=== PATIENT | male | born 1990 | race Caucasian/White ===

== ENCOUNTER 2018-05-25 14:26 | Emergency (ER) | payer SELFPAY ==
[2018-05-25 14:27] VITALS: BP 149/103; PULSE 116; RESP 16; TEMP 36.2; O2SAT 99; BMI 21.2
--- NOTE | 2018-05-25 15:04 | ED.DCSUM_ITS ---
- ER Visit Summary Date of Service: 05/25/18 Chief Complaint: Accidental overdose History of Present Illness: The patient is a 27 M presents to the emergency department after an accidental overdose. Patient states that he abuses ketamine. He states that he was snorting today and thinks it may been laced w ith heroin or fentanyl. He became unresponsive. His brother actually gave him intranasal Narcan. By the time squad arrived, he was breathing on his own and was awake. He denies being suicidal or homicidal. He said no thoughts of self- harm. He states that he does use occasionally, but has no interest in detox. Denies any other coingestion. He is otherwise healthy. Physical Examination: Vital signs reviewed General: Well-nourished, well-developed Head: Normocephalic, atraumatic Eyes: Pupils equal and reactive, extraocular muscles intact Neck, supple, no lymphadenopathy Heart: Regular rate and rhythm Respiratory: No distress, clear bilaterally Abdomen: Soft, nontender, nondistended, no peritoneal signs Back: Nontender Extremities: Nontender, no edema, no cords Skin: Normal color no rash Neuro: Alert and oriented, no focal or lateralizing deficits Test Results: [] Emergency Department Course and Treatment: The patient presents after accidental overdose. He did require intranasal Narcan prior to arrival. Patient was observed. He was mildly tachycardic, but had no hypoxia. He had no tachypnea. He denies any other symptoms. He is not suicidal or homicidal. He has no interest in detox at this time. Patient will be given outpatient resources for detox at the ends of changing his mind. He was instructed on concerning symptoms and reasons to return. He will be discharged home. Treatment Plan: [] Disposition: Discharge Impression: Accidental opiate overdose This note was generated with [employer] dictation software. It may contain incorrect words, spelling, and punctuation that were not noted in review of the chart prior to signing ED Disposition - Plan for ED Patient: Chief Complaint: Overdose Instructions: ED Overdose Opiate Referrals: Counseling,Center [GROUP OF PHYSICIANS] -
[2018-05-25 15:42] VITALS: BP 137/89; PULSE 93; RESP 16; O2SAT 97
== END 2018-05-25 15:43 | disposition home or self-care (01) ==
PROVIDERS: Emergency Provider Emergency Medicine
DX: T40.601A Poisoning by unspecified narcotics, accidental (unintentional), initial encounter (principal); Z72.0 Tobacco use
CPT/HCPCS: 99284

== ENCOUNTER 2018-11-17 11:14 | Emergency (ER) | payer SELFPAY ==
[2018-11-17 11:14] VITALS: BP 147/111; PULSE 98; RESP 14; TEMP 36.5; O2SAT 99; BMI 20.3
--- NOTE | 2018-11-17 11:30 | ED.VIS.GEN ---
History of Present Illness Chief Complaint: Overdose Informant: Patient, Family Onset: Today Context: Sudden Onset Timing: Intermittent Quality: Respiratory arrest Location: Not applicable Current Severity: Resolved Maximum Severity: Severe Worsened by: Snorted brown powder Relieved by: Intranasal Narcan Associated Symptoms: Unresponsiveness with respiratory arrest Narrative: Patient is a 28-year-old male who has history of opiate dependency. He reports snorting a brown powder. He believes it was a combination of heroin and horse tranquilizer. Squad was called because he became unresponsive with no respiratory effort. He awoke after intranasal Narcan. He is presently upset because he may lose his girlfriend. When asked to explain he was told that if he uses drugs again she would leave him. Prior similar symptoms: Yes Recent Illness/Hospitalization: Yes - Past Medical History (1) Opiate dependence Status: Acute Past Medical History - Allergies and Home Meds Allergies/Adverse Reactions: Allergies No Known Allergies Allergy (Verified 05/25/18 14:31) Primary Care Physician: Care Physician,No Primary [Primary Care Provider] - Prior records reviewed: No Surgical History: no surgical history Lives: Alone Smoking Status: Current every day smoker Drugs: Heroin Review of Systems General: Denies: Chills, Fever, Malaise, Sweats Eyes: Denies: Visual changes - bilaterally, Blurred Vision - bilaterally ENT: Reports: Rhinorrhea. Denies: Bilateral ear pain Cardiovascular: Denies: Chest pain, Palpitations Respiratory: Denies: Dyspnea, Sputum, Dyspnea on exertion Gastrointestinal: Denies: Abdominal pain, Nausea, Vomiting, Diarrhea Musculoskeletal: Denies: Myalgias, Arthralgias, Neck pain, Back pain, Swelling, Extremity Pain Skin: Denies: Rash Neurological: Denies: Headache, Weakness Psych: Reports: Depression Allergy: Denies: Uticaria, Swelling of the mouth Physical Exam Vital Signs/Narrative: Vital Signs Temp Pulse Resp BP Pulse Ox 11/17/18 11:14 97.7 F L 98 14 147/111 H 99 Inital Vital Signs reviewed: Yes General: Well nourished, Well developed, No Acute Distress, - - Patient is tearful because he reports his girlfriend will leave him since he used drugs. He is not suicidal homicidal. Head: Normocephalic, Atraumatic Eyes: Perrl, EOMI. Negative for: Pale conjunctiva, Scleral icterus, - ENT: Moist mucous membranes, TM's clear. Negative for: No rhinorrhea Neck: Supple, Nontender, No lymphadenopathy, No JVD Cardiovascular: Regular rate, Regular rhythm, No murmurs, Normal S1, Normal S2 Respiratory: No distress, CTA bilaterally, Chest nontender Abdomen: Soft, Nontender, Nondistended, Normal bowel sounds Skin: Normal color, No rash Neurological: Alert, Oriented x3, Cranial nerves II-XII grossly intact, Normal Strength, Normal Sensation, Normal DTR Psychological: Tearful Diagnostic/Tx/Re-eval - Medical Decision Making Patient received Narcan approximately 45 minutes ago. Half-life of Narcan was 30 minutes. Since patient's alert oriented will discharge to home. Patient was offered outpatient follow-up for drug dependency. He declined. ED Disposition - Plan for ED Patient: Disposition: Home or Assisted Living Diagnosis: Respiratory failure due to heroin Instructions: ED Overdose Opiate Referrals: Care Physician,No Primary [Primary Care Provider] -
== END 2018-11-17 12:08 | disposition home or self-care (01) ==
LOC: ED 11:45
PROVIDERS: Emergency Provider Emergency Medicine
DX: T40.1X1A Poisoning by heroin, accidental (unintentional), initial encounter (principal); J96.00 Acute respiratory failure, unspecified whether with hypoxia or hypercapnia; F11.20 Opioid dependence, uncomplicated; Y92.9 Unspecified place or not applicable; F17.200 Nicotine dependence, unspecified, uncomplicated
CPT/HCPCS: 99284

== ENCOUNTER 2018-11-18 19:30 | Emergency (ER) | payer SELFPAY ==
[2018-11-17 11:14] VITALS: BMI 20.3
[2018-11-18 19:30] VITALS: BP 123/98; PULSE 110; RESP 22; TEMP 37.2; O2SAT 99; BMI 22.6
--- NOTE | 2018-11-18 19:42 | ED.VISSUMM ---
- ER Visit Summary Date of Service: 11/18/18 Chief Complaint: Overdose History of Present Illness: The patient is a 28 M who was found unresponsive today. [employer] administered 4 mg of intranasal Narcan. EMS administered a total of 4 mg IV eventually the patient awoke. Her medics state CPR was in process when they got there but they had a pulse but the patient was apneic. Patient also had an overdose yesterday. He tells me he snorted a combination of ketamine and heroin. He states he was just trying to get rid of the batch. He has no complaints currently. He specifically denies any chest pain or shortness of breath. He denies any confusion. Physical Examination: Afebrile noted tachycardia at 110 otherwise vital signs are stable Gen: Well-nourished well-developed Head: Normocephalic atraumatic Eyes: Perrl EOMI ENT: TMs clear no rhinorrhea moist mucous membranes Neck: Supple no lymphadenopathy no JVD nontender CVS: Regular rate tachycardic rhythm no murmurs normal S1-S2 Respiratory: No distress clear to auscultation bilaterally chest nontender Abdomen: Soft nontender nondistended normal bowel sounds no masses Back: Nontender Extremity: Nontender no edema Skin: Normal color no rash Neuro: alert orientated ?3 CN II-XII intact normal strength sensation reflexes gait cerebellar Psych: Normal affect normal mood Emergency Department Course and Treatment: Patient was observed in the emergency department. Will be discharged home with recommendation to seek rehab for his addiction. Family is at bedside and will be taking him home. Impression: 1. Heroin overdose This note was generated with [employer] dictation software. It may contain incorrect words, spelling, and punctuation that were not noted in review of the chart prior to signing ED Disposition - Plan for ED Patient: Disposition: Home or Assisted Living Instructions: ED Overdose Opiate Referrals: [facility] [STAFF PHYSICIAN] - As soon as possible
[2018-11-18 20:27] VITALS: BP 117/77; PULSE 100; RESP 16; O2SAT 95
== END 2018-11-18 20:27 | disposition home or self-care (01) ==
PROVIDERS: Emergency Provider Emergency Medicine
DX: T40.1X1A Poisoning by heroin, accidental (unintentional), initial encounter (principal); R40.20 Unspecified coma; Y92.9 Unspecified place or not applicable; F11.20 Opioid dependence, uncomplicated; Z72.89 Other problems related to lifestyle; Z72.0 Tobacco use
CPT/HCPCS: 99285; A4216

== ENCOUNTER 2019-06-14 15:36 | Inpatient (IN) | payer SELFPAY ==
[2019-06-14 15:37] VITALS: BP 119/80; PULSE 130; RESP 15; TEMP 36.9; O2SAT 96; BMI 21.7
[2019-06-14 15:39] VITALS: O2SAT 96
[2019-06-14 15:40] VITALS: BP 119/80; PULSE 126; RESP 16; TEMP 36.9; O2SAT 96
--- NOTE | 2019-06-14 15:47 | RAD_ITS ---
STUDY: X-RAY CHEST REASON FOR EXAM: Male, 28 years old. Productive cough TECHNIQUE: PA and lateral views of the chest. COMPARISON: None. FINDINGS: Patchy alveolar opacities throughout both lungs most prominent in the right middle lobe consistent with pneumonia. There is no demonstrated pleural abnormality. Normal size heart. Normal mediastinum and anat. Normal visualized pulmonary arteries. Normal visualized aortic arch and descending thoracic aorta. Normal visualized thoracic spine. Normal visualized ribs, clavicles, and shoulders. There is no demonstrated abnormality of the visualized soft tissue structures of the upper abdomen. RAD/Chest PA and Lateral IMPRESSION: Bilateral bronchopneumonia most prominent in the right middle lobe. Electronically Signed: Latrell Mims MD at 16:21 EST Tel , Service support ,
--- NOTE | 2019-06-14 15:47 | EKG12_ITS ---
Test Reason : Blood Pressure : / mmHG Vent. Rate : 116 BPM Atrial Rate : 116 BPM P-R Int : 122 ms QRS Dur : 094 ms QT Int : 312 ms P-R-T Axes : 060 076 043 degrees QTc Int : 433 ms Sinus tachycardia Otherwise normal ECG Confirmed by JAZZY VASQUEZ, JEANNA ([id number]), editor house organ JERRY SUAREZ ([id number]) on 06/18/2019 9:24:58 AM Referred By: PANCHO Confirmed By:CASEY PURCELL MD
--- NOTE | 2019-06-14 15:53 | ED.VISSUMM ---
- ER Visit Summary Date of Service: 06/14/19 Chief Complaint: Cough History of Present Illness: The patient is a 28 M with a cough for 2 weeks. Associated with sputum. It is getting worse. He has had some vomiting after coughing. He denies chest pain. Denies fevers. Denies any history of heart disease, PE, or aortic disease. Physical Examination: Afebrile and vital signs unremarkable except for heart rate of 130. The patient appears uncomfortable but not toxic or in distress. Alert and oriented. HEENT exam shows nasal congestion. Heart is tachycardic but regular. Lungs are clear. Abdomen is soft and nontender. Extremities nontender with no edema. Skin appears unremarkable. Test Results: EKG, chest x-ray, labs pending. Emergency Department Course and Treatment: Patient treated with fluids and Zofran while awaiting results. X-ray shows bilateral pneumonia, worse in the right middle lobe. White count 17.7, hemoglobin 12.6, platelets 463, sodium 132, potassium 3.2, chloride 95, glucose 109, lactate pending, influenza negative, cultures pending. Patient remained stable on reevaluation. He was treated with Levaquin. Given his bilateral pneumonia, sepsis, and his exam, I am recommending admission. I spoke with the hospitalist, Dr. Saxena, who also recommended HIV and tox screen. Those results are pending. Patient will be admitted for further care. Treatment Plan: As above Disposition: Admission Impression: 1. Bilateral pneumonia 2. Sepsis This note was generated with [employer] dictation software. It may contain incorrect words, spelling, and punctuation that were not noted in review of the chart prior to signing ED Disposition - Plan for ED Patient: Referrals: Care Physician,No Primary [Primary Care Provider] -
[2019-06-14 16:05] LABS: Absolute Lymphocyte Count 1.19 X10^3/uL (0.83-4.51); Absolute Neutrophil Count 14.6 X10^3/uL (2.0-7.7); Basophil# 0.05 X10^3/uL; Basophil% 0.3 % (0-1); Eosinophil# 0.04 X10^3/uL; Eosinophils% 0.2 % (0-5); Hematocrit 37.9 % (40-54); Hemoglobin 12.6 g/dL (13.0-16.5); Lymphocyte # 1.19 X10^3/ul (4.0); Lymphocyte % 6.7 % (19-41); Mean Corp Hgb Conc 33.2 g/dL (32-36); Mean Corpuscular Hgb 28.7 pg (27.0-32.0); Mean Corpuscular Volume 86.3 fL (80-94); Mean Platelet Vol. 8.2 fl (6.2-12.0); Monocyte# 1.55 X10^3/uL; Monocyte% 8.8 % (0-10); NRBC Flagged by Analyzer 0 % (0-5); Neutrophil % 82.6 % (47-70); POSITIVE DIFFERENTIAL YES; Platelet Count 463 K/mm3 (150-450); RBC Distribution Width CV 13.2 % (11.6-14.6); RBC Distribution Width SD 41.6 fl (35.1-43.9); Red Blood Count 4.39 M/mm3 (4.6-6.2); White Blood Count 17.7 K/mm3 (4.4-11.0)
[2019-06-14] MEDS: 0.9% Normal Saline 1,000 ML 1000 ML IV (16:07)
[2019-06-14] MEDS: Ondansetron 4 MG/2 ML Vial IV (16:07)
[2019-06-14 16:21] LABS: Anion Gap 10 (5-15); BUN 10 mg/dL (7-18); BUN/Creat Ratio 10.9 RATIO (10-20); Calcium,Total 8.6 mg/dL (8.5-10.1); Chloride 95 mmol/L (98-107); Creatinine, Serum 0.92 mg/dL (0.70-1.30); EST Glomerular Filtration Rate 104 mL/min (>60); Est Glom Filt Rate - Afr Amer 126 mL/min (>60); Estimated Creatinine Clearance 122.71 ml/min; Glucose 109 mg/dL (74-106); Potassium 3.3 mmol/L (3.5-5.1); Sodium Level 132 mmol/L (136-145)
[2019-06-14 16:31] LABS: Differential Indicated SCAN CRITERIA MET
[2019-06-14 17:04] LABS: Platelet Estimate SLT INC (ADEQ)
[2019-06-14 17:05] LABS: Red Cell Morphology NORM C+C NORMAL (NORM C&C)
[2019-06-14 17:42] VITALS: BP 140/95; PULSE 124; RESP 18; TEMP 37.5; O2SAT 98
[2019-06-14] MEDS: levoFLOXacin IV 750 MG/150 ML BAG 100 MG IV (17:53)
[2019-06-14 17:54] LABS: Lactic Acid 1.3 mmol/L (0.4-2.0)
--- NOTE | 2019-06-14 18:02 | ED.RN ---
REFUSED HIV TESTING.
[2019-06-14 18:51] VITALS: BP 126/70; PULSE 118; RESP 20; TEMP 38.7; O2SAT 97
[2019-06-14 18:53] VITALS: BMI 22.5
[2019-06-14 18:57] VITALS: BMI 22.5
--- NOTE | 2019-06-14 20:09 | HP.PCM_ITS ---
History of Present Illness Date of Admission: 06/14/19 The patient is a 28 year old M who has been feeling poorly for about 2 weeks. Sx started as an URI but no pt is c/o chills and a cough with significant sputum production. He has gotten significantly worse so his mother made him come in today. He feels very run down and fatigued. He has a h/o opiate abuse but states that he is not currently using. He denied smoking but later admitted to THC use. PO intake has been poor. He is tachycardic. BP is WNL. He has a WBC ct of 17.7. Lactates are WNL and he is satting well on RA. Past Medical History Allergies No Known Allergies Allergy (Verified 05/25/18 14:31) Home Medications: Ambulatory Orders Medication Instructions Recorded NK 05/25/18 Surgical History: no surgical history Smoking Status: Never smoker Tobacco Use: Secondhand Alcohol: None Drugs: Heroin - h/o, Marijuana Review of Systems Constitutional: Reports: Anorexia, Chills, Malaise, Weakness, Fatigue. Denies: Fever, Night Sweats, Weight Change Eyes: Denies: Blurred vision, Cataracts, Conjunctivae Inflammation, Double vision, Drainage, Eyelid Inflammation, Pain, Redness, Vision Change HEENT: Denies: Difficulty Hearing, Difficulty Swallowing, Dysphasia, Ear Pain, Eye Pain, Hard of Hearing, Head Aches, Hearing Changes, Nasal bleeding, Nasal Congestion, Post Nasal Drip, Sinus Congestion, Sinus Drainage, Sore Throat, Visual Changes Cardiovascular: Denies: Chest Pain, Claudication, Chest Pressure, Chest Tightness, Edema, Heaviness, Light Headedness, Orthopnea, Palpitations, Paroxysmal Noc. Dyspnea, Syncope Respiratory: Reports: Cough, Shortness of Breath, Sputum production. Denies: Hemoptysis, Pleuritic Pain, Shortness of breath at rest, Shortness of breath upon exertion, Wheezing Gastrointestinal: Denies: Abdominal Pain, Constipation, Diarrhea, Dyspepsia, Hematemesis, Hematochezia, Nausea, Melena, Vomiting Genitourinary: Denies: Dysuria, Frequency, Hematuria, Hesitancy, Incontinence, Nocturia, Retention, Urgency Musculoskeletal: Denies: Arm Pain, Back Pain, Foot Pain, Hand Pain, Joint Pain, Joint stiffness, Joint swelling, Joint Tenderness, Leg Pain, Muscle pain, Neck Pain, Shoulder Pain Skin: Denies: Dryness, Jaundice, Lesions, Pruritis, Rash, Skin Changes, Wounds Neurological: Denies: Balance problems, Blurred vision, Double vision, Change in Speech, Slurred speech, Confusion, Difficulty swallowing, Focal weakness, Headaches, Incoordination, Numbness, Tingling, Tremor, Seizures Psychiatric: Denies: Anxiety, Depression, Suicidal Ideations Endocrine: Denies: Change in Body Habitus, Heat/ Cold Intolerance, Polydipsia, Polyuria, Hx of Irradiation, Hx of Thyroiditis Hematologic/ Lymphatic: Denies: Adenopathy, Anemia, Easy Bruising, Easy Bleeding, Petechiae, Purpura, Hx of blood clot, Hx of blood transfusion VTE Information - Inpt Only VTE Present on Admission: No VTE Mechan Device Prophylaxis: None VTE Pharm Prophylaxis ordered?: No - Physical Exam Vitals/I&O's: Vital Signs Temp Pulse Resp BP Pulse Ox 101.7 F H 118 H 20 H 126/70 H 97 06/14/19 18:51 06/14/19 18:51 06/14/19 18:51 06/14/19 18:51 06/14/19 18:51 Oxygen Delivery Method Room Air Weight: 75.296 kg Body Mass Index (BMI) 22.5 Intake and Output for Last 24 Hours 06/12/19 06/13/19 06/14/19 23:59 23:59 23:59 Intake Total 1150 / 1150 Balance 1150 / 1150 General: Alert, Oriented x3, Cooperative, No apparent distress, Well developed, Well nourished, - - mother at bedside, non-toxic appearing HEENT: Atraumatic, PERRLA, EOMI, Normocephalic, EAC Clear Oral: Moist Mucosa, No Gingival or Mucosal Lesions/ Ulcerations Neck: Supple, No JVD, Negative Carotid Bruits, Negative Hepatojugular Reflux, No Nodes, No Nuchal Rigidity, Trachea Midline, Thyroid Normal Size and Texture Lungs: No wheeze, No rales, Rhonchi - primarily on the R but scattered, - - comfortable breathing on RA Cardiovascular: Regular Rhythm, Normal S1, Normal S2, No murmurs, No Ectopic Activity, Tachycardic Abdomen: Bowel Sounds Present, Soft, Non Tender, Non-Distended, No Hepato- splenomegaly, No hernias noted Extremities: No clubbing, No cyanosis, No edema, Capillary Refill Less than 3 Seconds, No Calf Tenderness Skin: No rashes, No breakdown Musculoskeletal: No Tenderness to Palpation of Joints or Extremities Lymphatic: No Cervical, Supraclavicular, or Inguinal Adenopathy Neurological: Cranial nerves II-XII grossly intact, Deep Tendon Reflexes 2+/4 and Symmetrical, Neuro grossly intact, Motor Exam 5/5 strength throughout Psych/Mental Status: Appropriate, Flat Affect, - - A&Ox3 Microbiology Past 72 Hours 06/14/19 16:00 Mucosa - Nose Influenza Types A,B Direct FA (JINA) - Final Laboratory Results 06/14/19 15:57: WBC 17.7 H, RBC 4.39 L, Hgb 12.6 L, Hct 37.9 L, MCV 86.3, MCH 28.7, MCHC 33.2, RDW Std Deviation 41.6, RDW Coeff of Phoebe 13.2, Plt Count 463 H, MPV 8.2, Immature Gran % (Auto) 1.400 H, Neut % (Auto) 82.6 H, Lymph % (Auto) 6.7 L, [place] % (Auto) 8.8, Eos % (Auto) 0.2, Baso % (Auto) 0.3, Absolute Neuts (auto) 14.6 H, Absolute Lymphs (auto) 1.19, Nucleated RBC % 0, Differential Comment SEE COMMENT, Diff Path Review Tracy rudd, Platelet Estimate T INC, RBC Morphology NORM C+C 06/14/19 15:57: Sodium 132 L, Potassium 3.3 L, Chloride 95 L, Carbon Dioxide 27.0, Anion Gap 10, BUN 10, Creatinine 0.92, Estim Creat Clear Calc 122.71, Est GFR (MDRD) Af Amer 126, Est GFR (MDRD) Non-Af 104, BUN/Creatinine Ratio 10.9, Glucose 109 H, Calcium 8.6 06/14/19 17:13: Lactic Acid 1.3 06/14/19 17:20: Urine Opiates Screen Pending, Urine Methadone Screen Pending, Ur Barbiturates Screen Pending, Ur Phencyclidine Scrn Pending, Ur Amphetamines Screen Pending, U Methamphetamin-MDMA Pending, U Benzodiazepines Scrn Pending, Urine Cocaine Screen Pending, U Cannabinoids Screen Pending, Ur Drug Screen Comment Pending 06/14/19 19:35: HIV 1&2 Antibody Pending Current Medications Albuterol Sulfate (Ventolin Aerosols) 2.5 mg INHALATION Q6H.RT TREY Azithromycin (Zithromax) 250 mg PO Q24 TREY Benzonatate (Tessalon Perle) 100 mg PO Q4H PRN PRN PRN Reason: COUGH Guaifenesin (Mucinex) 1,200 mg PO BID TREY Ceftriaxone Sodium 2 gm/ (Sodium Chloride) 50 mls @ 100 mls/hr IV Q24 TREY Sodium Chloride () 10 - 40 ml IV UD PRN PRN Reason: SALINE FLUSH Assessment/Plan All Active Problems Opiate dependence (Acute) RML PNA -check sputum cx -blood cx done in ED -start CTX and Azithro for now -check viral PCR/urine antigens -check HIV -albuterol prn -Tessalon pearles -mucinex -check PA and Lat film in am Hyponatremia -may be related to pna -repeat in am -may need to check osms and urine Na if worsens -IVF Hypokalemia -PO Kdur x 40 mEq Mild Anemia -trend -no s/o acute blood loss H/O opiate/THC abuse -tox pending Code Visit Inpatient E&M: 18386 Init Hosp L3
[2019-06-14 20:49] LABS: Amphetamine Urine VISTA NEGATIVE (<1000 ng/mL); Barbiturate Urine VISTA NEGATIVE (< 200 ng/mL); Benzodiazepine Urine VISTA NEGATIVE (< 200 ng/mL); Cocaine Urine VISTA NEGATIVE (< 300 ng/mL); Ecstacy Urine VISTA NEGATIVE (< 500 ng/mL); Methadone Urine VISTA NEGATIVE (< 300 ng/mL); PCP Urine VISTA NEGATIVE (< 25 ng/mL); THC Urine VISTA NEGATIVE (< 50 ng/mL); Vista UDS pH Range 7
[2019-06-14] MEDS: Acetaminophen 325 MG Tablet 650 MG PO (21:19)
[2019-06-14] MEDS: 0.9% Normal Saline 1,000 ML 150 ML IV (21:19)
[2019-06-14 21:39] LABS: HIV - WCH Non-Reactive (Nonreactive)
[2019-06-14 23:53] LABS: M R Staph aureus DNA By PCR Negative (Negative); Probe Check PASS; Specimen Processing Control PASS
[2019-06-15] VITALS (9 sets, daily range): BP systolic 101–123; BP diastolic 55–72; PULSE 99–127; RESP 16–26; TEMP 37.1–39.4; O2SAT 94–99
[2019-06-15] MEDS: guaiFENesin 10 ML UDC (200MG/10ML) PO ×4 (00:31→23:08)
[2019-06-15] MEDS: Acetaminophen 325 MG Tablet 650 MG PO ×4 (04:51→23:08)
[2019-06-15] MEDS: 0.9% Normal Saline 1,000 ML 150 ML IV ×3 (04:52→19:50)
[2019-06-15 06:18] LABS: Absolute Lymphocyte Count 0.87 X10^3/uL (0.83-4.51); Absolute Neutrophil Count 13.8 X10^3/uL (2.0-7.7); Basophil# 0.05 X10^3/uL; Basophil% 0.3 % (0-1); Eosinophil# 0.02 X10^3/uL; Eosinophils% 0.1 % (0-5); Hematocrit 33.1 % (40-54); Hemoglobin 10.8 g/dL (13.0-16.5); Lymphocyte # 0.87 X10^3/ul (4.0); Lymphocyte % 5.3 % (19-41); Mean Corp Hgb Conc 32.6 g/dL (32-36); Mean Corpuscular Hgb 28.6 pg (27.0-32.0); Mean Corpuscular Volume 87.6 fL (80-94); Mean Platelet Vol. 8.5 fl (6.2-12.0); Monocyte# 1.46 X10^3/uL; Monocyte% 8.9 % (0-10); NRBC Flagged by Analyzer 0 % (0-5); Neutrophil # 13.78 X10^3/uL (2.7-7.7); Neutrophil % 83.8 % (47-70); Platelet Count 413 K/mm3 (150-450); RBC Distribution Width CV 13.2 % (11.6-14.6); RBC Distribution Width SD 42.5 fl (35.1-43.9); Red Blood Count 3.78 M/mm3 (4.6-6.2); White Blood Count 16.4 K/mm3 (4.4-11.0)
[2019-06-15 06:37] LABS: Anion Gap 9 (5-15); BUN 8 mg/dL (7-18); BUN/Creat Ratio 9.2 RATIO (10-20); Calcium,Total 7.9 mg/dL (8.5-10.1); Chloride 104 mmol/L (98-107); Creatinine, Serum 0.87 mg/dL (0.70-1.30); EST Glomerular Filtration Rate 111 mL/min (>60); Est Glom Filt Rate - Afr Amer 134 mL/min (>60); Estimated Creatinine Clearance 134.63 ml/min; Glucose 144 mg/dL (74-106); Potassium 3.7 mmol/L (3.5-5.1); Sodium Level 137 mmol/L (136-145)
--- NOTE | 2019-06-15 08:27 | NURSING ---
off unit to radiology at this time with [employer].
--- NOTE | 2019-06-15 08:30 | RAD_ITS ---
STUDY: X-RAY CHEST REASON FOR EXAM: Male, 28 years old. Pneumonia, cough TECHNIQUE: PA and lateral views of the chest. COMPARISON: 06/14/2019 FINDINGS: No change in the patchy alveolar opacities throughout both lungs particularly the right middle lobe and superior segment the right lower lobe consistent with pneumonia. There is no demonstrated pleural abnormality. Normal size heart. Normal mediastinum and anat. Normal visualized pulmonary arteries. Normal visualized aortic arch and descending thoracic aorta. Normal visualized thoracic spine. Normal visualized ribs, clavicles, and shoulders. There is no demonstrated abnormality of the visualized soft tissue structures of the upper abdomen. RAD/Chest PA and Lateral IMPRESSION: No change of bilateral bronchopneumonia to Electronically Signed: Latrell Mims MD at 8:44 EST Tel , Service support ,
[2019-06-15] MEDS: 0.9% Saline Lock 10 ML Syringe IV (09:16)
[2019-06-15] MEDS: Azithromycin 250 MG Tablet PO (09:17)
--- NOTE | 2019-06-15 10:37 | PN_ITS ---
Subjective: Patient seen and examined. Was admitted with a complaint of fever, chills and productive cough for 2 weeks prior to admission. Symptoms started as an upper respiratory infection but gradually worsened. He also had associated fatigue. He denied any smoking history but said he is exposed to secondhand smoke at home and did admit to marijuana use. On admission he was tachycardic and he had a white cell count of 17.7. Lactic acid was within normal limits. Patient seen and examined. He still feels weak but says is better than yesterday. He still coughing and is productive of copious yellowish sputum. He states fever is improving though per review of chart, temperature peaked at 103 Fahrenheit overnight. He remains tachycardic, with HR up to 118. tachypnea is resolving, but white cell count is 16.4 today, down from 17.7 on admission. Vitals/I&O's: Vital Signs Temp Pulse Resp BP Pulse Ox 99.4 F H 113 H 18 113/72 97 06/15/19 09:29 06/15/19 09:29 06/15/19 09:29 06/15/19 09:29 06/15/19 09:29 Oxygen Delivery Method Room Air Weight: 166 lb Body Mass Index (BMI) 22.5 Intake and Output for Last 24 Hours 06/13/19 06/14/19 06/15/19 23:59 23:59 23:59 Intake Total 1150 / 1150 3672.5 / 3672.5 Balance 1150 / 1150 3672.5 / 3672.5 General: Alert, Oriented x3, Cooperative, No apparent distress HEENT: Atraumatic, PERRLA, EOMI, Normocephalic Oral: Moist Mucosa Neck: Supple, No JVD, Negative Carotid Bruits Lungs: - - coarse crackles in mid and lower right lung moreno, no wheezes or rhincki. on room air. Cardiovascular: Regular rate, Normal S1, Normal S2, No murmurs, Tachycardic Abdomen: Bowel Sounds Present, Soft, Non Tender, Non-Distended, No Hepato- splenomegaly Extremities: No clubbing, No cyanosis, No edema, Capillary Refill Less than 3 Seconds Skin: No rashes, No breakdown Musculoskeletal: No Tenderness to Palpation of Joints or Extremities Lymphatic: No Cervical, Supraclavicular, or Inguinal Adenopathy Neurological: Cranial nerves II-XII grossly intact, Neuro grossly intact, Motor Exam 5/5 strength throughout Psych/Mental Status: Normal Affect, Appropriate, Alert and oriented to time, place, person, mood and affect Microbiology Past 72 Hours 06/14/19 22:50 Mucosa - Nasopharyngeal Respiratory Panel (PCR) - Final 06/14/19 20:15 Urine, Clean Catch Streptococcus pneumoniae Antigen (M - Final 06/14/19 20:15 Urine, Clean Catch Legionella Antigen - Final 06/14/19 16:00 Mucosa - Nose Influenza Types A,B Direct FA (JINA) - Final Laboratory Results 06/14/19 15:57: WBC 17.7 H, RBC 4.39 L, Hgb 12.6 L, Hct 37.9 L, MCV 86.3, MCH 28.7, MCHC 33.2, RDW Std Deviation 41.6, RDW Coeff of Phoebe 13.2, Plt Count 463 H, MPV 8.2, Immature Gran % (Auto) 1.400 H, Neut % (Auto) 82.6 H, Lymph % (Auto) 6.7 L, Martin % (Auto) 8.8, Eos % (Auto) 0.2, Baso % (Auto) 0.3, Absolute Neuts (auto) 14.6 H, Absolute Lymphs (auto) 1.19, Nucleated RBC % 0, Differential Comment SEE COMMENT, Diff Path Review Tracy rudd, Platelet Estimate T INC, RBC Morphology NORM C+C 06/14/19 15:57: Sodium 132 L, Potassium 3.3 L, Chloride 95 L, Carbon Dioxide 27.0, Anion Gap 10, BUN 10, Creatinine 0.92, Estim Creat Clear Calc 122.71, Est GFR (MDRD) Af Amer 126, Est GFR (MDRD) Non-Af 104, BUN/Creatinine Ratio 10.9, Glucose 109 H, Calcium 8.6 06/14/19 15:57: Magnesium 2.0 06/14/19 17:13: Lactic Acid 1.3 06/14/19 19:35: HIV 1&2 Antibody Non-Reactive 06/14/19 20:15: Urine Opiates Screen POSITIVE H, Urine Methadone Screen NEGATIVE, Ur Barbiturates Screen NEGATIVE, Ur Phencyclidine Scrn NEGATIVE, Ur Amphetamines Screen NEGATIVE, U Methamphetamin-MDMA NEGATIVE, U Benzodiazepines Scrn NEGATIVE, Urine Cocaine Screen NEGATIVE, U Cannabinoids Screen NEGATIVE, Ur Drug Screen Comment 06/14/19 21:20: MRSA (PCR) Negative 06/15/19 05:57: WBC 16.4 H, RBC 3.78 L, Hgb 10.8 L, Hct 33.1 L, MCV 87.6, MCH 28.6, MCHC 32.6, RDW Std Deviation 42.5, RDW Coeff of Phoebe 13.2, Plt Count 413, MPV 8.5, Immature Gran % (Auto) 1.600 H, Neut % (Auto) 83.8 H, Lymph % (Auto) 5.3 L, Martin % (Auto) 8.9, Eos % (Auto) 0.1, Baso % (Auto) 0.3, Absolute Neuts (auto) 13.8 H, Absolute Lymphs (auto) 0.87, Nucleated RBC % 0 06/15/19 05:57: Sodium 137, Potassium 3.7, Chloride 104, Carbon Dioxide 24.0, Anion Gap 9, BUN 8, Creatinine 0.87, Estim Creat Clear Calc 134.63, Est GFR (MDRD) Af Amer 134, Est GFR (MDRD) Non-Af 111, BUN/Creatinine Ratio 9.2 L, Glucose 144 H, Calcium 7.9 L, Magnesium 2.0 Diagnostic Data Chest X-Ray 06/15/19 08:30 IMPRESSION: No change of bilateral bronchopneumonia to Electronically Signed: Latrell Mims MD at 8:44 EST Tel , Service support , Current Medications Acetaminophen (Tylenol) 650 mg PO Q6H PRN PRN PRN Reason: Pain 1-05/03, fever Last Admin: 06/15/19 04:51 Dose: 650 mg Documented by: Al Hydroxide/Mg Hydroxide (Mylanta Ii) 15 - 30 ml PO Q4H PRN PRN PRN Reason: INDIGESTION Albuterol Sulfate (Ventolin Aerosols) 2.5 mg INHALATION Q2H PRN PRN PRN Reason: dyspnea, wheezing Albuterol/Ipratropium (Duoneb) 3 ml INHALATION Q6HWA.RT TREY Last Admin: 06/15/19 06:40 Dose: Not Given Documented by: Azithromycin (Zithromax) 250 mg PO Q24 [facility] Last Admin: 06/15/19 09:17 Dose: 250 mg Documented by: Benzonatate (Tessalon Perle) 100 mg PO Q4H PRN PRN PRN Reason: COUGH Guaifenesin (Robitussin) 10 ml PO Q4H PRN PRN PRN Reason: COUGH Last Admin: 06/15/19 00:31 Dose: 10 ml Documented by: Hydralazine HCl (Apresoline Iv) 10 mg IV Q4H PRN PRN PRN Reason: SBP > 160 Ceftriaxone Sodium 2 gm/ (Sodium Chloride) 50 mls @ 100 mls/hr IV Q24 [facility] Last Admin: 06/15/19 09:16 Dose: 100 mls/hr Documented by: Sodium Chloride () 1,000 mls @ 150 mls/hr IV .Q6H40M [facility] Last Infusion: 06/15/19 08:25 Dose: 0 mls/hr Documented by: Magnesium Hydroxide (Milk Of Magnesia) 30 ml PO DAILY PRN PRN Reason: Constipation Ondansetron HCl (Zofran) 4 mg IV Q8H PRN PRN PRN Reason: NAUSEA/VOMITING Phenol/Menthol (Chloraseptic (Bkc)) 5 spray MM Q2H PRN PRN PRN Reason: SORE THROAT Sodium Chloride () 10 - 40 ml IV UD PRN PRN Reason: SALINE FLUSH Last Admin: 06/15/19 09:16 Dose: 10 ml Documented by: STROKE Vital Signs/Narrative: Vital Signs Temp Pulse Resp BP Pulse Ox 06/15/19 09:29 99.4 F H 113 H 18 113/72 97 Medical Necessity - Tobacco Use Smoking Status: Never smoker Tobacco Use: Secondhand Assessment/Plan All Active Problems Opiate dependence (Acute) 1. Sepsis due to bilateral bronchopneumonia * SIRS criteria is 3/4 (tachypnea, fever and leucocytosis) * on IV ceftriaxone and azithromycin * HIV screen ws negative and urine tox was positive for opiates; lactic acid was only 1.3 * urine for strep and Legionella were negative, and sputum culture and gram stain are pending. Respiratory panel was negative and blood cultures are pending * continue breathing treatments, mucinex and antibiotics * continue hydrating with IVF * tylenol for fever * 2. Hypokalemia; resolved 3. hyponatremia: resolved with IVF administration 4. Anemia: Hb is 10.8, was 12.6 on admission. will continue to monitor 5. History of opiate abuse: urine tox was positive for opiates. Counseled to quit. Will benefit from outpatient counseling. DVT prophylaxis: will start lovenox Code Visit Inpatient E&M: 75972 Subs Hosp L3
[2019-06-15 10:53] LABS: Pathologist Review Reviewed
[2019-06-15 11:10] LABS: Cholesterol 106 mg/dL (200); High Density Lipoprotein 16 mg/dL; Triglycerides 98 mg/dL; Very Low Density Lipoprotein 20 mg/dL (5-40)
--- NOTE | 2019-06-15 11:29 | CASEMGMT ---
Social Work Note Pt is listed as self-pay. SW met with pt. Pt states he filled out papers yesterday for no insurance. SW provided Medicaid application, [employer], Rx assistance, HCAP application, [employer] and Liana Ackerman information. SW reviewed PFS notes, and pt filled out HCAP application yesterday. Per H+P, pt does have history of opiate use but pt denied currently using. Pt denied additional needs or concerns at this time, denied using any substances to this worker. Kiara Queen MATERIALS TECHNICIAN, PARTY HOST/HOSTESS
[2019-06-15] MEDS: Ipratropium/Albuterol Sulfate 3 ML AMPUL.NEB INHALATION ×2 (13:35→19:02)
--- NOTE | 2019-06-15 16:20 | CASEMGMT ---
RN KATE RECREATIONAL ASSISTANT CM to room to meet with patient for initial transition planning/care coordination assessment. LISA LOVE introduced self and role at [facility]. Pt voices understanding and consents to assessment at this time. Pt resting in bed in no distress at this time. Pt is A/O at this time and answers all questions appropriately. Care providers, pharmacy, and demographics verified/updated at this time. PCP: No PCP. Has been given information by . Also given list of local PCP's for pt to review once he is has insurance. Specialists: none Preferred Pharmacy: [facility] Insurance: none. See note. Prescription Benefit: None. May need [facility] Rx assist program if meds are not affordable @ D/C. Living Will/HPOA: [facility] does not have LW or HCPOA . Interested in more information but [facility] does not want to talk with at this time to complete paperwork. Provided information on advanced directives and given Social Service rac card with number to call if chooses in the future to utilize [facility] social work for advanced directive completion. LNOK: Mom Living Arrangements: Lives with his brother and a friend. States is independent. Transportation: Does not drive. Brother or mom or step-dad provide transportation. DME: Denies using any DME and denies needs. HHC/SNF: No history of either. No needs identified. Pt wishes to return home and states has no concerns with going home at time of discharge. Currently is unemployed and states he is looking for employment. CM to follow for any discharge planning/needs. Pt voices no further concerns/needs at this time. Advised pt to ask for CM if any further questions/concerns/needs arise. Voices understanding. PLAN: Home w/discharge plans in place. May need [facility] Rx assist program if meds @ discharge are not affordable. Servando TUCKER RN, CM
[2019-06-15] MEDS: Ondansetron 4 MG/2 ML Vial IV (16:59)
[2019-06-16] VITALS (7 sets, daily range): BP systolic 106–136; BP diastolic 61–73; PULSE 80–116; RESP 20–22; TEMP 36.4–38.4; O2SAT 92–100
[2019-06-16] MEDS: 0.9% Normal Saline 1,000 ML 150 ML IV ×4 (02:37→23:10)
[2019-06-16] MEDS: Acetaminophen 325 MG Tablet 650 MG PO ×3 (05:38→21:58)
[2019-06-16] MEDS: guaiFENesin 10 ML UDC (200MG/10ML) PO ×5 (05:38→22:23)
[2019-06-16 07:26] LABS: Absolute Lymphocyte Count 0.81 X10^3/uL (0.83-4.51); Absolute Neutrophil Count 16.6 X10^3/uL (2.0-7.7); Basophil# 0.05 X10^3/uL; Basophil% 0.3 % (0-1); Eosinophil# 0.02 X10^3/uL; Eosinophils% 0.1 % (0-5); Hematocrit 33.4 % (40-54); Hemoglobin 11.1 g/dL (13.0-16.5); Lymphocyte # 0.81 X10^3/ul (4.0); Lymphocyte % 4.3 % (19-41); Mean Corp Hgb Conc 33.2 g/dL (32-36); Mean Corpuscular Hgb 29.1 pg (27.0-32.0); Mean Corpuscular Volume 87.4 fL (80-94); Mean Platelet Vol. 8.5 fl (6.2-12.0); Monocyte# 1.24 X10^3/uL; Monocyte% 6.5 % (0-10); NRBC Flagged by Analyzer 0 % (0-5); Neutrophil % 87.3 % (47-70); Platelet Count 503 K/mm3 (150-450); RBC Distribution Width CV 13.5 % (11.6-14.6); Red Blood Count 3.82 M/mm3 (4.6-6.2)
[2019-06-16 08:17] LABS: Anion Gap 8 (5-15); BUN 6 mg/dL (7-18); BUN/Creat Ratio 9.5 RATIO (10-20); Calcium,Total 7.6 mg/dL (8.5-10.1); Chloride 103 mmol/L (98-107); Creatinine, Serum 0.63 mg/dL (0.70-1.30); EST Glomerular Filtration Rate 160 mL/min (>60); Est Glom Filt Rate - Afr Amer 193 mL/min (>60); Estimated Creatinine Clearance 185.92 ml/min; Glucose 118 mg/dL (74-106); Potassium 3.5 mmol/L (3.5-5.1); Sodium Level 136 mmol/L (136-145)
[2019-06-16] MEDS: Azithromycin 250 MG Tablet PO (09:25)
--- NOTE | 2019-06-16 10:34 | PN_ITS ---
Subjective: Patient seen and examined. He feels much better today. He states cough is improving though still very productive of yellowish sputum. He denies any fever or chills, nausea vomiting or diarrhea or shortness of breath. Review of systems otherwise negative. Labs and vitals reviewed. He did have a temperature 100 Fahrenheit at around 2:30 AM attention per chart remained down since. Some therapy that 103 Fahrenheit yesterday. Vitals/I&O's: Vital Signs Temp Pulse Resp BP Pulse Ox 97.6 F L 103 H 20 H 115/64 94 06/16/19 09:32 06/16/19 09:32 06/16/19 09:32 06/16/19 09:32 06/16/19 09:32 Oxygen Delivery Method Room Air Weight: 166 lb Body Mass Index (BMI) 22.5 Intake and Output for Last 24 Hours 06/14/19 06/15/19 06/16/19 23:59 23:59 23:59 Intake Total 1150 / 1150 5990.0 / 5990.0 2730 / 2730 Output Total 50 / 50 Balance 1150 / 1150 5940.0 / 5940.0 2730 / 2730 General: Alert, Oriented x3, Cooperative, No apparent distress HEENT: Atraumatic, PERRLA, EOMI, Normocephalic Oral: Moist Mucosa Neck: Supple, No JVD, Negative Carotid Bruits Lungs: - - few coarse crackles in mid and lower right lung moreno, no wheezes or rhonchi. on room air. Cardiovascular: Regular rate, Normal S1, Normal S2, No murmurs, Tachycardic Abdomen: Bowel Sounds Present, Soft, Non Tender, Non-Distended, No Hepato- splenomegaly Extremities: No clubbing, No cyanosis, No edema, Capillary Refill Less than 3 Seconds Skin: No rashes, No breakdown Musculoskeletal: No Tenderness to Palpation of Joints or Extremities Lymphatic: No Cervical, Supraclavicular, or Inguinal Adenopathy Neurological: Cranial nerves II-XII grossly intact, Neuro grossly intact, Motor Exam 5/5 strength throughout Psych/Mental Status: Normal Affect, Appropriate, Alert and oriented to time, place, person, mood and affect Microbiology Past 72 Hours 06/14/19 17:20 Sputum, Expectorated/Coughed Gram Stain - Final 06/14/19 17:20 Sputum, Expectorated/Coughed Respiratory Culture - Preliminary Mixed normal respiratory rick. No Haemophilus, Streptococcus pneumoniae, beta-hemolytic Streptococcus or Staphylococcus aureus isolated. 06/14/19 22:50 Mucosa - Nasopharyngeal Respiratory Panel (PCR) - Final 06/14/19 20:15 Urine, Clean Catch Streptococcus pneumoniae Antigen (M - Final 06/14/19 20:15 Urine, Clean Catch Legionella Antigen - Final 06/14/19 16:00 Mucosa - Nose Influenza Types A,B Direct FA (JINA) - Final Laboratory Results 06/14/19 15:57: Diff Path Review Reviewed 06/15/19 05:57: Triglycerides 98, Cholesterol 106, LDL Cholesterol 70, VLDL Cholesterol 20, HDL Cholesterol 16 L 06/16/19 06:35: WBC 19.0 H, RBC 3.82 L, Hgb 11.1 L, Hct 33.4 L, MCV 87.4, MCH 29.1, MCHC 33.2, RDW Std Deviation 43.0, RDW Coeff of Phoebe 13.5, Plt Count 503 H, MPV 8.5, Immature Gran % (Auto) 1.500 H, Neut % (Auto) 87.3 H, Lymph % (Auto) 4.3 L, [place] % (Auto) 6.5, Eos % (Auto) 0.1, Baso % (Auto) 0.3, Absolute Neuts (auto) 16.6 H, Absolute Lymphs (auto) 0.81 L, Nucleated RBC % 0 06/16/19 06:35: Sodium 136, Potassium 3.5, Chloride 103, Carbon Dioxide 25.0, Anion Gap 8, BUN 6 L, Creatinine 0.63 L, Estim Creat Clear Calc 185.92, Est GFR (MDRD) Af Amer 193, Est GFR (MDRD) Non-Af 160, BUN/Creatinine Ratio 9.5 L, Glucose 118 H, Calcium 7.6 L Diagnostic Data Chest X-Ray 06/15/19 08:30 IMPRESSION: No change of bilateral bronchopneumonia to Electronically Signed: Latrell Mims MD at 8:44 EST Tel , Service support , Current Medications Acetaminophen (Tylenol) 650 mg PO Q6H PRN PRN PRN Reason: Pain 1-1010, fever Last Admin: 06/16/19 05:38 Dose: 650 mg Documented by: Al Hydroxide/Mg Hydroxide (Mylanta Ii) 15 - 30 ml PO Q4H PRN PRN PRN Reason: INDIGESTION Albuterol Sulfate (Ventolin Aerosols) 2.5 mg INHALATION Q2H PRN PRN PRN Reason: dyspnea, wheezing Albuterol/Ipratropium (Duoneb) 3 ml INHALATION Q6HWA.RT [facility] Last Admin: 06/16/19 07:39 Dose: Not Given Documented by: Azithromycin (Zithromax) 250 mg PO Q24 [facility] Last Admin: 06/16/19 09:25 Dose: 250 mg Documented by: Benzonatate (Tessalon Perle) 100 mg PO Q4H PRN PRN PRN Reason: COUGH Guaifenesin (Robitussin) 10 ml PO Q4H PRN PRN PRN Reason: COUGH Last Admin: 06/16/19 09:30 Dose: 10 ml Documented by: Hydralazine HCl (Apresoline Iv) 10 mg IV Q4H PRN PRN PRN Reason: SBP > 160 Ceftriaxone Sodium 2 gm/ (Sodium Chloride) 50 mls @ 100 mls/hr IV Q24 [facility] Last Admin: 06/16/19 10:15 Dose: 100 mls/hr Documented by: Sodium Chloride () 1,000 mls @ 150 mls/hr IV .Q6H40M [facility] Last Infusion: 06/16/19 10:16 Dose: 0 mls/hr Documented by: Magnesium Hydroxide (Milk Of Magnesia) 30 ml PO DAILY PRN PRN Reason: Constipation Ondansetron HCl (Zofran) 4 mg IV Q8H PRN PRN PRN Reason: NAUSEA/VOMITING Last Admin: 06/15/19 16:59 Dose: 4 mg Documented by: Phenol/Menthol (Chloraseptic (Bkc)) 5 spray MM Q2H PRN PRN PRN Reason: SORE THROAT Sodium Chloride () 10 - 40 ml IV UD PRN PRN Reason: SALINE FLUSH Last Admin: 06/15/19 09:16 Dose: 10 ml Documented by: STROKE Vital Signs/Narrative: Vital Signs Temp Pulse Resp BP Pulse Ox 06/16/19 09:32 97.6 F L 103 H 20 H 115/64 94 06/16/19 07:33 98.4 F 98 22 H 106/67 92 Medical Necessity - Tobacco Use Smoking Status: Never smoker Tobacco Use: Secondhand Assessment/Plan All Active Problems Opiate dependence (Acute) 1. Sepsis due to bilateral bronchopneumonia * SIRS criteria is 2/4 (tachypnea, fever and leucocytosis) * on IV ceftriaxone and azithromycin; wbc is up to 19 today. * HIV screen was negative and urine tox was positive for opiates; * urine for strep and Legionella were negative. Respiratory panel was negative and blood cultures are pending * sputum cultures showed mixed normal respiratory rick and gram stain negative. * continue breathing treatments, mucinex and antibiotics * tylenol prn * * 2. Hypokalemia: resolved 3. hyponatremia: resolved 4. Anemia: Hb is 11.1. stable 5. History of opiate abuse: * urine tox was positive for opiates. * Denies taking opiates and takes marijuana. Counseled to quit. * Will benefit from outpatient counseling. DVT prophylaxis:SCDs Code Visit Inpatient E&M: 14865 Subs Hosp L3
[2019-06-17] VITALS (7 sets, daily range): BP systolic 111–128; BP diastolic 64–91; PULSE 93–115; RESP 18–20; TEMP 36.6–37.6; O2SAT 92–97
[2019-06-17] MEDS: 0.9% Normal Saline 1,000 ML 150 ML IV ×3 (05:10→19:17)
[2019-06-17] MEDS: guaiFENesin 10 ML UDC (200MG/10ML) PO ×3 (05:11→22:11)
[2019-06-17] MEDS: Acetaminophen 325 MG Tablet 650 MG PO ×2 (05:11→15:10)
[2019-06-17 06:16] LABS: Absolute Lymphocyte Count 1.35 X10^3/uL (0.83-4.51); Absolute Neutrophil Count 12.2 X10^3/uL (2.0-7.7); Basophil# 0.04 X10^3/uL; Basophil% 0.3 % (0-1); Eosinophil# 0.07 X10^3/uL; Eosinophils% 0.5 % (0-5); Hematocrit 36.5 % (40-54); Hemoglobin 11.8 g/dL (13.0-16.5); Lymphocyte # 1.35 X10^3/ul (4.0); Lymphocyte % 9.2 % (19-41); Mean Corp Hgb Conc 32.3 g/dL (32-36); Mean Corpuscular Hgb 28.4 pg (27.0-32.0); Mean Corpuscular Volume 87.7 fL (80-94); Mean Platelet Vol. 9.5 fl (6.2-12.0); Monocyte# 0.87 X10^3/uL; Monocyte% 5.9 % (0-10); NRBC Flagged by Analyzer 0 % (0-5); Neutrophil # 12.18 X10^3/uL (2.7-7.7); Neutrophil % 83.3 % (47-70); Platelet Count 530 K/mm3 (150-450); RBC Distribution Width CV 13.5 % (11.6-14.6); RBC Distribution Width SD 43.4 fl (35.1-43.9); Red Blood Count 4.16 M/mm3 (4.6-6.2); White Blood Count 14.6 K/mm3 (4.4-11.0)
[2019-06-17 06:48] LABS: Anion Gap 10 (5-15); BUN 5 mg/dL (7-18); Chloride 105 mmol/L (98-107); Creatinine, Serum 0.55 mg/dL (0.70-1.30); EST Glomerular Filtration Rate 186 mL/min (>60); Est Glom Filt Rate - Afr Amer 225 mL/min (>60); Estimated Creatinine Clearance 212.96 ml/min; Glucose 95 mg/dL (74-106); Potassium 3.6 mmol/L (3.5-5.1); Sodium Level 139 mmol/L (136-145)
--- NOTE | 2019-06-17 09:23 | PCM.PN.HOSP ---
Subjective: Patient seen and examined. He is feeling better today. He states his cough is getting better and his sputum is now clear instead of yellowish. He denies any shortness of breath, palpitations or dizziness, chest pain, diarrhea vomiting. Review of systems otherwise negative. Labs and vitals reviewed. Temperature has still not settled fully and peaked at 101.1 Fahrenheit overnight. Temperature was 99.7 Fahrenheit this morning. White cell count is still elevated but has trended down to 14. Vitals/I&O's: Vital Signs Temp Pulse Resp BP Pulse Ox 99.7 F H 100 20 H 111/64 92 06/17/19 05:04 06/17/19 07:29 06/17/19 05:04 06/17/19 05:04 06/17/19 05:04 Oxygen Delivery Method Room Air Weight: 166 lb Body Mass Index (BMI) 22.5 Intake and Output for Last 24 Hours 06/15/19 06/16/19 06/17/19 23:59 23:59 23:59 Intake Total 5990.0 / 5990.0 5237.5 / 5237.5 1400 / 1400 Output Total 50 / 50 Balance 5940.0 / 5940.0 5237.5 / 5237.5 1400 / 1400 General: Alert, Oriented x3, Cooperative, No apparent distress HEENT: Atraumatic, PERRLA, EOMI, Normocephalic Oral: Moist Mucosa Neck: Supple, No JVD, Negative Carotid Bruits Lungs: - - minimal crackles in mid and lower right lung moreno, no wheezes or rhonchi. on room air. Cardiovascular: Regular rate, Normal S1, Normal S2, No murmurs, Tachycardic Abdomen: Bowel Sounds Present, Soft, Non Tender, Non-Distended, No Hepato-splenomegaly Extremities: No clubbing, No cyanosis, No edema, Capillary Refill Less than 3 Seconds Skin: No rashes, No breakdown Musculoskeletal: No Tenderness to Palpation of Joints or Extremities Lymphatic: No Cervical, Supraclavicular, or Inguinal Adenopathy Neurological: Cranial nerves II-XII grossly intact, Neuro grossly intact, Motor Exam 5/5 strength throughout Psych/Mental Status: Normal Affect, Appropriate, Alert and oriented to time, place, person, mood and affect Microbiology Past 72 Hours 06/14/19 17:20 Sputum, Expectorated/Coughed Gram Stain - Final 06/14/19 17:20 Sputum, Expectorated/Coughed Respiratory Culture - Final 06/14/19 22:50 Mucosa - Nasopharyngeal Respiratory Panel (PCR) - Final 06/14/19 20:15 Urine, Clean Catch Streptococcus pneumoniae Antigen (M - Final 06/14/19 20:15 Urine, Clean Catch Legionella Antigen - Final 06/14/19 16:00 Mucosa - Nose Influenza Types A,B Direct FA (JINA) - Final Laboratory Results 06/17/19 05:25: WBC 14.6 H, RBC 4.16 L, Hgb 11.8 L, Hct 36.5 L, MCV 87.7, MCH 28.4, MCHC 32.3, RDW Std Deviation 43.4, RDW Coeff of Phoebe 13.5, Plt Count 530 H, MPV 9.5, Immature Gran % (Auto) 0.800, Neut % (Auto) 83.3 H, Lymph % (Auto) 9.2 L, [place] % (Auto) 5.9, Eos % (Auto) 0.5, Baso % (Auto) 0.3, Absolute Neuts (auto) 12.2 H, Absolute Lymphs (auto) 1.35, Nucleated RBC % 0 06/17/19 05:25: Sodium 139, Potassium 3.6, Chloride 105, Carbon Dioxide 24.0, Anion Gap 10, BUN 5 L, Creatinine 0.55 L, Estim Creat Clear Calc 212.96, Est GFR (MDRD) Af Amer 225, Est GFR (MDRD) Non-Af 186, BUN/Creatinine Ratio 9.0 L, Glucose 95, Calcium 8.0 L Diagnostic Data Chest X-Ray 06/15/19 08:30 IMPRESSION: No change of bilateral bronchopneumonia to Electronically Signed: Latrell Mims MD at 8:44 EST Tel , Service support , Current Medications Acetaminophen (Tylenol) 650 mg PO Q6H PRN PRN PRN Reason: Pain 1-1010, fever Last Admin: 06/17/19 05:11 Dose: 650 mg Documented by: Al Hydroxide/Mg Hydroxide (Mylanta Ii) 15 - 30 ml PO Q4H PRN PRN PRN Reason: INDIGESTION Albuterol Sulfate (Ventolin Aerosols) 2.5 mg INHALATION Q2H PRN PRN PRN Reason: dyspnea, wheezing Albuterol/Ipratropium (Duoneb) 3 ml INHALATION Q6HWA.RT [facility] Last Admin: 06/17/19 08:00 Dose: Not Given Documented by: Azithromycin (Zithromax) 250 mg PO Q24 [facility] Last Admin: 06/16/19 09:25 Dose: 250 mg Documented by: Benzonatate (Tessalon Perle) 100 mg PO Q4H PRN PRN PRN Reason: COUGH Guaifenesin (Robitussin) 10 ml PO Q4H PRN PRN PRN Reason: COUGH Last Admin: 06/17/19 05:11 Dose: 10 ml Documented by: Hydralazine HCl (Apresoline Iv) 10 mg IV Q4H PRN PRN PRN Reason: SBP > 160 Ceftriaxone Sodium 2 gm/ (Sodium Chloride) 50 mls @ 100 mls/hr IV Q24 [facility] Last Infusion: 06/16/19 11:07 Dose: Infused Documented by: Sodium Chloride () 1,000 mls @ 150 mls/hr IV .Q6H40M [facility] Last Admin: 06/17/19 05:10 Dose: 150 mls/hr Documented by: Magnesium Hydroxide (Milk Of Magnesia) 30 ml PO DAILY PRN PRN Reason: Constipation Ondansetron HCl (Zofran) 4 mg IV Q8H PRN PRN PRN Reason: NAUSEA/VOMITING Last Admin: 06/15/19 16:59 Dose: 4 mg Documented by: Phenol/Menthol (Chloraseptic (Bkc)) 5 spray MM Q2H PRN PRN PRN Reason: SORE THROAT Sodium Chloride () 10 - 40 ml IV UD PRN PRN Reason: SALINE FLUSH Last Admin: 06/15/19 09:16 Dose: 10 ml Documented by: STROKE Vital Signs/Narrative: Vital Signs Pulse 06/17/19 07:29 100 Medical Necessity - Tobacco Use Smoking Status: Never smoker Tobacco Use: Secondhand Assessment/Plan All Active Problems Opiate dependence (Acute) 1. Sepsis due to bilateral bronchopneumonia SIRS criteria is 1/4 - leucocytosis on IV ceftriaxone and azithromycin; wbc is down to 14.6 today HIV screen was negative and urine tox was positive for opiates; urine for strep and Legionella were negative. Respiratory panel was negative; blood cultures show no growth after 48 hours sputum cultures showed mixed normal respiratory rick and gram stain negative. continue breathing treatments, mucinex and antibiotics tylenol prn 2. Hypokalemia: resolved 3. hyponatremia: resolved 4. Anemia: Hb is 11.8. stable 5. History of opiate abuse: urine tox was positive for opiates. Counseled to quit. Will benefit from outpatient counseling. DVT prophylaxis:SCDs Disposition: for likely DC home tomorrow if temperature is settled and leucocytosis has resolved. Code Visit Inpatient E&M: 60435 Subs Hosp L2
[2019-06-17] MEDS: Azithromycin 250 MG Tablet PO (09:59)
[2019-06-17] MEDS: 0.9% Saline Lock 10 ML Syringe IV (19:54)
[2019-06-18 01:57] VITALS: BP 128/83; PULSE 105; RESP 18; TEMP 38.3; O2SAT 98
[2019-06-18] MEDS: Acetaminophen 325 MG Tablet 650 MG PO (01:57)
[2019-06-18 02:00] VITALS: RESP 18; O2SAT 98
[2019-06-18] MEDS: guaiFENesin 10 ML UDC (200MG/10ML) PO (02:09)
[2019-06-18] MEDS: 0.9% Normal Saline 1,000 ML 150 ML IV (03:11)
[2019-06-18 05:45] LABS: Absolute Lymphocyte Count 1.42 X10^3/uL (0.83-4.51); Absolute Neutrophil Count 11.7 X10^3/uL (2.0-7.7); Basophil# 0.05 X10^3/uL; Basophil% 0.4 % (0-1); Eosinophil# 0.08 X10^3/uL; Eosinophils% 0.6 % (0-5); Hemoglobin 11.4 g/dL (13.0-16.5); Lymphocyte # 1.42 X10^3/ul (4.0); Mean Corp Hgb Conc 32.6 g/dL (32-36); Mean Corpuscular Hgb 28.5 pg (27.0-32.0); Mean Corpuscular Volume 87.5 fL (80-94); Mean Platelet Vol. 8.8 fl (6.2-12.0); Monocyte# 0.89 X10^3/uL; Monocyte% 6.2 % (0-10); NRBC Flagged by Analyzer 0 % (0-5); Neutrophil # 11.66 X10^3/uL (2.7-7.7); Neutrophil % 81.7 % (47-70); Platelet Count 595 K/mm3 (150-450); RBC Distribution Width CV 13.5 % (11.6-14.6); RBC Distribution Width SD 43.6 fl (35.1-43.9); White Blood Count 14.3 K/mm3 (4.4-11.0)
[2019-06-18 06:19] LABS: Anion Gap 7 (5-15); BUN 6 mg/dL (7-18); BUN/Creat Ratio 11.2 RATIO (10-20); Calcium,Total 7.9 mg/dL (8.5-10.1); Chloride 105 mmol/L (98-107); Creatinine, Serum 0.54 mg/dL (0.70-1.30); EST Glomerular Filtration Rate 193 mL/min (>60); Est Glom Filt Rate - Afr Amer 234 mL/min (>60); Glucose 105 mg/dL (74-106); Potassium 3.6 mmol/L (3.5-5.1); Sodium Level 137 mmol/L (136-145)
[2019-06-18 07:43] VITALS: BP 128/83; PULSE 86; RESP 18; TEMP 37.1; O2SAT 97
[2019-06-18 08:33] VITALS: RESP 18
[2019-06-18] MEDS: Azithromycin 250 MG Tablet PO (09:13)
--- NOTE | 2019-06-18 09:22 | DCINST_ITS ---
You will use the following diet at home:: Regular Your food should be the consistency of: Regular Your liquids should be the consistency of: Regular/Thin Discharge Activity: Return to Normal Activity, No Restrictions Call your doctor if you observe: Fever of 101 or Higher, Shortness of breath, Dizziness, Fainting spells, Swelling in the ankles, Chest pain, Increased palpitations (irregular heartbeat) Allergies/Adverse Reactions: Allergies No Known Allergies Allergy (Verified 05/25/18 14:31) Medications to take at Discharge Amoxicillin/Potassium Clav [Augmentin 875-125 Tablet] 1 ea PO BID #10 tab Azithromycin 500 mg PO DAILY #3 tab 06/18/19 The following prescriptions were given: Amoxicillin/Potassium Clav [Augmentin 875-125 Tablet] 1 ea PO BID #10 tab Transmission Status: Pending to [facility] Azithromycin 500 mg PO DAILY #3 tab Transmission Status: Pending to [facility] Primary Care Physician: Care Physician,No Primary [Primary Care Provider] - Please follow up with your Primary Care Physician in: 3-5 days Test Results: Test results from this visit will be discussed in further detail at your follow- up appointment, if applicable.
--- NOTE | 2019-06-18 12:58 | DS.PCM_ITS ---
Discharge Date and Diagnosis Date of Admission: 06/14/19 Date of Discharge: 06/18/19 Hospital Course and Treatment Imaging Results: CXR: IMPRESSION: Bilateral bronchopneumonia most prominent in the right middle lobe. Consults: None Operations: None Procedures: None Summary of Care Provided: Per HPI: The patient is a 28 year old M who has been feeling poorly for about 2 weeks. Sx started as an URI but no pt is c/o chills and a cough with significant sputum production. He has gotten significantly worse so his mother made him come in today. He feels very run down and fatigued. He has a h/o opiate abuse but states that he is not currently using. He denied smoking but later admitted to THC use. PO intake has been poor. He is tachycardic. BP is WNL. He has a WBC ct of 17.7. Lactates are WNL and he is satting well on RA. Hospital Course: 1. Sepsis secondary to bilateral [id number]-old male who had been feeling well for about 2 weeks prior to admission. Was found to have a leukocytosis as well as a fever and had bilateral bronchopneumonia which was worse on the right on chest x-ray during admission. HIV screen was negative however his urine tox was positive for opiates. His urine strep and Legionella antigens were also negative as was his respiratory panel and blood cultures. His leukocytosis had decreased to 14.3 on the day of discharge, though he did have continued intermittent periods of having a fever. He was treated with Rocephin and azithromycin discharged on 3 more days of azithromycin and 5 days total of Augmentin p.o., I prolonged course given the continued fevers. I did discuss with him that he needs to find a primary care doctor on the outpatient side for follow-up. He states that he feels much better than when he came in and is wanting to go home. I did discuss the risks and benefits of discharge and he expressed understanding. - Physical Exam Vitals/I&O's: Vital Signs Temp Pulse Resp BP Pulse Ox 98.7 F 86 18 128/83 H 97 06/18/19 07:43 06/18/19 07:43 06/18/19 08:33 06/18/19 07:43 06/18/19 07:43 Oxygen Delivery Method Room Air Weight: 166 lb Body Mass Index (BMI) 22.5 Intake and Output for Last 24 Hours 06/16/19 06/17/19 06/18/19 23:59 23:59 23:59 Intake Total 5237.5 / 5237.5 3365.0 / 3665.0 2947.5 / 2947.5 Balance 5237.5 / 5237.5 3365.0 / 3665.0 2947.5 / 2947.5 General: Alert, Oriented x3, Cooperative, No apparent distress HEENT: Atraumatic, PERRLA, EOMI, Normocephalic Oral: Moist Mucosa Neck: Supple, No JVD Lungs: Clear to auscultation, Normal air movement, No rhonchi, No wheeze, No rales Cardiovascular: Regular rate, Regular Rhythm, Normal S1, Normal S2, No murmurs Abdomen: Soft, Non Tender, Non-Distended, No Hepato-splenomegaly Extremities: No edema, Capillary Refill Less than 3 Seconds Skin: No rashes, No breakdown Neurological: Neuro grossly intact, Sensory exam intact to light touch and pain Psych/Mental Status: Normal Affect, Appropriate Microbiology Past 72 Hours 06/14/19 17:20 Blood Culture (Wb) - Anticubital Right Blood Culture - Preliminary No growth in 48 hours. 06/14/19 17:13 Blood Culture (Wb) - Anticubital Left Blood Culture - Preliminary No growth in 48 hours. 06/14/19 17:20 Sputum, Expectorated/Coughed Gram Stain - Final 06/14/19 17:20 Sputum, Expectorated/Coughed Respiratory Culture - Final 06/14/19 22:50 Mucosa - Nasopharyngeal Respiratory Panel (PCR) - Final Laboratory Results 06/18/19 05:12: WBC 14.3 H, RBC 4.00 L, Hgb 11.4 L, Hct 35.0 L, MCV 87.5, MCH 28.5, MCHC 32.6, RDW Std Deviation 43.6, RDW Coeff of Phoebe 13.5, Plt Count 595 H, MPV 8.8, Immature Gran % (Auto) 1.100 H, Neut % (Auto) 81.7 H, Lymph % (Auto) 10.0 L, [place] % (Auto) 6.2, Eos % (Auto) 0.6, Baso % (Auto) 0.4, Absolute Neuts (auto) 11.7 H, Absolute Lymphs (auto) 1.42, Nucleated RBC % 0 06/18/19 05:12: Sodium 137, Potassium 3.6, Chloride 105, Carbon Dioxide 25.0, Anion Gap 7, BUN 6 L, Creatinine 0.54 L, Estim Creat Clear Calc 216.90, Est GFR (MDRD) Af Amer 234, Est GFR (MDRD) Non-Af 193, BUN/Creatinine Ratio 11.2, Glucose 105, Calcium 7.9 L Current Medications Acetaminophen (Tylenol) 650 mg PO Q6H PRN PRN PRN Reason: Pain 1-05/03, fever Last Admin: 06/18/19 01:57 Dose: 650 mg Documented by: Al Hydroxide/Mg Hydroxide (Mylanta Ii) 15 - 30 ml PO Q4H PRN PRN PRN Reason: INDIGESTION Albuterol Sulfate (Ventolin Aerosols) 2.5 mg INHALATION Q2H PRN PRN PRN Reason: dyspnea, wheezing Albuterol/Ipratropium (Duoneb) 3 ml INHALATION Q6HWA.RT [facility] Last Admin: 06/18/19 07:17 Dose: Not Given Documented by: Azithromycin (Zithromax) 250 mg PO Q24 [facility] Last Admin: 06/18/19 09:13 Dose: 250 mg Documented by: Benzonatate (Tessalon Perle) 100 mg PO Q4H PRN PRN PRN Reason: COUGH Guaifenesin (Robitussin) 10 ml PO Q4H PRN PRN PRN Reason: COUGH Last Admin: 06/18/19 02:09 Dose: 10 ml Documented by: Hydralazine HCl (Apresoline Iv) 10 mg IV Q4H PRN PRN PRN Reason: SBP > 160 Ceftriaxone Sodium 2 gm/ (Sodium Chloride) 50 mls @ 100 mls/hr IV Q24 [facility] Last Infusion: 06/18/19 09:45 Dose: Infused Documented by: Sodium Chloride () 1,000 mls @ 150 mls/hr IV .Q6H40M [facility] Last Infusion: 06/18/19 10:37 Dose: Infused Documented by: Magnesium Hydroxide (Milk Of Magnesia) 30 ml PO DAILY PRN PRN Reason: Constipation Ondansetron HCl (Zofran) 4 mg IV Q8H PRN PRN PRN Reason: NAUSEA/VOMITING Last Admin: 06/15/19 16:59 Dose: 4 mg Documented by: Phenol/Menthol (Chloraseptic (Bkc)) 5 spray MM Q2H PRN PRN PRN Reason: SORE THROAT Sodium Chloride () 10 - 40 ml IV UD PRN PRN Reason: SALINE FLUSH Last Admin: 06/17/19 19:54 Dose: 10 ml Documented by: Discharge Activity: Return to Normal Activity, No Restrictions Call your doctor if you observe: Fever of 101 or Higher, Shortness of breath, Dizziness, Fainting spells, Swelling in the ankles, Chest pain, Increased palpitations (irregular heartbeat) Home Medications: Medications to take at Discharge Amoxicillin/Potassium Clav [Augmentin 875-125 Tablet] 1 ea PO BID #10 tab 06/18/19 Azithromycin 500 mg PO DAILY #3 tab 06/18/19 Following Prescrptions Were Given to Patient: Amoxicillin/Potassium Clav [Augmentin 875-125 Tablet] 1 ea PO BID #10 tab Transmission Status: Received by [facility] Azithromycin 500 mg PO DAILY #3 tab Transmission Status: Received by [facility] Primary Care Physician: Care Physician,No Primary [Primary Care Provider] - Please follow up with your Primary Care Physician in: 3-5 days Disposition: Home Minutes spent on discharge:: 35 Patient Condition:: Stable Medical Necessity - Tobacco Use Smoking Status: Never smoker Tobacco Use: Secondhand Meaningful Use Info Meaningful Use Diagnoses (Choose all that apply): None applicable Code Visit Inpatient E&M: 26547 Disch Hosp
== END 2019-06-18 10:53 | disposition home or self-care (01) | DRG 871 ==
LOC: ED 15:50 → MS3 06-15 07:18
PROVIDERS: Family Medicine; Student in an Organized Health Care Education/Training Program; Admitting Provider Internal Medicine; Emergency Provider Emergency Medicine; Visit Provider Family Medicine
DX: A41.9 Sepsis, unspecified organism (principal); J18.0 Bronchopneumonia, unspecified organism; E87.1 Hypo-osmolality and hyponatremia; E87.6 Hypokalemia; D64.9 Anemia, unspecified; Z77.22 Contact with and (suspected) exposure to environmental tobacco smoke (acute) (chronic)
CPT/HCPCS: 36415; 71046; 80048; 80061; 80307; 83605; 83735; 85025; 86703; 87040; 87070; 87205; 87449; 87633; 87641; 87804; 93005; 94640; 99284; J7030; A4216; J0696; J2405

== ENCOUNTER 2020-04-26 17:36 | Emergency (ER) | payer SELFPAY ==
[2020-04-26 17:38] VITALS: BP 124/57; PULSE 102; RESP 16; TEMP 36.1; O2SAT 95; BMI 25.4
--- NOTE | 2020-04-26 17:49 | ED.VIS.GEN ---
History of Present Illness Chief Complaint: Substance Abuse Detail of Chief Complaint: Patient states his mother wanted him checked out and enter a rehab program Informant: Patient, Family Onset: - - States he has been using heroin for a long time. He states he snorts. Does not inject. Last use was 1 hour ago and reports 22 grains. Patient denies history of hepatitis or HIV. Patient states the powder he snorted was brown in color. Context: Sudden Onset Timing: Continuous Quality: Symptoms fidgety restless Location: Generalized Current Severity: Moderate Maximum Severity: Moderate Worsened by: Snorting brown powder Relieved by: Nothing Associated Symptoms: Restlessness itching Narrative: Patient is 29-year-old male who admits to smoking and drug use. He reports drug of choice is heroin. He states he snorts heroin. Does not inject. Last use was 1 hour ago. He is not been in a rehabilitation program. He believes he can kick the problem on his own. He told his mother this is the last time he will use. He was informed in my professional opinion that it is very difficult to do this on your own. He also need to change his friends. Mother wants him to enter a rehab program. Mother was informed that he has to admit he has a problem and he has to want help. He denies fever, chills night sweats. Eyes ocular, visual auditory symptoms. Eyes neck pain. [place] back pain. He does have rash secondary to picking his skin. He denies GI symptoms. He denies history of SBE. He denies history of hepatitis or HIV. He states he will stop using since his brother is going to stop using. Prior similar symptoms: Yes Recent Illness/Hospitalization: No - Past Medical History (1) Opiate dependence Status: Acute Past Medical History - Allergies and Home Meds Allergies/Adverse Reactions: Allergies No Known Allergies Allergy (Verified 04/26/20 17:37) Primary Care Physician: NOT,DEFINED [Primary Care Provider] - Prior records reviewed: Yes Surgical History: no surgical history Lives: With Family Smoking Status: Never smoker Alcohol: None Drugs: Heroin Review of Systems General: Denies: Chills, Fever, Malaise, Subjective Eyes: Denies: Visual changes - bilaterally, Blurred Vision - bilaterally ENT: Denies: Rhinorrhea Cardiovascular: Denies: Chest pain, Palpitations, Heart racing Respiratory: Denies: Dyspnea, Dyspnea on exertion Gastrointestinal: Denies: Nausea, Vomiting, Diarrhea Musculoskeletal: Denies: Myalgias, Arthralgias, Neck pain, Back pain, Swelling, Extremity Pain, -, - Skin: Reports: Wounds - Due to scratching. Denies: Rash Neurological: Denies: Headache, Weakness, Parasthesia Psych: Reports: Anxiety, - - Agitation and restlessness Hematologic: Denies: Easy bruising, Easy bleeding Allergy: Denies: Uticaria, Swelling of the mouth, Swelling of the tongue Physical Exam Vital Signs/Narrative: Vital Signs Temp Pulse Resp BP Pulse Ox 04/26/20 17:38 97.0 F L 102 H 16 124/57 H 95 Inital Vital Signs reviewed: Yes General: Well nourished, Well developed, Acute Distress Head: Normocephalic, Atraumatic Eyes: Perrl, EOMI. Negative for: Pale conjunctiva, Scleral icterus ENT: Moist mucous membranes, No rhinorrhea, TM's clear Neck: Supple, Nontender, No lymphadenopathy, No JVD Cardiovascular: Regular rhythm, No murmurs, Normal S1, Normal S2, Tachycardia Respiratory: No distress, CTA bilaterally, Chest nontender Abdomen: Soft, Nontender, Nondistended, Normal bowel sounds Extremities: Nontender, No edema Skin: Normal color, No rash, Trauma - 's self-inflicted abrasions and picking of skin Neurological: Alert, Oriented x3, Cranial nerves II-XII grossly intact, Normal Strength, Normal Sensation, Normal DTR - There is no clonus or Babinski sign., Normal Gait Psychological: - - Restlessness, affect is blunted Diagnostic/Tx/Re-eval - Medical Decision Making She admits to heroin use. Patient's present behavior is not consistent with heroin. Patient was informed that heroin is not brown in color. Patient was offered on 3 separate times during the history and physical inpatient detox. He declined. Mother wants him to. Mother was informed that he has to voluntarily want to help. ED Disposition - Plan for ED Patient: Disposition: Home or Assisted Living Diagnosis: Heroin abuse Instructions: ED Abuse Narcotic Referrals: NOT,DEFINED [Primary Care Provider] - [facility] [STAFF PHYSICIAN] - As soon as possible
== END 2020-04-26 18:11 | disposition home or self-care (01) ==
LOC: ED 18:02
PROVIDERS: Emergency Provider Emergency Medicine
DX: F11.10 Opioid abuse, uncomplicated (principal)
CPT/HCPCS: 99282

== ENCOUNTER 2020-07-18 19:51 | Emergency (ER) | payer SELFPAY ==
[2020-07-18 19:51] VITALS: BP 147/102; PULSE 99; RESP 19; TEMP 35.9; O2SAT 99; BMI 25.9
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
[2020-07-18 21:44] VITALS: BP 121/92; PULSE 104; RESP 12; O2SAT 98
== END 2020-07-18 21:50 | disposition home or self-care (01) ==
PROVIDERS: Emergency Provider Emergency Medicine
DX: T40.411A Poisoning by fentanyl or fentanyl analogs, accidental (unintentional), initial encounter (principal); R40.4 Transient alteration of awareness; Y92.099 Unspecified place in other non-institutional residence as the place of occurrence of the external cause
CPT/HCPCS: 99285; A4216

== ENCOUNTER 2020-10-11 08:27 | Inpatient (IN) | payer SELFPAY ==
[2020-10-11] VITALS (65 sets, daily range): BP systolic 44–195; BP diastolic 10–131; PULSE 61–147; RESP 14–43; TEMP 30.6–39.4; O2SAT 69–100; BMI 27.5; BMI 27.4
[2020-10-11] MEDS: Rocuronium Bromide 50 MG/5 ML Vial IV (08:31)
[2020-10-11] MEDS: Etomidate 20 MG/10 ML Vial IV (08:31)
--- NOTE | 2020-10-11 08:46 | EKG12_ITS ---
Test Reason : REPEAT Blood Pressure : / mmHG Vent. Rate : 087 BPM Atrial Rate : 087 BPM P-R Int : 138 ms QRS Dur : 098 ms QT Int : 420 ms P-R-T Axes : 071 080 004 degrees QTc Int : 505 ms Normal sinus rhythm Nonspecific ST abnormality Prolonged QT Abnormal ECG Confirmed by MARCY VASQUEZ, MINDY ([id number]), purchase request editor MERLIN ROBERTS ([id number]) on 10/14/2020 8:51:58 AM Referred By: CHARLIE Confirmed By:MINDY VIDAL MD
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
--- NOTE | 2020-10-11 08:52 | CPS ---
Critical ABG values read to Dr. Carrington. Verified by read back at 0842.
[2020-10-11 08:56] LABS: Base Excess -9 mmol/L (-2 to +2); Bicarbonate 23.6 mmol/L (22-26); Blood Gas Specimen Type ART; FI02 100; O2 Delivery Device Bagging; PO2 59 mmHG (75-100); SO2 67 % (95-99); Total Carbon Dioxide 27 mmol/L; pCO2 117.9 mmHg (35-45); pH 6.91 (7.35-7.45)
[2020-10-11] MEDS: Propofol 10MG/Ml 1,000 MG/100 ML Bottle 5.5 MG CONT INF (09:02)
[2020-10-11] MEDS: 0.9% Normal Saline 1,000 ML 999 ML IV (09:02)
[2020-10-11 09:03] LABS: Bacteria 0 SEEN /hpf (None Seen); Mucous, Urine 0 SEEN /hpf (<or=2+); Red Blood Cells-Urine 0 SEEN /hpf (0-5); White Blood Cells 0 SEEN /hpf (0-5)
[2020-10-11 09:04] LABS: Absolute Lymphocyte Count 2.82 X10^3/uL (0.83-4.51); Absolute Neutrophil Count 13.3 X10^3/uL (2.0-7.7); Basophil% 0.6 % (0-1); Eosinophil# 0.23 X10^3/uL; Eosinophils% 1.3 % (0-5); Hematocrit 48.3 % (40-54); Hemoglobin 15.3 g/dL (13.0-16.5); Lymphocyte # 2.82 X10^3/ul (4.0); Lymphocyte % 16.4 % (19-41); Mean Corp Hgb Conc 31.7 g/dL (32-36); Mean Corpuscular Hgb 29.1 pg (27.0-32.0); Mean Platelet Vol. 9.1 fl (6.2-12.0); Monocyte# 0.55 X10^3/uL; Monocyte% 3.2 % (0-10); NRBC Flagged by Analyzer 0 % (0-5); Neutrophil # 13.34 X10^3/uL (2.7-7.7); Neutrophil % 77.5 % (47-70); Platelet Count 346 K/mm3 (150-450); RBC Distribution Width CV 12.1 % (11.6-14.6); RBC Distribution Width SD 41.2 fl (35.1-43.9); Red Blood Count 5.25 M/mm3 (4.6-6.2); White Blood Count 17.2 K/mm3 (4.4-11.0)
[2020-10-11] MEDS: 0.9% Normal Saline 1,000 ML 200 ML IV ×2 (09:05→14:10)
[2020-10-11 09:08] LABS: Color, Urine Yellow (Yellow); Glucose, Dipstick 1000 mg/dl (Normal); Ketone-Dipstick Negative (Negative); Leukocyte Esterase-Dipstick Negative /ul (Negative); Nitrite-Dipstick Negative (Negative); Occult Blood-Urine Negative /ul (Negative); Protein-Dipstick 30 mg/dl (Negative); Specific Gravity, Urine 1.025 (1.002-1.030); Urine Bilirubin Dipstick Negative (Negative); Urine Clarity Clear (Clear); Urine Urobilinogen Normal (Normal)
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
[2020-10-11 09:12] LABS: Prothrombin Time (Protime)PT. 12.5 SECONDS (11.7-14.9)
[2020-10-11 09:12] LABS: Calcium Oxalate Crystals Ur RARE /hpf (<or=2+); Squamous Epithelial Cells - UA 0-5 SEEN /hpf (0-5)
[2020-10-11 09:21] LABS: Amphetamine Urine VISTA POSITIVE (<1000 ng/mL); Barbiturate Urine VISTA NEGATIVE (< 200 ng/mL); Benzodiazepine Urine VISTA NEGATIVE (< 200 ng/mL); Cocaine Urine VISTA NEGATIVE (< 300 ng/mL); Ecstacy Urine VISTA NEGATIVE (< 500 ng/mL); Methadone Urine VISTA NEGATIVE (< 300 ng/mL); PCP Urine VISTA NEGATIVE (< 25 ng/mL); THC Urine VISTA POSITIVE (< 50 ng/mL); Vista UDS pH Range 5
[2020-10-11 09:22] LABS: Partial Thromboplast Time 29.4 Seconds (24.1-36.2)
--- NOTE | 2020-10-11 09:25 | ED.VIS.GEN ---
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 It was reported by [facility] and medics that the patient left home around 5 this morning. He reportedly had heroin and fentanyl with him. They recovered a large amount of marijuana from him. He was dressed in shorts shoes and a jacket. He was found unresponsive in a ditch. EMS administered 6 mg of Narcan with no significant improvement. They assisted ventilation by bagging. I spoke with the individual who found him who happens to be a medical provider. He states that he did not see any outward signs of trauma other than a broken tooth. He states that he had agonal respirations and movement there. Past Medical History - Allergies and Home Meds Allergies/Adverse Reactions: Allergies No Known Allergies Allergy (Verified 10/11/20 08:43) Primary Care Physician: Care Physician,No Primary [Primary Care Provider] - Past Medical History: - - Polysubstance drug abuse Surgical History: no surgical history Smoking Status: Current every day smoker Drugs: Heroin, Marijuana Review of Systems ROS: Unable to Obtain Physical Exam Vital Signs/Narrative: Vital Signs Temp Pulse Resp BP Pulse Ox 10/11/20 09:17 87.4 F L 140 H 16 151/105 H 77 10/11/20 09:07 87.3 F L 137 H 16 158/107 H 79 10/11/20 09:02 87.3 F L 137 H 158/107 H 10/11/20 08:54 87.2 F L 137 H 16 150/107 H 78 10/11/20 08:30 87.0 F L 124 H 20 H 146/73 H 72 Inital Vital Signs reviewed: Yes General: Well nourished, Well developed, Acute Distress - Patient has secretions coming out of his mouth. He is gasping Head: Normocephalic, Trauma - There appears to be recently broken tooth with a central incisor with some blood along the gumline no other head trauma noted Eyes: - - Pupils 3 mm and sluggish bilaterally ENT: Moist mucous membranes, No rhinorrhea, - - Large secretions in the airway appears to be vomitus Neck: Supple, Nontender Cardiovascular: No murmurs, Tachycardia Respiratory: Chest nontender, Rales Abdomen: Soft, Nontender, Normal bowel sounds, - - Slight gastric distention Back: Nontender, Normal Inspection Extremities: Nontender, No edema Skin: Normal color, No rash Neurological: - - Patient is agonal he breathing and making no purposeful movements Diagnostic/Tx/Re-eval Clinical Impression(s) from Imaging Studies Chest X-Ray 10/11/20 08:46 IMPRESSION: Satisfactory position of the support lines and tubes. No pneumothorax. Diffuse bilateral airspace opacities which are most pronounced in the right upper lobe. This may be due to infection, inflammation or edema. Electronically Signed: Allan Lancaster MD at 9:41 EDT Tel , Service support , Abdomen/Pelvis CT 10/11/20 09:09 IMPRESSION: No acute abdominal or pelvic pathology. Electronically Signed: Allan Lancaster MD at 10:49 EDT Tel , Service support , Brain CT 10/11/20 09:09 IMPRESSION: No acute intracranial abnormality. Electronically Signed: Allan Lancaster MD at 10:36 EDT Tel , Service support , Cervical Spine CT 10/11/20 09:09 IMPRESSION: No fracture or dislocation in the cervical spine. Straightening of the normal cervical lordosis which may be due to paraspinal muscle spasm or may be positional in nature. Electronically Signed: Allan Lancaster MD at 10:41 EDT Tel , Service support , Chest CTA 10/11/20 09:09 IMPRESSION: Dense airspace opacity throughout both lungs which is most pronounced in the lower lobes. This is consistent with multilobar pneumonia. No pulmonary embolus. No thoracic aortic aneurysm or dissection. No acute traumatic findings in the thorax. Electronically Signed: Allan Lancaster MD at 10:46 EDT Tel , Service support , Laboratory Last Values WBC 17.2 K/mm3 (4.4-11.0) H 10/11/20 08:54 RBC 5.25 M/mm3 (4.6-6.2) 10/11/20 08:54 Hgb 15.3 g/dL (13.0-16.5) 10/11/20 08:54 Hct 48.3 % (40-54) 10/11/20 08:54 MCV 92.0 fL (80-94) 10/11/20 08:54 MCH 29.1 pg (27.0-32.0) 10/11/20 08:54 MCHC 31.7 g/dL (32-36) L 10/11/20 08:54 RDW Std Deviation 41.2 fl (35.1-43.9) 10/11/20 08:54 RDW Coeff of Phoebe 12.1 % (11.6-14.6) 10/11/20 08:54 Plt Count 346 K/mm3 (150-450) 10/11/20 08:54 MPV 9.1 fl (6.2-12.0) 10/11/20 08:54 Immature Gran % (Auto) 1.000 % (0.0-0.9) H 10/11/20 08:54 Neut % (Auto) 77.5 % (47-70) H 10/11/20 08:54 Lymph % (Auto) 16.4 % (19-41) L 10/11/20 08:54 [place] % (Auto) 3.2 % (0-10) 10/11/20 08:54 Eos % (Auto) 1.3 % (0-5) 10/11/20 08:54 Baso % (Auto) 0.6 % (0-1) 10/11/20 08:54 Absolute Neuts (auto) 13.3 X10^3/uL (2.0-7.7) H 10/11/20 08:54 Absolute Lymphs (auto) 2.82 X10^3/uL (0.83-4.51) 10/11/20 08:54 Nucleated RBC % 0 % (0-5) 10/11/20 08:54 PT 12.5 SECONDS (11.7-14.9) 10/11/20 08:54 INR 1.0 10/11/20 08:54 APTT 29.4 Seconds (24.1-36.2) 10/11/20 08:54 Specimen Type ART 10/11/20 09:58 Sample Site L Radial 10/11/20 09:58 pH 7.04 (7.35-7.45) L* 10/11/20 09:58 Bicarbonate Actual 23.2 mmol/L (22-26) 10/11/20 09:58 Total CO2 26 mmol/L 10/11/20 09:58 Base Excess -7 mmol/L (-2 to +2) L 10/11/20 09:58 O2 Saturation 80 % (95-99) L 10/11/20 09:58 O2 % 100 10/11/20 09:58 ABG pCO2 85.1 mmHg (35-45) H* 10/11/20 09:58 ABG pO2 66 mmHG (75-100) L 10/11/20 09:58 Reyes Test Positive 10/11/20 09:58 VBG Carboxyhemoglobin 2.4 % (0.0-1.5) H 10/11/20 09:20 Respiration Rate 16 10/11/20 09:58 O2 Delivery Device Adult Vent 10/11/20 09:58 Vent Mode AC 10/11/20 09:58 Tidal Volume 550 10/11/20 09:58 POC PEEP 12 10/11/20 09:58 Crit Call To/Read Back Yes 10/11/20 09:58 Sodium 136 mmol/L (136-145) 10/11/20 08:54 Potassium 3.3 mmol/L (3.5-5.1) L 10/11/20 08:54 Chloride 100 mmol/L (98-107) 10/11/20 08:54 Carbon Dioxide 24.0 mmol/L (21.0-32.0) 10/11/20 08:54 Anion Gap 12 (5-15) 10/11/20 08:54 BUN 20 mg/dL (7-18) H 10/11/20 08:54 Creatinine 1.52 mg/dL (0.70-1.30) H 10/11/20 08:54 Estim Creat Clear Calc 78.71 ml/min 10/11/20 08:54 Est GFR (MDRD) Af Amer 70 mL/min (>60) 10/11/20 08:54 Est GFR (MDRD) Non-Af 58 mL/min (>60) L 10/11/20 08:54 BUN/Creatinine Ratio 13.2 RATIO (10-20) 10/11/20 08:54 Glucose 375 mg/dL (74-106) H 10/11/20 08:54 Lactic Acid 5.6 mmol/L (0.4-1.9) H* 10/11/20 08:54 Calcium 8.1 mg/dL (8.5-10.1) L 10/11/20 08:54 Magnesium 3.0 mg/dL (1.6-2.6) H 10/11/20 08:54 Total Bilirubin 0.40 mg/dL (0.20-1.00) 10/11/20 08:54 AST 60 U/L (15-37) H 10/11/20 08:54 ALT 66 U/L (16-61) H 10/11/20 08:54 Alkaline Phosphatase 136 U/L (45-117) H 10/11/20 08:54 Total Creatine Kinase 327 U/L (39-308) H 10/11/20 08:54 Troponin I < 0.015 ng/mL (<0.045) 10/11/20 08:54 Total Protein 7.1 g/dL (6.4-8.2) 10/11/20 08:54 Albumin 3.5 g/dL (3.2-5.0) 10/11/20 08:54 Globulin 3.6 g/dL (2.2-4.2) 10/11/20 08:54 Albumin/Globulin Ratio 1.0 RATIO (0.9-2.4) 10/11/20 08:54 Urine Color Yellow (Yellow) 10/11/20 08:49 Urine Clarity Clear (Clear) 10/11/20 08:49 Urine pH 5.0 (5.0 - 8.0) 10/11/20 08:49 Ur Specific [place] 1.025 (1.002-1.030) 10/11/20 08:49 Urine Protein 30 mg/dl (Negative) H 10/11/20 08:49 Urine Glucose (UA) 1000 mg/dl (Normal) H 10/11/20 08:49 Urine Ketones Negative mg/dl (Negative) 10/11/20 08:49 Urine Occult Blood Negative /ul (Negative) 10/11/20 08:49 Urine Nitrite Negative (Negative) 10/11/20 08:49 Urine Bilirubin Negative mg/dL (Negative) 10/11/20 08:49 Urine Urobilinogen Normal mg/dl (Normal) 10/11/20 08:49 Ur Leukocyte Esterase Negative /ul (Negative) 10/11/20 08:49 Urine RBC 0 SEEN /hpf (0-5) 10/11/20 08:49 Urine WBC 0 SEEN /hpf (0-5) 10/11/20 08:49 Ur Squamous Epith Cells 0-5 SEEN /hpf (0-5) 10/11/20 08:49 Calcium Oxalate Crystal RARE /hpf (<or=2+) 10/11/20 08:49 Urine Bacteria 0 SEEN /hpf (None Seen) 10/11/20 08:49 Urine Mucus 0 SEEN /hpf (<or=2+) 10/11/20 08:49 Urine Opiates Screen NEGATIVE (< 300 ng/mL) 10/11/20 08:54 Urine Methadone Screen NEGATIVE (< 300 ng/mL) 10/11/20 08:54 Ur Barbiturates Screen NEGATIVE (< 200 ng/mL) 10/11/20 08:54 Ur Phencyclidine Scrn NEGATIVE (< 25 ng/mL) 10/11/20 08:54 Ur Amphetamines Screen POSITIVE (<1000 ng/mL) H 10/11/20 08:54 U Methamphetamin-MDMA NEGATIVE (< 500 ng/mL) 10/11/20 08:54 U Benzodiazepines Scrn NEGATIVE (< 200 ng/mL) 10/11/20 08:54 Urine Cocaine Screen NEGATIVE (< 300 ng/mL) 10/11/20 08:54 U Cannabinoids Screen POSITIVE (< 50 ng/mL) H 10/11/20 08:54 Ur Drug Screen Comment 10/11/20 08:54 Ethyl Alcohol < 3.0 mg/dL 10/11/20 08:54 - EKG Initial EKG Interpretation: Atrial Flutter - Initial EKG shows atrial flutter at a rate of 135. Follow-up EKG Interpretation: Sinus Rhythm - Repeat EKG shows a normal sinus rhythm at a rate of 87. - Medical Decision Making Patient was brought into resuscitation bay. Clothing was removed and he was placed on a Chirag hugger. He underwent RSI using etomidate and rocuronium. The vomitus was removed from his posterior pharynx. An 8-0 endotracheal tube was placed using glide scope and secured at 24 cm later advanced to 27. OG tube was placed. ABG was drawn which shows a pH of 6.9 a PCO2 of 117 and a PaO2 of 59. Adjustments on the ventilator were made to improve oxygen saturation. I contacted Dr. Ivan Montoya our on-call prep room supervisor for assistance vent management. My interpretation of his chest x-ray is consistent with pulmonary edema or infiltrates. Endotracheal tube was advanced. OG tube in adequate position. Shortly after returning from CT scan the patient spontaneously converted to a normal sinus rhythm. Repeat EKG was obtained. Patient has received Zosyn warmed fluids. We are approaching 90 degrees. We are still having difficulty oxygenating him adequately. We are continuing to make ventilator adjustments to improve this. Currently saturations are 81%. Patient has had some movement of his legs. Pupils are reactive from 4-2. The patient was being sedated with propofol. He started to breathe above the vent and have some purposeful movement. Unfortunately some of that movement was starting to grasp at support lines and tubes. He was placed in soft restraints. And sedation was increased. His blood pressure then dropped so the sedation was decreased. This resulted in more agitation. I changed the sedation to Precedex. Due to social situation and his agitation he got a another dose of paralytic. Once this wears off and we have transitioned him to the ICU prep room supervisor will work with the respiratory staff to improve oxygenation with the ventilator. - Critical Care Time Critical care time (excluding procedures): 30-74 minutes, Discussing w/Patient &/or Family/Certified Nursing Attendant, Discussing w/Consultants - 80 minutes, Arranging Admission or Transfer, Performing Direct Patient Care at Bedside ED Disposition - Plan for ED Patient: Disposition: Acute Care [facility] Diagnosis: Atrial flutter, Aspiration pneumonia, Drug overdose, Hypothermia, Acute respiratory failure, Mixed acid base balance disorder, Airway intubation performed without difficulty Referrals: Care Physician,No Primary [Primary Care Provider] -
[2020-10-11 09:26] LABS: Alcohol, Blood (Medical)-Serum < 3.0 mg/dL
[2020-10-11 09:29] LABS: AST(SGOT) 60 U/L (15-37); Alanine Aminotransfer ALT/SGPT 66 U/L (16-61); Albumin, Serum 3.5 g/dL (3.2-5.0); Alkaline Phosphatase 136 U/L (45-117); Anion Gap 12 (5-15); BUN 20 mg/dL (7-18); BUN/Creat Ratio 13.2 RATIO (10-20); CPK Total, Creatine Kinase 327 U/L (39-308); Calcium,Total 8.1 mg/dL (8.5-10.1); Chloride 100 mmol/L (98-107); Creatinine, Serum 1.52 mg/dL (0.70-1.30); EST Glomerular Filtration Rate 58 mL/min (>60); Est Glom Filt Rate - Afr Amer 70 mL/min (>60); Estimated Creatinine Clearance 78.71 ml/min; Globulin 3.6 g/dL (2.2-4.2); Glucose 375 mg/dL (74-106); Potassium 3.3 mmol/L (3.5-5.1); Protein, Total 7.1 g/dL (6.4-8.2); Sodium Level 136 mmol/L (136-145)
[2020-10-11 09:34] LABS: Lactic Acid 5.6 mmol/L (0.4-1.9)
[2020-10-11 09:44] LABS: Carboxyhemoglobin Frac (CO) 2.4 % (0.0-1.5)
--- NOTE | 2020-10-11 09:58 | EKG12_ITS ---
Test Reason : OD Blood Pressure : / mmHG Vent. Rate : 135 BPM Atrial Rate : 135 BPM P-R Int : 226 ms QRS Dur : 112 ms QT Int : 340 ms P-R-T Axes : 000 083 -86 degrees QTc Int : 510 ms Sinus tachycardia with 1st degree A-V block Lateral infarct , age undetermined Inferior infarct , age undetermined Abnormal ECG Confirmed by MARCY VASQUEZ, MINDY ([id number]), sports editor MERLIN ROBERTS ([id number]) on 10/14/2020 8:51:24 AM Referred By: CHARLIE Confirmed By:MINDY VIDAL MD
--- NOTE | 2020-10-11 09:58 | CPS ---
Dr. Carrington was notified of critical CO2 and PH on ABG.
[2020-10-11 10:06] LABS: Allen Test Positive; Base Excess -7 mmol/L (-2 to +2); Bicarbonate 23.2 mmol/L (22-26); Blood Gas Specimen Type ART; FI02 100; Mode AC; O2 Delivery Device Adult Vent; PEEP 12; PO2 66 mmHG (75-100); RR 16; SITE L Radial; SO2 80 % (95-99); Total Carbon Dioxide 26 mmol/L; Vt 550; pCO2 85.1 mmHg (35-45); pH 7.04 (7.35-7.45)
--- NOTE | 2020-10-11 10:10 | RAD_ITS ---
STUDY: X-RAY CHEST REASON FOR EXAM: Male, 29 years old. Pneumothorax TECHNIQUE: Frontal view of the chest COMPARISON: 10/11/20 FINDINGS: The support lines and tubes are unchanged. Again noted are diffuse bilateral airspace opacities which are not significantly changed when compared with the prior exam. There is no pneumothorax. There are no pleural effusions. The heart is normal in size. The visualized osseous structures are within normal limits. RAD/Chest 1 View (Portable) IMPRESSION: No pneumothorax. No significant change in the previously seen diffuse bilateral airspace opacities. Electronically Signed: Allan Lancaster MD at 17:10 EDT Tel , Service support ,
--- NOTE | 2020-10-11 10:29 | CM.ED ---
SOCIAL WORK Referral Source: Dr. Carrington Reason for Consult: Overdose, intubated in ER Updated on patient's case by nursing. Patient's brother, Carlos Eduardo [phone] called in requesting update. Call to patient's brotherCarlos Eduardo to update on patient's status. Brother requesting he and cousin come in to see patient before admission to ICU. Approval received by charge nurse for 2 visitors. Brother reports will be in soon. Diaz Whyte, SUPERVISOR FINAL, [employer] ELEMENT WINDER
--- NOTE | 2020-10-11 11:18 | RAD_ITS ---
STUDY: X-RAY CHEST REASON FOR EXAM: Male, 29 years old. Unresponsive TECHNIQUE: Frontal view of the chest COMPARISON: CT 10/11/20 FINDINGS: There is an enteric tube noted with its tip in the stomach. There is an endotracheal tube noted with its tip approximately 3 cm above the romina. There are diffuse bilateral airspace opacities, consistent with multilobar pneumonia. This is not significantly changed when compared with the CT performed earlier today. There are no pleural effusions. There is no pneumothorax. The heart is normal in size. The visualized osseous structures are within normal limits. RAD/Chest 1 View (Portable) IMPRESSION: No significant change in the diffuse bilateral airspace opacities which is consistent with multilobar pneumonia. Electronically Signed: Allan Lancaster MD at 11:38 EDT Tel , Service support ,
--- NOTE | 2020-10-11 11:35 | CM.ED ---
SOCIAL WORK Patient's brother and cousin arrived to ER. Escorted to patient's room, nursing updated family on patient's status. Brother given contact information and visitor policy due to COVID-19. Brother verbalized understanding. Brother reports will update patient's mother and call in later this afternoon for update. Emotional support provided. Plan: Admit to ICU Diaz Whyte, SURVEILLANCE OPERATOR, MOTION STUDY TECHNICIAN
[2020-10-11] MEDS: Vecuronium Bromide 10 MG/10 ML Vial 8 MG IV (11:45)
--- NOTE | 2020-10-11 11:56 | HP.PCM_ITS ---
History of Present Illness Date of Admission: 10/11/20 The patient is a 29 year old M with no signficant pMH who was admitted via the ED on 10/11/2020 with a complaint of altered mental staus and concerns for drug overdose. It was reported per ED doctor;s notes that he left home at ~ 5am this morning,a nd had fentanyl and heroin on him. He was dound unresponsive in a ditch by a physician who was driving by. EMS was called and he was administered IV narcan with no signficant response. He was also found to have a lot of marijuana on him. [facility] ED, he was having agonal breathing, and found to be having emesis. He was in atrial flutter, with HR in 170s, and he was also emergently intubated. Labs showed potassium of 3.3, with lactic acid of 5.6, and lactic acid of 5.6. Total bilirubin was 0.4, with AST/ALT of 60/66, and CPK of 327. CBC showed wbc of 17.2, and Hb of 15.3, and platelets of 346. Patient's oxygen level was in the 70s nad 80s even on the vent. He required paralytics in the ED as he started breathing over hte vents. He was also noted to be hypothermic, with temp down int he 80s. He was given a zoie Hugger and warm fluids for the hypothermia adn is being admitted to be managed for acute hypoxic respiratory failure due to aspiration pneumonia from probable drug intoxication, and hypothermia. [] Past Medical History Past Medical History (Chronic Problems): Chronic Problems Anxiety and depression (Chronic) Allergies No Known Allergies Allergy (Verified 10/11/20 08:43) Home Medications: Ambulatory Orders Medication Instructions Recorded NK 04/26/20 Surgical History: no surgical history Smoking Status: Current every day smoker Drugs: Heroin, Marijuana - *Family History Maternal History Items: Unknown, - Review of Systems Unable to obtain accurate/complete ROS d/t: patient intubated, sedated and paralysed VTE Information - Inpt Only VTE Present on Admission: No VTE Pharm Prophylaxis ordered?: Yes Patient Problems: Active and Suspected Problems Opiate dependence (Acute) Atrial flutter (Acute) Aspiration pneumonia (Acute) Drug overdose (Acute) Hypothermia (Acute) Acute respiratory failure (Acute) Mixed acid base balance disorder (Acute) Airway intubation performed without difficulty (Acute) - Physical Exam Vitals/I&O's: Vital Signs Temp Pulse Resp BP Pulse Ox 90.4 F L 108 H 18 106/70 79 10/11/20 11:32 10/11/20 11:32 10/11/20 11:32 10/11/20 11:32 10/11/20 11:32 Oxygen Delivery Method Mechanical Ventilator Weight: 202 lb 13.204 oz Body Mass Index (BMI) 27.5 Intake and Output for Last 24 Hours 10/09/20 10/10/20 10/11/20 23:59 23:59 23:59 Intake Total 1123.29 / 1123.29 Output Total 700 / 700 Balance 423.29 / 423.29 General: - - intubated, sedated. HEENT: Atraumatic, PERRLA, EOMI, Normocephalic Oral: Dry Mucosa Neck: Supple, No JVD, Negative Carotid Bruits Lungs: - - intubated, sedated. Cardiovascular: Regular rate, Regular Rhythm, Normal S1, Normal S2, No murmurs Abdomen: Bowel Sounds Present, Soft, Non Tender, Non-Distended, No Hepato- splenomegaly Extremities: No clubbing, No cyanosis, No edema, Capillary Refill Less than 3 Seconds Skin: No rashes, No breakdown Musculoskeletal: No Tenderness to Palpation of Joints or Extremities Lymphatic: No Cervical, Supraclavicular, or Inguinal Adenopathy Neurological: - - intubated, sedated, paralysed Microbiology Past 72 Hours 10/11/20 09:47 Mucosa - Nose SARS-CoV-2 Antigen (Rapid) - Final Laboratory Results 10/11/20 08:49: Urine Color Yellow, Urine Clarity Clear, Urine pH 5.0, Ur Specific [place] 1.025, Urine Protein 30 H, Urine Glucose (UA) 1000 H, Urine Ketones Negative, Urine Occult Blood Negative, Urine Nitrite Negative, Urine Bilirubin Negative, Urine Urobilinogen Normal, Ur Leukocyte Esterase Negative, Urine RBC 0 SEEN, Urine WBC 0 SEEN, Ur Squamous Epith Cells 0-5 SEEN, Calcium Oxalate Crystal RARE, Urine Bacteria 0 SEEN, Urine Mucus 0 SEEN 10/11/20 08:51: Specimen Type ART, pH 6.91 L*, Bicarbonate Actual 23.6, Total CO2 27, Base Excess -9 L, O2 Saturation 67 L, O2 % 100, ABG pCO2 117.9 H*, ABG pO2 59 L, O2 Delivery Device Bagging, Crit Call To/Read Back Yes 10/11/20 08:54: WBC 17.2 H, RBC 5.25, Hgb 15.3, Hct 48.3, MCV 92.0, MCH 29.1, MCHC 31.7 L, RDW Std Deviation 41.2, RDW Coeff of Phoebe 12.1, Plt Count 346, MPV 9.1, Immature Gran % (Auto) 1.000 H, Neut % (Auto) 77.5 H, Lymph % (Auto) 16.4 L , [place] % (Auto) 3.2, Eos % (Auto) 1.3, Baso % (Auto) 0.6, Absolute Neuts (auto) 13.3 H, Absolute Lymphs (auto) 2.82, Nucleated RBC % 0 10/11/20 08:54: PT 12.5, INR 1.0, APTT 29.4 10/11/20 08:54: Sodium 136, Potassium 3.3 L, Chloride 100, Carbon Dioxide 24.0, Anion Gap 12, BUN 20 H, Creatinine 1.52 H, Estim Creat Clear Calc 78.71, Est GFR (MDRD) Af Amer 70, Est GFR (MDRD) Non-Af 58 L, BUN/Creatinine Ratio 13.2, Glucose 375 H, Calcium 8.1 L, Magnesium 3.0 H, Total Bilirubin 0.40, AST 60 H, ALT 66 H, Alkaline Phosphatase 136 H, Total Creatine Kinase 327 H, Troponin I < 0.015, Total Protein 7.1, Albumin 3.5, Globulin 3.6, Albumin/Globulin Ratio 1.0 10/11/20 08:54: Lactic Acid 5.6 H* 10/11/20 08:54: Ethyl Alcohol < 3.0 10/11/20 08:54: Urine Opiates Screen NEGATIVE, Urine Methadone Screen NEGATIVE, Ur Barbiturates Screen NEGATIVE, Ur Phencyclidine Scrn NEGATIVE, Ur Amphetamines Screen POSITIVE H, U Methamphetamin-MDMA NEGATIVE, U Benzodiazepines Scrn NEGATIVE, Urine Cocaine Screen NEGATIVE, U Cannabinoids Screen POSITIVE H, Ur Drug Screen Comment 10/11/20 09:20: VBG Carboxyhemoglobin 2.4 H 10/11/20 09:58: Specimen Type ART, Sample Site L Radial, pH 7.04 L*, Bicarbonate Actual 23.2, Total CO2 26, Base Excess -7 L, O2 Saturation 80 L, O2 % 100, ABG pCO2 85.1 H*, ABG pO2 66 L, Reyes Test Positive, Respiration Rate 16, O2 Delivery Device Adult Vent, Vent Mode AC, Tidal Volume 550, POC PEEP 12, Crit Call To/Read Back Yes Diagnostic Data Abdomen/Pelvis CT 10/11/20 09:09 IMPRESSION: No acute abdominal or pelvic pathology. Electronically Signed: Allan Lancaster MD at 10:49 EDT Tel , Service support , Brain CT 10/11/20 09:09 IMPRESSION: No acute intracranial abnormality. Electronically Signed: Allan Lancaster MD at 10:36 EDT Tel , Service support , Cervical Spine CT 10/11/20 09:09 IMPRESSION: No fracture or dislocation in the cervical spine. Straightening of the normal cervical lordosis which may be due to paraspinal muscle spasm or may be positional in nature. Electronically Signed: Allan Lancaster MD at 10:41 EDT Tel , Service support , Chest CTA 10/11/20 09:09 IMPRESSION: Dense airspace opacity throughout both lungs which is most pronounced in the lower lobes. This is consistent with multilobar pneumonia. No pulmonary embolus. No thoracic aortic aneurysm or dissection. No acute traumatic findings in the thorax. Electronically Signed: Allan Lancaster MD at 10:46 EDT Tel , Service support , Chest X-Ray 10/11/20 11:18 IMPRESSION: No significant change in the diffuse bilateral airspace opacities which is consistent with multilobar pneumonia. Electronically Signed: Allan Lancaster MD at 11:38 EDT Tel , Service support , Current Medications Sodium Chloride () 1,000 mls @ 200 mls/hr IV .Q5H TREY Last Admin: 10/11/20 09:05 Dose: 200 mls/hr Documented by: Propofol (Diprivan) 1,000 mg in 100 mls @ 5.52 mls/hr CONT INF .Q12H TREY; Protocol Last Titration: 10/11/20 11:30 Dose: Infused Documented by: Dexmedetomidine HCl 400 mcg/ (Sodium Chloride) 100 mls @ 11.5 mls/hr CONT INF .Q8H42M TREY; Protocol Stop: 10/11/20 20:11 Last Admin: 10/11/20 11:30 Dose: 0.5 mcg/kg/hr, 11.5 mls/hr Documented by: Assessment/Plan All Active Problems Opiate dependence (Acute) Atrial flutter (Acute) Aspiration pneumonia (Acute) Drug overdose (Acute) Hypothermia (Acute) Acute respiratory failure (Acute) Mixed acid base balance disorder (Acute) Airway intubation performed without difficulty (Acute) 29 y/o admitted after being found unresponsive, in a ditch #Acute hypoxic respiratory failure due to aspiration pneumonia and drug overdose * patient emergently intubated and sedated on admission in the ED * CT of the chest showed dense opacity in both lungs most pronounced in the lower lobes. * Vent settings as per critical care. * Admit to the ICU. Consult critical care. * Continue IV Zosyn. * Blood cultures ordered. * #Aspiration pneumonia: as above #Probable drug intoxication with overdose * known to use fnetanyl and heroin per family. Was also found with a large stash of marijuana * urine tox positive for cannabinoids and amphetamines * currently intubated and sedated * #Acute respiratory acidosis due to drug intoxication * Bicarb was elevated at 117 on admission with pH of 6.91. * Currently intubated. Will monitor CO2 per blood gases and adjust vent settings as needed * #Septic shock due to aspiration pneumonia * lactic acid is 5.6 and WBC 17.1 was also tachycardic * Met septic shock criteria by lactic acid elevation. * on IV zosyn. will continue * IV fluid resuscitation by septic shock criteria * blood cultures pending * ET of the abdomen and pelvis showed no acute intra-abdominal pathology * T of the chest showed dense airspace opacity throughout both lungs most pronounced in the lower lobes consistent with multilobar pneumonia with no evidence of PE or thoracic aortic aneurysm or dissection. * #Hypokalemia: K is 3.3 Will replace and monitor #Hypothermia: * temperature was down in the 80s on admission. * has a Zoie Hugger on to help with hypothermia. * Also given warmed fluids in ED. Monitor temperature #ROSELIA: Cr is 1.52. This likely prerenal due to dehydration. Will hydrate with fluids. DVT prophylaxis: lovenox Inpatient E&M: [id number] Init Hosp L3
[2020-10-11 13:00] LABS: Reflex Lactate? Y
[2020-10-11 13:41] LABS: Base Excess -5 mmol/L (-2 to +2); Bicarbonate 23.4 mmol/L (22-26); Blood Gas Specimen Type ART; FI02 100; Mode AC; PEEP 16; PO2 41 mmHG (75-100); RR 18; SITE L Radial; SO2 61 % (95-99); Total Carbon Dioxide 25 mmol/L; Vt 550; pCO2 65.6 mmHg (35-45); pH 7.16 (7.35-7.45)
[2020-10-11] MEDS: 0.9% Normal Saline 1,000 ML 150 ML IV (15:38)
--- NOTE | 2020-10-11 17:48 | CPS ---
critical value abgs called to at 13:40.
[2020-10-11] MEDS: 0.9% Normal Saline 1,000 ML 75 ML IV (18:30)
[2020-10-11 18:41] LABS: Bedside Glucose 64 mg/dL (70-110)
[2020-10-11] MEDS: Propofol 10MG/Ml 1,000 MG/100 ML Bottle 13.8 MG CONT INF ×2 (19:00→21:45)
[2020-10-11 19:05] LABS: Base Excess -7 mmol/L (-2 to +2); Bicarbonate 19.3 mmol/L (22-26); Blood Gas Specimen Type ART; FI02 100; Mode AC; O2 Delivery Device Adult Vent; PEEP 18; PO2 178 mmHG (75-100); RR 18; SITE R Radial; SO2 99 % (95-99); Total Carbon Dioxide 21 mmol/L; Vt 550; pCO2 41.1 mmHg (35-45); pH 7.28 (7.35-7.45)
--- NOTE | 2020-10-11 19:25 | NURSING ---
At start of shift gtts were at following rate; Propofol@20mcg, Fentanyl@100mcg, Levo@30mcg, Vaso @ 0.04, Precedex@1.5. Gtts checked with off going RN.
--- NOTE | 2020-10-11 20:13 | EKG12_ITS ---
Test Reason : Blood Pressure : / mmHG Vent. Rate : 117 BPM Atrial Rate : 117 BPM P-R Int : 122 ms QRS Dur : 068 ms QT Int : 278 ms P-R-T Axes : 076 081 052 degrees QTc Int : 387 ms Sinus tachycardia Nonspecific ST abnormality Abnormal ECG When compared with ECG of 11-OCT-2020 10:08, MANUAL COMPARISON REQUIRED, DATA IS UNCONFIRMED Confirmed by MARCY VASQUEZ, MINDY ([id number]), book or script editor MERLIN ROBERTS ([id number]) on 10/14/2020 9:19:13 AM Referred By: Confirmed By:MINDY VIDAL MD
--- NOTE | 2020-10-11 20:20 | CB_ITS ---
Code Blue Report Patient was previously prone was flipped into supine position. He became bradycardic and asystolic. ACLS protocol with CPR and 2 rounds of epinephrine was done. Patient achieved ROSC. Patient bicarbonate of 19. An amp of bicarbonate ordered. EKG with ST depressions. Trend troponin. Patient with hypokalemia with plans to get potassium. After potassium replacement check BMP in 4 hours time. Per nurse report rate setter wants patient to be re-proned after potassium has been given. Patient Problems: Active and Suspected Problems Atrial flutter (Acute) Aspiration pneumonia (Acute) Drug overdose (Acute) Hypothermia (Acute) Acute respiratory failure (Acute) Mixed acid base balance disorder (Acute) Airway intubation performed without difficulty (Acute) - Physical Exam Vitals/I&O's: Vital Signs Temp Pulse Resp BP Pulse Ox 100.6 F H 90 25 H 86/22 L 100 10/11/20 18:45 10/11/20 18:45 10/11/20 18:00 10/11/20 18:45 10/11/20 18:00 Oxygen Delivery Method Mechanical Ventilator Weight: 92 kg Body Mass Index (BMI) 27.4 Intake and Output for Last 24 Hours 10/09/20 10/10/20 10/11/20 23:59 23:59 23:59 Intake Total 3762.35 / 3762.35 Output Total 1250 / 1250 Balance 2512.35 / 2512.35 Microbiology Past 72 Hours 10/11/20 09:15 Sputum, Tracheal Aspirate Gram Stain - Final 10/11/20 09:47 Mucosa - Nose SARS-CoV-2 Antigen (Rapid) - Final Laboratory Results 10/11/20 08:49: Urine Color Yellow, Urine Clarity Clear, Urine pH 5.0, Ur Specific [place] 1.025, Urine Protein 30 H, Urine Glucose (UA) 1000 H, Urine Ketones Negative, Urine Occult Blood Negative, Urine Nitrite Negative, Urine Bilirubin Negative, Urine Urobilinogen Normal, Ur Leukocyte Esterase Negative, Urine RBC 0 SEEN, Urine WBC 0 SEEN, Ur Squamous Epith Cells 0-5 SEEN, Calcium Oxalate Crystal RARE, Urine Bacteria 0 SEEN, Urine Mucus 0 SEEN 10/11/20 08:51: Specimen Type ART, pH 6.91 L*, Bicarbonate Actual 23.6, Total CO 2 27, Base Excess -9 L, O2 Saturation 67 L, O2 % 100, ABG pCO2 117.9 H*, ABG pO2 59 L, O2 Delivery Device Bagging, Crit Call To/Read Back Yes 10/11/20 08:54: WBC 17.2 H, RBC 5.25, Hgb 15.3, Hct 48.3, MCV 92.0, MCH 29.1, MCHC 31.7 L, RDW Std Deviation 41.2, RDW Coeff of [place] 12.1, Plt Count 346, MPV 9.1, Immature Gran % (Auto) 1.000 H, Neut % (Auto) 77.5 H, Lymph % (Auto) 16.4 L , [place] % (Auto) 3.2, Eos % (Auto) 1.3, Baso % (Auto) 0.6, Absolute Neuts (auto) 13.3 H, Absolute Lymphs (auto) 2.82, Nucleated RBC % 0 10/11/20 08:54: PT 12.5, INR 1.0, APTT 29.4 10/11/20 08:54: Sodium 136, Potassium 3.3 L, Chloride 100, Carbon Dioxide 24.0, Anion Gap 12, BUN 20 H, Creatinine 1.52 H, Estim Creat Clear Calc 78.71, Est GFR (MDRD) Af Amer 70, Est GFR (MDRD) Non-Af 58 L, BUN/Creatinine Ratio 13.2, Glucose 375 H, Calcium 8.1 L, Magnesium 3.0 H, Total Bilirubin 0.40, AST 60 H, ALT 66 H, Alkaline Phosphatase 136 H, Total Creatine Kinase 327 H, Troponin I < 0.015, Total Protein 7.1, Albumin 3.5, Globulin 3.6, Albumin/Globulin Ratio 1.0 10/11/20 08:54: Lactic Acid 5.6 H* 10/11/20 08:54: Ethyl Alcohol < 3.0 10/11/20 08:54: Urine Opiates Screen NEGATIVE, Urine Methadone Screen NEGATIVE, Ur Barbiturates Screen NEGATIVE, Ur Phencyclidine Scrn NEGATIVE, Ur Amphetamines Screen POSITIVE H, U Methamphetamin-MDMA NEGATIVE, U Benzodiazepines Scrn NEGATIVE, Urine Cocaine Screen NEGATIVE, U Cannabinoids Screen POSITIVE H, Ur Drug Screen Comment 10/11/20 09:20: VBG Carboxyhemoglobin 2.4 H 10/11/20 09:58: Specimen Type ART, Sample Site L Radial, pH 7.04 L*, Bicarbonate Actual 23.2, Total CO2 26, Base Excess -7 L, O2 Saturation 80 L, O2 % 100, ABG pCO2 85.1 H*, ABG pO2 66 L, Reyes Test Positive, Respiration Rate 16, O2 Delivery Device Adult Vent, Vent Mode AC, Tidal Volume 550, POC PEEP 12, Crit Call To/Read Back Yes 10/11/20 13:34: Specimen Type ART, Sample Site L Radial, pH 7.16 L*, Bicarbonate Actual 23.4, Total CO2 25, Base Excess -5 L, O2 Saturation 61 L, O2 % 100, ABG pCO2 65.6 H, ABG pO2 41 L, Respiration Rate 18, Vent Mode AC, Tidal Volume 550, POC PEEP 16, Crit Call To/Read Back Yes 10/11/20 18:33: POC Glucose 64 L 10/11/20 19:02: Specimen Type ART, Sample Site R Radial, pH 7.28 L, Bicarbonate Actual 19.3 L, Total CO2 21, Base Excess -7 L, O2 Saturation 99, O2 % 100, ABG pCO2 41.1, ABG pO2 178 H, Respiration Rate 18, O2 Delivery Device Adult Vent, Vent Mode AC, Tidal Volume 550, POC PEEP 18 Current Medications Albuterol/Ipratropium (Ipratropium/Albuterol Sulfate 3 Ml Ampul.Neb) 3 ml INHALATION Q4H.RT [facility] Chlorhexidine Gluconate (Chlorhexidine 15 Ml) 15 ml PO BID [facility] Hydrocortisone Sodium Succinate (Hydrocortisone Sod Succinate 100 Mg/2 Ml Vial) 100 mg IV Q8 [facility] Propofol (Diprivan) 1,000 mg in 100 mls @ 5.52 mls/hr CONT INF .Q12H [facility]; Protocol Last Admin: 10/11/20 19:00 Dose: 25 mcg/kg/min, 13.8 mls/hr Documented by: Sodium Chloride () 1,000 mls @ 75 mls/hr IV .[id number] [facility] Stop: 10/12/20 16:54 Last Admin: 10/11/20 18:30 Dose: 75 mls/hr Documented by: Famotidine 20 mg/ Sodium (Chloride) 10 mls @ 300 mls/hr IV Q12 [facility] Norepinephrine Bitartrate 8 mg (/ Sodium Chloride) 250 mls @ 9.375 mls/hr CONT INF .[id number] [facility]; Protocol Last Titration: 10/11/20 19:00 Dose: 30 mcg/min, 56.3 mls/hr Documented by: Fentanyl Citrate 1,000 mcg/ (Sodium Chloride) 100 mls @ 5 mls/hr CONT INF .Q20H [facility]; Protocol Last Titration: 10/11/20 19:00 Dose: 100 mcg/hr, 10 mls/hr Documented by: Dexmedetomidine HCl 1,000 mcg/ (Sodium Chloride) 250 mls @ 11.5 mls/hr CONT INF .[id number] [facility]; Protocol Last Titration: 10/11/20 19:46 Dose: 1.5 mcg/kg/hr, 34.5 mls/hr Documented by: Vasopressin 20 units/ Sodium (Chloride) 25 mls @ 3 mls/hr IV .[id number] [facility] Last Infusion: 10/11/20 19:00 Dose: 0.04 units/min, 3 mls/hr Documented by: Piperacillin Sod/Tazobactam (Sod 3.375 gm/ Sodium Chloride) 50 mls @ 12.5 mls/hr IV Q8 [facility] Insulin Human Lispro (Insulin Lispro 100 Unit/Ml Insuln.Pen) 0 unit SC Q6 [facility]; Protocol Last Admin: 10/11/20 18:34 Dose: Not Given Documented by: Morphine Sulfate (Morphine 2 Mg/Ml Syringe) 2 mg IV Q3H PRN PRN PRN Reason: Pain Score 6-10 Ondansetron HCl (Ondansetron 4 Mg/2 Ml Vial) 4 mg IV Q8H PRN PRN PRN Reason: NAUSEA/VOMITING Sodium Chloride (0.9% Saline Lock 10 Ml Syringe) 10 - 40 ml IV UD PRN PRN Reason: SALINE FLUSH Assessment/Plan All Active Problems Opiate dependence (Acute) Atrial flutter (Acute) Aspiration pneumonia (Acute) Drug overdose (Acute) Hypothermia (Acute) Acute respiratory failure (Acute) Mixed acid base balance disorder (Acute) Airway intubation performed without difficulty (Acute)
[2020-10-11] MEDS: Epinephrine IV 1 mg/10 ml syringe IV (20:31)
[2020-10-11] MEDS: Dextrose 50%-Water 25 GM/50 ML DISP.SYRIN IV (20:45)
[2020-10-11] MEDS: Furosemide 20 MG/2 ML VIAL IV (21:05)
[2020-10-11] MEDS: Hydrocortisone Sod Succinate 100 MG/2 ML Vial IV (22:19)
[2020-10-11] MEDS: Chlorhexidine 15 ML PO (22:19)
[2020-10-11] MEDS: Famotidine 200 MG/20 ML MDV 20 MG in 0.9% Normal Saline (Pres. free 8 ML 300 MG IV (22:21)
[2020-10-11] MEDS: 0.9% Saline Lock 10 ML Syringe IV (22:22)
--- NOTE | 2020-10-11 22:25 | CPS ---
Pt in prone position at this time
[2020-10-11 22:56] LABS: Bedside Glucose 83 mg/dL (70-110)
[2020-10-11 22:56] LABS: Bedside Glucose 68 mg/dL (70-110)
[2020-10-12] VITALS (89 sets, daily range): BP systolic 65–159; BP diastolic 38–89; PULSE 69–113; RESP 18; TEMP 36.4–38.4; O2SAT 65–100; BMI 24.3
[2020-10-12 00:06] LABS: Bedside Glucose 77 mg/dL (70-110)
--- NOTE | 2020-10-12 00:52 | NURSING ---
2000 nurses and respitory at bedside to place pt on back for PICC line insertion. Noted on monitor pts heart rate went from 100's to 40's. Femoral pulse checked, then noted on monitor pt went asystole, no pulse present CPR initiated. See code documentation.
--- NOTE | 2020-10-12 00:55 | NURSING ---
2125 pt placed back into prone position with nurses and respitory, cooling blanket applied to pt for fever. Pt tolerated well.
--- NOTE | 2020-10-12 02:19 | NURSING ---
0100 cooling blanket turned off but still under pt, will monitor, tolerated well
[2020-10-12] MEDS: Propofol 10MG/Ml 1,000 MG/100 ML Bottle 16.6 MG CONT INF (02:23)
[2020-10-12] MEDS: 0.9% Saline Lock 10 ML Syringe IV ×4 (02:48→19:54)
[2020-10-12 02:50] LABS: Absolute Neutrophil Count 19.2 X10^3/uL (2.0-7.7); Basophil% 0.5 % (0-1); Hematocrit 44.4 % (40-54); Hemoglobin 14.6 g/dL (13.0-16.5); Lymphocyte % 2.9 % (19-41); Mean Corp Hgb Conc 32.9 g/dL (32-36); Mean Corpuscular Hgb 29.3 pg (27.0-32.0); Mean Platelet Vol. 9.4 fl (6.2-12.0); Monocyte# 0.59 X10^3/uL; Monocyte% 2.9 % (0-10); NRBC Flagged by Analyzer 0 % (0-5); Neutrophil # 19.15 X10^3/uL (2.7-7.7); Neutrophil % 93.1 % (47-70); POSITIVE DIFFERENTIAL YES; Platelet Count 330 K/mm3 (150-450); RBC Distribution Width CV 12.5 % (11.6-14.6); RBC Distribution Width SD 41.1 fl (35.1-43.9); Red Blood Count 4.99 M/mm3 (4.6-6.2); White Blood Count 20.6 K/mm3 (4.4-11.0)
[2020-10-12 03:03] LABS: Differential Indicated SCAN CRITERIA MET
[2020-10-12 03:41] LABS: Anion Gap 9 (5-15); BUN 22 mg/dL (7-18); BUN/Creat Ratio 18.8 RATIO (10-20); Chloride 113 mmol/L (98-107); Creatinine, Serum 1.17 mg/dL (0.70-1.30); EST Glomerular Filtration Rate 78 mL/min (>60); Est Glom Filt Rate - Afr Amer 94 mL/min (>60); Estimated Creatinine Clearance 102.25 ml/min; Glucose 128 mg/dL (74-106); Potassium 4.1 mmol/L (3.5-5.1); Sodium Level 143 mmol/L (136-145)
[2020-10-12 04:04] LABS: Differential Comment SCANNED
[2020-10-12] MEDS: Hydrocortisone Sod Succinate 100 MG/2 ML Vial IV ×3 (05:30→21:52)
[2020-10-12] MEDS: TITRATION PARAMETER CHANGE 1 EACH IV ×4 (05:44→22:00)
[2020-10-12 05:45] LABS: Bedside Glucose 132 mg/dL (70-110)
[2020-10-12 06:50] LABS: Base Excess -4 mmol/L (-2 to +2); Bicarbonate 21.7 mmol/L (22-26); Blood Gas Specimen Type ART; FI02 40; Mode AC; O2 Delivery Device ET Tube; PEEP 18; PO2 75 mmHG (75-100); RR 18; SITE L Radial; SO2 95 % (95-99); Total Carbon Dioxide 23 mmol/L; Vt 550; pCO2 36.9 mmHg (35-45); pH 7.38 (7.35-7.45)
--- NOTE | 2020-10-12 07:05 | PCM.CON.CC ---
Problem List (1) Opiate dependence Status: Acute (2) Anxiety and depression Status: Chronic (3) Aspiration pneumonia Status: Acute (4) Drug overdose Status: Acute (5) Acute respiratory failure Status: Acute (6) Mixed acid base balance disorder Status: Acute Reason for Consult Date of Consultation: 10/12/20 Reason for Consultation: Multisystem organ failure History of Present Illness: The patient is a 29 year old M, with past medical history listed below, who presented to [facility] on 10/11/2020 secondary to being found unresponsive. Patient reportedly had left his home around 5 AM with heroin and fentanyl. Patient reportedly had a large amount of marijuana on him and was dressed in shorts and a jacket. Patient was found unresponsive in a ditch. Patient was given 6 mg of Narcan in the field with no significant improvement. Patient received bag mask ventilation. Patient did not have any signs of trauma outside of a broken tooth, but was noted to have agonal respirations and movements. In the ER, patient was hypothermic at 87 ?F, tachycardic at 124 bpm and hypoxic at 72% despite intubation. Patient had a comprehensive radiologic work-up that was relatively unremarkable except for a chest x-ray and CT scan showing diffuse bilateral airspace opacities. No PE or trauma was appreciated. Laboratory work-up showed a leukocytosis of 17.2, normal coagulation and acute kidney injury with a creatinine of 1.52. Patient was hypokalemic at 3.3. ABG showed a mixed acidosis with significant AA gradient and a P to F ratio of 66. Initial troponins were negative. Alcohol level was negative, but patient was positive for amphetamines and cannabinoids. On intubation, patient reportedly did have significant emesis in the posterior pharynx. Patient had received paralytic for the intubation and initially was placed on propofol. This was transition to Precedex secondary to hypotension. Patient did not have a central line placed in the ER, but was transferred to the intensive care unit on high PEEP and FiO2. Multiple conversations with ICU staff by phone on arrival. A brief summary includes increasing PEEP to 18. Attempts at transitioning to AVAPS were unsuccessful as saturations dropped into the 40s. Patient did not have any bradycardia or arrest at that time. Patient was then proned. In the prone position, oxygenation significantly improved. At approximately 8:00 PM, patient was transitioned to the supine position, became hypoxic, bradycardic and did receive CPR. Patient did have ROSC and was placed back in the supine position following PICC placement in the left arm. Patient did relatively well overnight and has been able to come off of epinephrine. Patient remains on Solu-Cortef, Levophed and vasopressin. Patient has been able to be weaned to 40% FiO2, but remains on 18 of PEEP. This morning, patient was transition back to the supine position under my direct supervision without complication. C-collar has remained in place throughout. Patient did not appear to have any breakdown from positioning. Patient did have venous stasis of the left hand. Tidal volume was decreased to 500 given ABG and attempts to achieve lower tidal volume per kilogram. Unable to obtain any review of systems as patient is currently sedated Past Medical History Past Medical History (Chronic Problems): Chronic Problems Anxiety and depression (Chronic) Allergies No Known Allergies Allergy (Verified 10/11/20 08:43) Home Medications: Ambulatory Orders Medication Instructions Recorded NK 04/26/20 Surgical History: no surgical history Smoking Status: Current every day smoker Drugs: Heroin, Marijuana - *Family History Maternal History Items: Unknown, - Review of Systems Unable to obtain accurate/complete ROS d/t: Intubated and sedated Patient Problems: Active and Suspected Problems Atrial flutter (Acute) Aspiration pneumonia (Acute) Drug overdose (Acute) Hypothermia (Acute) Acute respiratory failure (Acute) Mixed acid base balance disorder (Acute) Airway intubation performed without difficulty (Acute) Objective: Multiple imaging studies were personally reviewed. Chest x-rays show supportive devices in appropriate position, but extensive bilateral infiltrates. - Physical Exam Vitals/I&O's: Vital Signs Temp Pulse Resp BP Pulse Ox 37.8 C H 89 18 140/64 H 99 10/12/20 06:00 10/12/20 06:00 10/12/20 06:00 10/12/20 06:45 10/12/20 06:00 Oxygen Delivery Method Mechanical Ventilator Weight: 81.4 kg Body Mass Index (BMI) 27.4 Intake and Output for Last 24 Hours 10/10/20 10/11/20 10/12/20 23:59 23:59 23:59 Intake Total 4476.80 / 4608.90 977.01 / 977.01 Output Total 1800 / 2350 1000 / 1000 Balance 2676.80 / 2258.90 -22.99 / -22.99 General: - - Intubated and sedated. Fair vent synchrony. No signs of trauma outside of a chipped tooth. HEENT: Atraumatic, PERRLA, EOMI, Normocephalic, - - Slight scleral injection without icterus Oral: No Gingival or Mucosal Lesions/ Ulcerations, Dry Mucosa Neck: Supple, No JVD, No Nodes, Trachea Midline Lungs: No wheeze, No rales, Diminished, Rhonchi - Bilateral, - - Symmetric expansion. Cardiovascular: Normal S1, Normal S2, No murmurs, No rub noted, No Gallop, Tachycardic Abdomen: Bowel Sounds Present, Soft, Non Tender, Non-Distended Extremities: No clubbing, No cyanosis, Edema - Left hand Skin: No rashes, No breakdown Musculoskeletal: No Tenderness to Palpation of Joints or Extremities Lymphatic: No Cervical, Supraclavicular, or Inguinal Adenopathy Neurological: Cranial nerves II-XII grossly intact, Neuro grossly intact, Motor Exam 5/5 strength throughout, - - Some minimal spontaneous movement noted. Psych/Mental Status: Flat Affect Microbiology Past 72 Hours 10/11/20 09:15 Sputum, Tracheal Aspirate Gram Stain - Final 10/11/20 09:47 Mucosa - Nose SARS-CoV-2 Antigen (Rapid) - Final Laboratory Results 10/11/20 08:49: Urine Color Yellow, Urine Clarity Clear, Urine pH 5.0, Ur Specific [place] 1.025, Urine Protein 30 H, Urine Glucose (UA) 1000 H, Urine Ketones Negative, Urine Occult Blood Negative, Urine Nitrite Negative, Urine Bilirubin Negative, Urine Urobilinogen Normal, Ur Leukocyte Esterase Negative, Urine RBC 0 SEEN, Urine WBC 0 SEEN, Ur Squamous Epith Cells 0-5 SEEN, Calcium Oxalate Crystal RARE, Urine Bacteria 0 SEEN, Urine Mucus 0 SEEN 10/11/20 08:51: Specimen Type ART, pH 6.91 L*, Bicarbonate Actual 23.6, Total CO2 27, Base Excess -9 L, O2 Saturation 67 L, O2 % 100, ABG pCO2 117.9 H*, ABG pO2 59 L, O2 Delivery Device Bagging, Crit Call To/Read Back Yes 10/11/20 08:54: WBC 17.2 H, RBC 5.25, Hgb 15.3, Hct 48.3, MCV 92.0, MCH 29.1, MCHC 31.7 L, RDW Std Deviation 41.2, RDW Coeff of Phoebe 12.1, Plt Count 346, MPV 9.1, Immature Gran % (Auto) 1.000 H, Neut % (Auto) 77.5 H, Lymph % (Auto) 16.4 L, Armstrong % (Auto) 3.2, Eos % (Auto) 1.3, Baso % (Auto) 0.6, Absolute Neuts (auto) 13.3 H, Absolute Lymphs (auto) 2.82, Nucleated RBC % 0 10/11/20 08:54: PT 12.5, INR 1.0, APTT 29.4 10/11/20 08:54: Sodium 136, Potassium 3.3 L, Chloride 100, Carbon Dioxide 24.0, Anion Gap 12, BUN 20 H, Creatinine 1.52 H, Estim Creat Clear Calc 78.71, Est GFR (MDRD) Af Amer 70, Est GFR (MDRD) Non-Af 58 L, BUN/Creatinine Ratio 13.2, Glucose 375 H, Calcium 8.1 L, Magnesium 3.0 H, Total Bilirubin 0.40, AST 60 H, ALT 66 H, Alkaline Phosphatase 136 H, Total Creatine Kinase 327 H, Troponin I < 0.015, Total Protein 7.1, Albumin 3.5, Globulin 3.6, Albumin/Globulin Ratio 1.0 10/11/20 08:54: Lactic Acid 5.6 H* 10/11/20 08:54: Ethyl Alcohol < 3.0 10/11/20 08:54: Urine Opiates Screen NEGATIVE, Urine Methadone Screen NEGATIVE, Ur Barbiturates Screen NEGATIVE, Ur Phencyclidine Scrn NEGATIVE, Ur Amphetamines Screen POSITIVE H, U Methamphetamin-MDMA NEGATIVE, U Benzodiazepines Scrn NEGATIVE, Urine Cocaine Screen NEGATIVE, U Cannabinoids Screen POSITIVE H, Ur Drug Screen Comment 10/11/20 09:20: VBG Carboxyhemoglobin 2.4 H 10/11/20 09:58: Specimen Type ART, Sample Site L Radial, pH 7.04 L*, Bicarbonate Actual 23.2, Total CO2 26, Base Excess -7 L, O2 Saturation 80 L, O2 % 100, ABG pCO2 85.1 H*, ABG pO2 66 L, Reyes Test Positive, Respiration Rate 16, O2 Delivery Device Adult Vent, Vent Mode AC, Tidal Volume 550, POC PEEP 12, Crit Call To/Read Back Yes 10/11/20 13:34: Specimen Type ART, Sample Site L Radial, pH 7.16 L*, Bicarbonate Actual 23.4, Total CO2 25, Base Excess -5 L, O2 Saturation 61 L, O2 % 100, ABG pCO2 65.6 H, ABG pO2 41 L, Respiration Rate 18, Vent Mode AC, Tidal Volume 550, POC PEEP 16, Crit Call To/Read Back Yes 10/11/20 18:33: POC Glucose 64 L 10/11/20 19:02: Specimen Type ART, Sample Site R Radial, pH 7.28 L, Bicarbonate Actual 19.3 L, Total CO2 21, Base Excess -7 L, O2 Saturation 99, O2 % 100, ABG pCO2 41.1, ABG pO2 178 H, Respiration Rate 18, O2 Delivery Device Adult Vent, Vent Mode AC, Tidal Volume 550, POC PEEP 18 10/11/20 20:45: POC Glucose 68 L 10/11/20 21:15: POC Glucose 83 10/11/20 23:50: Troponin I 2.550 H* 10/11/20 23:59: POC Glucose 77 10/12/20 02:43: WBC 20.6 H, RBC 4.99, Hgb 14.6, Hct 44.4, MCV 89.0, MCH 29.3, MCHC 32.9, RDW Std Deviation 41.1, RDW Coeff of Phoebe 12.5, Plt Count 330, MPV 9.4, Immature Gran % (Auto) 0.600, Neut % (Auto) 93.1 H, Lymph % (Auto) 2.9 L, Armstrong % (Auto) 2.9, Eos % (Auto) 0.0, Baso % (Auto) 0.5, Absolute Neuts (auto) 19.2 H, Absolute Lymphs (auto) 0.60 L, Nucleated RBC % 0, Differential Comment SCANNED 10/12/20 02:43: Sodium 143, Potassium 4.1, Chloride 113 H, Carbon Dioxide 21.0, Anion Gap 9, BUN 22 H, Creatinine 1.17, Estim Creat Clear Calc 102.25, Est GFR (MDRD) Af Amer 94, Est GFR (MDRD) Non-Af 78, BUN/Creatinine Ratio 18.8, Glucose 128 H, Calcium 7.0 L 10/12/20 02:43: Troponin I 3.740 H* 10/12/20 04:45: Troponin I 4.000 H* 10/12/20 05:39: POC Glucose 132 H 10/12/20 06:46: Specimen Type ART, Sample Site L Radial, pH 7.38, Bicarbonate Actual 21.7 L, Total CO2 23, Base Excess -4 L, O2 Saturation 95, O2 % 40, ABG pCO2 36.9, ABG pO2 75, Respiration Rate 18, O2 Delivery Device ET Tube, Vent Mode AC, Tidal Volume 550, POC PEEP 18 Current Medications Chlorhexidine Gluconate (Chlorhexidine 15 Ml) 15 ml PO BID TREY Last Admin: 10/11/20 22:19 Dose: 15 ml Documented by: Dextrose (Dextrose 50%-Water 25 Gm/50 Ml Disp.Syrin) 0 gm IV X1 PRN; Protocol PRN Reason: Hypoglycemia Last Admin: 10/11/20 20:45 Dose: 25 gm Documented by: Glucagon (Glucagon 1 Mg/Ml Syringe) 1 mg IM .X1 PRN PRN Reason: Hypoglycemia Heparin Sodium (Beef Lung) (Heparin Pf Lock 10 Units/Ml 50 Units/5 Ml Syringe) 50 units IV UD PRN PRN Reason: PICC Line Heparin Flush Hydrocortisone Sodium Succinate (Hydrocortisone Sod Succinate 100 Mg/2 Ml Vial) 100 mg IV Q8 [facility] Last Admin: 10/12/20 05:30 Dose: 100 mg Documented by: Propofol (Diprivan) 1,000 mg in 100 mls @ 4.884 mls/hr CONT INF .Q12H [facility]; Protocol Last Titration: 10/12/20 06:00 Dose: 30 mcg/kg/min, 14.7 mls/hr Documented by: Sodium Chloride () 1,000 mls @ 75 mls/hr IV .[id number] [facility] Stop: 10/12/20 16:54 Last Infusion: 10/11/20 20:05 Dose: Infused Documented by: Famotidine 20 mg/ Sodium (Chloride) 10 mls @ 300 mls/hr IV Q12 [facility] Last Infusion: 10/11/20 22:23 Dose: Infused Documented by: Norepinephrine Bitartrate 8 mg (/ Sodium Chloride) 250 mls @ 9.375 mls/hr CONT INF .[id number] [facility]; Protocol Last Titration: 10/12/20 06:45 Dose: 25 mcg/min, 46.9 mls/hr Documented by: Fentanyl Citrate 1,000 mcg/ (Sodium Chloride) 100 mls @ 5 mls/hr CONT INF .Q20H [facility]; Protocol Last Titration: 10/12/20 06:00 Dose: 150 mcg/hr, 15 mls/hr Documented by: Vasopressin 20 units/ Sodium (Chloride) 25 mls @ 3 mls/hr IV .[id number] TREY Last Admin: 10/12/20 02:24 Dose: 0.04 units/min, 3 mls/hr Documented by: Piperacillin Sod/Tazobactam (Sod 3.375 gm/ Sodium Chloride) 50 mls @ 12.5 mls/hr IV Q8 [facility] Last Admin: 10/12/20 05:30 Dose: 12.5 mls/hr Documented by: Epinephrine HCl 1 mg/ Sodium (Chloride) 251 mls @ 15.06 mls/hr CONT INF .[id number] [facility]; Protocol Last Titration: 10/12/20 06:15 Dose: 0 mcg/min, 0 mls/hr Documented by: Sodium Chloride () 250 mls @ 15 mls/hr IV .[id number] PRN PRN Reason: Saline Flush Last Infusion: 10/12/20 05:40 Dose: 0 mls/hr Documented by: Sodium Chloride () 250 mls @ 15 mls/hr IV .[id number] PRN PRN Reason: Additional IVPB Infusion Insulin Human Lispro (Insulin Lispro 100 Unit/Ml Insuln.Pen) 0 unit SC Q6 [facility]; Protocol Last Admin: 10/12/20 05:46 Dose: Not Given Documented by: Morphine Sulfate (Morphine 2 Mg/Ml Syringe) 2 mg IV Q3H PRN PRN PRN Reason: Pain Score 6-10 Ondansetron HCl (Ondansetron 4 Mg/2 Ml Vial) 4 mg IV Q8H PRN PRN PRN Reason: NAUSEA/VOMITING Sodium Chloride (0.9% Saline Lock 10 Ml Syringe) 10 - 40 ml IV UD PRN PRN Reason: SALINE FLUSH Last Admin: 10/12/20 05:30 Dose: 10 ml Documented by: Sodium Chloride (0.9% Saline Lock 10 Ml Syringe) 10 - 40 ml IV UD PRN PRN Reason: Open End PICC Flush Last Admin: 10/12/20 02:48 Dose: 40 ml Documented by: Sodium Chloride (0.9 % Nacl (Sterile) Posiflush 10 Ml) 10 - 40 ml IV UD PRN PRN Reason: Port access or dressing change Clinical Impression(s) from Imaging Studies Chest X-Ray 10/11/20 08:46 IMPRESSION: Satisfactory position of the support lines and tubes. No pneumothorax. Diffuse bilateral airspace opacities which are most pronounced in the right upper lobe. This may be due to infection, inflammation or edema. Electronically Signed: Allan Lancaster MD at 9:41 EDT Tel , Service support , Abdomen/Pelvis CT 10/11/20 09:09 IMPRESSION: No acute abdominal or pelvic pathology. Electronically Signed: Allan Lancaster MD at 10:49 EDT Tel , Service support , Brain CT 10/11/20 09:09 IMPRESSION: No acute intracranial abnormality. Electronically Signed: Allan Lancaster MD at 10:36 EDT Tel , Service support , Cervical Spine CT 10/11/20 09:09 IMPRESSION: No fracture or dislocation in the cervical spine. Straightening of the normal cervical lordosis which may be due to paraspinal muscle spasm or may be positional in nature. Electronically Signed: Allan Lancaster MD at 10:41 EDT Tel , Service support , Chest CTA 10/11/20 09:09 IMPRESSION: Dense airspace opacity throughout both lungs which is most pronounced in the lower lobes. This is consistent with multilobar pneumonia. No pulmonary embolus. No thoracic aortic aneurysm or dissection. No acute traumatic findings in the thorax. Electronically Signed: Allan Lancaster MD at 10:46 EDT Tel , Service support , Chest X-Ray 10/11/20 10:10 IMPRESSION: No pneumothorax. No significant change in the previously seen diffuse bilateral airspace opacities. Electronically Signed: Allan Lancaster MD at 17:10 EDT Tel , Service support , Chest X-Ray 10/11/20 11:18 IMPRESSION: No significant change in the diffuse bilateral airspace opacities which is consistent with multilobar pneumonia. Electronically Signed: Allan Lancaster MD at 11:38 EDT Tel , Service support , Assessment/Plan Active and Suspected Problems Atrial flutter (Acute) Aspiration pneumonia (Acute) Drug overdose (Acute) Hypothermia (Acute) Acute respiratory failure (Acute) Mixed acid base balance disorder (Acute) Airway intubation performed without difficulty (Acute) RECOMMENDATIONS: 1. Reposition in prone position following 5 hours in supine 2. Wean pressors as tolerated to keep MAP of 65 3. Wean PEEP as tolerated 4. Spontaneous breathing and awakening trials per protocol 5. Hold tube feeds while requiring supine positioning 6. Attempt lower tidal volumes if possible 7. Continue empiric antibiotics and stress dose steroids IMPRESSIONS: 1. Acute hypoxic respiratory failure secondary to severe ARDS secondary to aspiration Initial P to F ratio of 66 indicate severe ARDS. Attempts at low tidal volume ventilation have not been successful to this point secondary to acidosis. Will attempt to decrease tidal volume as tolerated. Patient will also be volume restricted. Patient has responded well to prone positioning. Anticipate 18 to 20 hours a day of prone positioning. Attempt to avoid paralyzation if possible as patient is on steroids. Anticipate another 24 to 48 hours of tenuous hemodynamics. Patient has had a significant aspiration infiltrate in the past in 2019 with similar type presentation. 2. Probable unintentional drug overdose Unclear etiology of unresponsiveness. Patient was not responsive to Narcan, but was also significantly hypothermic. Patient appears to have had unresponsiveness with emesis and aspiration. Patient does have a long history of overdose in the past. Will monitor for signs and symptoms of withdrawal. Patient is on a fentanyl drip at this time. 3. Septic shock secondary to aspiration pneumonia Large aspiration pneumonia noted on chest x-ray. Anticipate continued worsening over the next 24 to 48 hours. Patient is on appropriate antibiotics at this time. Patient was given empiric stress dose steroids given the need for 2 pressors. Patient has been able to come off of epinephrine. We will continue to monitor and wean pressors as tolerated. Anticipate discontinuation of vasopressin once patient is tolerating Levophed at less than 10 mics. 4. Acute kidney injury Medical suspicion for a prerenal etiology. Patient was given IV fluids overnight, but needs to be volume restricted secondary to problem #1. Patient did receive a dose of Lasix with some improvement. Clinical suspicion is improvement in renal function is related to improved hemodynamics with pressors. No indication for renal replacement therapy, but will have to watch closely. 5. Elevated troponin Clinical suspicion for supply demand mismatch. Patient is relatively young, so coronary artery disease is unlikely. However, patient has had significant hypoxia secondary to previous problems. Okay to stop monitoring troponins at this time. We will continue to monitor via telemetry. Hold on heparin drip. Possible echocardiogram once prone positioning is no longer required. 6. Polysubstance abuse/poor history/possible trauma Complicates care, management, recovery and prognosis. Continue c-collar for now as unable to clear clinically. Imaging studies are not suggestive of a neck fracture, but patient was found in a ditch. TIME: 85 minutes of critical care time spent addressing patient's acute hypoxic respiratory failure/ARDS, potential drug overdose, septic shock, acute kidney injury, elevated troponin, review of all data and collaboration with care team (5:30 AM to 7:30 AM) Procedures: [id number] Critial Care Addl 30 Min 9xxxx: [id number] Critical care first hour
--- NOTE | 2020-10-12 07:18 | NURSING ---
0655- Placed pt. back in a supine position with nurses, respiratory, and Dr. Montoya at bedside. Pt. tolerated fair.
[2020-10-12] MEDS: Propofol 10MG/Ml 1,000 MG/100 ML Bottle 14.7 MG CONT INF ×4 (07:44→19:49)
--- NOTE | 2020-10-12 07:51 | PN_ITS ---
Patient Problems: Active and Suspected Problems Opiate dependence (Acute) Atrial flutter (Acute) Aspiration pneumonia (Acute) Drug overdose (Acute) Hypothermia (Acute) Acute respiratory failure (Acute) Mixed acid base balance disorder (Acute) Airway intubation performed without difficulty (Acute) Subjective: Patient seen and examined. He remains intubated and sedated, now requiring vasopressors. He had a cardiac arrest last night whilst being turned supine after he was proned. He became bradycardic and asystolic. He was resuscitated via ACLS protocol and received 2 doses of epinephrine. EKG done showed ST depressions, so troponins were chedked; these were elevated, and peaked at 4. He remains intubated and sedated. He was initially requiring vasopressin, Levophed and norepinephrine. He is now off vasopressin and remains on norepinephrine and epinephrine drips. Remains on IV Zosyn. He is off the Cindy hugger and did develop a fever. WBC is up to 20.6 today. Vitals/I&O's: Vital Signs Temp Pulse Resp BP Pulse Ox 100.8 F H 106 H 18 111/68 92 10/12/20 07:00 10/12/20 07:00 10/12/20 07:00 10/12/20 07:45 10/12/20 07:00 Oxygen Delivery Method Mechanical Ventilator Weight: 179 lb 7.3 oz Body Mass Index (BMI) 27.4 Intake and Output for Last 24 Hours 10/10/20 10/11/20 10/12/20 23:59 23:59 23:59 Intake Total 4476.80 / 4608.90 1071.46 / 1071.46 Output Total 1800 / 2350 1050 / 1050 Balance 2676.80 / 2258.90 21.46 / 21.46 General: - - intubated, sedated. HEENT: Atraumatic, PERRLA, EOMI, Normocephalic Oral: Dry Mucosa Neck: Supple, No JVD, Negative Carotid Bruits Lungs: - - intubated, sedated. Cardiovascular: Regular rate, Regular Rhythm, Normal S1, Normal S2, No murmurs Abdomen: Bowel Sounds Present, Soft, Non Tender, Non-Distended, No Hepato- splenomegaly Extremities: No clubbing, No cyanosis, No edema, Capillary Refill Less than 3 Seconds Skin: No rashes, No breakdown Musculoskeletal: No Tenderness to Palpation of Joints or Extremities Lymphatic: No Cervical, Supraclavicular, or Inguinal Adenopathy Neurological: - - intubated, sedated Microbiology Past 72 Hours 10/11/20 09:15 Sputum, Tracheal Aspirate Gram Stain - Final 10/11/20 09:47 Mucosa - Nose SARS-CoV-2 Antigen (Rapid) - Final Laboratory Results 10/11/20 08:49: Urine Color Yellow, Urine Clarity Clear, Urine pH 5.0, Ur Specific [place] 1.025, Urine Protein 30 H, Urine Glucose (UA) 1000 H, Urine Ketones Negative, Urine Occult Blood Negative, Urine Nitrite Negative, Urine Bilirubin Negative, Urine Urobilinogen Normal, Ur Leukocyte Esterase Negative, Urine RBC 0 SEEN, Urine WBC 0 SEEN, Ur Squamous Epith Cells 0-5 SEEN, Calcium Oxalate Crystal RARE, Urine Bacteria 0 SEEN, Urine Mucus 0 SEEN 10/11/20 08:51: Specimen Type ART, pH 6.91 L*, Bicarbonate Actual 23.6, Total CO2 27, Base Excess -9 L, O2 Saturation 67 L, O2 % 100, ABG pCO2 117.9 H*, ABG pO2 59 L, O2 Delivery Device Bagging, Crit Call To/Read Back Yes 10/11/20 08:54: WBC 17.2 H, RBC 5.25, Hgb 15.3, Hct 48.3, MCV 92.0, MCH 29.1, MCHC 31.7 L, RDW Std Deviation 41.2, RDW Coeff of Phoebe 12.1, Plt Count 346, MPV 9.1, Immature Gran % (Auto) 1.000 H, Neut % (Auto) 77.5 H, Lymph % (Auto) 16.4 L , [place] % (Auto) 3.2, Eos % (Auto) 1.3, Baso % (Auto) 0.6, Absolute Neuts (auto) 13.3 H, Absolute Lymphs (auto) 2.82, Nucleated RBC % 0 10/11/20 08:54: PT 12.5, INR 1.0, APTT 29.4 10/11/20 08:54: Sodium 136, Potassium 3.3 L, Chloride 100, Carbon Dioxide 24.0, Anion Gap 12, BUN 20 H, Creatinine 1.52 H, Estim Creat Clear Calc 78.71, Est GFR (MDRD) Af Amer 70, Est GFR (MDRD) Non-Af 58 L, BUN/Creatinine Ratio 13.2, Glucose 375 H, Calcium 8.1 L, Magnesium 3.0 H, Total Bilirubin 0.40, AST 60 H, ALT 66 H, Alkaline Phosphatase 136 H, Total Creatine Kinase 327 H, Troponin I < 0.015, Total Protein 7.1, Albumin 3.5, Globulin 3.6, Albumin/Globulin Ratio 1.0 10/11/20 08:54: Lactic Acid 5.6 H* 10/11/20 08:54: Ethyl Alcohol < 3.0 10/11/20 08:54: Urine Opiates Screen NEGATIVE, Urine Methadone Screen NEGATIVE, Ur Barbiturates Screen NEGATIVE, Ur Phencyclidine Scrn NEGATIVE, Ur Amphetamines Screen POSITIVE H, U Methamphetamin-MDMA NEGATIVE, U Benzodiazepines Scrn NEGATIVE, Urine Cocaine Screen NEGATIVE, U Cannabinoids Screen POSITIVE H, Ur Drug Screen Comment 10/11/20 09:20: VBG Carboxyhemoglobin 2.4 H 10/11/20 09:58: Specimen Type ART, Sample Site L Radial, pH 7.04 L*, Bicarbonate Actual 23.2, Total CO2 26, Base Excess -7 L, O2 Saturation 80 L, O2 % 100, ABG pCO2 85.1 H*, ABG pO2 66 L, Reyes Test Positive, Respiration Rate 16, O2 Delivery Device Adult Vent, Vent Mode AC, Tidal Volume 550, POC PEEP 12, Crit Call To/Read Back Yes 10/11/20 13:34: Specimen Type ART, Sample Site L Radial, pH 7.16 L*, Bicarbonate Actual 23.4, Total CO2 25, Base Excess -5 L, O2 Saturation 61 L, O2 % 100, ABG pCO2 65.6 H, ABG pO2 41 L, Respiration Rate 18, Vent Mode AC, Tidal Volume 550, POC PEEP 16, Crit Call To/Read Back Yes 10/11/20 18:33: POC Glucose 64 L 10/11/20 19:02: Specimen Type ART, Sample Site R Radial, pH 7.28 L, Bicarbonate Actual 19.3 L, Total CO2 21, Base Excess -7 L, O2 Saturation 99, O2 % 100, ABG pCO2 41.1, ABG pO2 178 H, Respiration Rate 18, O2 Delivery Device Adult Vent, Vent Mode AC, Tidal Volume 550, POC PEEP 18 10/11/20 20:45: POC Glucose 68 L 10/11/20 21:15: POC Glucose 83 10/11/20 23:50: Troponin I 2.550 H* 10/11/20 23:59: POC Glucose 77 10/12/20 02:43: WBC 20.6 H, RBC 4.99, Hgb 14.6, Hct 44.4, MCV 89.0, MCH 29.3, MCHC 32.9, RDW Std Deviation 41.1, RDW Coeff of Phoebe 12.5, Plt Count 330, MPV 9.4, Immature Gran % (Auto) 0.600, Neut % (Auto) 93.1 H, Lymph % (Auto) 2.9 L, [place] % (Auto) 2.9, Eos % (Auto) 0.0, Baso % (Auto) 0.5, Absolute Neuts (auto) 19.2 H, Absolute Lymphs (auto) 0.60 L, Nucleated RBC % 0, Differential Comment SCANNED 10/12/20 02:43: Sodium 143, Potassium 4.1, Chloride 113 H, Carbon Dioxide 21.0, Anion Gap 9, BUN 22 H, Creatinine 1.17, Estim Creat Clear Calc 102.25, Est GFR (MDRD) Af Amer 94, Est GFR (MDRD) Non-Af 78, BUN/Creatinine Ratio 18.8, Glucose 128 H, Calcium 7.0 L 10/12/20 02:43: Troponin I 3.740 H* 10/12/20 04:45: Troponin I 4.000 H* 10/12/20 05:39: POC Glucose 132 H 10/12/20 06:46: Specimen Type ART, Sample Site L Radial, pH 7.38, Bicarbonate Actual 21.7 L, Total CO2 23, Base Excess -4 L, O2 Saturation 95, O2 % 40, ABG pCO2 36.9, ABG pO2 75, Respiration Rate 18, O2 Delivery Device ET Tube, Vent Mode AC, Tidal Volume 550, POC PEEP 18 Current Medications Chlorhexidine Gluconate (Chlorhexidine 15 Ml) 15 ml PO BID TREY Last Admin: 10/11/20 22:19 Dose: 15 ml Documented by: Dextrose (Dextrose 50%-Water 25 Gm/50 Ml Disp.Syrin) 0 gm IV X1 PRN; Protocol PRN Reason: Hypoglycemia Last Admin: 10/11/20 20:45 Dose: 25 gm Documented by: Glucagon (Glucagon 1 Mg/Ml Syringe) 1 mg IM .X1 PRN PRN Reason: Hypoglycemia Heparin Sodium (Beef Lung) (Heparin Pf Lock 10 Units/Ml 50 Units/5 Ml Syringe) 50 units IV UD PRN PRN Reason: PICC Line Heparin Flush Hydrocortisone Sodium Succinate (Hydrocortisone Sod Succinate 100 Mg/2 Ml Vial) 100 mg IV Q8 [facility] Last Admin: 10/12/20 05:30 Dose: 100 mg Documented by: Propofol (Diprivan) 1,000 mg in 100 mls @ 4.884 mls/hr CONT INF .Q12H [facility]; Protocol Last Admin: 10/12/20 07:44 Dose: 30 mcg/kg/min, 14.7 mls/hr Documented by: Sodium Chloride () 1,000 mls @ 75 mls/hr IV .[id number] [facility] Stop: 10/12/20 16:54 Last Infusion: 10/11/20 20:05 Dose: Infused Documented by: Famotidine 20 mg/ Sodium (Chloride) 10 mls @ 300 mls/hr IV Q12 [facility] Last Infusion: 10/11/20 22:23 Dose: Infused Documented by: Norepinephrine Bitartrate 8 mg (/ Sodium Chloride) 250 mls @ 9.375 mls/hr CONT INF .[id number] [facility]; Protocol Last Titration: 10/12/20 07:45 Dose: 30 mcg/min, 56.3 mls/hr Documented by: Fentanyl Citrate 1,000 mcg/ (Sodium Chloride) 100 mls @ 5 mls/hr CONT INF .Q20H [facility]; Protocol Last Titration: 10/12/20 07:00 Dose: 150 mcg/hr, 15 mls/hr Documented by: Vasopressin 20 units/ Sodium (Chloride) 25 mls @ 3 mls/hr IV .[id number] [facility] Last Admin: 10/12/20 02:24 Dose: 0.04 units/min, 3 mls/hr Documented by: Piperacillin Sod/Tazobactam (Sod 3.375 gm/ Sodium Chloride) 50 mls @ 12.5 mls/hr IV Q8 [facility] Last Admin: 10/12/20 05:30 Dose: 12.5 mls/hr Documented by: Epinephrine HCl 1 mg/ Sodium (Chloride) 251 mls @ 15.06 mls/hr CONT INF .[id number] [facility]RE[facility]; Protocol Last Titration: 10/12/20 07:00 Dose: 0 mcg/min, 0 mls/hr Documented by: Sodium Chloride () 250 mls @ 15 mls/hr IV .[id number] PRN PRN Reason: Saline Flush Last Infusion: 10/12/20 05:40 Dose: 0 mls/hr Documented by: Sodium Chloride () 250 mls @ 15 mls/hr IV .[id number] PRN PRN Reason: Additional IVPB Infusion Insulin Human Lispro (Insulin Lispro 100 Unit/Ml Insuln.Pen) 0 unit SC Q6 TREY; Protocol Last Admin: 10/12/20 05:46 Dose: Not Given Documented by: Morphine Sulfate (Morphine 2 Mg/Ml Syringe) 2 mg IV Q3H PRN PRN PRN Reason: Pain Score 6-10 Ondansetron HCl (Ondansetron 4 Mg/2 Ml Vial) 4 mg IV Q8H PRN PRN PRN Reason: NAUSEA/VOMITING Sodium Chloride (0.9% Saline Lock 10 Ml Syringe) 10 - 40 ml IV UD PRN PRN Reason: SALINE FLUSH Last Admin: 10/12/20 05:30 Dose: 10 ml Documented by: Sodium Chloride (0.9% Saline Lock 10 Ml Syringe) 10 - 40 ml IV UD PRN PRN Reason: Open End PICC Flush Last Admin: 10/12/20 02:48 Dose: 40 ml Documented by: Sodium Chloride (0.9 % Nacl (Sterile) Posiflush 10 Ml) 10 - 40 ml IV UD PRN PRN Reason: Port access or dressing change STROKE Vital Signs/Narrative: Vital Signs Temp Pulse Resp BP Pulse Ox 10/12/20 07:45 111/68 10/12/20 07:30 92/63 10/12/20 07:15 88/55 L 10/12/20 07:00 100.8 F H 106 H 18 65/40 L 92 10/12/20 06:45 140/64 H 10/12/20 06:30 159/70 H 10/12/20 06:15 152/73 H 10/12/20 06:00 100.1 F H 89 18 157/77 H 99 10/12/20 05:00 99.3 F H 88 18 155/65 H 99 10/12/20 04:58 82 18 99 10/12/20 04:00 98.7 F 73 18 109/89 H 65 10/12/20 03:55 107/38 L Medical Necessity - Tobacco Use Smoking Status: Current every day smoker Assessment/Plan All Active Problems Opiate dependence (Acute) Atrial flutter (Acute) Aspiration pneumonia (Acute) Drug overdose (Acute) Hypothermia (Acute) Acute respiratory failure (Acute) Mixed acid base balance disorder (Acute) Airway intubation performed without difficulty (Acute) 29 y/o admitted after being found unresponsive, in a ditch #Acute hypoxic respiratory failure due to aspiration pneumonia and drug overdose * remains intubated and sedated. Requiring PEEP of 16 now * on IV zosyn * blood cultures pending * was proned for a while yesterday * critical care on board * breathing treatment with bronchdodilators * #Septic shock due to aspiration pneumonia * Was requiring 3 pressors namely Levophed, definite vasopressin overnight. * Now has a PICC line in place. Maintain MAP of more than 65. * Critical care on board. * On IV Zosyn as above. * #Acute respiratory acidosis due to drug intoxication * Bicarb was elevated at 117 on admission with pH of 6.91. * Currently intubated. Will monitor CO2 per blood gases. * #Non-STEMI * Patient had cardiac arrest yesterday. He had noted depressions on EKG. * Troponins were checked and troponin have trended up to a peak of 4. * This could also have been due to the CPR he received. * 2D echo ordered. * #s/p cardiac arrest * patient had cardiac arrest whilst being turned supine from proning yesterday. Was successfully resuscitated via ACLS protocol * critical care on board * #Hypothermia: was found to be hypothermic on admission. Required CINDY hugger to get his temperature normalised #Hypokalemia: resolved. #ROSELIA: resolved. DVT prophylaxis: lovenox Total time spent on critical care evaluation, assessment and management: 50 minutes. Inpatient E&M: [id number] [facility] L3 Procedures: [id number] Critial Care 1st Hr
[2020-10-12] MEDS: Chlorhexidine 15 ML PO ×2 (08:30→20:01)
[2020-10-12] MEDS: Famotidine 200 MG/20 ML MDV 20 MG in 0.9% Normal Saline (Pres. free 8 ML 300 MG IV ×2 (10:03→21:52)
--- NOTE | 2020-10-12 10:08 | NURSING ---
cooling blanket turned off.
--- NOTE | 2020-10-12 11:30 | PCM.NTREPORT ---
Nutrition Therapy Report - History Nutrition Services has been consulted to:: Manage enteral nutrition Current diet / nutrition support order:: NPO; intubated. Hold tube feeds while requiring supine positioning/proning - Anthropometric Measurements Height:: 6 ft Weight:: 81.4 kg Body Mass Index (BMI):: 24.3 - Relevant Labs Relevant Labs:: WBC 20.6 K/mm3 (4.4-11.0) H 10/12/20 02:43 MCHC 31.7 g/dL (32-36) L 10/11/20 08:54 Immature Gran % (Auto) 1.000 % (0.0-0.9) H 10/11/20 08:54 Neut % (Auto) 93.1 % (47-70) H 10/12/20 02:43 Lymph % (Auto) 2.9 % (19-41) L 10/12/20 02:43 Absolute Neuts (auto) 19.2 X10^3/uL (2.0-7.7) H 10/12/20 02:43 Absolute Lymphs (auto) 0.60 X10^3/uL (0.83-4.51) L 10/12/20 02:43 Potassium 3.3 mmol/L (3.5-5.1) L 10/11/20 08:54 Chloride 113 mmol/L (98-107) H 10/12/20 02:43 BUN 22 mg/dL (7-18) H 10/12/20 02:43 Creatinine 1.52 mg/dL (0.70-1.30) H 10/11/20 08:54 Est GFR (MDRD) Non-Af 58 mL/min (>60) L 10/11/20 08:54 Glucose 128 mg/dL (74-106) H 10/12/20 02:43 Lactic Acid 5.6 mmol/L (0.4-1.9) H* 10/11/20 08:54 Calcium 7.0 mg/dL (8.5-10.1) L 10/12/20 02:43 Magnesium 3.0 mg/dL (1.6-2.6) H 10/11/20 08:54 AST 60 U/L (15-37) H 10/11/20 08:54 ALT 66 U/L (16-61) H 10/11/20 08:54 Alkaline Phosphatase 136 U/L (45-117) H 10/11/20 08:54 Total Creatine Kinase 327 U/L (39-308) H 10/11/20 08:54 Troponin I 4.000 ng/mL (<0.045) H* 10/12/20 04:45 - Assessment Food / Nutrition-Related History:: Unable to interview pt as he is sedated and intubated at this time; EMR review reveals UBW~180-185 lbs--wt appears stable at this time. Per Dr. Montoya in ICU rounds today--do not start TF due to proning but, put recs in the chart and TF will commence when appropriate. - Nutrition Diagnosis Problem / Etiology / Signs & Symptoms (PES):: Inadequate oral intake related to intubation/proning as evidenced by NPO status x day#2. Evidence of Malnutrition Exists:: No - Nutrition Intervention Nutrition Prescription:: Estimated nutrition needs~6004-3655 kcal (22 kcal/Kg) and. ~80-100 gm pro (1-1.2 gm pro/Kg) per day. Estimated fluid needs~7614-9354 ml/day (~1 ml/Kcal) - Food / Nutrient Delivery Interventions Summary of nutrition intervention:: 1.) Rec start TF with Vital AF 1.2 Sam @ 20 ml/hr when patient appropriate for enteral nutrition support. Suggest advance rate as tolerated by 10ml/hr Q 6-8 hours and achieve goal rate 50ml/hr within 24 hours. Flush with 120ml water Q 6 hours. TF at goal rate with water flushes will provide 1440 kcal, 90 gm protein and 1453 ml free water per day. 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 3.) ONS as needed when PO diet advanced. 4.) Daily weights. 5.) TF to commence as medically able--on hold right now due to proning; Hold tube feeds while requiring supine positioning per Dr. Montoya. Nutrition support ordered as / adjusted to:: TF not ordered at this time---Holding on tube feeds while pt requiring supine positioning; remains NPO without TF at this time. Nutrition education provided?: No - MNT Monitoring Further MNT monitoring and evaluation required?: Yes MNT Follow-up in:: 1-2 days
[2020-10-12] MEDS: Enoxaparin 30 MG/0.3 ML Syringe SC (13:52)
--- NOTE | 2020-10-12 14:35 | RAD_ITS ---
HISTORY: limited rom -- patient unresponsive, when his arm is abducted, there is a bulge near armpit ADDITIONAL HISTORY: None provided. EXAMINATION/TECHNIQUE: XR Shoulder Min 2 Views Right Number of images including paperwork: 2 COMPARISON: None FINDINGS: BONES: No acute fracture. JOINTS: No subluxation. SOFT TISSUES: No distinct foreign body. Partially visualized right lung infiltrates better seen on chest radiography. RAD/Shoulder min 2 Views IMPRESSION: No acute osseous abnormality. at 2033 Reported and signed by: Kierra Rivas MD Electronically Signed: Kierra Rivas MD at 20:33 EDT Tel , Service support ,
[2020-10-12 17:46] LABS: Bedside Glucose 103 mg/dL (70-110)
[2020-10-12 17:46] LABS: Bedside Glucose 102 mg/dL (70-110)
[2020-10-12 21:40] LABS: Bedside Glucose 117 mg/dL (70-110)
[2020-10-13] VITALS (42 sets, daily range): BP systolic 90–149; BP diastolic 30–92; PULSE 93–126; RESP 13–37; TEMP 36.9–37.5; O2SAT 90–99
[2020-10-13 00:16] LABS: Bedside Glucose 106 mg/dL (70-110)
[2020-10-13] MEDS: Propofol 10MG/Ml 1,000 MG/100 ML Bottle 14.7 MG CONT INF (01:39)
[2020-10-13 04:16] LABS: Hematocrit 32.8 % (40-54); Mean Corp Hgb Conc 33.5 g/dL (32-36); Mean Corpuscular Hgb 29.3 pg (27.0-32.0); Mean Corpuscular Volume 87.5 fL (80-94); Mean Platelet Vol. 9.4 fl (6.2-12.0); POSITIVE COUNT YES; POSITIVE DIFFERENTIAL YES; POSITIVE MORPHOLOGY YES; Platelet Count 188 K/mm3 (150-450); RBC Distribution Width CV 13.1 % (11.6-14.6); RBC Distribution Width SD 41.1 fl (35.1-43.9); Red Blood Count 3.75 M/mm3 (4.6-6.2); White Blood Count 23.6 K/mm3 (4.4-11.0)
[2020-10-13 04:17] LABS: Differential Indicated MANUAL DIFF
[2020-10-13 04:36] LABS: ALB/GLOB Ratio 0.7 RATIO (0.9-2.4); AST(SGOT) 87 U/L (15-37); Alanine Aminotransfer ALT/SGPT 76 U/L (16-61); Albumin, Serum 2.2 g/dL (3.2-5.0); Alkaline Phosphatase 81 U/L (45-117); Anion Gap 6 (5-15); BUN 20 mg/dL (7-18); BUN/Creat Ratio 19.4 RATIO (10-20); Calcium,Total 7.8 mg/dL (8.5-10.1); Chloride 109 mmol/L (98-107); Creatinine, Serum 1.03 mg/dL (0.70-1.30); EST Glomerular Filtration Rate 90 mL/min (>60); Est Glom Filt Rate - Afr Amer 109 mL/min (>60); Estimated Creatinine Clearance 116.15 ml/min; Globulin 3.2 g/dL (2.2-4.2); Glucose 112 mg/dL (74-106); Potassium 3.7 mmol/L (3.5-5.1); Protein, Total 5.4 g/dL (6.4-8.2); Sodium Level 142 mmol/L (136-145)
[2020-10-13 04:43] LABS: Absolute Lymphocyte Count 0.94 X10^3/uL (0.83-4.51); Absolute Neutrophil Count 21.5 X10^3/uL (2.0-7.7); Lymphocyte 4 % (19-41); Metamyelocyte 3 % (0-1); Monocyte 2 % (0-10); Neutrophil-Band 15 % (0-5); Neutrophil-Segmented 76 % (47-70); Total Cells Counted 100 (MANUAL DIFF)
[2020-10-13 04:44] LABS: Platelet Estimate ADEQUATE (ADEQ); Red Cell Morphology NORM C+C NORMAL (NORM C&C)
--- NOTE | 2020-10-13 05:53 | PCM.PN.INT ---
Subjective: The patient was seen and examined at the bedside this morning. Events from the last 24 hours have been reviewed. The patient currently has a low-grade fever. However, the patient has been able to be weaned off of all vasopressor support as of this morning. His respiratory status has improved significantly. He is currently tolerating a spontaneous breathing trial without issue. The patient is alert and appropriately interactive. Objective: The patient's most recent lab work, culture data and imaging studies have all been personally reviewed. Blood and urine cultures have not demonstrated any growth to date. Coronavirus rapid antigen testing was negative. Tracheal aspirate was positive for staph aureus. General: Alert, Cooperative, - - Remains intubated and mechanically ventilated. Currently tolerating spontaneous mode of mechanical ventilation. HEENT: Atraumatic, Normocephalic Oral: No Gingival or Mucosal Lesions/ Ulcerations, - - Endotracheal and OG tubes in place Neck: - - Rigid cervical collar in place Lungs: Diminished, Rhonchi Cardiovascular: Regular rate, Regular Rhythm Abdomen: Bowel Sounds Present, Soft, Non Tender Extremities: No clubbing, No cyanosis, No edema Skin: No breakdown Musculoskeletal: No Muscle Wasting Lymphatic: No Cervical, Supraclavicular, or Inguinal Adenopathy Neurological: - - No focal neurological deficits. Alert and able to follow simple commands. Vital Signs Temp Pulse Resp BP Pulse Ox 99.3 F H 110 H 20 H 117/50 L 93 10/13/20 05:00 10/13/20 05:00 10/13/20 05:00 10/13/20 05:15 10/13/20 05:00 Oxygen Delivery Method Mechanical Ventilator Weight: 183 lb 6.793 oz Body Mass Index (BMI) 24.3 Intake and Output for Last 24 Hours 10/11/20 10/12/20 10/13/20 23:59 23:59 23:59 Intake Total 4476.80 / 4608.90 2303.13 / 2334.01 216.19 / 216.19 Output Total 1800 / 2350 2195 / 2365 370 / 370 Balance 2676.80 / 2258.90 108.13 / -30.99 -153.81 / -153.81 Labs (Last 48 Hours) 10/11/20 10/11/20 10/11/20 08:49 08:51 08:54 WBC 17.2 H RBC 5.25 Hgb 15.3 Hct 48.3 MCV 92.0 MCH 29.1 MCHC 31.7 L RDW Std Deviation 41.2 RDW Coeff of Phoebe 12.1 Plt Count 346 MPV 9.1 Immature Gran % (Auto) 1.000 H Neut % (Auto) 77.5 H Lymph % (Auto) 16.4 L Grand % (Auto) 3.2 Eos % (Auto) 1.3 Baso % (Auto) 0.6 Absolute Neuts (auto) 13.3 H Absolute Lymphs (auto) 2.82 Total Counted Neutrophils % (Manual) Band Neutrophils % Lymphocytes % (Manual) Monocytes % (Manual) Metamyelocytes % Nucleated RBC % 0 Differential Comment Diff Path Review Platelet Estimate RBC Morphology PT INR APTT Specimen Type ART Sample Site pH 6.91 L* Bicarbonate Actual 23.6 Total CO2 27 Base Excess -9 L O2 Saturation 67 L O2 % 100 ABG pCO2 117.9 H* ABG pO2 59 L Reyes Test VBG Carboxyhemoglobin Respiration Rate O2 Delivery Device Bagging Vent Mode Tidal Volume POC PEEP Crit Call To/Read Back Yes Sodium Potassium Chloride Carbon Dioxide Anion Gap BUN Creatinine Estim Creat Clear Calc Est GFR (MDRD) Af Amer Est GFR (MDRD) Non-Af BUN/Creatinine Ratio Glucose Lactic Acid Calcium Magnesium Total Bilirubin AST ALT Alkaline Phosphatase Total Creatine Kinase Troponin I Total Protein Albumin Globulin Albumin/Globulin Ratio Urine Color Yellow Urine Clarity Clear Urine pH 5.0 Ur Specific [place] 1.025 Urine Protein 30 H Urine Glucose (UA) 1000 H Urine Ketones Negative Urine Occult Blood Negative Urine Nitrite Negative Urine Bilirubin Negative Urine Urobilinogen Normal Ur Leukocyte Esterase Negative Urine RBC 0 SEEN Urine WBC 0 SEEN Ur Squamous Epith Cells 0-5 SEEN Calcium Oxalate Crystal RARE Urine Bacteria 0 SEEN Urine Mucus 0 SEEN Urine Opiates Screen Urine Methadone Screen Ur Barbiturates Screen Ur Phencyclidine Scrn Ur Amphetamines Screen U Methamphetamin-MDMA U Benzodiazepines Scrn Urine Cocaine Screen U Cannabinoids Screen Ur Drug Screen Comment Ethyl Alcohol POC Glucose 10/11/20 10/11/20 10/11/20 08:54 08:54 08:54 WBC RBC Hgb Hct MCV MCH MCHC RDW Std Deviation RDW Coeff of Phoebe Plt Count MPV Immature Gran % (Auto) Neut % (Auto) Lymph % (Auto) Grand % (Auto) Eos % (Auto) Baso % (Auto) Absolute Neuts (auto) Absolute Lymphs (auto) Total Counted Neutrophils % (Manual) Band Neutrophils % Lymphocytes % (Manual) Monocytes % (Manual) Metamyelocytes % Nucleated RBC % Differential Comment Diff Path Review Platelet Estimate RBC Morphology PT 12.5 INR 1.0 APTT 29.4 Specimen Type Sample Site pH Bicarbonate Actual Total CO2 Base Excess O2 Saturation O2 % ABG pCO2 ABG pO2 Reyes Test VBG Carboxyhemoglobin Respiration Rate O2 Delivery Device Vent Mode Tidal Volume POC PEEP Crit Call To/Read Back Sodium 136 Potassium 3.3 L Chloride 100 Carbon Dioxide 24.0 Anion Gap 12 BUN 20 H Creatinine 1.52 H Estim Creat Clear Calc 78.71 Est GFR (MDRD) Af Amer 70 Est GFR (MDRD) Non-Af 58 L BUN/Creatinine Ratio 13.2 Glucose 375 H Lactic Acid 5.6 H* Calcium 8.1 L Magnesium 3.0 H Total Bilirubin 0.40 AST 60 H ALT 66 H Alkaline Phosphatase 136 H Total Creatine Kinase 327 H Troponin I < 0.015 Total Protein 7.1 Albumin 3.5 Globulin 3.6 Albumin/Globulin Ratio 1.0 Urine Color Urine Clarity Urine pH Ur Specific [place] Urine Protein Urine Glucose (UA) Urine Ketones Urine Occult Blood Urine Nitrite Urine Bilirubin Urine Urobilinogen Ur Leukocyte Esterase Urine RBC Urine WBC Ur Squamous Epith Cells Calcium Oxalate Crystal Urine Bacteria Urine Mucus Urine Opiates Screen Urine Methadone Screen Ur Barbiturates Screen Ur Phencyclidine Scrn Ur Amphetamines Screen U Methamphetamin-MDMA U Benzodiazepines Scrn Urine Cocaine Screen U Cannabinoids Screen Ur Drug Screen Comment Ethyl Alcohol POC Glucose 10/11/20 10/11/20 10/11/20 08:54 08:54 09:20 WBC RBC Hgb Hct MCV MCH MCHC RDW Std Deviation RDW Coeff of Phoebe Plt Count MPV Immature Gran % (Auto) Neut % (Auto) Lymph % (Auto) Grand % (Auto) Eos % (Auto) Baso % (Auto) Absolute Neuts (auto) Absolute Lymphs (auto) Total Counted Neutrophils % (Manual) Band Neutrophils % Lymphocytes % (Manual) Monocytes % (Manual) Metamyelocytes % Nucleated RBC % Differential Comment Diff Path Review Platelet Estimate RBC Morphology PT INR APTT Specimen Type Sample Site pH Bicarbonate Actual Total CO2 Base Excess O2 Saturation O2 % ABG pCO2 ABG pO2 Reyes Test VBG Carboxyhemoglobin 2.4 H Respiration Rate O2 Delivery Device Vent Mode Tidal Volume POC PEEP Crit Call To/Read Back Sodium Potassium Chloride Carbon Dioxide Anion Gap BUN Creatinine Estim Creat Clear Calc Est GFR (MDRD) Af Amer Est GFR (MDRD) Non-Af BUN/Creatinine Ratio Glucose Lactic Acid Calcium Magnesium Total Bilirubin AST ALT Alkaline Phosphatase Total Creatine Kinase Troponin I Total Protein Albumin Globulin Albumin/Globulin Ratio Urine Color Urine Clarity Urine pH Ur Specific [place] Urine Protein Urine Glucose (UA) Urine Ketones Urine Occult Blood Urine Nitrite Urine Bilirubin Urine Urobilinogen Ur Leukocyte Esterase Urine RBC Urine WBC Ur Squamous Epith Cells Calcium Oxalate Crystal Urine Bacteria Urine Mucus Urine Opiates Screen NEGATIVE Urine Methadone Screen NEGATIVE Ur Barbiturates Screen NEGATIVE Ur Phencyclidine Scrn NEGATIVE Ur Amphetamines Screen POSITIVE H U Methamphetamin-MDMA NEGATIVE U Benzodiazepines Scrn NEGATIVE Urine Cocaine Screen NEGATIVE U Cannabinoids Screen POSITIVE H Ur Drug Screen Comment Ethyl Alcohol < 3.0 POC Glucose 10/11/20 10/11/20 10/11/20 09:58 13:34 18:33 WBC RBC Hgb Hct MCV MCH MCHC RDW Std Deviation RDW Coeff of Phoebe Plt Count MPV Immature Gran % (Auto) Neut % (Auto) Lymph % (Auto) Grand % (Auto) Eos % (Auto) Baso % (Auto) Absolute Neuts (auto) Absolute Lymphs (auto) Total Counted Neutrophils % (Manual) Band Neutrophils % Lymphocytes % (Manual) Monocytes % (Manual) Metamyelocytes % Nucleated RBC % Differential Comment Diff Path Review Platelet Estimate RBC Morphology PT INR APTT Specimen Type ART ART Sample Site L Radial L Radial pH 7.04 L* 7.16 L* Bicarbonate Actual 23.2 23.4 Total CO2 26 25 Base Excess -7 L -5 L O2 Saturation 80 L 61 L O2 % 100 100 ABG pCO2 85.1 H* 65.6 H ABG pO2 66 L 41 L Reyes Test Positive VBG Carboxyhemoglobin Respiration Rate 16 18 O2 Delivery Device Adult Vent Vent Mode AC AC Tidal Volume 550 550 POC PEEP 12 16 Crit Call To/Read Back Yes Yes Sodium Potassium Chloride Carbon Dioxide Anion Gap BUN Creatinine Estim Creat Clear Calc Est GFR (MDRD) Af Amer Est GFR (MDRD) Non-Af BUN/Creatinine Ratio Glucose Lactic Acid Calcium Magnesium Total Bilirubin AST ALT Alkaline Phosphatase Total Creatine Kinase Troponin I Total Protein Albumin Globulin Albumin/Globulin Ratio Urine Color Urine Clarity Urine pH Ur Specific [place] Urine Protein Urine Glucose (UA) Urine Ketones Urine Occult Blood Urine Nitrite Urine Bilirubin Urine Urobilinogen Ur Leukocyte Esterase Urine RBC Urine WBC Ur Squamous Epith Cells Calcium Oxalate Crystal Urine Bacteria Urine Mucus Urine Opiates Screen Urine Methadone Screen Ur Barbiturates Screen Ur Phencyclidine Scrn Ur Amphetamines Screen U Methamphetamin-MDMA U Benzodiazepines Scrn Urine Cocaine Screen U Cannabinoids Screen Ur Drug Screen Comment Ethyl Alcohol POC Glucose 64 L 10/11/20 10/11/20 10/11/20 19:02 20:45 21:15 WBC RBC Hgb Hct MCV MCH MCHC RDW Std Deviation RDW Coeff of Phoebe Plt Count MPV Immature Gran % (Auto) Neut % (Auto) Lymph % (Auto) Grand % (Auto) Eos % (Auto) Baso % (Auto) Absolute Neuts (auto) Absolute Lymphs (auto) Total Counted Neutrophils % (Manual) Band Neutrophils % Lymphocytes % (Manual) Monocytes % (Manual) Metamyelocytes % Nucleated RBC % Differential Comment Diff Path Review Platelet Estimate RBC Morphology PT INR APTT Specimen Type ART Sample Site R Radial pH 7.28 L Bicarbonate Actual 19.3 L Total CO2 21 Base Excess -7 L O2 Saturation 99 O2 % 100 ABG pCO2 41.1 ABG pO2 178 H Reyes Test VBG Carboxyhemoglobin Respiration Rate 18 O2 Delivery Device Adult Vent Vent Mode AC Tidal Volume 550 POC PEEP 18 Crit Call To/Read Back Sodium Potassium Chloride Carbon Dioxide Anion Gap BUN Creatinine Estim Creat Clear Calc Est GFR (MDRD) Af Amer Est GFR (MDRD) Non-Af BUN/Creatinine Ratio Glucose Lactic Acid Calcium Magnesium Total Bilirubin AST ALT Alkaline Phosphatase Total Creatine Kinase Troponin I Total Protein Albumin Globulin Albumin/Globulin Ratio Urine Color Urine Clarity Urine pH Ur Specific [place] Urine Protein Urine Glucose (UA) Urine Ketones Urine Occult Blood Urine Nitrite Urine Bilirubin Urine Urobilinogen Ur Leukocyte Esterase Urine RBC Urine WBC Ur Squamous Epith Cells Calcium Oxalate Crystal Urine Bacteria Urine Mucus Urine Opiates Screen Urine Methadone Screen Ur Barbiturates Screen Ur Phencyclidine Scrn Ur Amphetamines Screen U Methamphetamin-MDMA U Benzodiazepines Scrn Urine Cocaine Screen U Cannabinoids Screen Ur Drug Screen Comment Ethyl Alcohol POC Glucose 68 L 83 10/11/20 10/11/20 10/12/20 23:50 23:59 02:43 WBC 20.6 H RBC 4.99 Hgb 14.6 Hct 44.4 MCV 89.0 MCH 29.3 MCHC 32.9 RDW Std Deviation 41.1 RDW Coeff of Phoebe 12.5 Plt Count 330 MPV 9.4 Immature Gran % (Auto) 0.600 Neut % (Auto) 93.1 H Lymph % (Auto) 2.9 L Grand % (Auto) 2.9 Eos % (Auto) 0.0 Baso % (Auto) 0.5 Absolute Neuts (auto) 19.2 H Absolute Lymphs (auto) 0.60 L Total Counted Neutrophils % (Manual) Band Neutrophils % Lymphocytes % (Manual) Monocytes % (Manual) Metamyelocytes % Nucleated RBC % 0 Differential Comment SCANNED Diff Path Review Platelet Estimate RBC Morphology PT INR APTT Specimen Type Sample Site pH Bicarbonate Actual Total CO2 Base Excess O2 Saturation O2 % ABG pCO2 ABG pO2 Reyes Test VBG Carboxyhemoglobin Respiration Rate O2 Delivery Device Vent Mode Tidal Volume POC PEEP Crit Call To/Read Back Sodium Potassium Chloride Carbon Dioxide Anion Gap BUN Creatinine Estim Creat Clear Calc Est GFR (MDRD) Af Amer Est GFR (MDRD) Non-Af BUN/Creatinine Ratio Glucose Lactic Acid Calcium Magnesium Total Bilirubin AST ALT Alkaline Phosphatase Total Creatine Kinase Troponin I 2.550 H* Total Protein Albumin Globulin Albumin/Globulin Ratio Urine Color Urine Clarity Urine pH Ur Specific [place] Urine Protein Urine Glucose (UA) Urine Ketones Urine Occult Blood Urine Nitrite Urine Bilirubin Urine Urobilinogen Ur Leukocyte Esterase Urine RBC Urine WBC Ur Squamous Epith Cells Calcium Oxalate Crystal Urine Bacteria Urine Mucus Urine Opiates Screen Urine Methadone Screen Ur Barbiturates Screen Ur Phencyclidine Scrn Ur Amphetamines Screen U Methamphetamin-MDMA U Benzodiazepines Scrn Urine Cocaine Screen U Cannabinoids Screen Ur Drug Screen Comment Ethyl Alcohol POC Glucose 77 10/12/20 10/12/20 10/12/20 02:43 02:43 04:45 WBC RBC Hgb Hct MCV MCH MCHC RDW Std Deviation RDW Coeff of Phoebe Plt Count MPV Immature Gran % (Auto) Neut % (Auto) Lymph % (Auto) Grand % (Auto) Eos % (Auto) Baso % (Auto) Absolute Neuts (auto) Absolute Lymphs (auto) Total Counted Neutrophils % (Manual) Band Neutrophils % Lymphocytes % (Manual) Monocytes % (Manual) Metamyelocytes % Nucleated RBC % Differential Comment Diff Path Review Platelet Estimate RBC Morphology PT INR APTT Specimen Type Sample Site pH Bicarbonate Actual Total CO2 Base Excess O2 Saturation O2 % ABG pCO2 ABG pO2 Reyes Test VBG Carboxyhemoglobin Respiration Rate O2 Delivery Device Vent Mode Tidal Volume POC PEEP Crit Call To/Read Back Sodium 143 Potassium 4.1 Chloride 113 H Carbon Dioxide 21.0 Anion Gap 9 BUN 22 H Creatinine 1.17 Estim Creat Clear Calc 102.25 Est GFR (MDRD) Af Amer 94 Est GFR (MDRD) Non-Af 78 BUN/Creatinine Ratio 18.8 Glucose 128 H Lactic Acid Calcium 7.0 L Magnesium Total Bilirubin AST ALT Alkaline Phosphatase Total Creatine Kinase Troponin I 3.740 H* 4.000 H* Total Protein Albumin Globulin Albumin/Globulin Ratio Urine Color Urine Clarity Urine pH Ur Specific [place] Urine Protein Urine Glucose (UA) Urine Ketones Urine Occult Blood Urine Nitrite Urine Bilirubin Urine Urobilinogen Ur Leukocyte Esterase Urine RBC Urine WBC Ur Squamous Epith Cells Calcium Oxalate Crystal Urine Bacteria Urine Mucus Urine Opiates Screen Urine Methadone Screen Ur Barbiturates Screen Ur Phencyclidine Scrn Ur Amphetamines Screen U Methamphetamin-MDMA U Benzodiazepines Scrn Urine Cocaine Screen U Cannabinoids Screen Ur Drug Screen Comment Ethyl Alcohol POC Glucose 10/12/20 10/12/20 10/12/20 05:39 06:46 12:19 WBC RBC Hgb Hct MCV MCH MCHC RDW Std Deviation RDW Coeff of Phoebe Plt Count MPV Immature Gran % (Auto) Neut % (Auto) Lymph % (Auto) Grand % (Auto) Eos % (Auto) Baso % (Auto) Absolute Neuts (auto) Absolute Lymphs (auto) Total Counted Neutrophils % (Manual) Band Neutrophils % Lymphocytes % (Manual) Monocytes % (Manual) Metamyelocytes % Nucleated RBC % Differential Comment Diff Path Review Platelet Estimate RBC Morphology PT INR APTT Specimen Type ART Sample Site L Radial pH 7.38 Bicarbonate Actual 21.7 L Total CO2 23 Base Excess -4 L O2 Saturation 95 O2 % 40 ABG pCO2 36.9 ABG pO2 75 Reyes Test VBG Carboxyhemoglobin Respiration Rate 18 O2 Delivery Device ET Tube Vent Mode AC Tidal Volume 550 POC PEEP 18 Crit Call To/Read Back Sodium Potassium Chloride Carbon Dioxide Anion Gap BUN Creatinine Estim Creat Clear Calc Est GFR (MDRD) Af Amer Est GFR (MDRD) Non-Af BUN/Creatinine Ratio Glucose Lactic Acid Calcium Magnesium Total Bilirubin AST ALT Alkaline Phosphatase Total Creatine Kinase Troponin I Total Protein Albumin Globulin Albumin/Globulin Ratio Urine Color Urine Clarity Urine pH Ur Specific [place] Urine Protein Urine Glucose (UA) Urine Ketones Urine Occult Blood Urine Nitrite Urine Bilirubin Urine Urobilinogen Ur Leukocyte Esterase Urine RBC Urine WBC Ur Squamous Epith Cells Calcium Oxalate Crystal Urine Bacteria Urine Mucus Urine Opiates Screen Urine Methadone Screen Ur Barbiturates Screen Ur Phencyclidine Scrn Ur Amphetamines Screen U Methamphetamin-MDMA U Benzodiazepines Scrn Urine Cocaine Screen U Cannabinoids Screen Ur Drug Screen Comment Ethyl Alcohol POC Glucose 132 H 102 10/12/20 10/12/20 10/12/20 17:43 21:36 23:59 WBC RBC Hgb Hct MCV MCH MCHC RDW Std Deviation RDW Coeff of Phoebe Plt Count MPV Immature Gran % (Auto) Neut % (Auto) Lymph % (Auto) Grand % (Auto) Eos % (Auto) Baso % (Auto) Absolute Neuts (auto) Absolute Lymphs (auto) Total Counted Neutrophils % (Manual) Band Neutrophils % Lymphocytes % (Manual) Monocytes % (Manual) Metamyelocytes % Nucleated RBC % Differential Comment Diff Path Review Platelet Estimate RBC Morphology PT INR APTT Specimen Type Sample Site pH Bicarbonate Actual Total CO2 Base Excess O2 Saturation O2 % ABG pCO2 ABG pO2 Reyes Test VBG Carboxyhemoglobin Respiration Rate O2 Delivery Device Vent Mode Tidal Volume POC PEEP Crit Call To/Read Back Sodium Potassium Chloride Carbon Dioxide Anion Gap BUN Creatinine Estim Creat Clear Calc Est GFR (MDRD) Af Amer Est GFR (MDRD) Non-Af BUN/Creatinine Ratio Glucose Lactic Acid Calcium Magnesium Total Bilirubin AST ALT Alkaline Phosphatase Total Creatine Kinase Troponin I Total Protein Albumin Globulin Albumin/Globulin Ratio Urine Color Urine Clarity Urine pH Ur Specific [place] Urine Protein Urine Glucose (UA) Urine Ketones Urine Occult Blood Urine Nitrite Urine Bilirubin Urine Urobilinogen Ur Leukocyte Esterase Urine RBC Urine WBC Ur Squamous Epith Cells Calcium Oxalate Crystal Urine Bacteria Urine Mucus Urine Opiates Screen Urine Methadone Screen Ur Barbiturates Screen Ur Phencyclidine Scrn Ur Amphetamines Screen U Methamphetamin-MDMA U Benzodiazepines Scrn Urine Cocaine Screen U Cannabinoids Screen Ur Drug Screen Comment Ethyl Alcohol POC Glucose 103 117 H 106 10/13/20 10/13/20 04:10 04:10 WBC 23.6 H RBC 3.75 L Hgb 11.0 L Hct 32.8 L MCV 87.5 MCH 29.3 MCHC 33.5 RDW Std Deviation 41.1 RDW Coeff of Phoebe 13.1 Plt Count 188 MPV 9.4 Immature Gran % (Auto) Neut % (Auto) Not Reportable Lymph % (Auto) Grand % (Auto) Eos % (Auto) Baso % (Auto) Absolute Neuts (auto) 21.5 H Absolute Lymphs (auto) 0.94 Total Counted 100 Neutrophils % (Manual) 76 H Band Neutrophils % 15 H Lymphocytes % (Manual) 4 L Monocytes % (Manual) 2 Metamyelocytes % 3 H Nucleated RBC % Differential Comment Diff Path Review May foll Platelet Estimate ADEQUATE RBC Morphology NORM C+C PT INR APTT Specimen Type Sample Site pH Bicarbonate Actual Total CO2 Base Excess O2 Saturation O2 % ABG pCO2 ABG pO2 Reyes Test VBG Carboxyhemoglobin Respiration Rate O2 Delivery Device Vent Mode Tidal Volume POC PEEP Crit Call To/Read Back Sodium 142 Potassium 3.7 Chloride 109 H Carbon Dioxide 27.0 Anion Gap 6 BUN 20 H Creatinine 1.03 Estim Creat Clear Calc 116.15 Est GFR (MDRD) Af Amer 109 Est GFR (MDRD) Non-Af 90 BUN/Creatinine Ratio 19.4 Glucose 112 H Lactic Acid Calcium 7.8 L Magnesium Total Bilirubin 1.10 H AST 87 H ALT 76 H Alkaline Phosphatase 81 Total Creatine Kinase Troponin I Total Protein 5.4 L Albumin 2.2 L Globulin 3.2 Albumin/Globulin Ratio 0.7 L Urine Color Urine Clarity Urine pH Ur Specific [place] Urine Protein Urine Glucose (UA) Urine Ketones Urine Occult Blood Urine Nitrite Urine Bilirubin Urine Urobilinogen Ur Leukocyte Esterase Urine RBC Urine WBC Ur Squamous Epith Cells Calcium Oxalate Crystal Urine Bacteria Urine Mucus Urine Opiates Screen Urine Methadone Screen Ur Barbiturates Screen Ur Phencyclidine Scrn Ur Amphetamines Screen U Methamphetamin-MDMA U Benzodiazepines Scrn Urine Cocaine Screen U Cannabinoids Screen Ur Drug Screen Comment Ethyl Alcohol POC Glucose Microbiology 10/11/20 09:15 Sputum, Tracheal Aspirate Gram Stain - Final 10/11/20 09:15 Sputum, Tracheal Aspirate Respiratory Culture - Preliminary Staphylococcus aureus 10/11/20 08:49 Urine, Catheterized Urine Culture - Preliminary Culture exhibits no growth. 10/11/20 09:47 Mucosa - Nose SARS-CoV-2 Antigen (Rapid) - Final Labs (Last 48 Hours) 10/11/20 10/11/20 10/11/20 08:49 08:51 08:54 WBC 17.2 H RBC 5.25 Hgb 15.3 Hct 48.3 MCV 92.0 MCH 29.1 MCHC 31.7 L RDW Std Deviation 41.2 RDW Coeff of Phoebe 12.1 Plt Count 346 MPV 9.1 Immature Gran % (Auto) 1.000 H Neut % (Auto) 77.5 H Lymph % (Auto) 16.4 L Grand % (Auto) 3.2 Eos % (Auto) 1.3 Baso % (Auto) 0.6 Absolute Neuts (auto) 13.3 H Absolute Lymphs (auto) 2.82 Total Counted Neutrophils % (Manual) Band Neutrophils % Lymphocytes % (Manual) Monocytes % (Manual) Metamyelocytes % Nucleated RBC % 0 Differential Comment Diff Path Review Platelet Estimate RBC Morphology PT INR APTT Specimen Type ART Sample Site pH 6.91 L* Bicarbonate Actual 23.6 Total CO2 27 Base Excess -9 L O2 Saturation 67 L O2 % 100 ABG pCO2 117.9 H* ABG pO2 59 L Reyes Test VBG Carboxyhemoglobin Respiration Rate O2 Delivery Device Bagging Vent Mode Tidal Volume POC PEEP Crit Call To/Read Back Yes Sodium Potassium Chloride Carbon Dioxide Anion Gap BUN Creatinine Estim Creat Clear Calc Est GFR (MDRD) Af Amer Est GFR (MDRD) Non-Af BUN/Creatinine Ratio Glucose Lactic Acid Calcium Magnesium Total Bilirubin AST ALT Alkaline Phosphatase Total Creatine Kinase Troponin I Total Protein Albumin Globulin Albumin/Globulin Ratio Urine Color Yellow Urine Clarity Clear Urine pH 5.0 Ur Specific [place] 1.025 Urine Protein 30 H Urine Glucose (UA) 1000 H Urine Ketones Negative Urine Occult Blood Negative Urine Nitrite Negative Urine Bilirubin Negative Urine Urobilinogen Normal Ur Leukocyte Esterase Negative Urine RBC 0 SEEN Urine WBC 0 SEEN Ur Squamous Epith Cells 0-5 SEEN Calcium Oxalate Crystal RARE Urine Bacteria 0 SEEN Urine Mucus 0 SEEN Urine Opiates Screen Urine Methadone Screen Ur Barbiturates Screen Ur Phencyclidine Scrn Ur Amphetamines Screen U Methamphetamin-MDMA U Benzodiazepines Scrn Urine Cocaine Screen U Cannabinoids Screen Ur Drug Screen Comment Ethyl Alcohol POC Glucose 10/11/20 10/11/20 10/11/20 08:54 08:54 08:54 WBC RBC Hgb Hct MCV MCH MCHC RDW Std Deviation RDW Coeff of Phoebe Plt Count MPV Immature Gran % (Auto) Neut % (Auto) Lymph % (Auto) Grand % (Auto) Eos % (Auto) Baso % (Auto) Absolute Neuts (auto) Absolute Lymphs (auto) Total Counted Neutrophils % (Manual) Band Neutrophils % Lymphocytes % (Manual) Monocytes % (Manual) Metamyelocytes % Nucleated RBC % Differential Comment Diff Path Review Platelet Estimate RBC Morphology PT 12.5 INR 1.0 APTT 29.4 Specimen Type Sample Site pH Bicarbonate Actual Total CO2 Base Excess O2 Saturation O2 % ABG pCO2 ABG pO2 Reyes Test VBG Carboxyhemoglobin Respiration Rate O2 Delivery Device Vent Mode Tidal Volume POC PEEP Crit Call To/Read Back Sodium 136 Potassium 3.3 L Chloride 100 Carbon Dioxide 24.0 Anion Gap 12 BUN 20 H Creatinine 1.52 H Estim Creat Clear Calc 78.71 Est GFR (MDRD) Af Amer 70 Est GFR (MDRD) Non-Af 58 L BUN/Creatinine Ratio 13.2 Glucose 375 H Lactic Acid 5.6 H* Calcium 8.1 L Magnesium 3.0 H Total Bilirubin 0.40 AST 60 H ALT 66 H Alkaline Phosphatase 136 H Total Creatine Kinase 327 H Troponin I < 0.015 Total Protein 7.1 Albumin 3.5 Globulin 3.6 Albumin/Globulin Ratio 1.0 Urine Color Urine Clarity Urine pH Ur Specific [place] Urine Protein Urine Glucose (UA) Urine Ketones Urine Occult Blood Urine Nitrite Urine Bilirubin Urine Urobilinogen Ur Leukocyte Esterase Urine RBC Urine WBC Ur Squamous Epith Cells Calcium Oxalate Crystal Urine Bacteria Urine Mucus Urine Opiates Screen Urine Methadone Screen Ur Barbiturates Screen Ur Phencyclidine Scrn Ur Amphetamines Screen U Methamphetamin-MDMA U Benzodiazepines Scrn Urine Cocaine Screen U Cannabinoids Screen Ur Drug Screen Comment Ethyl Alcohol POC Glucose 10/11/20 10/11/20 10/11/20 08:54 08:54 09:20 WBC RBC Hgb Hct MCV MCH MCHC RDW Std Deviation RDW Coeff of Phoebe Plt Count MPV Immature Gran % (Auto) Neut % (Auto) Lymph % (Auto) Grand % (Auto) Eos % (Auto) Baso % (Auto) Absolute Neuts (auto) Absolute Lymphs (auto) Total Counted Neutrophils % (Manual) Band Neutrophils % Lymphocytes % (Manual) Monocytes % (Manual) Metamyelocytes % Nucleated RBC % Differential Comment Diff Path Review Platelet Estimate RBC Morphology PT INR APTT Specimen Type Sample Site pH Bicarbonate Actual Total CO2 Base Excess O2 Saturation O2 % ABG pCO2 ABG pO2 Reyes Test VBG Carboxyhemoglobin 2.4 H Respiration Rate O2 Delivery Device Vent Mode Tidal Volume POC PEEP Crit Call To/Read Back Sodium Potassium Chloride Carbon Dioxide Anion Gap BUN Creatinine Estim Creat Clear Calc Est GFR (MDRD) Af Amer Est GFR (MDRD) Non-Af BUN/Creatinine Ratio Glucose Lactic Acid Calcium Magnesium Total Bilirubin AST ALT Alkaline Phosphatase Total Creatine Kinase Troponin I Total Protein Albumin Globulin Albumin/Globulin Ratio Urine Color Urine Clarity Urine pH Ur Specific [place] Urine Protein Urine Glucose (UA) Urine Ketones Urine Occult Blood Urine Nitrite Urine Bilirubin Urine Urobilinogen Ur Leukocyte Esterase Urine RBC Urine WBC Ur Squamous Epith Cells Calcium Oxalate Crystal Urine Bacteria Urine Mucus Urine Opiates Screen NEGATIVE Urine Methadone Screen NEGATIVE Ur Barbiturates Screen NEGATIVE Ur Phencyclidine Scrn NEGATIVE Ur Amphetamines Screen POSITIVE H U Methamphetamin-MDMA NEGATIVE U Benzodiazepines Scrn NEGATIVE Urine Cocaine Screen NEGATIVE U Cannabinoids Screen POSITIVE H Ur Drug Screen Comment Ethyl Alcohol < 3.0 POC Glucose 10/11/20 10/11/20 10/11/20 09:58 13:34 18:33 WBC RBC Hgb Hct MCV MCH MCHC RDW Std Deviation RDW Coeff of Phoebe Plt Count MPV Immature Gran % (Auto) Neut % (Auto) Lymph % (Auto) Grand % (Auto) Eos % (Auto) Baso % (Auto) Absolute Neuts (auto) Absolute Lymphs (auto) Total Counted Neutrophils % (Manual) Band Neutrophils % Lymphocytes % (Manual) Monocytes % (Manual) Metamyelocytes % Nucleated RBC % Differential Comment Diff Path Review Platelet Estimate RBC Morphology PT INR APTT Specimen Type ART ART Sample Site L Radial L Radial pH 7.04 L* 7.16 L* Bicarbonate Actual 23.2 23.4 Total CO2 26 25 Base Excess -7 L -5 L O2 Saturation 80 L 61 L O2 % 100 100 ABG pCO2 85.1 H* 65.6 H ABG pO2 66 L 41 L Reyes Test Positive VBG Carboxyhemoglobin Respiration Rate 16 18 O2 Delivery Device Adult Vent Vent Mode AC AC Tidal Volume 550 550 POC PEEP 12 16 Crit Call To/Read Back Yes Yes Sodium Potassium Chloride Carbon Dioxide Anion Gap BUN Creatinine Estim Creat Clear Calc Est GFR (MDRD) Af Amer Est GFR (MDRD) Non-Af BUN/Creatinine Ratio Glucose Lactic Acid Calcium Magnesium Total Bilirubin AST ALT Alkaline Phosphatase Total Creatine Kinase Troponin I Total Protein Albumin Globulin Albumin/Globulin Ratio Urine Color Urine Clarity Urine pH Ur Specific [place] Urine Protein Urine Glucose (UA) Urine Ketones Urine Occult Blood Urine Nitrite Urine Bilirubin Urine Urobilinogen Ur Leukocyte Esterase Urine RBC Urine WBC Ur Squamous Epith Cells Calcium Oxalate Crystal Urine Bacteria Urine Mucus Urine Opiates Screen Urine Methadone Screen Ur Barbiturates Screen Ur Phencyclidine Scrn Ur Amphetamines Screen U Methamphetamin-MDMA U Benzodiazepines Scrn Urine Cocaine Screen U Cannabinoids Screen Ur Drug Screen Comment Ethyl Alcohol POC Glucose 64 L 10/11/20 10/11/20 10/11/20 19:02 20:45 21:15 WBC RBC Hgb Hct MCV MCH MCHC RDW Std Deviation RDW Coeff of Phoebe Plt Count MPV Immature Gran % (Auto) Neut % (Auto) Lymph % (Auto) Grand % (Auto) Eos % (Auto) Baso % (Auto) Absolute Neuts (auto) Absolute Lymphs (auto) Total Counted Neutrophils % (Manual) Band Neutrophils % Lymphocytes % (Manual) Monocytes % (Manual) Metamyelocytes % Nucleated RBC % Differential Comment Diff Path Review Platelet Estimate RBC Morphology PT INR APTT Specimen Type ART Sample Site R Radial pH 7.28 L Bicarbonate Actual 19.3 L Total CO2 21 Base Excess -7 L O2 Saturation 99 O2 % 100 ABG pCO2 41.1 ABG pO2 178 H Reyes Test VBG Carboxyhemoglobin Respiration Rate 18 O2 Delivery Device Adult Vent Vent Mode AC Tidal Volume 550 POC PEEP 18 Crit Call To/Read Back Sodium Potassium Chloride Carbon Dioxide Anion Gap BUN Creatinine Estim Creat Clear Calc Est GFR (MDRD) Af Amer Est GFR (MDRD) Non-Af BUN/Creatinine Ratio Glucose Lactic Acid Calcium Magnesium Total Bilirubin AST ALT Alkaline Phosphatase Total Creatine Kinase Troponin I Total Protein Albumin Globulin Albumin/Globulin Ratio Urine Color Urine Clarity Urine pH Ur Specific [place] Urine Protein Urine Glucose (UA) Urine Ketones Urine Occult Blood Urine Nitrite Urine Bilirubin Urine Urobilinogen Ur Leukocyte Esterase Urine RBC Urine WBC Ur Squamous Epith Cells Calcium Oxalate Crystal Urine Bacteria Urine Mucus Urine Opiates Screen Urine Methadone Screen Ur Barbiturates Screen Ur Phencyclidine Scrn Ur Amphetamines Screen U Methamphetamin-MDMA U Benzodiazepines Scrn Urine Cocaine Screen U Cannabinoids Screen Ur Drug Screen Comment Ethyl Alcohol POC Glucose 68 L 83 10/11/20 10/11/20 10/12/20 23:50 23:59 02:43 WBC 20.6 H RBC 4.99 Hgb 14.6 Hct 44.4 MCV 89.0 MCH 29.3 MCHC 32.9 RDW Std Deviation 41.1 RDW Coeff of Phoebe 12.5 Plt Count 330 MPV 9.4 Immature Gran % (Auto) 0.600 Neut % (Auto) 93.1 H Lymph % (Auto) 2.9 L Grand % (Auto) 2.9 Eos % (Auto) 0.0 Baso % (Auto) 0.5 Absolute Neuts (auto) 19.2 H Absolute Lymphs (auto) 0.60 L Total Counted Neutrophils % (Manual) Band Neutrophils % Lymphocytes % (Manual) Monocytes % (Manual) Metamyelocytes % Nucleated RBC % 0 Differential Comment SCANNED Diff Path Review Platelet Estimate RBC Morphology PT INR APTT Specimen Type Sample Site pH Bicarbonate Actual Total CO2 Base Excess O2 Saturation O2 % ABG pCO2 ABG pO2 Reyes Test VBG Carboxyhemoglobin Respiration Rate O2 Delivery Device Vent Mode Tidal Volume POC PEEP Crit Call To/Read Back Sodium Potassium Chloride Carbon Dioxide Anion Gap BUN Creatinine Estim Creat Clear Calc Est GFR (MDRD) Af Amer Est GFR (MDRD) Non-Af BUN/Creatinine Ratio Glucose Lactic Acid Calcium Magnesium Total Bilirubin AST ALT Alkaline Phosphatase Total Creatine Kinase Troponin I 2.550 H* Total Protein Albumin Globulin Albumin/Globulin Ratio Urine Color Urine Clarity Urine pH Ur Specific [place] Urine Protein Urine Glucose (UA) Urine Ketones Urine Occult Blood Urine Nitrite Urine Bilirubin Urine Urobilinogen Ur Leukocyte Esterase Urine RBC Urine WBC Ur Squamous Epith Cells Calcium Oxalate Crystal Urine Bacteria Urine Mucus Urine Opiates Screen Urine Methadone Screen Ur Barbiturates Screen Ur Phencyclidine Scrn Ur Amphetamines Screen U Methamphetamin-MDMA U Benzodiazepines Scrn Urine Cocaine Screen U Cannabinoids Screen Ur Drug Screen Comment Ethyl Alcohol POC Glucose 77 10/12/20 10/12/20 10/12/20 02:43 02:43 04:45 WBC RBC Hgb Hct MCV MCH MCHC RDW Std Deviation RDW Coeff of Phoebe Plt Count MPV Immature Gran % (Auto) Neut % (Auto) Lymph % (Auto) Grand % (Auto) Eos % (Auto) Baso % (Auto) Absolute Neuts (auto) Absolute Lymphs (auto) Total Counted Neutrophils % (Manual) Band Neutrophils % Lymphocytes % (Manual) Monocytes % (Manual) Metamyelocytes % Nucleated RBC % Differential Comment Diff Path Review Platelet Estimate RBC Morphology PT INR APTT Specimen Type Sample Site pH Bicarbonate Actual Total CO2 Base Excess O2 Saturation O2 % ABG pCO2 ABG pO2 Reyes Test VBG Carboxyhemoglobin Respiration Rate O2 Delivery Device Vent Mode Tidal Volume POC PEEP Crit Call To/Read Back Sodium 143 Potassium 4.1 Chloride 113 H Carbon Dioxide 21.0 Anion Gap 9 BUN 22 H Creatinine 1.17 Estim Creat Clear Calc 102.25 Est GFR (MDRD) Af Amer 94 Est GFR (MDRD) Non-Af 78 BUN/Creatinine Ratio 18.8 Glucose 128 H Lactic Acid Calcium 7.0 L Magnesium Total Bilirubin AST ALT Alkaline Phosphatase Total Creatine Kinase Troponin I 3.740 H* 4.000 H* Total Protein Albumin Globulin Albumin/Globulin Ratio Urine Color Urine Clarity Urine pH Ur Specific [place] Urine Protein Urine Glucose (UA) Urine Ketones Urine Occult Blood Urine Nitrite Urine Bilirubin Urine Urobilinogen Ur Leukocyte Esterase Urine RBC Urine WBC Ur Squamous Epith Cells Calcium Oxalate Crystal Urine Bacteria Urine Mucus Urine Opiates Screen Urine Methadone Screen Ur Barbiturates Screen Ur Phencyclidine Scrn Ur Amphetamines Screen U Methamphetamin-MDMA U Benzodiazepines Scrn Urine Cocaine Screen U Cannabinoids Screen Ur Drug Screen Comment Ethyl Alcohol POC Glucose 10/12/20 10/12/20 10/12/20 05:39 06:46 12:19 WBC RBC Hgb Hct MCV MCH MCHC RDW Std Deviation RDW Coeff of Phoebe Plt Count MPV Immature Gran % (Auto) Neut % (Auto) Lymph % (Auto) Grand % (Auto) Eos % (Auto) Baso % (Auto) Absolute Neuts (auto) Absolute Lymphs (auto) Total Counted Neutrophils % (Manual) Band Neutrophils % Lymphocytes % (Manual) Monocytes % (Manual) Metamyelocytes % Nucleated RBC % Differential Comment Diff Path Review Platelet Estimate RBC Morphology PT INR APTT Specimen Type ART Sample Site L Radial pH 7.38 Bicarbonate Actual 21.7 L Total CO2 23 Base Excess -4 L O2 Saturation 95 O2 % 40 ABG pCO2 36.9 ABG pO2 75 Reyes Test VBG Carboxyhemoglobin Respiration Rate 18 O2 Delivery Device ET Tube Vent Mode AC Tidal Volume 550 POC PEEP 18 Crit Call To/Read Back Sodium Potassium Chloride Carbon Dioxide Anion Gap BUN Creatinine Estim Creat Clear Calc Est GFR (MDRD) Af Amer Est GFR (MDRD) Non-Af BUN/Creatinine Ratio Glucose Lactic Acid Calcium Magnesium Total Bilirubin AST ALT Alkaline Phosphatase Total Creatine Kinase Troponin I Total Protein Albumin Globulin Albumin/Globulin Ratio Urine Color Urine Clarity Urine pH Ur Specific [place] Urine Protein Urine Glucose (UA) Urine Ketones Urine Occult Blood Urine Nitrite Urine Bilirubin Urine Urobilinogen Ur Leukocyte Esterase Urine RBC Urine WBC Ur Squamous Epith Cells Calcium Oxalate Crystal Urine Bacteria Urine Mucus Urine Opiates Screen Urine Methadone Screen Ur Barbiturates Screen Ur Phencyclidine Scrn Ur Amphetamines Screen U Methamphetamin-MDMA U Benzodiazepines Scrn Urine Cocaine Screen U Cannabinoids Screen Ur Drug Screen Comment Ethyl Alcohol POC Glucose 132 H 102 10/12/20 10/12/20 10/12/20 17:43 21:36 23:59 WBC RBC Hgb Hct MCV MCH MCHC RDW Std Deviation RDW Coeff of Phoebe Plt Count MPV Immature Gran % (Auto) Neut % (Auto) Lymph % (Auto) Grand % (Auto) Eos % (Auto) Baso % (Auto) Absolute Neuts (auto) Absolute Lymphs (auto) Total Counted Neutrophils % (Manual) Band Neutrophils % Lymphocytes % (Manual) Monocytes % (Manual) Metamyelocytes % Nucleated RBC % Differential Comment Diff Path Review Platelet Estimate RBC Morphology PT INR APTT Specimen Type Sample Site pH Bicarbonate Actual Total CO2 Base Excess O2 Saturation O2 % ABG pCO2 ABG pO2 Reyes Test VBG Carboxyhemoglobin Respiration Rate O2 Delivery Device Vent Mode Tidal Volume POC PEEP Crit Call To/Read Back Sodium Potassium Chloride Carbon Dioxide Anion Gap BUN Creatinine Estim Creat Clear Calc Est GFR (MDRD) Af Amer Est GFR (MDRD) Non-Af BUN/Creatinine Ratio Glucose Lactic Acid Calcium Magnesium Total Bilirubin AST ALT Alkaline Phosphatase Total Creatine Kinase Troponin I Total Protein Albumin Globulin Albumin/Globulin Ratio Urine Color Urine Clarity Urine pH Ur Specific [place] Urine Protein Urine Glucose (UA) Urine Ketones Urine Occult Blood Urine Nitrite Urine Bilirubin Urine Urobilinogen Ur Leukocyte Esterase Urine RBC Urine WBC Ur Squamous Epith Cells Calcium Oxalate Crystal Urine Bacteria Urine Mucus Urine Opiates Screen Urine Methadone Screen Ur Barbiturates Screen Ur Phencyclidine Scrn Ur Amphetamines Screen U Methamphetamin-MDMA U Benzodiazepines Scrn Urine Cocaine Screen U Cannabinoids Screen Ur Drug Screen Comment Ethyl Alcohol POC Glucose 103 117 H 106 10/13/20 10/13/20 04:10 04:10 WBC 23.6 H RBC 3.75 L Hgb 11.0 L Hct 32.8 L MCV 87.5 MCH 29.3 MCHC 33.5 RDW Std Deviation 41.1 RDW Coeff of Phoebe 13.1 Plt Count 188 MPV 9.4 Immature Gran % (Auto) Neut % (Auto) Not Reportable Lymph % (Auto) Grand % (Auto) Eos % (Auto) Baso % (Auto) Absolute Neuts (auto) 21.5 H Absolute Lymphs (auto) 0.94 Total Counted 100 Neutrophils % (Manual) 76 H Band Neutrophils % 15 H Lymphocytes % (Manual) 4 L Monocytes % (Manual) 2 Metamyelocytes % 3 H Nucleated RBC % Differential Comment Diff Path Review May foll Platelet Estimate ADEQUATE RBC Morphology NORM C+C PT INR APTT Specimen Type Sample Site pH Bicarbonate Actual Total CO2 Base Excess O2 Saturation O2 % ABG pCO2 ABG pO2 Reyes Test VBG Carboxyhemoglobin Respiration Rate O2 Delivery Device Vent Mode Tidal Volume POC PEEP Crit Call To/Read Back Sodium 142 Potassium 3.7 Chloride 109 H Carbon Dioxide 27.0 Anion Gap 6 BUN 20 H Creatinine 1.03 Estim Creat Clear Calc 116.15 Est GFR (MDRD) Af Amer 109 Est GFR (MDRD) Non-Af 90 BUN/Creatinine Ratio 19.4 Glucose 112 H Lactic Acid Calcium 7.8 L Magnesium Total Bilirubin 1.10 H AST 87 H ALT 76 H Alkaline Phosphatase 81 Total Creatine Kinase Troponin I Total Protein 5.4 L Albumin 2.2 L Globulin 3.2 Albumin/Globulin Ratio 0.7 L Urine Color Urine Clarity Urine pH Ur Specific [place] Urine Protein Urine Glucose (UA) Urine Ketones Urine Occult Blood Urine Nitrite Urine Bilirubin Urine Urobilinogen Ur Leukocyte Esterase Urine RBC Urine WBC Ur Squamous Epith Cells Calcium Oxalate Crystal Urine Bacteria Urine Mucus Urine Opiates Screen Urine Methadone Screen Ur Barbiturates Screen Ur Phencyclidine Scrn Ur Amphetamines Screen U Methamphetamin-MDMA U Benzodiazepines Scrn Urine Cocaine Screen U Cannabinoids Screen Ur Drug Screen Comment Ethyl Alcohol POC Glucose Microbiology 10/11/20 09:15 Sputum, Tracheal Aspirate Gram Stain - Final 10/11/20 09:15 Sputum, Tracheal Aspirate Respiratory Culture - Preliminary Staphylococcus aureus 10/11/20 08:49 Urine, Catheterized Urine Culture - Preliminary Culture exhibits no growth. 10/11/20 09:47 Mucosa - Nose SARS-CoV-2 Antigen (Rapid) - Final Clinical Impression(s) from Imaging Studies Chest X-Ray 10/11/20 08:46 IMPRESSION: Satisfactory position of the support lines and tubes. No pneumothorax. Diffuse bilateral airspace opacities which are most pronounced in the right upper lobe. This may be due to infection, inflammation or edema. Electronically Signed: Allan Lancaster MD at 9:41 EDT Tel , Service support , Abdomen/Pelvis CT 10/11/20 09:09 IMPRESSION: No acute abdominal or pelvic pathology. Electronically Signed: Allan Lancaster MD at 10:49 EDT Tel , Service support , Brain CT 10/11/20 09:09 IMPRESSION: No acute intracranial abnormality. Electronically Signed: Allan Lancaster MD at 10:36 EDT Tel , Service support , Cervical Spine CT 10/11/20 09:09 IMPRESSION: No fracture or dislocation in the cervical spine. Straightening of the normal cervical lordosis which may be due to paraspinal muscle spasm or may be positional in nature. Electronically Signed: Allan Lancaster MD at 10:41 EDT Tel , Service support , Chest CTA 10/11/20 09:09 IMPRESSION: Dense airspace opacity throughout both lungs which is most pronounced in the lower lobes. This is consistent with multilobar pneumonia. No pulmonary embolus. No thoracic aortic aneurysm or dissection. No acute traumatic findings in the thorax. Electronically Signed: Allan Lancaster MD at 10:46 EDT Tel , Service support , Chest X-Ray 10/11/20 10:10 IMPRESSION: No pneumothorax. No significant change in the previously seen diffuse bilateral airspace opacities. Electronically Signed: Allan Lancaster MD at 17:10 EDT Tel , Service support , Chest X-Ray 10/11/20 11:18 IMPRESSION: No significant change in the diffuse bilateral airspace opacities which is consistent with multilobar pneumonia. Electronically Signed: Allan Lancaster MD at 11:38 EDT Tel , Service support , Shoulder X-Ray 10/12/20 14:35 IMPRESSION: No acute osseous abnormality. at 2033 Reported and signed by: Kierra Rivas MD Electronically Signed: Kierra Rivas MD at 20:33 EDT Tel , Service support , Medical Necessity - Tobacco Use Smoking Status: Current every day smoker Assessment/Plan All Active Problems Opiate dependence (Acute) Atrial flutter (Acute) Aspiration pneumonia (Acute) Drug overdose (Acute) Hypothermia (Acute) Acute respiratory failure (Acute) Mixed acid base balance disorder (Acute) Airway intubation performed without difficulty (Acute) Neuropraxia of right upper extremity (Acute) RECOMMENDATIONS: 1. Proceed with a trial of extubation this morning. 2. Once extubated, wean supplemental oxygen to maintain saturations at or above 90%. 3. Perform bedside swallow evaluation and advance diet accordingly. 4. Physical therapy to evaluate the patient. 5. Continue antimicrobials, pending finalized infectious work-up. 6. Encourage incentive spirometer use and mobilize patient as tolerated. 7. Obtain orthopedic consultation given limited strength in right upper extremity and neuropathy 8. Wean stress dose steroids. IMPRESSIONS: 1. Acute hypoxic respiratory failure secondary to severe ARDS secondary to aspiration The patient was initially intubated for airway protection after being found down and unresponsive. He has improved significantly over the last 24 to 48 hours from a respiratory perspective. FiO2 requirement is minimal at 30%. The patient passed a spontaneous breathing trial and will be extubated this morning. Plan to continue empiric antimicrobials, pending finalized infectious work-up. Once extubated, supplemental oxygen will be weaned to maintain saturations at or above 90%. Encourage incentive spirometer use and mobilize patient as tolerated. 2. Encephalopathy Likely secondary to illicit drug overdose. The patient has improved from a mental status perspective and is currently at his baseline. 3. Septic shock secondary to aspiration pneumonia Large aspiration pneumonia noted on chest x-ray. The patient has been weaned from vasopressor support as of this morning. Accordingly, his stress dose steroids will be weaned. The patient will be continued on antimicrobials, pending finalized infectious work-up. 4. Acute kidney injury Improved. Clinical suspicion for prerenal etiology in the setting of septic shock. Continue to monitor urine output. No current indication for renal replacement therapy. 5. Right upper extremity weakness/neuropathy Will obtain orthopedic consultation for further evaluation. 6. Polysubstance abuse/poor history/possible trauma Complicates care, management, recovery and prognosis. The patients cervical spine will be cleared once he is extubated, with plans to remove rigid c-collar. TIME: 40 minutes of critical care time, independent of procedures, was spent addressing the patient's acute respiratory failure, encephalopathy, septic shock, aspiration pneumonia, acute kidney injury, review of all data and collaboration with the care team. [id number]) [phone] [id number] Critical care first hour
[2020-10-13] MEDS: Hydrocortisone Sod Succinate 100 MG/2 ML Vial IV (05:55)
[2020-10-13 06:05] LABS: Bedside Glucose 106 mg/dL (70-110)
[2020-10-13] MEDS: TITRATION PARAMETER CHANGE 1 EACH IV (06:41)
--- NOTE | 2020-10-13 06:42 | NURSING ---
0630 pt extubated to 4l NC by respitory, pt tolerated well
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
[2020-10-13] MEDS: Enoxaparin 40 MG/0.4 ML Syringe SC (09:18)
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
[2020-10-13] MEDS: 0.9% Saline Lock 10 ML Syringe IV (12:59)
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
[2020-10-13 14:07] LABS: Pathologist Review Reviewed
--- NOTE | 2020-10-13 17:07 | TELEMED_ITS ---
[facility] has confirmed receipt of a request for visit. This document confirms receipt of the order initiating the consult. To find the results of the consultation, please view the patient's reports for the scanned Tele[facility] Consult.
[2020-10-14] VITALS (17 sets, daily range): BP systolic 120–145; BP diastolic 67–93; PULSE 88–111; RESP 16–41; TEMP 36.7–37.7; O2SAT 92–97
[2020-10-14 04:46] LABS: Absolute Lymphocyte Count 0.87 X10^3/uL (0.83-4.51); Absolute Neutrophil Count 13.3 X10^3/uL (2.0-7.7); Basophil# 0.03 X10^3/uL; Basophil% 0.2 % (0-1); Eosinophil# 0.01 X10^3/uL; Eosinophils% 0.1 % (0-5); Hematocrit 33.1 % (40-54); Hemoglobin 10.6 g/dL (13.0-16.5); Lymphocyte # 0.87 X10^3/ul (4.0); Lymphocyte % 5.7 % (19-41); Mean Corpuscular Hgb 28.3 pg (27.0-32.0); Mean Corpuscular Volume 88.5 fL (80-94); Mean Platelet Vol. 9.3 fl (6.2-12.0); Monocyte# 0.42 X10^3/uL; Monocyte% 2.8 % (0-10); NRBC Flagged by Analyzer 0 % (0-5); Neutrophil # 13.31 X10^3/uL (2.7-7.7); Neutrophil % 87.6 % (47-70); Platelet Count 169 K/mm3 (150-450); RBC Distribution Width SD 42.4 fl (35.1-43.9); Red Blood Count 3.74 M/mm3 (4.6-6.2); White Blood Count 15.2 K/mm3 (4.4-11.0)
[2020-10-14 05:03] LABS: ALB/GLOB Ratio 0.7 RATIO (0.9-2.4); AST(SGOT) 76 U/L (15-37); Alanine Aminotransfer ALT/SGPT 68 U/L (16-61); Albumin, Serum 2.4 g/dL (3.2-5.0); Alkaline Phosphatase 103 U/L (45-117); Anion Gap 4 (5-15); BUN 16 mg/dL (7-18); Calcium,Total 8.3 mg/dL (8.5-10.1); Chloride 111 mmol/L (98-107); EST Glomerular Filtration Rate 142 mL/min (>60); Est Glom Filt Rate - Afr Amer 171 mL/min (>60); Globulin 3.6 g/dL (2.2-4.2); Glucose 89 mg/dL (74-106); Potassium 3.4 mmol/L (3.5-5.1); Sodium Level 144 mmol/L (136-145)
--- NOTE | 2020-10-14 05:38 | PN_ITS ---
Subjective: The patient was seen and examined at the bedside this morning. Events from the last 24 hours have been reviewed. The patient is currently afebrile, hemodynamically stable and maintaining appropriate oxygen saturations on 3 L/min via nasal cannula. There has been some improvement in the patient's right upper extremity range of motion over the last 24 hours. Objective: The patient's most recent lab work, culture data and imaging studies have all been personally reviewed. Blood and urine cultures have not demonstrated any growth to date. Coronavirus rapid antigen testing was negative. Tracheal aspirate was positive for staph aureus. General: Alert, Cooperative, No apparent distress HEENT: Atraumatic, Normocephalic Oral: No Gingival or Mucosal Lesions/ Ulcerations Neck: Supple, No Nodes, Trachea Midline Lungs: No rhonchi, No wheeze, No rales, Diminished Cardiovascular: Normal S1, Normal S2, Tachycardic Abdomen: Bowel Sounds Present, Soft, Non Tender Extremities: No clubbing, No cyanosis, No edema Skin: No breakdown Musculoskeletal: No Muscle Wasting Lymphatic: No Cervical, Supraclavicular, or Inguinal Adenopathy Neurological: Cranial nerves II-XII grossly intact, Neuro grossly intact Psych/Mental Status: Normal Affect Vital Signs Temp Pulse Resp BP Pulse Ox 99.8 F H 99 41 H 130/78 H 97 10/14/20 04:00 10/14/20 05:00 10/14/20 05:00 10/14/20 05:00 10/14/20 05:00 Oxygen Flow Rate (L/min) 3 Oxygen Delivery Method Nasal Cannula Weight: 173 lb 1.006 oz Body Mass Index (BMI) 24.3 Intake and Output for Last 24 Hours 10/12/20 10/13/20 10/14/20 23:59 23:59 23:59 Intake Total 2303.13 / 2334.01 857.69 / 857.69 140.00 / 140.00 Output Total 2195 / 2365 1505 / 1605 450 / 450 Balance 108.13 / -30.99 -647.31 / -747.31 -310.00 / -310.00 Labs (Last 48 Hours) 10/12/20 10/12/20 10/12/20 04:45 05:39 06:46 WBC RBC Hgb Hct MCV MCH MCHC RDW Std Deviation RDW Coeff of Phoebe Plt Count MPV Immature Gran % (Auto) Neut % (Auto) Lymph % (Auto) [place] % (Auto) Eos % (Auto) Baso % (Auto) Absolute Neuts (auto) Absolute Lymphs (auto) Total Counted Neutrophils % (Manual) Band Neutrophils % Lymphocytes % (Manual) Monocytes % (Manual) Metamyelocytes % Nucleated RBC % Diff Path Review Platelet Estimate RBC Morphology Specimen Type ART Sample Site L Radial pH 7.38 Bicarbonate Actual 21.7 L Total CO2 23 Base Excess -4 L O2 Saturation 95 O2 % 40 ABG pCO2 36.9 ABG pO2 75 Respiration Rate 18 O2 Delivery Device ET Tube Vent Mode AC Tidal Volume 550 POC PEEP 18 Sodium Potassium Chloride Carbon Dioxide Anion Gap BUN Creatinine Estim Creat Clear Calc Est GFR (MDRD) Af Amer Est GFR (MDRD) Non-Af BUN/Creatinine Ratio Glucose Calcium Total Bilirubin AST ALT Alkaline Phosphatase Troponin I 4.000 H* Total Protein Albumin Globulin Albumin/Globulin Ratio POC Glucose 132 H 10/12/20 10/12/20 10/12/20 12:19 17:43 21:36 WBC RBC Hgb Hct MCV MCH MCHC RDW Std Deviation RDW Coeff of Phoebe Plt Count MPV Immature Gran % (Auto) Neut % (Auto) Lymph % (Auto) [place] % (Auto) Eos % (Auto) Baso % (Auto) Absolute Neuts (auto) Absolute Lymphs (auto) Total Counted Neutrophils % (Manual) Band Neutrophils % Lymphocytes % (Manual) Monocytes % (Manual) Metamyelocytes % Nucleated RBC % Diff Path Review Platelet Estimate RBC Morphology Specimen Type Sample Site pH Bicarbonate Actual Total CO2 Base Excess O2 Saturation O2 % ABG pCO2 ABG pO2 Respiration Rate O2 Delivery Device Vent Mode Tidal Volume POC PEEP Sodium Potassium Chloride Carbon Dioxide Anion Gap BUN Creatinine Estim Creat Clear Calc Est GFR (MDRD) Af Amer Est GFR (MDRD) Non-Af BUN/Creatinine Ratio Glucose Calcium Total Bilirubin AST ALT Alkaline Phosphatase Troponin I Total Protein Albumin Globulin Albumin/Globulin Ratio POC Glucose 102 103 117 H 10/12/20 10/13/20 10/13/20 23:59 04:10 04:10 WBC 23.6 H RBC 3.75 L Hgb 11.0 L Hct 32.8 L MCV 87.5 MCH 29.3 MCHC 33.5 RDW Std Deviation 41.1 RDW Coeff of Phoebe 13.1 Plt Count 188 MPV 9.4 Immature Gran % (Auto) Neut % (Auto) Not Reportable Lymph % (Auto) [place]row % (Auto) Eos % (Auto) Baso % (Auto) Absolute Neuts (auto) 21.5 H Absolute Lymphs (auto) 0.94 Total Counted 100 Neutrophils % (Manual) 76 H Band Neutrophils % 15 H Lymphocytes % (Manual) 4 L Monocytes % (Manual) 2 Metamyelocytes % 3 H Nucleated RBC % Diff Path Review Reviewed Platelet Estimate ADEQUATE RBC Morphology NORM C+C Specimen Type Sample Site pH Bicarbonate Actual Total CO2 Base Excess O2 Saturation O2 % ABG pCO2 ABG pO2 Respiration Rate O2 Delivery Device Vent Mode Tidal Volume POC PEEP Sodium 142 Potassium 3.7 Chloride 109 H Carbon Dioxide 27.0 Anion Gap 6 BUN 20 H Creatinine 1.03 Estim Creat Clear Calc 116.15 Est GFR (MDRD) Af Amer 109 Est GFR (MDRD) Non-Af 90 BUN/Creatinine Ratio 19.4 Glucose 112 H Calcium 7.8 L Total Bilirubin 1.10 H AST 87 H ALT 76 H Alkaline Phosphatase 81 Troponin I Total Protein 5.4 L Albumin 2.2 L Globulin 3.2 Albumin/Globulin Ratio 0.7 L POC Glucose 106 10/13/20 10/14/20 10/14/20 05:53 04:40 04:40 WBC 15.2 H RBC 3.74 L Hgb 10.6 L Hct 33.1 L MCV 88.5 MCH 28.3 MCHC 32.0 RDW Std Deviation 42.4 RDW Coeff of Phoebe 13.0 Plt Count 169 MPV 9.3 Immature Gran % (Auto) 3.600 H Neut % (Auto) 87.6 H Lymph % (Auto) 5.7 L [place]row % (Auto) 2.8 Eos % (Auto) 0.1 Baso % (Auto) 0.2 Absolute Neuts (auto) 13.3 H Absolute Lymphs (auto) 0.87 Total Counted Neutrophils % (Manual) Band Neutrophils % Lymphocytes % (Manual) Monocytes % (Manual) Metamyelocytes % Nucleated RBC % 0 Diff Path Review Platelet Estimate RBC Morphology Specimen Type Sample Site pH Bicarbonate Actual Total CO2 Base Excess O2 Saturation O2 % ABG pCO2 ABG pO2 Respiration Rate O2 Delivery Device Vent Mode Tidal Volume POC PEEP Sodium 144 Potassium 3.4 L Chloride 111 H Carbon Dioxide 29.0 Anion Gap 4 L BUN 16 Creatinine 0.70 Estim Creat Clear Calc 170.90 Est GFR (MDRD) Af Amer 171 Est GFR (MDRD) Non-Af 142 BUN/Creatinine Ratio 23.0 H Glucose 89 Calcium 8.3 L Total Bilirubin 1.00 AST 76 H ALT 68 H Alkaline Phosphatase 103 Troponin I Total Protein 6.0 L Albumin 2.4 L Globulin 3.6 Albumin/Globulin Ratio 0.7 L POC Glucose 106 Microbiology 10/11/20 09:15 Sputum, Tracheal Aspirate Gram Stain - Final 10/11/20 09:15 Sputum, Tracheal Aspirate Respiratory Culture - Preliminary Staphylococcus aureus 10/11/20 08:49 Urine, Catheterized Urine Culture - Final Culture exhibits no growth. 10/11/20 08:54 Blood Culture (Wb) - Anticubital Left Blood Culture - Preliminary No growth in 48 hours. 10/11/20 Unknown Blood Culture (Wb) - Anticubital Right Blood Culture - Preliminary No growth in 48 hours. Clinical Impression(s) from Imaging Studies Chest X-Ray 10/11/20 08:46 IMPRESSION: Satisfactory position of the support lines and tubes. No pneumothorax. Diffuse bilateral airspace opacities which are most pronounced in the right upper lobe. This may be due to infection, inflammation or edema. Electronically Signed: Allan Lancaster MD at 9:41 EDT Tel , Service support , Abdomen/Pelvis CT 10/11/20 09:09 IMPRESSION: No acute abdominal or pelvic pathology. Electronically Signed: Allan Lancaster MD at 10:49 EDT Tel , Service support , Brain CT 10/11/20 09:09 IMPRESSION: No acute intracranial abnormality. Electronically Signed: Allan Lancaster MD at 10:36 EDT Tel , Service support , Cervical Spine CT 10/11/20 09:09 IMPRESSION: No fracture or dislocation in the cervical spine. Straightening of the normal cervical lordosis which may be due to paraspinal muscle spasm or may be positional in nature. Electronically Signed: Allan Lancaster MD at 10:41 EDT Tel , Service support , Chest CTA 10/11/20 09:09 IMPRESSION: Dense airspace opacity throughout both lungs which is most pronounced in the lower lobes. This is consistent with multilobar pneumonia. No pulmonary embolus. No thoracic aortic aneurysm or dissection. No acute traumatic findings in the thorax. Electronically Signed: Allan Lancaster MD at 10:46 EDT Tel , Service support , Chest X-Ray 10/11/20 10:10 IMPRESSION: No pneumothorax. No significant change in the previously seen diffuse bilateral airspace opacities. Electronically Signed: Allan Lancaster MD at 17:10 EDT Tel , Service support , Chest X-Ray 10/11/20 11:18 IMPRESSION: No significant change in the diffuse bilateral airspace opacities which is consistent with multilobar pneumonia. Electronically Signed: Allan Lancaster MD at 11:38 EDT Tel , Service support , Shoulder X-Ray 10/12/20 14:35 IMPRESSION: No acute osseous abnormality. at 2033 Reported and signed by: Kierra Rivas MD Electronically Signed: Kierra Rivas MD at 20:33 EDT Tel , Service support , Medical Necessity - Tobacco Use Smoking Status: Current every day smoker Assessment/Plan All Active Problems Opiate dependence (Acute) Atrial flutter (Acute) Aspiration pneumonia (Acute) Drug overdose (Acute) Hypothermia (Acute) Acute respiratory failure (Acute) Mixed acid base balance disorder (Acute) Airway intubation performed without difficulty (Acute) Neuropraxia of right upper extremity (Acute) RECOMMENDATIONS: 1. Continue to wean supplemental oxygen to maintain saturations at or above 90%. 2. Continue antimicrobials to complete 7-day treatment course. 3. Encourage incentive spirometer use and mobilize patient as tolerated. 4. The patient is medically stable for transfer out of the intensive care unit. IMPRESSIONS: 1. Acute hypoxic respiratory failure secondary to severe ARDS secondary to aspiration The patient was initially intubated for airway protection after being found down and unresponsive. The patient did respond quickly to invasive mechanical ventilatory support and was able to be extubated on October 13. He is currently maintaining appropriate oxygen saturations on minimal supplemental O2. Plan to continue to wean oxygen to maintain saturations at or above 90%. Antimicrobials will be continued with plans to complete a 7-day treatment course. Encourage incentive spirometer use and mobilize patient as tolerated. 2. Encephalopathy Resolved. Likely secondary to illicit drug overdose. The patient has improved from a mental status perspective and is currently at his baseline. 3. Septic shock secondary to aspiration pneumonia Large aspiration pneumonia noted on chest x-ray. The patient has been successfully weaned from vasopressor support and stress dose steroids. He remains hemodynamically stable. The patient will be continued on antimicrobials. 4. Acute kidney injury Improved. Clinical suspicion for prerenal etiology in the setting of septic shock. Continue to monitor urine output. No current indication for renal replacement therapy. 5. Right upper extremity weakness/neuropathy Orthopedic surgery following to assist with medical management. 6. Polysubstance abuse/poor history/possible trauma Complicates care, management, recovery and prognosis. This note was generated with [employer] software. It may contain incorrect words, spelling, and punctuation that were not noted in checking the note before signing. Inpatient E&M: [id number] [facility] L3
--- NOTE | 2020-10-14 07:44 | PCM.PN.ORT ---
Patient Problems: Active and Suspected Problems Opiate dependence (Acute) Atrial flutter (Acute) Aspiration pneumonia (Acute) Drug overdose (Acute) Hypothermia (Acute) Acute respiratory failure (Acute) Mixed acid base balance disorder (Acute) Airway intubation performed without difficulty (Acute) Neuropraxia of right upper extremity (Acute) Subjective: Patient lying in bed sleeping. Patient easy to awake. Patient denies any right shoulder pain. Patient feels he has had improvement of the motion of his right arm. Patient also feels he has increased sensation to the right arm and hand. Patient has no other complaint at this time. Objective: Exam of the right arm, patient has good passive range of motion of the shoulder without pain. The shoulder appears to be in anatomical position. Patient has noted improvement of flexion extension of the right elbow, however very weak from his exam yesterday. Patient also has improved flexion extension supination pronation of the wrist again, however very weak. Patient was able to do thumbs up today. Patient has had improved motor expert strength but very weak. Patient has good cap refill, strong radial ulnar pulses. Patient has no pain with range of motion of the elbow wrist and hand just continued weakness. Patient edema of the right arm has significantly improved. - Physical Exam Vitals/I&O's: Vital Signs Temp Pulse Resp BP Pulse Ox 99.8 F H 111 H 40 H 134/83 H 95 10/14/20 04:00 10/14/20 07:31 10/14/20 07:00 10/14/20 07:00 10/14/20 07:00 Oxygen Flow Rate (L/min) 3 Oxygen Delivery Method Nasal Cannula Weight: 78.5 kg Body Mass Index (BMI) 24.3 Intake and Output for Last 24 Hours 10/12/20 10/13/20 10/14/20 23:59 23:59 23:59 Intake Total 2303.13 / 2334.01 857.69 / 857.69 188.75 / 188.75 Output Total 2195 / 2365 1505 / 1605 450 / 450 Balance 108.13 / -30.99 -647.31 / -747.31 -261.25 / -261.25 General: Alert, Oriented x3, Cooperative HEENT: PERRLA Oral: Moist Mucosa Cardiovascular: Regular rate Neurological: Cranial nerves II-XII grossly intact Psych/Mental Status: Normal Affect, Alert and oriented to time, place, person, mood and affect Microbiology Past 72 Hours 10/11/20 09:15 Sputum, Tracheal Aspirate Gram Stain - Final 10/11/20 09:15 Sputum, Tracheal Aspirate Respiratory Culture - Preliminary Staphylococcus aureus 10/11/20 08:49 Urine, Catheterized Urine Culture - Final Culture exhibits no growth. 10/11/20 08:54 Blood Culture (Wb) - Anticubital Left Blood Culture - Preliminary No growth in 48 hours. 10/11/20 Unknown Blood Culture (Wb) - Anticubital Right Blood Culture - Preliminary No growth in 48 hours. 10/11/20 09:47 Mucosa - Nose SARS-CoV-2 Antigen (Rapid) - Final Laboratory Results 10/13/20 04:10: Diff Path Review Reviewed 10/14/20 04:40: WBC 15.2 H, RBC 3.74 L, Hgb 10.6 L, Hct 33.1 L, MCV 88.5, MCH 28.3, MCHC 32.0, RDW Std Deviation 42.4, RDW Coeff of Phoebe 13.0, Plt Count 169, MPV 9.3, Immature Gran % (Auto) 3.600 H, Neut % (Auto) 87.6 H, Lymph % (Auto) 5.7 L, [place] % (Auto) 2.8, Eos % (Auto) 0.1, Baso % (Auto) 0.2, Absolute Neuts (auto) 13.3 H, Absolute Lymphs (auto) 0.87, Nucleated RBC % 0 10/14/20 04:40: Sodium 144, Potassium 3.4 L, Chloride 111 H, Carbon Dioxide 29.0, Anion Gap 4 L, BUN 16, Creatinine 0.70, Estim Creat Clear Calc 170.90, Est GFR (MDRD) Af Amer 171, Est GFR (MDRD) Non-Af 142, BUN/Creatinine Ratio 23.0 H, Glucose 89, Calcium 8.3 L, Total Bilirubin 1.00, AST 76 H, ALT 68 H, Alkaline Phosphatase 103, Total Protein 6.0 L, Albumin 2.4 L, Globulin 3.6, Albumin/Globulin Ratio 0.7 L Current Medications Dextrose (Dextrose 50%-Water 25 Gm/50 Ml Disp.Syrin) 0 gm IV X1 PRN; Protocol PRN Reason: Hypoglycemia Last Admin: 10/11/20 20:45 Dose: 25 gm Documented by: Enoxaparin Sodium (Enoxaparin 40 Mg/0.4 Ml Syringe) 40 mg SC DAILY [facility] Last Admin: 10/13/20 09:18 Dose: 40 mg Documented by: Glucagon (Glucagon 1 Mg/Ml Syringe) 1 mg IM .X1 PRN PRN Reason: Hypoglycemia Heparin Sodium (Beef Lung) (Heparin Pf Lock 10 Units/Ml 50 Units/5 Ml Syringe) 50 units IV UD PRN PRN Reason: PICC Line Heparin Flush Piperacillin Sod/Tazobactam (Sod 3.375 gm/ Sodium Chloride) 50 mls @ 12.5 mls/hr IV Q8 TREY Last Admin: 10/14/20 05:39 Dose: 12.5 mls/hr Documented by: Sodium Chloride () 250 mls @ 15 mls/hr IV .[id number] PRN PRN Reason: Saline Flush Last Infusion: 10/14/20 05:39 Dose: 0 mls/hr Documented by: Sodium Chloride () 250 mls @ 15 mls/hr IV .[id number] PRN PRN Reason: Additional IVPB Infusion Ondansetron HCl (Ondansetron 4 Mg/2 Ml Vial) 4 mg IV Q8H PRN PRN PRN Reason: NAUSEA/VOMITING Sodium Chloride (0.9% Saline Lock 10 Ml Syringe) 10 - 40 ml IV UD PRN PRN Reason: SALINE FLUSH Last Admin: 10/13/20 12:59 Dose: 10 ml Documented by: Sodium Chloride (0.9% Saline Lock 10 Ml Syringe) 10 - 40 ml IV UD PRN PRN Reason: Open End PICC Flush Last Admin: 10/12/20 02:48 Dose: 40 ml Documented by: Sodium Chloride (0.9 % Nacl (Sterile) Posiflush 10 Ml) 10 - 40 ml IV UD PRN PRN Reason: Port access or dressing change Medical Necessity - Tobacco Use Smoking Status: Current every day smoker Assessment/Plan All Active Problems Opiate dependence (Acute) Atrial flutter (Acute) Aspiration pneumonia (Acute) Drug overdose (Acute) Hypothermia (Acute) Acute respiratory failure (Acute) Mixed acid base balance disorder (Acute) Airway intubation performed without difficulty (Acute) Neuropraxia of right upper extremity (Acute) Impression: Neuropraxia of the right arm Plan: 1. Continue physical therapy/Occupational Therapy for range of motion/strengthening of the right shoulder elbow wrist and hand. 2. Place right hand wrist into splint to prevent any contractures. 3. Neuro consult 4. If no improvement is noted in 1 to 2 weeks consider EMG study
--- NOTE | 2020-10-14 09:41 | CM.UR ---
SW met w/pt again today, in regard to setting up appointments for mental health or substance abuse counseling. Pt states he does not remember speaking w/SW yesterday. SW reviewed again the paperwork this SW left at his bedside, including the prescription assistance information, Medicaid application, and information for both [facility] and counseling. SW asked pt again today if he is interested in getting help for substance abuse. Pt states, I gotta stop or I'm going to end up . SW offered to make an appointment for pt at [facility]. Pt states that I need to get through all of this. Pt states he is thinking about following up w/[facility], but declined for SW to set up an appointment either at [facility] or with [facility]. SW explained to pt that he can call [facility] himself, or walk in any time for an intake. Pt states understanding. SW explained to pt also that both [facility] and [facility] have sliding scale fees since pt does not have insurance. SW also let pt know if he changes his mind SW remains available to assist with setting up appointments. No further social service needs anticipated at this time. CHRIS Corbin
--- NOTE | 2020-10-14 09:56 | MRI_ITS ---
STUDY: MRI BRAIN WITHOUT CONTRAST REASON FOR EXAM: Male, 29 years old. RUE weakness TECHNIQUE: Standardized multiplanar fat and water weighted pulse sequences were obtained. COMPARISON: CT head 10/11/2020. FINDINGS: No intracranial mass, mass effect, or midline shift. No hemorrhage, territorial infarct or acute ischemia. Normal size of the ventricles and extra-axial spaces for the patient''s age. Normal white matter tracts of the supratentorial brain. Normal bilateral basal ganglia. Normal thalami. There is no extra-axial fluid accumulation. Normal flow voids within the major intracranial circulation suggesting patency by spin echo criteria. Normal sella turcica, pituitary gland, infundibular stalk, optic chiasm and hypothalamus. Normal midbrain, charles and medulla. Normal cerebellum. Normal basal cisterns. Normal bilateral temporal bones. Normal bilateral internal auditory canals. Normal visualized paranasal sinuses. Normal calvarium and skull base. Normal visualized soft tissue structures. MRI/Brain without Contrast IMPRESSION: Normal unenhanced MRI of the brain. Electronically Signed: Ann Flor MD at 16:15 EDT Tel , Service support ,
[2020-10-14] MEDS: Enoxaparin 40 MG/0.4 ML Syringe SC (10:38)
--- NOTE | 2020-10-14 14:18 | PN_ITS ---
Patient Problems: Active and Suspected Problems Opiate dependence (Acute) Atrial flutter (Acute) Aspiration pneumonia (Acute) Drug overdose (Acute) Hypothermia (Acute) Acute respiratory failure (Acute) Mixed acid base balance disorder (Acute) Airway intubation performed without difficulty (Acute) Neuropraxia of right upper extremity (Acute) Subjective: Patient seen and examined. He had no complaints. He is still having weakness of his RUE. Review of systems is otherwise negative. Neurology reviewed patient yesterday, and thinks symptoms are due to a right brachial plexus injury, and recommends an MRI of the brain to evaluate for a stroke. Review of systems is otherwise negative. Vitals/I&O's: Vital Signs Temp Pulse Resp BP Pulse Ox 99.4 F H 111 H 20 H 139/91 H 94 10/14/20 08:00 10/14/20 11:46 10/14/20 08:00 10/14/20 08:00 10/14/20 08:00 Oxygen Flow Rate (L/min) 2 Oxygen Delivery Method Nasal Cannula Weight: 173 lb 1.006 oz Body Mass Index (BMI) 24.3 Intake and Output for Last 24 Hours 10/12/20 10/13/20 10/14/20 23:59 23:59 23:59 Intake Total 2303.13 / 2334.01 857.69 / 857.69 552.50 / 552.50 Output Total 2195 / 2365 1505 / 1605 1000 / 1000 Balance 108.13 / -30.99 -647.31 / -747.31 -447.50 / -447.50 General: - -extubated, alert and oriented HEENT: Atraumatic, PERRLA, EOMI, Normocephalic Oral: Dry Mucosa Neck: Supple, No JVD, Negative Carotid Bruits Lungs: - -diminished breath sounds bibasally, no wheezes or crackles. On 2L of oxygen by nasal canula Cardiovascular: Regular rate, Regular Rhythm, Normal S1, Normal S2, No murmurs Abdomen: Bowel Sounds Present, Soft, Non Tender, Non-Distended, No Hepato- splenomegaly Extremities: No clubbing, No cyanosis, No edema, Capillary Refill Less than 3 Seconds Skin: No rashes, No breakdown Musculoskeletal: No Tenderness to Palpation of Joints or Extremities Lymphatic: No Cervical, Supraclavicular, or Inguinal Adenopathy Neurological: - - alert, oriented, RUE weakness, power is 3/5 in RUE Microbiology Past 72 Hours 10/11/20 09:15 Sputum, Tracheal Aspirate Gram Stain - Final 10/11/20 09:15 Sputum, Tracheal Aspirate Respiratory Culture - Final Staphylococcus aureus 10/11/20 08:49 Urine, Catheterized Urine Culture - Final Culture exhibits no growth. 10/11/20 08:54 Blood Culture (Wb) - Anticubital Left Blood Culture - Preliminary No growth in 48 hours. 10/11/20 Unknown Blood Culture (Wb) - Anticubital Right Blood Culture - Preliminary No growth in 48 hours. Laboratory Results 10/14/20 04:40: WBC 15.2 H, RBC 3.74 L, Hgb 10.6 L, Hct 33.1 L, MCV 88.5, MCH 28.3, MCHC 32.0, RDW Std Deviation 42.4, RDW Coeff of Phoebe 13.0, Plt Count 169, MPV 9.3, Immature Gran % (Auto) 3.600 H, Neut % (Auto) 87.6 H, Lymph % (Auto) 5.7 L, [place] % (Auto) 2.8, Eos % (Auto) 0.1, Baso % (Auto) 0.2, Absolute Neuts (auto) 13.3 H, Absolute Lymphs (auto) 0.87, Nucleated RBC % 0 10/14/20 04:40: Sodium 144, Potassium 3.4 L, Chloride 111 H, Carbon Dioxide 29.0, Anion Gap 4 L, BUN 16, Creatinine 0.70, Estim Creat Clear Calc 170.90, Est GFR (MDRD) Af Amer 171, Est GFR (MDRD) Non-Af 142, BUN/Creatinine Ratio 23.0 H, Glucose 89, Calcium 8.3 L, Total Bilirubin 1.00, AST 76 H, ALT 68 H, Alkaline Phosphatase 103, Total Protein 6.0 L, Albumin 2.4 L, Globulin 3.6, Albumin/Globulin Ratio 0.7 L Diagnostic Data Abdomen/Pelvis CT 10/11/20 09:09 IMPRESSION: No acute abdominal or pelvic pathology. Electronically Signed: Allan Lancaster MD at 10:49 EDT Tel , Service support , Brain CT 10/11/20 09:09 IMPRESSION: No acute intracranial abnormality. Electronically Signed: Allan Lancaster MD at 10:36 EDT Tel , Service support , Cervical Spine CT 10/11/20 09:09 IMPRESSION: No fracture or dislocation in the cervical spine. Straightening of the normal cervical lordosis which may be due to paraspinal muscle spasm or may be positional in nature. Electronically Signed: Allan Lancaster MD at 10:41 EDT Tel , Service support , Chest CTA 10/11/20 09:09 IMPRESSION: Dense airspace opacity throughout both lungs which is most pronounced in the lower lobes. This is consistent with multilobar pneumonia. No pulmonary embolus. No thoracic aortic aneurysm or dissection. No acute traumatic findings in the thorax. Electronically Signed: Allan Lancaster MD at 10:46 EDT Tel , Service support , Chest X-Ray 10/11/20 11:18 IMPRESSION: No significant change in the diffuse bilateral airspace opacities which is consistent with multilobar pneumonia. Electronically Signed: Allan Lancaster MD at 11:38 EDT Tel , Service support , Shoulder X-Ray 10/12/20 14:35 IMPRESSION: No acute osseous abnormality. at 2033 Reported and signed by: Kierra Rivas MD Electronically Signed: Kierra Rivas MD at 20:33 EDT Tel , Service support , Current Medications Dextrose (Dextrose 50%-Water 25 Gm/50 Ml Disp.Syrin) 0 gm IV X1 PRN; Protocol PRN Reason: Hypoglycemia Last Admin: 10/11/20 20:45 Dose: 25 gm Documented by: Enoxaparin Sodium (Enoxaparin 40 Mg/0.4 Ml Syringe) 40 mg SC DAILY [facility] Last Admin: 10/14/20 10:38 Dose: 40 mg Documented by: Glucagon (Glucagon 1 Mg/Ml Syringe) 1 mg IM .X1 PRN PRN Reason: Hypoglycemia Heparin Sodium (Beef Lung) (Heparin Pf Lock 10 Units/Ml 50 Units/5 Ml Syringe) 50 units IV UD PRN PRN Reason: PICC Line Heparin Flush Piperacillin Sod/Tazobactam (Sod 3.375 gm/ Sodium Chloride) 50 mls @ 12.5 mls/hr IV Q8 [facility] Last Admin: 10/14/20 13:10 Dose: 12.5 mls/hr Documented by: Sodium Chloride () 250 mls @ 15 mls/hr IV .[id number] PRN PRN Reason: Saline Flush Last Infusion: 10/14/20 13:11 Dose: 0 mls/hr Documented by: Sodium Chloride () 250 mls @ 15 mls/hr IV .[id number] PRN PRN Reason: Additional IVPB Infusion Ondansetron HCl (Ondansetron 4 Mg/2 Ml Vial) 4 mg IV Q8H PRN PRN PRN Reason: NAUSEA/VOMITING Sodium Chloride (0.9% Saline Lock 10 Ml Syringe) 10 - 40 ml IV UD PRN PRN Reason: SALINE FLUSH Last Admin: 10/13/20 12:59 Dose: 10 ml Documented by: Sodium Chloride (0.9% Saline Lock 10 Ml Syringe) 10 - 40 ml IV UD PRN PRN Reason: Open End PICC Flush Last Admin: 10/12/20 02:48 Dose: 40 ml Documented by: Sodium Chloride (0.9 % Nacl (Sterile) Posiflush 10 Ml) 10 - 40 ml IV UD PRN PRN Reason: Port access or dressing change STROKE Vital Signs/Narrative: Vital Signs Pulse 10/14/20 11:46 111 H Medical Necessity - Tobacco Use Smoking Status: Current every day smoker Assessment/Plan All Active Problems Opiate dependence (Acute) Atrial flutter (Acute) Aspiration pneumonia (Acute) Drug overdose (Acute) Hypothermia (Acute) Acute respiratory failure (Acute) Mixed acid base balance disorder (Acute) Airway intubation performed without difficulty (Acute) Neuropraxia of right upper extremity (Acute) 29 y/o admitted after being found unresponsive, in a ditch #Acute hypoxic respiratory failure due to aspiration pneumonia and drug overdose * on IV vancomycin and zosyn * breawthing treatment with bronchodilators * blood cultures show no growth after 48 hours * * #Septic shock due to aspiration pneumonia * now off pressors * Now has a PICC line in place. * Critical care on board. * On IV Zosyn as above. vancomycin added on due to tracheal aspirate culture * #Acute respiratory acidosis due to drug intoxication * resolved. * #Non-STEMI * likely a demand ischemia from code blue due to bradycardia * This could also have been due to the CPR he received. * 2D echo ordered. * #RUE weakness: * xray of left shoulder was negative. * Neurology reviewed patient and think it is due to brachial plexus injury. * neuro recommended MRI of brain to rule out stroke * PT/OT on board #s/p cardiac arrest * patient had cardiac arrest whilst being turned supine from proning. Was successfully resuscitated via ACLS protocol * critical care on board * #Hypothermia:resolved #Hypokalemia: resolved. #ROSELIA: resolved. DVT prophylaxis: lovenox . Inpatient E&M: [id number] [facility] L3
--- NOTE | 2020-10-14 14:55 | NURSING ---
To MRI via w/c. Will go to [place] [id number] after MRI complete
[2020-10-14] MEDS: 0.9% Saline Lock 10 ML Syringe IV (15:51)
[2020-10-15] VITALS (10 sets, daily range): BP systolic 129–147; BP diastolic 72–94; PULSE 71–97; RESP 12–18; TEMP 36.4–36.9; O2SAT 94–95
--- NOTE | 2020-10-15 06:44 | PCM.PN.PUL ---
Patient Problems: Active and Suspected Problems Opiate dependence (Acute) Atrial flutter (Acute) Aspiration pneumonia (Acute) Drug overdose (Acute) Hypothermia (Acute) Acute respiratory failure (Acute) Mixed acid base balance disorder (Acute) Airway intubation performed without difficulty (Acute) Neuropraxia of right upper extremity (Acute) Subjective: The patient was seen and examined at the bedside this morning. Events from the last 24 hours have been reviewed. The patient is currently afebrile, hemodynamically stable and maintaining appropriate oxygen saturations on room air. The patient has done well clinically following transfer out of the medical intensive care unit. Objective: The patient's most recent lab work, culture data and imaging studies have all been personally reviewed. Blood and urine cultures have not demonstrated any growth to date. Coronavirus rapid antigen testing was negative. Tracheal aspirate was positive for staph aureus. - Physical Exam Vitals/I&O's: Vital Signs Temp Pulse Resp BP Pulse Ox 98.3 F 81 12 129/72 H 94 10/15/20 02:00 10/15/20 02:59 10/15/20 02:00 10/15/20 02:00 10/15/20 02:00 Oxygen Flow Rate (L/min) 2 Oxygen Delivery Method Room Air Weight: 173 lb 1.006 oz Body Mass Index (BMI) 24.3 Intake and Output for Last 24 Hours 10/13/20 10/14/20 10/15/20 23:59 23:59 23:59 Intake Total 857.69 / 857.69 1077.50 / 1077.50 104.25 / 104.25 Output Total 1505 / 1605 1000 / 1000 Balance -647.31 / -747.31 77.50 / 77.50 104.25 / 104.25 General: Alert, No apparent distress HEENT: Atraumatic, Normocephalic Oral: No Gingival or Mucosal Lesions/ Ulcerations Neck: Supple, No Nodes, Trachea Midline Lungs: No rhonchi, No wheeze, No rales, Diminished Cardiovascular: Regular rate, Regular Rhythm Abdomen: Bowel Sounds Present, Soft, Non Tender Extremities: No clubbing, No cyanosis, No edema Skin: No breakdown Musculoskeletal: No Tenderness to Palpation of Joints or Extremities Lymphatic: No Cervical, Supraclavicular, or Inguinal Adenopathy Neurological: - - Residual right upper extremity weakness Psych/Mental Status: Normal Affect Labs (Last 48 Hours) 10/13/20 10/14/20 10/14/20 04:10 04:40 04:40 WBC 15.2 H RBC 3.74 L Hgb 10.6 L Hct 33.1 L MCV 88.5 MCH 28.3 MCHC 32.0 RDW Std Deviation 42.4 RDW Coeff of Phoebe 13.0 Plt Count 169 MPV 9.3 Immature Gran % (Auto) 3.600 H Neut % (Auto) 87.6 H Lymph % (Auto) 5.7 L [place] % (Auto) 2.8 Eos % (Auto) 0.1 Baso % (Auto) 0.2 Absolute Neuts (auto) 13.3 H Absolute Lymphs (auto) 0.87 Nucleated RBC % [address] Review Reviewed Sodium 144 Potassium 3.4 L Chloride 111 H Carbon Dioxide 29.0 Anion Gap 4 L BUN 16 Creatinine 0.70 Estim Creat Clear Calc 170.90 Est GFR (MDRD) Af Amer 171 Est GFR (MDRD) Non-Af 142 BUN/Creatinine Ratio 23.0 H Glucose 89 Calcium 8.3 L Total Bilirubin 1.00 AST 76 H ALT 68 H Alkaline Phosphatase 103 Total Protein 6.0 L Albumin 2.4 L Globulin 3.6 Albumin/Globulin Ratio 0.7 L 10/15/20 10/15/20 06:15 06:15 WBC Pending RBC Pending Hgb Pending Hct Pending MCV Pending MCH Pending MCHC Pending RDW Std Deviation Pending RDW Coeff of Phoebe Pending Plt Count Pending MPV Immature Gran % (Auto) Neut % (Auto) Pending Lymph % (Auto) [place] % (Auto) Eos % (Auto) Baso % (Auto) Absolute Neuts (auto) Pending Absolute Lymphs (auto) Nucleated RBC % Diff Path Review Sodium Pending Potassium Pending Chloride Pending Carbon Dioxide Pending Anion Gap Pending BUN Pending Creatinine Pending Estim Creat Clear Calc Est GFR (MDRD) Af Amer Pending Est GFR (MDRD) Non-Af Pending BUN/Creatinine Ratio Pending Glucose Pending Calcium Pending Total Bilirubin Pending AST Pending ALT Pending Alkaline Phosphatase Pending Total Protein Pending Albumin Pending Globulin Albumin/Globulin Ratio Microbiology 10/11/20 09:15 Sputum, Tracheal Aspirate Gram Stain - Final 10/11/20 09:15 Sputum, Tracheal Aspirate Respiratory Culture - Final Staphylococcus aureus 10/11/20 08:49 Urine, Catheterized Urine Culture - Final Culture exhibits no growth. 10/11/20 08:54 Blood Culture (Wb) - Anticubital Left Blood Culture - Preliminary No growth in 48 hours. 10/11/20 Unknown Blood Culture (Wb) - Anticubital Right Blood Culture - Preliminary No growth in 48 hours. Clinical Impression(s) from Imaging Studies Chest X-Ray 10/11/20 08:46 IMPRESSION: Satisfactory position of the support lines and tubes. No pneumothorax. Diffuse bilateral airspace opacities which are most pronounced in the right upper lobe. This may be due to infection, inflammation or edema. Electronically Signed: Allan Lancaster MD at 9:41 EDT Tel , Service support , Abdomen/Pelvis CT 10/11/20 09:09 IMPRESSION: No acute abdominal or pelvic pathology. Electronically Signed: Allan Lancaster MD at 10:49 EDT Tel , Service support , Brain CT 10/11/20 09:09 IMPRESSION: No acute intracranial abnormality. Electronically Signed: Allan Lancaster MD at 10:36 EDT Tel , Service support , Cervical Spine CT 10/11/20 09:09 IMPRESSION: No fracture or dislocation in the cervical spine. Straightening of the normal cervical lordosis which may be due to paraspinal muscle spasm or may be positional in nature. Electronically Signed: Allan Lancaster MD at 10:41 EDT Tel , Service support , Chest CTA 10/11/20 09:09 IMPRESSION: Dense airspace opacity throughout both lungs which is most pronounced in the lower lobes. This is consistent with multilobar pneumonia. No pulmonary embolus. No thoracic aortic aneurysm or dissection. No acute traumatic findings in the thorax. Electronically Signed: Allan Lancaster MD at 10:46 EDT Tel , Service support , Chest X-Ray 10/11/20 10:10 IMPRESSION: No pneumothorax. No significant change in the previously seen diffuse bilateral airspace opacities. Electronically Signed: Allan Lancaster MD at 17:10 EDT Tel , Service support , Chest X-Ray 10/11/20 11:18 IMPRESSION: No significant change in the diffuse bilateral airspace opacities which is consistent with multilobar pneumonia. Electronically Signed: Allan Lancaster MD at 11:38 EDT Tel , Service support , Shoulder X-Ray 10/12/20 14:35 IMPRESSION: No acute osseous abnormality. at 2033 Reported and signed by: Kierra Rivas MD Electronically Signed: Kierra Rivas MD at 20:33 EDT Tel , Service support , Brain MRI 10/14/20 09:56 IMPRESSION: Normal unenhanced MRI of the brain. Electronically Signed: Ann Flor MD at 16:15 EDT Tel , Service support , Current Medications Dextrose (Dextrose 50%-Water 25 Gm/50 Ml Disp.Syrin) 0 gm IV X1 PRN; Protocol PRN Reason: Hypoglycemia Last Admin: 10/11/20 20:45 Dose: 25 gm Documented by: Enoxaparin Sodium (Enoxaparin 40 Mg/0.4 Ml Syringe) 40 mg SC DAILY [facility] Last Admin: 10/14/20 10:38 Dose: 40 mg Documented by: Glucagon (Glucagon 1 Mg/Ml Syringe) 1 mg IM .X1 PRN PRN Reason: Hypoglycemia Heparin Sodium (Beef Lung) (Heparin Pf Lock 10 Units/Ml 50 Units/5 Ml Syringe) 50 units IV UD PRN PRN Reason: PICC Line Heparin Flush Piperacillin Sod/Tazobactam (Sod 3.375 gm/ Sodium Chloride) 50 mls @ 12.5 mls/hr IV Q8 [facility] Last Admin: 10/15/20 06:14 Dose: 12.5 mls/hr Documented by: Sodium Chloride () 250 mls @ 15 mls/hr IV .[id number] PRN PRN Reason: Saline Flush Last Infusion: 10/15/20 06:15 Dose: 0 mls/hr Documented by: Sodium Chloride () 250 mls @ 15 mls/hr IV .[id number] PRN PRN Reason: Additional IVPB Infusion Ondansetron HCl (Ondansetron 4 Mg/2 Ml Vial) 4 mg IV Q8H PRN PRN PRN Reason: NAUSEA/VOMITING Sodium Chloride (0.9% Saline Lock 10 Ml Syringe) 10 - 40 ml IV UD PRN PRN Reason: SALINE FLUSH Last Admin: 10/14/20 15:51 Dose: 10 ml Documented by: Sodium Chloride (0.9% Saline Lock 10 Ml Syringe) 10 - 40 ml IV UD PRN PRN Reason: Open End PICC Flush Last Admin: 10/12/20 02:48 Dose: 40 ml Documented by: Sodium Chloride (0.9 % Nacl (Sterile) Posiflush 10 Ml) 10 - 40 ml IV UD PRN PRN Reason: Port access or dressing change Medical Necessity - Tobacco Use Smoking Status: Current every day smoker Assessment/Plan All Active Problems Opiate dependence (Acute) Atrial flutter (Acute) Aspiration pneumonia (Acute) Drug overdose (Acute) Hypothermia (Acute) Acute respiratory failure (Acute) Mixed acid base balance disorder (Acute) Airway intubation performed without difficulty (Acute) Neuropraxia of right upper extremity (Acute) RECOMMENDATIONS: 1. Continue antimicrobials to complete 7-day treatment course. 2. Encourage incentive spirometer use and mobilize patient as tolerated. 3. Given the patient's lack of further ICU or pulmonary needs, will sign off. Please call with any additional questions. IMPRESSIONS: 1. Acute hypoxic respiratory failure secondary to severe ARDS secondary to aspiration The patient was initially intubated for airway protection after being found down and unresponsive. The patient did respond quickly to invasive mechanical ventilatory support and was able to be extubated on October 13. He is currently maintaining appropriate oxygen saturations on room air. Antimicrobials will be continued with plans to complete a 7-day treatment course. Encourage incentive spirometer use and mobilize patient as tolerated. 2. Encephalopathy Resolved. Likely secondary to illicit drug overdose. The patient has improved from a mental status perspective and is currently at his baseline. 3. Septic shock secondary to aspiration pneumonia Large aspiration pneumonia noted on chest x-ray. The patient has been successfully weaned from vasopressor support and stress dose steroids. He remains hemodynamically stable. The patient will be continued on antimicrobials. 4. Acute kidney injury Improved. Clinical suspicion for prerenal etiology in the setting of septic shock. Continue to monitor urine output. No current indication for renal replacement therapy. 5. Right upper extremity weakness/neuropathy Orthopedic surgery following to assist with medical management. 6. Polysubstance abuse/poor history/possible trauma Complicates care, management, recovery and prognosis. This note was generated with [employer] dictation software. It may contain incorrect words, spelling, and punctuation that were not noted in checking the note before signing. Inpatient E&M: [id number] [facility] L2
[2020-10-15 06:47] LABS: Absolute Lymphocyte Count 0.96 X10^3/uL (0.83-4.51); Absolute Neutrophil Count 7.6 X10^3/uL (2.0-7.7); Basophil# 0.03 X10^3/uL; Basophil% 0.3 % (0-1); Eosinophil# 0.03 X10^3/uL; Eosinophils% 0.3 % (0-5); Hematocrit 35.1 % (40-54); Hemoglobin 11.5 g/dL (13.0-16.5); Lymphocyte # 0.96 X10^3/ul (4.0); Lymphocyte % 10.4 % (19-41); Mean Corp Hgb Conc 32.8 g/dL (32-36); Mean Corpuscular Hgb 28.8 pg (27.0-32.0); Mean Platelet Vol. 9.4 fl (6.2-12.0); Monocyte# 0.52 X10^3/uL; Monocyte% 5.6 % (0-10); NRBC Flagged by Analyzer 0 % (0-5); Neutrophil # 7.61 X10^3/uL (2.7-7.7); Neutrophil % 82.3 % (47-70); Platelet Count 215 K/mm3 (150-450); RBC Distribution Width CV 12.9 % (11.6-14.6); Red Blood Count 3.99 M/mm3 (4.6-6.2); White Blood Count 9.3 K/mm3 (4.4-11.0)
[2020-10-15 07:18] LABS: ALB/GLOB Ratio 0.6 RATIO (0.9-2.4); AST(SGOT) 52 U/L (15-37); Alanine Aminotransfer ALT/SGPT 65 U/L (16-61); Albumin, Serum 2.5 g/dL (3.2-5.0); Alkaline Phosphatase 140 U/L (45-117); Anion Gap 6 (5-15); BUN 14 mg/dL (7-18); BUN/Creat Ratio 21.8 RATIO (10-20); Calcium,Total 8.6 mg/dL (8.5-10.1); Chloride 113 mmol/L (98-107); Creatinine, Serum 0.64 mg/dL (0.70-1.30); EST Glomerular Filtration Rate 156 mL/min (>60); Est Glom Filt Rate - Afr Amer 188 mL/min (>60); Estimated Creatinine Clearance 184.52 ml/min; Glucose 97 mg/dL (74-106); Potassium 3.3 mmol/L (3.5-5.1); Protein, Total 6.5 g/dL (6.4-8.2); Sodium Level 143 mmol/L (136-145)
[2020-10-15] MEDS: Enoxaparin 40 MG/0.4 ML Syringe SC (10:39)
--- NOTE | 2020-10-15 11:19 | PCM.PN.ORT ---
Patient Problems: Active and Suspected Problems Opiate dependence (Acute) Atrial flutter (Acute) Aspiration pneumonia (Acute) Drug overdose (Acute) Hypothermia (Acute) Acute respiratory failure (Acute) Mixed acid base balance disorder (Acute) Airway intubation performed without difficulty (Acute) Neuropraxia of right upper extremity (Acute) Subjective: Patient lying in bed watching TV. Patient has no complaints at this time. Patient feels he has had improvement in motion of his right arm and hand. Patient states the numbness is resolving. This time he has no other complaints. Objective: Exam patient is lying in bed alert oriented. Patient has excellent range of motion of the shoulder without pain. The shoulder appears to be in anatomical position. Patient has had a significant improvement with flexion extension of the elbow from my previous exam. Patient also has reestablished the ability to do flexion extension of the wrist as well as supination pronation. Patient is able to do thumbs up. 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 Patient has good sharp dull sensation. Neurovascular is otherwise intact. - Physical Exam Vitals/I&O's: Vital Signs Temp Pulse Resp BP Pulse Ox 97.8 F 83 16 134/87 H 95 10/15/20 08:40 10/15/20 08:40 10/15/20 08:40 10/15/20 08:40 10/15/20 08:40 Oxygen Flow Rate (L/min) 2 Oxygen Delivery Method Room Air Weight: 76.6 kg Body Mass Index (BMI) 24.3 Intake and Output for Last 24 Hours 10/13/20 10/14/20 10/15/20 23:59 23:59 23:59 Intake Total 857.69 / 857.69 1077.50 / 1077.50 154.25 / 154.25 Output Total 1505 / 1605 1000 / 1000 Balance -647.31 / -747.31 77.50 / 77.50 154.25 / 154.25 General: Alert, Oriented x3 HEENT: PERRLA Oral: Moist Mucosa Neurological: Cranial nerves II-XII grossly intact Psych/Mental Status: Normal Affect Microbiology Past 72 Hours 10/11/20 09:15 Sputum, Tracheal Aspirate Gram Stain - Final 10/11/20 09:15 Sputum, Tracheal Aspirate Respiratory Culture - Final Staphylococcus aureus 10/11/20 08:49 Urine, Catheterized Urine Culture - Final Culture exhibits no growth. 10/11/20 08:54 Blood Culture (Wb) - Anticubital Left Blood Culture - Preliminary No growth in 48 hours. 10/11/20 Unknown Blood Culture (Wb) - Anticubital Right Blood Culture - Preliminary No growth in 48 hours. Laboratory Results 10/15/20 06:15: WBC 9.3, RBC 3.99 L, Hgb 11.5 L, Hct 35.1 L, MCV 88.0, MCH 28.8, MCHC 32.8, RDW Std Deviation 41.0, RDW Coeff of Phoebe 12.9, Plt Count 215, MPV 9.4, Immature Gran % (Auto) 1.100 H, Neut % (Auto) 82.3 H, Lymph % (Auto) 10.4 L, [place] % (Auto) 5.6, Eos % (Auto) 0.3, Baso % (Auto) 0.3, Absolute Neuts (auto) 7.6, Absolute Lymphs (auto) 0.96, Nucleated RBC % 0 10/15/20 06:15: Sodium 143, Potassium 3.3 L, Chloride 113 H, Carbon Dioxide 24.0, Anion Gap 6, BUN 14, Creatinine 0.64 L, Estim Creat Clear Calc 184.52, Est GFR (MDRD) Af Amer 188, Est GFR (MDRD) Non-Af 156, BUN/Creatinine Ratio 21.8 H, Glucose 97, Calcium 8.6, Total Bilirubin 1.00, AST 52 H, ALT 65 H, Alkaline Phosphatase 140 H, Total Protein 6.5, Albumin 2.5 L, Globulin 4.0, Albumin/Globulin Ratio 0.6 L Current Medications Dextrose (Dextrose 50%-Water 25 Gm/50 Ml Disp.Syrin) 0 gm IV X1 PRN; Protocol PRN Reason: Hypoglycemia Last Admin: 10/11/20 20:45 Dose: 25 gm Documented by: Enoxaparin Sodium (Enoxaparin 40 Mg/0.4 Ml Syringe) 40 mg SC DAILY [facility] Last Admin: 10/15/20 10:39 Dose: 40 mg Documented by: Glucagon (Glucagon 1 Mg/Ml Syringe) 1 mg IM .X1 PRN PRN Reason: Hypoglycemia Heparin Sodium (Beef Lung) (Heparin Pf Lock 10 Units/Ml 50 Units/5 Ml Syringe) 50 units IV UD PRN PRN Reason: PICC Line Heparin Flush Piperacillin Sod/Tazobactam (Sod 3.375 gm/ Sodium Chloride) 50 mls @ 12.5 mls/hr IV Q8 [facility] Last Infusion: 10/15/20 10:15 Dose: Infused Documented by: Sodium Chloride () 250 mls @ 15 mls/hr IV .[id number] PRN PRN Reason: Saline Flush Last Infusion: 10/15/20 06:15 Dose: 0 mls/hr Documented by: Sodium Chloride () 250 mls @ 15 mls/hr IV .[id number] PRN PRN Reason: Additional IVPB Infusion Ondansetron HCl (Ondansetron 4 Mg/2 Ml Vial) 4 mg IV Q8H PRN PRN PRN Reason: NAUSEA/VOMITING Sodium Chloride (0.9% Saline Lock 10 Ml Syringe) 10 - 40 ml IV UD PRN PRN Reason: SALINE FLUSH Last Admin: 10/14/20 15:51 Dose: 10 ml Documented by: Sodium Chloride (0.9% Saline Lock 10 Ml Syringe) 10 - 40 ml IV UD PRN PRN Reason: Open End PICC Flush Last Admin: 10/12/20 02:48 Dose: 40 ml Documented by: Sodium Chloride (0.9 % Nacl (Sterile) Posiflush 10 Ml) 10 - 40 ml IV UD PRN PRN Reason: Port access or dressing change Medical Necessity - Tobacco Use Smoking Status: Current every day smoker Assessment/Plan All Active Problems Opiate dependence (Acute) Atrial flutter (Acute) Aspiration pneumonia (Acute) Drug overdose (Acute) Hypothermia (Acute) Acute respiratory failure (Acute) Mixed acid base balance disorder (Acute) Airway intubation performed without difficulty (Acute) Neuropraxia of right upper extremity (Acute) Impression: Neuropraxia of the right arm/ Plan: 1. Continue physical therapy/Occupational Therapy for range of motion/strengthening of the right shoulder elbow wrist and hand. 2. Patient follow-up with orthopedics in a as needed basis 3. Patient to follow-up with neurologist. 4. Patient orthopedically stable
--- NOTE | 2020-10-15 11:24 | ECHOCS_ITS ---
Reason For Study: Elevated Troponins Procedure This was a 2D Doppler, Color Flow transthoracic echocardiogram. The study was technically difficult. Contrast injection was performed. Exam performed portable in patient room. Left Ventricle Normal LV size. Left ventricular systolic function is normal. The estimated ejection fraction is 65 %. Normal diastology for age. No regional wall motion abnormalities noted. Right Ventricle Normal RV size. Normal systolic function. Atria Normal left atrium. Normal right atrium. Catheter noted in right atrium. Mitral Valve Normal mitral valve. Tricuspid Valve Normal tricuspid valve. Mild (1+) tricuspid valve insufficiency. Pulmonary artery systolic pressure is 30 mmHg. Aortic Valve Normal aortic valve. Trisinus/trileaflet aortic valve. Pulmonic Valve Normal pulmonic valve. Great Vessels Normal aortic root. The pulmonary artery is normal size. Normal inferior vena cava. Pericardium/Pleural No pericardial effusion. Medication Diluted definity 2ml given slow IV push to enhance endocardial definition. MMode/2D Measurements & Calculations LVIDd: 4.6 cm IVSd: 0.85 cm Ao root diam: 3.0 cm LVIDs: 3.3 cm LVPWd: 0.77 cm LA dimension: 3.6 cm RVDd: 3.5 cm FS: 27.1 % LAV(MOD-sp4): 59.7 ml LA A4 area: 21.3 cm2 Time Measurements MV dec time: 0.24 sec Doppler Measurements & Calculations MV E max celio: 103.0 cm/sec Lat Peak E' Celio: 14.5 cm/sec Med Peak E' Celio: 11.6 cm/sec MV A max celio: 61.1 cm/sec E/E' lat: 7.1 E/E' med: 8.9 MV E/A: 1.7 MV V2 max: 129.0 cm/sec MV P1/2t max celio: 129.0 cm/sec Ao V2 max: 154.1 cm/sec MV max P.7 mmHg MV P1/2t: 73.6 msec Ao max P.5 mmHg MV V2 mean: 71.1 cm/sec MV dec slope: 513.5 cm/sec2 MV mean P.4 mmHg MV V2 VTI: 27.9 cm MVA(P1/2t): 3.0 cm2 LV V1 max: 131.8 cm/sec PA V2 max: 107.9 cm/sec TR max celio: 255.7 cm/sec LV V1 max P.9 mmHg TR max P.1 mmHg Interpretation Summary Normal LV size. Left ventricular systolic function is normal. The estimated ejection fraction is 65 %. Catheter noted in right atrium. Contrast injection was performed. Ordering Physician: Susan Barrett Referring Physician: no PCP Performed By: Richar Perkins RCS
--- NOTE | 2020-10-15 13:10 | PN_ITS ---
Patient Problems: Active and Suspected Problems Opiate dependence (Acute) Atrial flutter (Acute) Aspiration pneumonia (Acute) Drug overdose (Acute) Hypothermia (Acute) Acute respiratory failure (Acute) Mixed acid base balance disorder (Acute) Airway intubation performed without difficulty (Acute) Neuropraxia of right upper extremity (Acute) Subjective: Patient seen and examined. He has no new complaints today. RUE is still weak. Review of systems is otherwise negative. Vitals/I&O's: Vital Signs Temp Pulse Resp BP Pulse Ox 97.8 F 83 16 134/87 H 95 10/15/20 08:40 10/15/20 08:40 10/15/20 08:40 10/15/20 08:40 10/15/20 08:40 Oxygen Flow Rate (L/min) 2 Oxygen Delivery Method Room Air Weight: 168 lb 13.985 oz Body Mass Index (BMI) 24.3 Intake and Output for Last 24 Hours 10/13/20 10/14/20 10/15/20 23:59 23:59 23:59 Intake Total 857.69 / 857.69 1077.50 / 1077.50 774.25 / 774.25 Output Total 1505 / 1605 1000 / 1000 Balance -647.31 / -747.31 77.50 / 77.50 774.25 / 774.25 General: - -extubated, alert and oriented HEENT: Atraumatic, PERRLA, EOMI, Normocephalic Oral: Dry Mucosa Neck: Supple, No JVD, Negative Carotid Bruits Lungs: - -diminished breath sounds bibasally, no wheezes or crackles. on room air Cardiovascular: Regular rate, Regular Rhythm, Normal S1, Normal S2, No murmurs Abdomen: Bowel Sounds Present, Soft, Non Tender, Non-Distended, No Hepato- splenomegaly Extremities: No clubbing, No cyanosis, No edema, Capillary Refill Less than 3 Seconds Skin: No rashes, No breakdown Musculoskeletal: No Tenderness to Palpation of Joints or Extremities Lymphatic: No Cervical, Supraclavicular, or Inguinal Adenopathy Neurological: - - alert, oriented, RUE weakness, power is ~ 4-/5 in RUE Microbiology Past 72 Hours 10/11/20 09:15 Sputum, Tracheal Aspirate Gram Stain - Final 10/11/20 09:15 Sputum, Tracheal Aspirate Respiratory Culture - Final Staphylococcus aureus 10/11/20 08:49 Urine, Catheterized Urine Culture - Final Culture exhibits no growth. 10/11/20 08:54 Blood Culture (Wb) - Anticubital Left Blood Culture - Preliminary No growth in 48 hours. 10/11/20 Unknown Blood Culture (Wb) - Anticubital Right Blood Culture - Preliminary No growth in 48 hours. Laboratory Results 10/15/20 06:15: WBC 9.3, RBC 3.99 L, Hgb 11.5 L, Hct 35.1 L, MCV 88.0, MCH 28.8, MCHC 32.8, RDW Std Deviation 41.0, RDW Coeff of Phoebe 12.9, Plt Count 215, MPV 9.4, Immature Gran % (Auto) 1.100 H, Neut % (Auto) 82.3 H, Lymph % (Auto) 10.4 L , [place] % (Auto) 5.6, Eos % (Auto) 0.3, Baso % (Auto) 0.3, Absolute Neuts (auto) 7.6, Absolute Lymphs (auto) 0.96, Nucleated RBC % 0 10/15/20 06:15: Sodium 143, Potassium 3.3 L, Chloride 113 H, Carbon Dioxide 24.0, Anion Gap 6, BUN 14, Creatinine 0.64 L, Estim Creat Clear Calc 184.52, Est GFR (MDRD) Af Amer 188, Est GFR (MDRD) Non-Af 156, BUN/Creatinine Ratio 21.8 H, Glucose 97, Calcium 8.6, Total Bilirubin 1.00, AST 52 H, ALT 65 H, Alkaline Phosphatase 140 H, Total Protein 6.5, Albumin 2.5 L, Globulin 4.0, Albumin/Globulin Ratio 0.6 L Current Medications Dextrose (Dextrose 50%-Water 25 Gm/50 Ml Disp.Syrin) 0 gm IV X1 PRN; Protocol PRN Reason: Hypoglycemia Last Admin: 10/11/20 20:45 Dose: 25 gm Documented by: Enoxaparin Sodium (Enoxaparin 40 Mg/0.4 Ml Syringe) 40 mg SC DAILY TREY Last Admin: 10/15/20 10:39 Dose: 40 mg Documented by: Glucagon (Glucagon 1 Mg/Ml Syringe) 1 mg IM .X1 PRN PRN Reason: Hypoglycemia Heparin Sodium (Beef Lung) (Heparin Pf Lock 10 Units/Ml 50 Units/5 Ml Syringe) 50 units IV UD PRN PRN Reason: PICC Line Heparin Flush Piperacillin Sod/Tazobactam (Sod 3.375 gm/ Sodium Chloride) 50 mls @ 12.5 mls/hr IV Q8 TREY Last Infusion: 10/15/20 10:15 Dose: Infused Documented by: Sodium Chloride () 250 mls @ 15 mls/hr IV .[id number] PRN PRN Reason: Saline Flush Last Infusion: 10/15/20 10:15 Dose: 15 mls/hr Documented by: Sodium Chloride () 250 mls @ 15 mls/hr IV .[id number] PRN PRN Reason: Additional IVPB Infusion Ondansetron HCl (Ondansetron 4 Mg/2 Ml Vial) 4 mg IV Q8H PRN PRN PRN Reason: NAUSEA/VOMITING Sodium Chloride (0.9% Saline Lock 10 Ml Syringe) 10 - 40 ml IV UD PRN PRN Reason: SALINE FLUSH Last Admin: 10/14/20 15:51 Dose: 10 ml Documented by: Sodium Chloride (0.9% Saline Lock 10 Ml Syringe) 10 - 40 ml IV UD PRN PRN Reason: Open End PICC Flush Last Admin: 10/12/20 02:48 Dose: 40 ml Documented by: Sodium Chloride (0.9 % Nacl (Sterile) Posiflush 10 Ml) 10 - 40 ml IV UD PRN PRN Reason: Port access or dressing change Medical Necessity - Tobacco Use Smoking Status: Current every day smoker Assessment/Plan All Active Problems Opiate dependence (Acute) Atrial flutter (Acute) Aspiration pneumonia (Acute) Drug overdose (Acute) Hypothermia (Acute) Acute respiratory failure (Acute) Mixed acid base balance disorder (Acute) Airway intubation performed without difficulty (Acute) Neuropraxia of right upper extremity (Acute) 29 y/o admitted after being found unresponsive, in a ditch #Acute hypoxic respiratory failure due to aspiration pneumonia and drug overdose * on IV zosyn * breathing treatment with bronchodilators * blood cultures show no growth after 48 hours * now on room air. * #Septic shock due to aspiration pneumonia * Now has a PICC line in place. * Critical care on board. * On IV Zosyn as above. * #Acute respiratory acidosis due to drug intoxication * resolved. * #Non-STEMI * likely a demand ischemia from code blue due to bradycardia * This could also have been due to the CPR he received. * 2D echo ordered. * #RUE weakness: * xray of left shoulder was negative. * Neurology reviewed patient and think it is due to brachial plexus injury, and will likely improve * MRI of the brain was normal * PT/OT on board #s/p cardiac arrest * patient had cardiac arrest whilst being turned supine from proning. Was successfully resuscitated via ACLS protocol * critical care on board * #Hypothermia:resolved #Hypokalemia: potassium is 3.3. today. Will replace and monitor #ROSELIA: resolved. DVT prophylaxis: lovenox . Inpatient E&M: [id number] Subs Hosp L2
[2020-10-15] MEDS: Potassium Chloride Oral Tablet 20 MEQ 60 MEQ PO (14:25)
[2020-10-16] VITALS (12 sets, daily range): BP systolic 127–159; BP diastolic 77–93; PULSE 71–110; RESP 12–35; TEMP 36.5–37.1; O2SAT 94–99
[2020-10-16 07:17] LABS: Absolute Lymphocyte Count 1.04 X10^3/uL (0.83-4.51); Absolute Neutrophil Count 7.5 X10^3/uL (2.0-7.7); Basophil# 0.08 X10^3/uL; Basophil% 0.8 % (0-1); Eosinophil# 0.04 X10^3/uL; Eosinophils% 0.4 % (0-5); Hematocrit 36.9 % (40-54); Lymphocyte # 1.04 X10^3/ul (4.0); Mean Corp Hgb Conc 32.5 g/dL (32-36); Mean Corpuscular Hgb 29.5 pg (27.0-32.0); Mean Corpuscular Volume 90.7 fL (80-94); Mean Platelet Vol. 10.2 fl (6.2-12.0); Monocyte# 0.62 X10^3/uL; Monocyte% 6.6 % (0-10); NRBC Flagged by Analyzer 0 % (0-5); Neutrophil # 7.49 X10^3/uL (2.7-7.7); Neutrophil % 79.5 % (47-70); Platelet Count 226 K/mm3 (150-450); RBC Distribution Width CV 12.7 % (11.6-14.6); RBC Distribution Width SD 41.6 fl (35.1-43.9); Red Blood Count 4.07 M/mm3 (4.6-6.2); White Blood Count 9.4 K/mm3 (4.4-11.0)
[2020-10-16 07:41] LABS: ALB/GLOB Ratio 0.8 RATIO (0.9-2.4); AST(SGOT) 59 U/L (15-37); Alanine Aminotransfer ALT/SGPT 67 U/L (16-61); Albumin, Serum 2.6 g/dL (3.2-5.0); Alkaline Phosphatase 147 U/L (45-117); Anion Gap 6 (5-15); BUN 14 mg/dL (7-18); BUN/Creat Ratio 23.3 RATIO (10-20); Calcium,Total 8.1 mg/dL (8.5-10.1); Chloride 113 mmol/L (98-107); EST Glomerular Filtration Rate 168 mL/min (>60); Est Glom Filt Rate - Afr Amer 203 mL/min (>60); Estimated Creatinine Clearance 194.51 ml/min; Globulin 3.1 g/dL (2.2-4.2); Glucose 72 mg/dL (74-106); Potassium 5.8 mmol/L (3.5-5.1); Protein, Total 5.7 g/dL (6.4-8.2); Sodium Level 143 mmol/L (136-145)
[2020-10-16] MEDS: Enoxaparin 40 MG/0.4 ML Syringe SC (09:43)
[2020-10-16] MEDS: 0.9% Saline Lock 10 ML Syringe IV ×2 (14:57→19:42)
[2020-10-16] MEDS: Sodium Polystyrene Sulfonate 15 GM/60 ML UDC 30 GM PO (15:23)
--- NOTE | 2020-10-16 16:15 | PN_ITS ---
Patient Problems: Active and Suspected Problems Opiate dependence (Acute) Atrial flutter (Acute) Aspiration pneumonia (Acute) Drug overdose (Acute) Hypothermia (Acute) Acute respiratory failure (Acute) Mixed acid base balance disorder (Acute) Airway intubation performed without difficulty (Acute) Neuropraxia of right upper extremity (Acute) Subjective: Patient seen and examined. HE has no complaints today. His right arm is still weak, though he is able to lift it up a bit. Review of systems is otherwise negative. He has remained hemodynamically stable. Potassium is elevated at 5.8 today. Review of systems is otherwise negative. Vitals/I&O's: Vital Signs Temp Pulse Resp BP Pulse Ox 98.3 F 110 H 29 H 143/84 H 97 10/16/20 13:28 10/16/20 15:00 10/16/20 13:28 10/16/20 13:28 10/16/20 13:28 Oxygen Flow Rate (L/min) 2 Oxygen Delivery Method Room Air Weight: 166 lb 14.239 oz Body Mass Index (BMI) 24.3 Intake and Output for Last 24 Hours 10/14/20 10/15/20 10/16/20 23:59 23:59 23:59 Intake Total 1077.50 / 1077.50 2482.00 / 2482.00 1182.0 / 1182.0 Output Total 1000 / 1000 Balance 77.50 / 77.50 2482.00 / 2482.00 1182.0 / 1182.0 General: - -extubated, alert and oriented HEENT: Atraumatic, PERRLA, EOMI, Normocephalic Oral: Dry Mucosa Neck: Supple, No JVD, Negative Carotid Bruits Lungs: - -diminished breath sounds bibasally, no wheezes or crackles. on room air Cardiovascular: Regular rate, Regular Rhythm, Normal S1, Normal S2, No murmurs Abdomen: Bowel Sounds Present, Soft, Non Tender, Non-Distended, No Hepato- splenomegaly Extremities: No clubbing, No cyanosis, No edema, Capillary Refill Less than 3 Seconds Skin: No rashes, No breakdown Musculoskeletal: No Tenderness to Palpation of Joints or Extremities Lymphatic: No Cervical, Supraclavicular, or Inguinal Adenopathy Neurological: - - alert, oriented, RUE weakness, power is ~ 4-/5 in RUE Microbiology Past 72 Hours 10/11/20 Unknown Blood Culture (Wb) - Anticubital Right Blood Culture - Final No growth in 5 days. 10/11/20 08:54 Blood Culture (Wb) - Anticubital Left Blood Culture - Final No growth in 5 days. 10/11/20 09:15 Sputum, Tracheal Aspirate Gram Stain - Final 10/11/20 09:15 Sputum, Tracheal Aspirate Respiratory Culture - Final Staphylococcus aureus Laboratory Results 10/16/20 06:38: WBC 9.4, RBC 4.07 L, Hgb 12.0 L, Hct 36.9 L, MCV 90.7, MCH 29.5, MCHC 32.5, RDW Std Deviation 41.6, RDW Coeff of Phoebe 12.7, Plt Count 226, MPV 10.2, Immature Gran % (Auto) 1.700 H, Neut % (Auto) 79.5 H, Lymph % (Auto) 11.0 L, [place] % (Auto) 6.6, Eos % (Auto) 0.4, Baso % (Auto) 0.8, Absolute Neuts (auto) 7.5, Absolute Lymphs (auto) 1.04, Nucleated RBC % 0 10/16/20 06:38: Sodium 143, Potassium 5.8 H, Chloride 113 H, Carbon Dioxide 24.0, Anion Gap 6, BUN 14, Creatinine 0.60 L, Estim Creat Clear Calc 194.51, Est GFR (MDRD) Af Amer 203, Est GFR (MDRD) Non-Af 168, BUN/Creatinine Ratio 23.3 H, Glucose 72 L, Calcium 8.1 L, Total Bilirubin 1.00, AST 59 H, ALT 67 H, Alkaline Phosphatase 147 H, Total Protein 5.7 L, Albumin 2.6 L, Globulin 3.1, Albumin/Globulin Ratio 0.8 L Current Medications Dextrose (Dextrose 50%-Water 25 Gm/50 Ml Disp.Syrin) 0 gm IV X1 PRN; Protocol PRN Reason: Hypoglycemia Last Admin: 10/11/20 20:45 Dose: 25 gm Documented by: Enoxaparin Sodium (Enoxaparin 40 Mg/0.4 Ml Syringe) 40 mg SC DAILY TREY Last Admin: 10/16/20 09:43 Dose: 40 mg Documented by: Glucagon (Glucagon 1 Mg/Ml Syringe) 1 mg IM .X1 PRN PRN Reason: Hypoglycemia Heparin Sodium (Beef Lung) (Heparin Pf Lock 10 Units/Ml 50 Units/5 Ml Syringe) 50 units IV UD PRN PRN Reason: PICC Line Heparin Flush Sodium Chloride () 250 mls @ 15 mls/hr IV .[id number] PRN PRN Reason: Saline Flush Last Infusion: 10/16/20 11:00 Dose: Infused Documented by: Sodium Chloride () 250 mls @ 15 mls/hr IV .[id number] PRN PRN Reason: Additional IVPB Infusion Ondansetron HCl (Ondansetron 4 Mg/2 Ml Vial) 4 mg IV Q8H PRN PRN PRN Reason: NAUSEA/VOMITING Sodium Chloride (0.9% Saline Lock 10 Ml Syringe) 10 - 40 ml IV UD PRN PRN Reason: SALINE FLUSH Last Admin: 10/16/20 14:57 Dose: 10 ml Documented by: Sodium Chloride (0.9% Saline Lock 10 Ml Syringe) 10 - 40 ml IV UD PRN PRN Reason: Open End PICC Flush Last Admin: 10/12/20 02:48 Dose: 40 ml Documented by: Sodium Chloride (0.9 % Nacl (Sterile) Posiflush 10 Ml) 10 - 40 ml IV UD PRN PRN Reason: Port access or dressing change STROKE Vital Signs/Narrative: Vital Signs Temp Pulse Resp BP Pulse Ox 10/16/20 15:00 110 H 10/16/20 13:28 98.3 F 96 29 H 143/84 H 97 Medical Necessity - Tobacco Use Smoking Status: Current every day smoker Assessment/Plan All Active Problems Opiate dependence (Acute) Atrial flutter (Acute) Aspiration pneumonia (Acute) Drug overdose (Acute) Hypothermia (Acute) Acute respiratory failure (Acute) Mixed acid base balance disorder (Acute) Airway intubation performed without difficulty (Acute) Neuropraxia of right upper extremity (Acute) #Acute hypoxic respiratory failure due to aspiration pneumonia and drug overdose * resolved. * #Septic shock due to aspiration pneumonia * Now has a PICC line in place. * Critical care on board. * On IV Zosyn as above. * #Acute respiratory acidosis due to drug intoxication * resolved. * #Non-STEMI * likely a demand ischemia from code blue due to bradycardia * This could also have been due to the CPR he received. * 2D echo showed EF of 65% with normal diastolic for age and no regional wall motion abnormalities noted with pulmonary systolic pressure of 30. * #RUE weakness: * xray of left shoulder was negative. * Neurology reviewed patient and think it is due to brachial plexus injury, and will likely improve * MRI of the brain was normal * PT/OT on board #s/p cardiac arrest * patient had cardiac arrest whilst being turned supine from proning. Was successfully resuscitated via ACLS protocol * critical care on board * #Hypothermia:resolved #Hyperkalemia: K is now 5.8 today. will give kayexalate and trend potassium levels. #ROSELIA: resolved. DVT prophylaxis: lovenox . Inpatient E&M: [id number] Subs Hosp L2
[2020-10-16 20:16] LABS: Potassium 3.6 mmol/L (3.5-5.1)
[2020-10-17 03:00] VITALS: PULSE 87
[2020-10-17 05:17] VITALS: BP 147/83; PULSE 84; RESP 17; TEMP 36.8; O2SAT 97
[2020-10-17 06:39] LABS: Hematocrit 40.8 % (40-54); Hemoglobin 13.5 g/dL (13.0-16.5); Mean Corp Hgb Conc 33.1 g/dL (32-36); Mean Corpuscular Hgb 28.7 pg (27.0-32.0); Mean Corpuscular Volume 86.8 fL (80-94); Mean Platelet Vol. 8.8 fl (6.2-12.0); POSITIVE COUNT YES; POSITIVE MORPHOLOGY YES; Platelet Count 267 K/mm3 (150-450); RBC Distribution Width CV 12.9 % (11.6-14.6); RBC Distribution Width SD 39.8 fl (35.1-43.9); White Blood Count 7.9 K/mm3 (4.4-11.0)
[2020-10-17 06:43] LABS: Differential Indicated MANUAL DIFF
[2020-10-17 06:59] LABS: Lymphocyte 28 % (19-41); Metamyelocyte 2 % (0-1); Monocyte 5 % (0-10); Neutrophil-Band 3 % (0-5); Neutrophil-Segmented 62 % (47-70); Total Cells Counted 100 (MANUAL DIFF)
[2020-10-17 07:00] VITALS: PULSE 107
[2020-10-17 07:00] LABS: Absolute Neutrophil Count 5.1 X10^3/uL (2.0-7.7); Platelet Estimate ADEQUATE (ADEQ); Red Cell Morphology NORM C+C NORMAL (NORM C&C)
[2020-10-17 07:09] LABS: ALB/GLOB Ratio 0.6 RATIO (0.9-2.4); AST(SGOT) 109 U/L (15-37); Alanine Aminotransfer ALT/SGPT 162 U/L (16-61); Albumin, Serum 2.7 g/dL (3.2-5.0); Alkaline Phosphatase 183 U/L (45-117); Anion Gap 7 (5-15); BUN 16 mg/dL (7-18); BUN/Creat Ratio 26.4 RATIO (10-20); Calcium,Total 8.9 mg/dL (8.5-10.1); Chloride 108 mmol/L (98-107); EST Glomerular Filtration Rate 167 mL/min (>60); Est Glom Filt Rate - Afr Amer 202 mL/min (>60); Estimated Creatinine Clearance 191.68 ml/min; Globulin 4.5 g/dL (2.2-4.2); Glucose 97 mg/dL (74-106); Potassium 3.6 mmol/L (3.5-5.1); Protein, Total 7.2 g/dL (6.4-8.2); Sodium Level 140 mmol/L (136-145)
[2020-10-17 07:25] VITALS: O2SAT 97
[2020-10-17] MEDS: Enoxaparin 40 MG/0.4 ML Syringe SC (09:02)
--- NOTE | 2020-10-17 10:01 | DCINST_ITS ---
- Discharge Diagnoses Current Active Problems: Current Active and Chronic Problems Opiate dependence (Acute) Anxiety and depression (Chronic) Atrial flutter (Acute) Aspiration pneumonia (Acute) Drug overdose (Acute) Hypothermia (Acute) Acute respiratory failure (Acute) Mixed acid base balance disorder (Acute) Airway intubation performed without difficulty (Acute) Neuropraxia of right upper extremity (Acute) You will use the following diet at home:: No restrictions Your food should be the consistency of: Regular Your liquids should be the consistency of: Regular/Thin Discharge Activity: Return to Normal Activity Weight Bearing Status: Weight bearing as tolerated Call your doctor if you observe: Fever of 101 or Higher, Shortness of breath, Dizziness, Fainting spells Instructions: Pneumonia, ED Overdose, Opiate Additional Instructions: to have outpatient PT/OT oa of RUE weakness which is thought to be due to brachial plexus injury Allergies/Adverse Reactions: Allergies No Known Allergies Allergy (Verified 10/11/20 08:43) Medications to take at Discharge NK 04/26/20 Primary Care Physician: Care Physician,No Primary [Primary Care Provider] - Test Results: Test results from this visit will be discussed in further detail at your follow- up appointment, if applicable. Please Follow Up With: Marija Fuentes MD When: 1-2 weeks to establish PCP care Please Follow Up With: Alvin Pleitez MD When: 2-3 weeks for RUE weakness Proposed Discharge Date: 10/17/20
--- NOTE | 2020-10-17 10:11 | DS.PCM_ITS ---
Discharge Date and Diagnosis - Problem List Patient Problems: Active and Suspected Problems Opiate dependence (Acute) Atrial flutter (Acute) Aspiration pneumonia (Acute) Drug overdose (Acute) Hypothermia (Acute) Acute respiratory failure (Acute) Mixed acid base balance disorder (Acute) Airway intubation performed without difficulty (Acute) Neuropraxia of right upper extremity (Acute) Date of Admission: 10/11/20 Date of Discharge: 10/17/20 - Primary Discharge Diagnosis Acute Problems: Active Problems Opiate dependence (Acute) Atrial flutter (Acute) Aspiration pneumonia (Acute) Drug overdose (Acute) Hypothermia (Acute) Acute respiratory failure (Acute) Mixed acid base balance disorder (Acute) Airway intubation performed without difficulty (Acute) Neuropraxia of right upper extremity (Acute) - Secondary Discharge Diagnosis Chronic Problems: Chronic Problems Anxiety and depression (Chronic) Hospital Course and Treatment Imaging Results: Diagnostic Data Abdomen/Pelvis CT 10/11/20 09:09 IMPRESSION: No acute abdominal or pelvic pathology. Electronically Signed: Allan Lancaster MD at 10:49 EDT Tel , Service support , Brain CT 10/11/20 09:09 IMPRESSION: No acute intracranial abnormality. Electronically Signed: Allan Lancaster MD at 10:36 EDT Tel , Service support , Cervical Spine CT 10/11/20 09:09 IMPRESSION: No fracture or dislocation in the cervical spine. Straightening of the normal cervical lordosis which may be due to paraspinal muscle spasm or may be positional in nature. Electronically Signed: Allan Lancaster MD at 10:41 EDT Tel , Service support , Chest CTA 10/11/20 09:09 IMPRESSION: Dense airspace opacity throughout both lungs which is most pronounced in the lower lobes. This is consistent with multilobar pneumonia. No pulmonary embolus. No thoracic aortic aneurysm or dissection. No acute traumatic findings in the thorax. Electronically Signed: Allan Lancaster MD at 10:46 EDT Tel , Service support , Chest X-Ray 10/11/20 11:18 IMPRESSION: No significant change in the diffuse bilateral airspace opacities which is consistent with multilobar pneumonia. Electronically Signed: Allan Lancaster MD at 11:38 EDT Tel , Service support , Shoulder X-Ray 10/12/20 14:35 IMPRESSION: No acute osseous abnormality. at 2033 Reported and signed by: Kierra Rivas MD Electronically Signed: Kierra Rivas MD at 20:33 EDT Tel , Service support , Brain MRI 10/14/20 09:56 IMPRESSION: Normal unenhanced MRI of the brain. Electronically Signed: Ann Flor MD at 16:15 EDT Tel , Service support , critical care- Dr Nieves Operations: None Procedures: 2-D Echocardiogram Summary of Care Provided: The patient is a 29 year old M with no signficant pMH who was admitted via the ED on 10/11/2020 with a complaint of altered mental staus and concerns for drug overdose. It was reported per ED doctor;s notes that he left home at ~ 5am this morning,a nd had fentanyl and heroin on him. He was dound unresponsive in a ditch by a physician who was driving by. EMS was called and he was administered IV narcan with no signficant response. He was also found to have a lot of marijuana on him. [facility] ED, he was having agonal breathing, and found to be having emesis. He was in atrial flutter, with HR in 170s, and he was also emergently intubated. Labs showed potassium of 3.3, with lactic acid of 5.6, and lactic acid of 5.6. Total bilirubin was 0.4, with AST/ALT of 60/66, and CPK of 327. CBC showed wbc of 17.2, and Hb of 15.3, and platelets of 346. Patient's oxygen level was in the 70s nad 80s even on the vent. He required paralytics in the ED as he started breathing over the vents. He was also noted to be hypothermic, with temp down int he 80s. He was given a zoie Hugger and warm fluids for the hypothermia and admitted to be managed for acute hypoxic respiratory failure due to aspiration pneumonia from probable drug intoxication, and hypothermia. He was started on broad-spectrum IV antibiotics. Blood c ultures were obtained which were negative. Hospital stay was complicated by cardiac arrest pulse patient was being turned supine after he was performed to help with oxygen support. He became bradycardic and asystolic and was resuscitated via ACLS protocol after he received 2 units of epinephrine. Troponins were elevated and EKG done showed some ST depressions. He ended up requiring IV vasopressin, Levophed and norepinephrine but this was subsequently weaned off. Evaded troponins were thought to be due to the CPR that he had. 2D echo was ordered. Patient's oxygen requirements gradually decreased and he started feeling better. He was subsequently extubated. After extubation he was noted to have right upper extremity weakness. He did have this weakness prior to him being found unresponsive and could not say exactly what happened. MRI of the brain done was negative for stroke and right shoulder x-ray showed no acute osseous abnormality. Neurology was consulted and thought his symptoms were likely due to brachial plexus injury which may have occurred prior to him coming to the hospital. He had physical therapy and Occupational Therapy whilst in hospital. He was transferred out of the ICU to the regular floor. He remained stable. Hospital stay was further complicated by hyperkalemia with potassium of 5.8 which resolved after administration of sodium Kayexalate. 2D echo done showed EF of 65% with normal diastolic for age and no regional wall motion abnormalities seen. His pulmonary artery systolic pressure was 30 mmHg. He remained stable and was discharged home on 10/17/2020. He had regained some movement in his right upper extremity with part being about 4 out of 5. He is follow-up with his primary care doctor and is to follow-up with physical and outpatient therapy on outpatient basis. Patient was seen and examined prior to discharge. He had no complaints. Review of symptoms was otherwise negative. Labs and vitals reviewed. Home medication reviewed and reconciled. O/E: Vital Signs Temp Pulse Resp BP Pulse Ox 98.2 F 107 H 17 147/83 H 97 10/17/20 05:10/17/20 07:00 10/17/20 05:10/17/20 05:17 10/17/20 07:25 General: alert and oriented HEENT: Atraumatic, PERRLA, EOMI, Normocephalic Oral: Dry Mucosa Neck: Supple, No JVD, Negative Carotid Bruits Lungs: - -diminished breath sounds bibasally, no wheezes or crackles. on room air Cardiovascular: Regular rate, Regular Rhythm, Normal S1, Normal S2, No murmurs Abdomen: Bowel Sounds Present, Soft, Non Tender, Non-Distended, No Hepato- splenomegaly Extremities: No clubbing, No cyanosis, No edema, Capillary Refill Less than 3 Seconds Skin: No rashes, No breakdown Musculoskeletal: No Tenderness to Palpation of Joints or Extremities Lymphatic: No Cervical, Supraclavicular, or Inguinal Adenopathy Neurological: - - alert, oriented, RUE weakness, power is ~ 4-/5 in RUE Plan is for discharge home today. Patient Problems: Active and Suspected Problems Opiate dependence (Acute) Atrial flutter (Acute) Aspiration pneumonia (Acute) Drug overdose (Acute) Hypothermia (Acute) Acute respiratory failure (Acute) Mixed acid base balance disorder (Acute) Airway intubation performed without difficulty (Acute) Neuropraxia of right upper extremity (Acute) - Physical Exam Vitals/I&O's: Vital Signs Temp Pulse Resp BP Pulse Ox 98.2 F 107 H 17 147/83 H 97 10/17/20 05:17 10/17/20 07:00 10/17/20 05:17 10/17/20 05:17 10/17/20 07:25 Oxygen Flow Rate (L/min) 2 Oxygen Delivery Method Room Air Weight: 164 lb 7.437 oz Body Mass Index (BMI) 24.3 Intake and Output for Last 24 Hours 0310/16/20 10/17/20 23:59 23:59 23:59 Intake Total 2482.00 / 2482.00 2042.0 / 2042.0 100 / 100 Balance 2482.00 / 2482.00 2042.0 / 2042.0 100 / 100 Microbiology Past 72 Hours 10/11/20 Unknown Blood Culture (Wb) - Anticubital Right Blood Culture - Final No growth in 5 days. 10/11/20 08:54 Blood Culture (Wb) - Anticubital Left Blood Culture - Final No growth in 5 days. 10/11/20 09:15 Sputum, Tracheal Aspirate Gram Stain - Final 10/11/20 09:15 Sputum, Tracheal Aspirate Respiratory Culture - Final Staphylococcus aureus Laboratory Results 10/16/20 19:30: Potassium 3.6 10/17/20 06:20: WBC 7.9, RBC 4.70, Hgb 13.5, Hct 40.8, MCV 86.8, MCH 28.7, MCHC 33.1, RDW Std Deviation 39.8, RDW Coeff of Phoebe 12.9, Plt Count 267, MPV 8.8, Neut % (Auto) Not Reportable, Absolute Neuts (auto) 5.1, Absolute Lymphs (auto) 2.20, Total Counted 100, Neutrophils % (Manual) 62, Band Neutrophils % 3, Lymphocytes % (Manual) 28, Monocytes % (Manual) 5, Metamyelocytes % 2 H, Diff Path Review November, Platelet Estimate ADEQUATE, RBC Morphology NORM C+C 10/17/20 06:20: Sodium 140, Potassium 3.6, Chloride 108 H, Carbon Dioxide 25.0, Anion Gap 7, BUN 16, Creatinine 0.60 L, Estim Creat Clear Calc 191.68, Est GFR (MDRD) Af Amer 202, Est GFR (MDRD) Non-Af 167, BUN/Creatinine Ratio 26.4 H, Glucose 97, Calcium 8.9, Total Bilirubin 0.60, AST 109 H, ALT 162 H, Alkaline Phosphatase 183 H, Total Protein 7.2, Albumin 2.7 L, Globulin 4.5 H, Albumin/Globulin Ratio 0.6 L Current Medications Dextrose (Dextrose 50%-Water 25 Gm/50 Ml Disp.Syrin) 0 gm IV X1 PRN; Protocol PRN Reason: Hypoglycemia Last Admin: 10/11/20 20:45 Dose: 25 gm Documented by: Enoxaparin Sodium (Enoxaparin 40 Mg/0.4 Ml Syringe) 40 mg SC DAILY TREY Last Admin: 10/17/20 09:02 Dose: 40 mg Documented by: Glucagon (Glucagon 1 Mg/Ml Syringe) 1 mg IM .X1 PRN PRN Reason: Hypoglycemia Heparin Sodium (Beef Lung) (Heparin Pf Lock 10 Units/Ml 50 Units/5 Ml Syringe) 50 units IV UD PRN PRN Reason: PICC Line Heparin Flush Sodium Chloride () 250 mls @ 15 mls/hr IV .[id number] PRN PRN Reason: Saline Flush Last Infusion: 10/16/20 11:00 Dose: Infused Documented by: Sodium Chloride () 250 mls @ 15 mls/hr IV .[id number] PRN PRN Reason: Additional IVPB Infusion Ondansetron HCl (Ondansetron 4 Mg/2 Ml Vial) 4 mg IV Q8H PRN PRN PRN Reason: NAUSEA/VOMITING Sodium Chloride (0.9% Saline Lock 10 Ml Syringe) 10 - 40 ml IV UD PRN PRN Reason: SALINE FLUSH Last Admin: 10/16/20 19:42 Dose: 10 ml Documented by: Sodium Chloride (0.9% Saline Lock 10 Ml Syringe) 10 - 40 ml IV UD PRN PRN Reason: Open End PICC Flush Last Admin: 10/12/20 02:48 Dose: 40 ml Documented by: Sodium Chloride (0.9 % Nacl (Sterile) Posiflush 10 Ml) 10 - 40 ml IV UD PRN PRN Reason: Port access or dressing change Discharge Diet: Low fat/ Low Cholesterol Discharge Activity: Return to Normal Activity Weight Bearing Status: Weight bearing as tolerated Call your doctor if you observe: Fever of 101 or Higher, Shortness of breath, Dizziness, Fainting spells Home Medications: Medications to take at Discharge NK 04/26/20 Primary Care Physician: Care Physician,No Primary [Primary Care Provider] - Please Follow Up With: Marija Fuentes MD When: 1-2 weeks to establish PCP care Please Follow Up With: Alvin Pleitez MD When: 2-3 weeks for RUE weakness Patient Instructions: ED Overdose, Opiate, Pneumonia Disposition: Home Minutes spent on discharge:: 50 Patient Condition:: Stable Medical Necessity - Tobacco Use Smoking Status: Current every day smoker Meaningful Use Info Meaningful Use Diagnoses (Choose all that apply): None applicable Inpatient E&M: 84437 Disch Hosp
--- NOTE | 2020-10-17 10:16 | CASEMGMT ---
This RN CM to room to discuss discharge plan with pt. Pt is self pay and has already been provided multiple resources. Pt declines OP therapy script and states will do the exercises that therapy provided him. Pt also provided with a list of local PCP's and aware that [facility] does have financial assist. Pt voices no further questions/concerns/needs. SStaten LISA CM
[2020-10-17 11:10] LABS: Pathologist Review Reviewed
--- NOTE | 2020-10-17 11:10 | PHA.DC.MR ---
Pharmacy Service has performed discharge medication reconciliation for this patient. No new medications at time of discharge. Pt not on any medications at home at time of discharge review. Home Medications NK 04/26/20 The patient's discharge medication list was reviewed for discrepancies and discrepancies were resolved.
== END 2020-10-17 11:11 | disposition home or self-care (01) | DRG 917 ==
LOC: ED 11:16 → ICU 12:22 → PCU 10-14 15:00
PROVIDERS: Hospitalist; Admitting Provider Student in an Organized Health Care Education/Training Program; Emergency Provider Emergency Medicine; Visit Provider Student in an Organized Health Care Education/Training Program
DX: T40.1X1A Poisoning by heroin, accidental (unintentional), initial encounter (principal); J69.0 Pneumonitis due to inhalation of food and vomit; R65.21 Severe sepsis with septic shock; I46.9 Cardiac arrest, cause unspecified; I21.4 Non-ST elevation (NSTEMI) myocardial infarction; A41.9 Sepsis, unspecified organism; G92 Toxic encephalopathy; J80 Acute respiratory distress syndrome; I48.92 Unspecified atrial flutter; E87.4 Mixed disorder of acid-base balance; N17.9 Acute kidney failure, unspecified; R40.4 Transient alteration of awareness; Y92.89 Other specified places as the place of occurrence of the external cause; T68.XXXA Hypothermia, initial encounter; S44.01XA Injury of ulnar nerve at upper arm level, right arm, initial encounter; S14.3XXA Injury of brachial plexus, initial encounter; X58.XXXA Exposure to other specified factors, initial encounter; F17.200 Nicotine dependence, unspecified, uncomplicated; F11.229 Opioid dependence with intoxication, unspecified; E87.5 Hyperkalemia; E87.6 Hypokalemia; E86.0 Dehydration
CPT/HCPCS: 31500; 31720; 36415; 36569; 36600; 51702; 70450; 70551; 71045; 71275; 72125; 73030; 74177; 80048; 80053; 80307; 81001; 82077; 82375; 82550; 82803; 82962; 83605; 83735; 84132; 84484; 85025; 85610; 85730; 87040; 87070; 87077; 87086; 87186; 87205; 87426; 92950; 93005; 93306; 94002; 94003; 94660; 97110; 97162; 97166; 97530; 97535; 97802; 99251; 99285; J7030; J7050; Q9957; Q9967; A4216; C8929; G0463; J1940; J3010; J3490

== ENCOUNTER → 2020-10-29 16:19 | Outpatient (CLI) | payer SELFPAY ==
[2020-10-29 14:50] VITALS: BMI 22.1
[2020-10-29 17:18] LABS: ALB/GLOB Ratio 0.8 RATIO (0.9-2.4); AST(SGOT) 11 U/L (15-37); Alanine Aminotransfer ALT/SGPT 37 U/L (16-61); Albumin, Serum 3.9 g/dL (3.2-5.0); Alkaline Phosphatase 143 U/L (45-117); Anion Gap 3 (5-15); BUN 16 mg/dL (7-18); BUN/Creat Ratio 16.7 RATIO (10-20); Calcium,Total 9.5 mg/dL (8.5-10.1); Chloride 102 mmol/L (98-107); Creatinine, Serum 0.96 mg/dL (0.70-1.30); EST Glomerular Filtration Rate 98 mL/min (>60); Est Glom Filt Rate - Afr Amer 119 mL/min (>60); Globulin 4.7 g/dL (2.2-4.2); Glucose 82 mg/dL (74-106); Potassium 3.9 mmol/L (3.5-5.1); Protein, Total 8.6 g/dL (6.4-8.2); Sodium Level 137 mmol/L (136-145)
[2020-10-29 17:20] LABS: Vitamin D,25 Hydroxy 15.4 ng/mL
== END ==
PROVIDERS: PCP Internal Medicine; Referring Provider Internal Medicine; Visit Provider Internal Medicine
DX: E87.6 Hypokalemia (principal)
CPT/HCPCS: 36415; 80053; 82306

== ENCOUNTER 2021-01-14 03:05 | Inpatient (IN) | payer SELFPAY ==
[2020-10-30 09:39] VITALS: BMI 22.6
--- NOTE | 2021-01-14 04:42 | EX.ED.DYSGE1 ---
HPI History of Present Illness Informant: patient Narrative Narrative: 30-year-old male presents to the emergency department requesting detox from heroin. Patient states that he has been using intermittently for 4+ years. He snorts heroin. His daily use varies depending on the day. He states he last use about 10 hours prior to arrival. He tells me that he is never done in a detox program before. His brother was coming to the emergency department tonight for detox as well and convinced him to seek care. He notes generalized myalgias at the current time. [facility] Medical History Anxiety Depression History of pneumonia Substance abuse Home Medications cholecalciferol (vitamin D3) 1,250 mcg (50,000 unit) capsule 1,250 mcg PO QWEEK #4 cap 10/30/20 [Rx Last Taken Unknown] Allergy/AdvReac Type Severity Reaction Status Date / Time No Known Allergies Allergy Verified 10/30/20 09:35 Family History Grandmother Diabetes Kidney disease Breast cancer Arthritis High blood cholesterol Other Hyperlipemia Surgical History H/O eye surgery Social History Smoking Status: Never smoker Electronic Cigarette Use: not used second hand exposure: Yes alcohol intake: current alcohol intake frequency: holidays/special occasions only substance use type: former substance user Date of last use: 10/11/2020, marijuana and other details: Used fentol and heroin in the past for a couple years, uses marijuana cur what type of physical activity do you participate in: none ROS ROS ED Constitutional Constitutional ED: Denies chills or weight loss Eyes Eyes: Denies change in vision or diplopia ENT ENT ED: Denies ear pain, rhinorrhea or sore throat Cardiovascular Cardiovascular: Denies chest pain, orthopnea, palpitations or racing heartbeat Respiratory/Chest Respiratory/Chest: Denies cough, dyspnea or orthopnea Gastrointestinal Gastrointestinal: Denies abdominal pain, diarrhea, nausea or vomiting Genitourinary Genitourinary ED: Denies dysuria, hematuria or urinary frequency Musculoskeletal Musculoskeletal: Reports myalgias; Denies arthralgias Integumentary Denies abscess or rash Neurologic Neurologic: Denies headache(s) or weakness Psychiatric Psychiatric: Denies anxiety, depression, suicidal ideation or suicidal thoughts Endocrine Endocrinology: Denies polydipsia, polyphagia or polyuria Allergic/Immunologic Allergic/Immunologic ED: Denies mouth swelling, tongue swelling or urticaria EXAM Physical Exam Const Positive well nourished and well developed General Appearance ED: well developed HEENT Reports normocephalic, head/scalp atraumatic and moist mucous membranes Eyes PERRL and EOMs intact bilaterally Neck no lymphadenopathy, supple and no JVD Resp normal respiratory effort and clear to auscultation bilaterally Cardio regular rate, regular rhythm and no murmurs GI normal to inspection, nondistended, normoactive bowel sounds and non-tender Palpation: soft Back/Spine no CVA tenderness and normal ROM Extremity normal to inspection General Extremety ED: Negative for edema General Extremity: Negative for edema Neuro oriented x3 and CN's II-XII intact bilaterally Sensorium / Orientation: alert Motor Exam: strength 5/5 throughout Psych mental status grossly normal Mood & Affect: Negative for depressed or tearful Skin no rashes or lesions noted and no wounds MDM MDM MDM Narrative Medical decision making narrative: Patient's tox screen is negative for alcohol. Positive for opiates and cannabinoids. If the patient is amendable to the rules of the program I will speak with the hospitalist for admission. Lab Data Attestation: I reviewed the patient's lab results. Discharge Plan Triage ED Provider: Baldemar Carrington Dx/Rx/DC Orders Clinical Impression: Opiate dependence, Heroin withdrawal Prescriptions: No Action cholecalciferol (vitamin D3) 1,250 mcg (50,000 unit) capsule 1,250 mcg PO QWEEK Qty: 4 RF: 2 Primary Care Provider: Care Physician,No Primary Referrals: Care Physician,No Primary [Primary Care Provider] - Disposition Disposition: Acute Care Hospital [facility]
[2021-01-14 05:04] LABS: ALB/GLOB Ratio 1.1 RATIO (0.9-2.4); AST(SGOT) 39 U/L (15-37); Alanine Aminotransfer ALT/SGPT 104 U/L (16-61); Albumin, Serum 4.2 g/dL (3.2-5.0); Alkaline Phosphatase 140 U/L (45-117); Anion Gap 8 (5-15); BUN 14 mg/dL (7-18); BUN/Creat Ratio 13.5 RATIO (10-20); Calcium,Total 9.2 mg/dL (8.5-10.1); Chloride 104 mmol/L (98-107); Creatinine, Serum 1.04 mg/dL (0.70-1.30); EST Glomerular Filtration Rate 89 mL/min (>60); Est Glom Filt Rate - Afr Amer 108 mL/min (>60); Potassium 3.7 mmol/L (3.5-5.1); Protein, Total 8.2 g/dL (6.4-8.2); Sodium Level 141 mmol/L (136-145)
[2021-01-14 05:05] LABS: Alcohol, Blood (Medical)-Serum < 3.0 mg/dL; Amphetamine Urine VISTA NEGATIVE (<1000 ng/mL); Barbiturate Urine VISTA NEGATIVE (< 200 ng/mL); Benzodiazepine Urine VISTA NEGATIVE (< 200 ng/mL); Cocaine Urine VISTA NEGATIVE (< 300 ng/mL); Ecstacy Urine VISTA NEGATIVE (< 500 ng/mL); Methadone Urine VISTA NEGATIVE (< 300 ng/mL); PCP Urine VISTA NEGATIVE (< 25 ng/mL); THC Urine VISTA POSITIVE (< 50 ng/mL)
[2021-01-14 05:10] LABS: Hemoglobin 15.9 g/dL (13.0-16.5); White Blood Count 6.5 K/mm3 (4.4-11.0)
[2021-01-14 05:11] LABS: Basophil% 2.2 % (0-1); Eosinophils% 0.9 % (0-5); Hematocrit 48.2 % (40-54); Lymphocyte % 21.3 % (19-41); Mean Corpuscular Hgb 27.9 pg (27.0-32.0); Mean Corpuscular Volume 84.6 fL (80-94); Mean Platelet Vol. 8.9 fl (6.2-12.0); Neutrophil % 67.3 % (47-70); Platelet Count 321 K/mm3 (150-450); RBC Distribution Width CV 12.9 % (11.6-14.6); RBC Distribution Width SD 39.5 fl (35.1-43.9)
[2021-01-14 05:12] LABS: Absolute Lymphocyte Count 1.38 X10^3/uL (0.83-4.51); Absolute Neutrophil Count 4.4 X10^3/uL (2.0-7.7); Glucose 105 mg/dL (74-106); Lymphocyte # 1.38 X10^3/ul (0.83-4.51); Neutrophil # 4.36 X10^3/uL (2.7-7.7)
[2021-01-14 05:14] LABS: Vista UDS pH Range 5
--- NOTE | 2021-01-14 05:51 | HP.PCM.HOS_ITS ---
HPI - General General Date of Admission: 01/14/21 Date of Service: 01/14/21 Chief Complaint: opiate withdrawal HPI Narrative LEONORA PEOPLES, is a 30 M who presents seeking treatment for opiate withdrawal. Patient snorts heroin and has overdosed several times. He is here with his brother and both they are looking to get sober. Patient has never been involved in programs such as this before. Currently, he is having some abdominal cramps and some agitation. [facility] Medical History Anxiety Depression History of pneumonia Substance abuse Home Medications cholecalciferol (vitamin D3) 1,250 mcg (50,000 unit) capsule 1,250 mcg PO QWEEK #4 cap 10/30/20 [Rx Last Taken Unknown] Allergy/AdvReac Type Severity Reaction Status Date / Time No Known Allergies Allergy Verified 10/30/20 09:35 Family History Grandmother Diabetes Kidney disease Breast cancer Arthritis High blood cholesterol Other Hyperlipemia Surgical History H/O eye surgery Social History Smoking Status: Never smoker Electronic Cigarette Use: not used second hand exposure: Yes alcohol intake: current alcohol intake frequency: holidays/special occasions only substance use type: former substance user Date of last use: 10/11/2020, marijuana and other details: Used fentol and heroin in the past for a couple years, uses marijuana cur what type of physical activity do you participate in: none ROS ROS Narrative Denies any fever chills. Denies any sick contacts nor any exposure to anyone with COVID-19. All review of systems were negative except as mentioned above in the history of present illness and the other review of systems. Vital Signs Vital Signs Vital Signs: Weight Body Mass Index (BMI) 22.6 Physical Exam Const alert General Appearance: cooperative HEENT normocephalic Neck no lymphadenopathy Resp normal respiratory effort and clear to auscultation bilaterally Cardio regular rate, regular rhythm, S1 normal heart sound and S2 normal heart sound GI normal to inspection, nondistended, normoactive bowel sounds, non-tender and non -distended Extremity normal to inspection Skin no rashes or lesions noted Neuro Sensorium / Orientation: awake and alert Results Lab / Micro Data Attestation: I reviewed the patient's lab results. Result Diagrams: 01/14/21 03:30 01/14/21 03:30 Labs: Laboratory Results - last 24 hr 01/14/21 01/14/21 01/14/21 03:30 03:30 03:30 WBC 6.5 RBC 5.70 Hgb 15.9 Hct 48.2 MCV 84.6 MCH 27.9 MCHC 33.0 RDW Std Deviation 39.5 RDW Coeff of Phoebe 12.9 Plt Count 321 MPV 8.9 Immature Gran % (Auto) 0.300 Neut % (Auto) 67.3 Lymph % (Auto) 21.3 [place] % (Auto) 8.0 Eos % (Auto) 0.9 Baso % (Auto) 2.2 H Absolute Neuts (auto) 4.4 Absolute Lymphs (auto) 1.38 Sodium 141 Potassium 3.7 Chloride 104 Carbon Dioxide 29.0 Anion Gap 8 BUN 14 Creatinine 1.04 Est GFR (MDRD) Af Amer 108 Est GFR (MDRD) Non-Af 89 BUN/Creatinine Ratio 13.5 Glucose 105 Calcium 9.2 Total Bilirubin 0.40 AST 39 H ALT 104 H Alkaline Phosphatase 140 H Total Protein 8.2 Albumin 4.2 Globulin 4.0 Albumin/Globulin Ratio 1.1 Urine Opiates Screen Urine Methadone Screen Ur Barbiturates Screen Ur Phencyclidine Scrn Ur Amphetamines Screen U Methamphetamin-MDMA U Benzodiazepines Scrn Urine Cocaine Screen U Cannabinoids Screen Ur Drug Screen Comment Ethyl Alcohol < 3.0 01/14/21 03:30 WBC RBC Hgb Hct MCV MCH MCHC RDW Std Deviation RDW Coeff of Phoebe Plt Count MPV Immature Gran % (Auto) Neut % (Auto) Lymph % (Auto) [place] % (Auto) Eos % (Auto) Baso % (Auto) Absolute Neuts (auto) Absolute Lymphs (auto) Sodium Potassium Chloride Carbon Dioxide Anion Gap BUN Creatinine Est GFR (MDRD) Af Amer Est GFR (MDRD) Non-Af BUN/Creatinine Ratio Glucose Calcium Total Bilirubin AST ALT Alkaline Phosphatase Total Protein Albumin Globulin Albumin/Globulin Ratio Urine Opiates Screen POSITIVE H Urine Methadone Screen NEGATIVE Ur Barbiturates Screen NEGATIVE Ur Phencyclidine Scrn NEGATIVE Ur Amphetamines Screen NEGATIVE U Methamphetamin-MDMA NEGATIVE U Benzodiazepines Scrn NEGATIVE Urine Cocaine Screen NEGATIVE U Cannabinoids Screen POSITIVE H Ur Drug Screen Comment Ethyl Alcohol Assessment & Plan Assessment/Plan (1) Heroin withdrawal: PLAN: 1. Acute opiate withdrawal * Patient will be on buprenorphine taper plus additional agents to help with somatic complaints as needed. * Addiction medicine to facilitate outpatient program after he is discharged * Patient is here with his brother, who has different last name, but hopefully them both quitting together can hopefully help him both stay sober. 2. VTE prophylaxis: Low risk not indicated at this time
[2021-01-14 06:07] VITALS: BMI 21.9
[2021-01-14 06:10] VITALS: BP 148/93; PULSE 89; RESP 16; TEMP 37.5; O2SAT 100
[2021-01-14] MEDS: Ibuprofen 600 MG Tablet PO (06:33)
--- NOTE | 2021-01-14 07:06 | PCM.PN.HOSP ---
Subjective Subjective Patient was seen and examined. He complains of feeling hot and cold, has abdominal cramps with nausea. Objective Data Objective Data Vital Signs: Vital Signs Temp Pulse Resp BP Pulse Ox 99.5 F H 89 16 148/93 H 100 01/14/21 06:10 01/14/21 06:10 01/14/21 06:10 01/14/21 06:10 01/14/21 06:10 Oxygen Delivery Method Room Air Weight: 73.2 kg Body Mass Index (BMI) 21.9 Lab / Micro Data Result Diagrams: 01/14/21 03:30 01/14/21 03:30 Labs: Laboratory Results - last 24 hr 01/14/21 01/14/21 01/14/21 03:30 03:30 03:30 WBC 6.5 RBC 5.70 Hgb 15.9 Hct 48.2 MCV 84.6 MCH 27.9 MCHC 33.0 RDW Std Deviation 39.5 RDW Coeff of Phoebe 12.9 Plt Count 321 MPV 8.9 Immature Gran % (Auto) 0.300 Neut % (Auto) 67.3 Lymph % (Auto) 21.3 Benzie % (Auto) 8.0 Eos % (Auto) 0.9 Baso % (Auto) 2.2 H Absolute Neuts (auto) 4.4 Absolute Lymphs (auto) 1.38 Sodium 141 Potassium 3.7 Chloride 104 Carbon Dioxide 29.0 Anion Gap 8 BUN 14 Creatinine 1.04 Est GFR (MDRD) Af Amer 108 Est GFR (MDRD) Non-Af 89 BUN/Creatinine Ratio 13.5 Glucose 105 Calcium 9.2 Total Bilirubin 0.40 AST 39 H ALT 104 H Alkaline Phosphatase 140 H Total Protein 8.2 Albumin 4.2 Globulin 4.0 Albumin/Globulin Ratio 1.1 Urine Opiates Screen Urine Methadone Screen Ur Barbiturates Screen Ur Phencyclidine Scrn Ur Amphetamines Screen U Methamphetamin-MDMA U Benzodiazepines Scrn Urine Cocaine Screen U Cannabinoids Screen Ur Drug Screen Comment Ethyl Alcohol < 3.0 01/14/21 03:30 WBC RBC Hgb Hct MCV MCH MCHC RDW Std Deviation RDW Coeff of Phoebe Plt Count MPV Immature Gran % (Auto) Neut % (Auto) Lymph % (Auto) Benzie % (Auto) Eos % (Auto) Baso % (Auto) Absolute Neuts (auto) Absolute Lymphs (auto) Sodium Potassium Chloride Carbon Dioxide Anion Gap BUN Creatinine Est GFR (MDRD) Af Amer Est GFR (MDRD) Non-Af BUN/Creatinine Ratio Glucose Calcium Total Bilirubin AST ALT Alkaline Phosphatase Total Protein Albumin Globulin Albumin/Globulin Ratio Urine Opiates Screen POSITIVE H Urine Methadone Screen NEGATIVE Ur Barbiturates Screen NEGATIVE Ur Phencyclidine Scrn NEGATIVE Ur Amphetamines Screen NEGATIVE U Methamphetamin-MDMA NEGATIVE U Benzodiazepines Scrn NEGATIVE Urine Cocaine Screen NEGATIVE U Cannabinoids Screen POSITIVE H Ur Drug Screen Comment Ethyl Alcohol Physical Exam Narrative Physical exam: General: Alert, Oriented x3, Cooperative, well developed, appears anxious HEENT: Atraumatic Oral: Moist Mucosa Neck: Supple Lungs: Clear to auscultation Cardiovascular: HS I+II, regular, no murmurs Abdomen: Bowel Sounds Present, Soft, Non Tender Extremities: No edema Skin: No rashes, No breakdown Neurological: Grossly intact Psych/Mental Status: Appropriate Assessment & Plan Assessment/Plan (1) Heroin withdrawal: (2) Substance abuse: (3) Anxiety and depression: PLAN: 1. Acute opioid withdrawal, last Cina score was 5 Continue on Subutex withdrawal protocol 2. DVT prophylax with early ambulation Charges/Coding Visit Charges Inpatient E&M: 11607 Subs Hosp L2
--- NOTE | 2021-01-14 10:22 | CASEMGMT ---
Social Work Note Pt is RAMP pt and listed as self-pay. SW in to speak with pt. SW introduced self and role at [facility]. Pt confirms he has no insurance, states he's never had Medicaid before. Pt states he is not currently working. SW provided pt with financial resources including Medicaid Application, HCAP application, [facility], [facility], [employer] and RX assistance programs. Pt denied any financial concerns at this time. MICHAELA updated Kelley with [employer] that pt is self-pay. Kiaar Queen TORTILLA MAKER, DRYING SUPERVISOR
--- NOTE | 2021-01-14 10:44 | ADDICTION ---
This underwriter solicitation director met with PT to conduct ASAM, MSE, DUDIT assessments and to plan for d/c. All assessments completed and faxed to [facility]. PT declined d/c planning noting that he will follow up if he feels that he needs it. This underwriter solicitation director encouraged PT to schedule an appointment but PT declined again. Payment authorization form sent to [facility]. No transportation needs identified.
[2021-01-14 11:00] VITALS: BP 144/84; PULSE 106; RESP 18; TEMP 37; O2SAT 96
[2021-01-14] MEDS: Buprenorphine HCl 2 MG TAB.SUBL SL ×2 (12:18→20:23)
--- NOTE | 2021-01-14 16:28 | CHAPLAIN ---
Type of Pastoral Visit _x__ Initial Visit ___ Follow-up Visit ___ On-call Visit ___ General Patient Visit ___ Spiritual Assessment ___ Family Conference ___ Bereavement ___ Rapid Response ___ Code Blue ___ Other (describe below) Pastoral Care Referral From ___ Patient _x__ Family ___ Nurse ___ Physician ___ Digester Cook ___ Hand Tube Winder ___ Other (describe below) Sacrament/Intervention _x__ Active listening ___ Anointing ___ Episcopalian ___ Bereavement ___ Communion ___ Margarita exploration ___ _x__ Life review _x__ Prayer ___ Reconciliation ___ Sacrament of Sick _x__ Supportive presence ___ Wedding ___ Other (describe below) Pastoral Comments patient visit is requested by a family member who he also a patient in the hospital; this patient was very talkative and gave much life review, expressing his remorse/shame as well as his desire to move forward in recovery; patient spoke of his love for music so this podiatrist gave him some resources/lists of songs that have a positive message of hope; prayer was also welcomed;
[2021-01-14 16:42] VITALS: BP 140/91; PULSE 94; RESP 18; TEMP 36.6; O2SAT 97
[2021-01-14 20:18] VITALS: BP 134/91; PULSE 93; RESP 18; TEMP 36.9; O2SAT 97
[2021-01-14] MEDS: traZODone 100 MG Tablet PO (21:04)
[2021-01-15] MEDS: Buprenorphine HCl 2 MG TAB.SUBL SL ×3 (04:36→20:15)
[2021-01-15 04:40] VITALS: BP 122/84; PULSE 76; RESP 16; TEMP 36.8; O2SAT 96
--- NOTE | 2021-01-15 07:05 | PCM.PN.HOSP ---
Subjective Subjective Patient was seen and examined. No new complaints. He complains of feeling sleepy. Objective Data Objective Data Vital Signs: Vital Signs Temp Pulse Resp BP Pulse Ox 98.2 F 76 16 122/84 H 96 01/15/21 04:40 01/15/21 04:40 01/15/21 04:40 01/15/21 04:40 01/15/21 04:40 Oxygen Delivery Method Room Air Weight: 73.2 kg Body Mass Index (BMI) 21.9 Intake & Output: Intake and Output for Last 24 Hours 01/13/21 01/14/21 01/15/21 23:59 23:59 23:59 Intake Total 1000 / 1000 500 / 500 Balance 1000 / 1000 500 / 500 Lab / Micro Data Result Diagrams: 01/14/21 03:30 01/14/21 03:30 Physical Exam Narrative Physical exam: General: Alert, Oriented x3, Cooperative, well developed, appears anxious HEENT: Atraumatic Oral: Moist Mucosa Neck: Supple Lungs: Clear to auscultation Cardiovascular: HS I+II, regular, no murmurs Abdomen: Bowel Sounds Present, Soft, Non Tender Extremities: No edema Skin: No rashes, No breakdown Neurological: Grossly intact Psych/Mental Status: Appropriate Assessment & Plan Assessment/Plan (1) Heroin withdrawal: (2) Substance abuse: (3) Anxiety and depression: PLAN: 1. Acute opioid withdrawal, his Cina score is improving, currently 2 Continue on Subutex withdrawal protocol 2. DVT prophylax with early ambulation Charges/Coding Visit Charges Inpatient E&M: 59363 Subs Hosp L2 Multi Select Codes Visit Charges Visit Charges: 15651 Subs Hosp L2
--- NOTE | 2021-01-15 11:40 | CASEMGMT ---
Social Work Note MICHAELA placed a call to Kelley with [facility] to inquire if pt completed discharge plan with [facility] today. Kelley states she didn't see pt today. SW in to speak with pt. MICHAELA informed pt that part of the RAMP program is completing a discharge plan. MICHAELA asked pt if he would be agreeable to speak with [facility] tomorrow and pt agreeable. MICHAELA placed a call to Kelley with [facility] and updated her that pt is agreeable to speaking with [facility] tomorrow. Kiara Queen ONCOLOGY COORDINATOR, REFINING EQUIPMENT OPERATOR
[2021-01-15] MEDS: Ibuprofen 600 MG Tablet PO (12:26)
[2021-01-15] MEDS: hydrOXYzine PAM 25 MG Capsule 50 MG PO (12:26)
[2021-01-15 20:13] VITALS: BP 119/74; PULSE 78; RESP 18; TEMP 37; O2SAT 97
[2021-01-15] MEDS: traZODone 100 MG Tablet PO (22:40)
[2021-01-16 04:17] VITALS: BP 113/62; PULSE 77; RESP 16; TEMP 36.6; O2SAT 97
[2021-01-16] MEDS: Buprenorphine HCl 2 MG TAB.SUBL SL ×2 (04:19→12:31)
--- NOTE | 2021-01-16 08:49 | PCM.DC ---
Discharge Instructions Diet Discharge Diet: No restrictions Activity Discharge Activity: Return to Normal Activity Follow Up Care Test Results: Test results from this visit will be discussed in further detail at your follow-up appointment, if applicable. Discharge Plan Admission Admit Date/Time: 01/14/21 05:51 Primary Reason for Your Visit: Acute opioid withdrawal Attending Provider: Ursula Gabriel Primary Care Provider: Niya Loyd Primary Instructions Additional Instructions / Restrictions: You are strongly advised to continue to avoid use of opioids. You are also advised to stop smoking. Follow-up with your outpatient drug rehab program as scheduled. Discharge Orders/Prescriptions Referrals / Follow Up: Care Physician,No Primary [Primary Care Provider] - Within 1 Week Disposition Disposition (needs filled in before D/C Order can be placed): Home, Self Care
--- NOTE | 2021-01-16 08:51 | PCM.DC.SUM ---
Providers Date of Admission: 01/14/21 Date of Discharge: 01/16/21 Primary Care Physician: Niya Primary Care Phys Reason For Visit: OPIATE WITHDRAWL Diagnosis Discharge Diagnosis (1) Heroin withdrawal: Status: Resolved Code(s): F11.23 - Opioid dependence with withdrawal (2) Substance abuse: Status: Chronic Code(s): F19.10 - Other psychoactive substance abuse, uncomplicated (3) Anxiety and depression: Status: Chronic Code(s): F41.9 - Anxiety disorder, unspecified; F32.9 - Major depressive disorder, single episode, unspecified Hospital Course Operations None Procedures None Summary of Care Provided Minutes Spent on Discharge: 25 Hospital Course: 30 year old male with history of polysubstance use disorder, who snorts heroin who presents requesting for medical stabilization from acute opioid withdrawal. Patient was admitted to the [facility] floor and managed on the Subutex withdrawal protocol. He improved and had no acute events. He was seen by 180 and will follow up at discharge. Physical Exam Narrative General: Alert, Oriented x3, Cooperative, well developed HEENT: Atraumatic Oral: Moist Mucosa Neck: Supple Lungs: Clear to auscultation Cardiovascular: HS I+II, regular, no murmurs Abdomen: Bowel Sounds Present, Soft, Non Tender Extremities: No edema Skin: No rashes, No breakdown Neurological: Grossly intact Psych/Mental Status: Appropriate Weight / BMI Weight Weight: 73.2 kg Body Mass Index (BMI) 21.9 ABG / Lab / Microbiology Data Result Diagrams: 01/14/21 03:30 01/14/21 03:30 D/C Instructions Discharge Diet: No restrictions Meaningful Use Info Meaningful Use Diagnoses (Choose all that apply): None applicable Discharge Plan Admission Admit Date/Time: 01/14/21 05:51 Primary Reason for Your Visit: Acute opioid withdrawal Attending Provider: Ursula Gabriel Primary Care Provider: Care Physician,Niya Primary Instructions Additional Instructions / Restrictions: You are strongly advised to continue to avoid use of opioids. You are also advised to stop smoking. Follow-up with your outpatient drug rehab program as scheduled. Discharge Orders/Prescriptions Referrals / Follow Up: Care Physician,No Primary [Primary Care Provider] - Within 1 Week Disposition Disposition (needs filled in before D/C Order can be placed): Home, Self Care Charges/Coding Visit Charges Inpatient E&M: 27781 Disch Hosp
--- NOTE | 2021-01-16 10:21 | PHA.DC.MR ---
Pharmacy Service has performed discharge medication reconciliation for this patient. The patient's discharge medication list was reviewed for discrepancies and discrepancies were resolved. No new medications.
[2021-01-16 12:30] VITALS: BP 142/88; PULSE 91; RESP 16; TEMP 37.1; O2SAT 100
--- NOTE | 2021-01-16 12:50 | ADDICTION ---
This typewriter assembler met with PT to plan for d/c. [facility]. This typewriter assembler encouraged PT to f/u with that plan
== END 2021-01-16 13:05 | disposition home or self-care (01) | DRG 897 ==
LOC: ED 04:54 → MS3 05:55
PROVIDERS: Emergency Provider Emergency Medicine; Visit Provider Internal Medicine
DX: F11.23 Opioid dependence with withdrawal (principal)
CPT/HCPCS: 36415; 80053; 80307; 82077; 85025; 99284

== ENCOUNTER 2021-11-13 01:42 | Emergency (ER) | payer MEDICAID, SELFPAY ==
[2021-11-13 01:44] VITALS: BP 129/75; PULSE 110; RESP 18; TEMP 36.7; O2SAT 97; BMI 29.4
--- NOTE | 2021-11-13 01:51 | CT_ITS ---
STUDY: CT BRAIN WITHOUT CONTRAST REASON FOR EXAM: Male, 31 years old. injury RADIATION DOSAGE (If Supplied By Facility): CTDIvol = ( 44.99 ) mGy, DLP = ( 897.35 ) mGycm TECHNIQUE: Transaxial CT imaging of the brain was performed without administration of intravenous contrast material. Individualized dose optimization techniques were used for this CT. COMPARISON: Cranial CT of 10/11/2020. FINDINGS: Soft tissue swelling and scalp laceration noted overlying the left frontal bone. Additional soft tissue swelling overlies the lateral wall of the left orbit and left zygoma. The globes are symmetric. Normal size ventricles and extra-axial spaces for the patient''s age. Normal white matter tracts of the cerebral hemispheres. Normal basal ganglia and thalami. Normal brainstem. Normal cerebellum. There is no intracranial hemorrhage. There are no findings of an acute ischemic infarction. Minimal mucosal thickening and retention cyst noted at the base of the left maxillary antrum. Visualized mastoid air cells are clear. The zygomatic arches are intact. Findings of periodontal disease and dental caries are noted. CT/Brain/Head without Contrast IMPRESSION: Soft tissue swelling and scalp laceration overlying the left frontal bone. No skull fracture or acute intracranial hemorrhage. Electronically Signed: Dudley Mckeon MD at 2:51 EDT ,
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
[2021-11-13] MEDS: Lidocaine 1% (20 ml mdv) 20 ML Vial INFILT (01:56)
[2021-11-13] MEDS: Lidocaine/Epi/Tetracaine 50 ML 1 APPLIC TOPICAL (01:56)
[2021-11-13] MEDS: Diphth,Pertuss(Acell),Tet Vac 0.5 ML Vial IM (01:57)
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
[2021-11-13 03:33] VITALS: BP 130/78; PULSE 79; RESP 16; O2SAT 97
== END 2021-11-13 03:37 | disposition home or self-care (01) ==
PROVIDERS: Emergency Provider Emergency Medicine; Visit Provider Emergency Medicine
DX: S01.112A Laceration without foreign body of left eyelid and periocular area, initial encounter (principal); S01.81XA Laceration without foreign body of other part of head, initial encounter; Y04.8XXA Assault by other bodily force, initial encounter; S10.91XA Abrasion of unspecified part of neck, initial encounter; Z23 Encounter for immunization
CPT/HCPCS: 12011; 70450; 72125; 90471; 90715; 99283

== ENCOUNTER 2022-02-19 23:33 | Emergency (ER) | payer MEDICAID, SELFPAY ==
[2022-02-19 23:37] VITALS: BP 115/75; PULSE 98; RESP 13; TEMP 36.4; TEMP 36.8; O2SAT 81; O2SAT 87; BMI 24.3
[2022-02-19 23:40] VITALS: O2SAT 97
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
[2022-02-20 00:03] VITALS: O2SAT 96
[2022-02-20 00:25] VITALS: O2SAT 93
[2022-02-20 00:32] VITALS: BP 140/78; PULSE 89; RESP 16; O2SAT 94
== END 2022-02-20 00:36 | disposition home or self-care (01) ==
PROVIDERS: Emergency Provider Emergency Medicine; Visit Provider Emergency Medicine
DX: T40.1X4A Poisoning by heroin, undetermined, initial encounter (principal); R53.83 Other fatigue
CPT/HCPCS: 99284

== ENCOUNTER 2022-03-30 20:07 | Emergency (ER) | payer MEDICAID, SELFPAY ==
[2022-03-30 20:09] VITALS: BP 136/67; PULSE 108; RESP 17; TEMP 36.8; O2SAT 97; BMI 24.1
[2022-03-30 20:33] VITALS: BP 122/55; PULSE 74; RESP 17; O2SAT 99
--- NOTE | 2022-03-30 20:38 | EDS_ITS ---
HPI History of Present Illness Chief Complaint: Substance Abuse Informant: patient and police/head of commission department Narrative Narrative: 31-year-old male brought to the emergency department by the police department. Apparently they were called for a domestic disturbance at his residence. There they found illegal drugs. He states that he snorted heroin about 3 hours ago. He states that when he does heroin he tends to get loud. He states that he occasionally will use amphetamines. I make mention that he seems like he is having amphetamines which is which she states has been going on since he overdosed a year ago and believes he has brain damage. Patient states that he feels that he is on the recovery phase of his heroin ingestion. The police are looking for medical clearance to take him to [facility]. He reports having problems with detox and staying clean. He states that he lost his job in October because of this and works various jobs to pay for his addiction. [facility] Medical History Anxiety Depression History of pneumonia Substance abuse Allergy/AdvReac Type Severity Reaction Status Date / Time No Known Allergies Allergy Verified 03/30/22 20:09 Family History Grandmother Diabetes Kidney disease Breast cancer Arthritis High blood cholesterol Other Hyperlipemia Surgical History H/O eye surgery Social History Smoking Status: Never smoker Electronic Cigarette Use: not used second hand exposure: Yes alcohol intake: current alcohol intake frequency: holidays/special occasions only substance use type: marijuana and opiates what type of physical activity do you participate in: none ROS ROS ED Constitutional Constitutional ED: Denies chills or weight loss Eyes Eyes: Denies change in vision or diplopia ENT ENT ED: Denies ear pain, rhinorrhea or sore throat Cardiovascular Cardiovascular: Denies chest pain, orthopnea, palpitations or racing heartbeat Respiratory/Chest Respiratory/Chest: Denies cough, dyspnea or orthopnea Gastrointestinal Gastrointestinal: Denies abdominal pain, diarrhea, nausea or vomiting Genitourinary Genitourinary ED: Denies dysuria, hematuria or urinary frequency Musculoskeletal Musculoskeletal: Denies arthralgias or myalgias Integumentary Denies abscess or rash Neurologic Neurologic: Reports other Details: Tourette movements ; Denies headache(s) or weakness Psychiatric Psychiatric: Denies anxiety, depression, suicidal ideation or suicidal thoughts Endocrine Endocrinology: Denies polydipsia, polyphagia or polyuria Allergic/Immunologic Allergic/Immunologic ED: Denies mouth swelling, tongue swelling or urticaria EXAM Physical Exam Narrative Exam Narrative: Patient is constantly moving and rubbing his neck his head and his face. His arms and his legs also have myoclonic jerks. Const Vital Signs: 03/30/22 20:09 03/30/22 20:33 Temperature 98.3 F Temperature Source Oral Temporal Pulse Rate 108 H 74 Respiratory Rate 17 17 Blood Pressure 136/67 H 122/55 H Blood Pressure Mean 90 77 Pulse Ox 97 99 Oxygen Delivery Method Room Air Room Air Positive well nourished and well developed General Appearance ED: well developed HEENT Reports normocephalic, head/scalp atraumatic and moist mucous membranes Eyes PERRL and EOMs intact bilaterally Eyes Narrative: Pupils are 2 mm and sluggish Neck no lymphadenopathy, supple and no JVD Resp normal respiratory effort and clear to auscultation bilaterally Cardio regular rate, regular rhythm and no murmurs GI normal to inspection, nondistended, normoactive bowel sounds and non-tender Palpation: soft Back/Spine no CVA tenderness and normal ROM Extremity normal to inspection General Extremety ED: Negative for edema General Extremity: Negative for edema Neuro oriented x3 and CN's II-XII intact bilaterally Sensorium / Orientation: alert Motor Exam: strength 5/5 throughout Psych mental status grossly normal Mood & Affect: Negative for depressed or tearful Skin no rashes or lesions noted and no wounds MDM MDM MDM Narrative Medical decision making narrative: Patient is medically cleared to be arrested. Recommend they observe him for any withdrawal symptoms. I discussed with the patient that he should consider rehabilitation but he states its very hard for him and is tried it before and does not believe that he can do it at this time. Discharge Plan Triage Chief Complaint: Substance Abuse ED Provider: Baldemar Carrington Dx/Rx/DC Orders Clinical Impression: Drug abuse Instructions: Treating Drug Abuse and Addiction Primary Care Provider: Care Physician,No Primary Referrals: Care Physician,No Primary [Primary Care Provider] - [facility] [Non-Staff] - As soon as possible Disposition Disposition: Home, Self Care
== END 2022-03-30 20:55 ==
PROVIDERS: Emergency Provider Emergency Medicine; Visit Provider Emergency Medicine
DX: T40.1X4A Poisoning by heroin, undetermined, initial encounter (principal); F15.90 Other stimulant use, unspecified, uncomplicated
CPT/HCPCS: 99282

== ENCOUNTER 2022-04-26 20:36 | Emergency (ER) | payer MEDICAID, SELFPAY ==
[2022-04-26 20:36] VITALS: BP 116/63; PULSE 124; RESP 21; O2SAT 97
[2022-04-26 20:37] VITALS: BP 116/63; PULSE 124; RESP 20; TEMP 36.8; O2SAT 97; BMI 23.3
--- NOTE | 2022-04-26 21:10 | EX.ED.SAOD ---
HPI History of Present Illness Chief Complaint: Substance Abuse Detail of Chief Complaint: Snorted heroin tonight. Informant: patient Onset/Context/Timing Onset: Today Timing: Continuous Current Severity: Mild Maximum Severity: Mild Narrative Narrative: 31-year-old male history of anxiety and depression and drug abuse. He is has had inpatient detox before. Currently he is in the [facility] and is beginning counseling and states that they will place him on Suboxone. Tonight he snorted heroin. He denies any IV drug use. He denies any complaints. His mom caught him at home using and called the squad and had him brought to the ER. Prior similar symptoms: Yes Recent Illness/Hospitalization: No PFSH PFSH Medical History Anxiety Depression History of pneumonia Substance abuse Allergy/AdvReac Type Severity Reaction Status Date / Time No Known Allergies Allergy Verified 04/26/22 20:37 Family History Grandmother Diabetes Kidney disease Breast cancer Arthritis High blood cholesterol Other Hyperlipemia Surgical History H/O eye surgery Social History Smoking Status: Never smoker Electronic Cigarette Use: not used second hand exposure: Yes alcohol intake: current alcohol intake frequency: holidays/special occasions only substance use type: marijuana and opiates what type of physical activity do you participate in: none ROS ROS ED ROS Narrative Denies recent illness. Review of Systems ROS Unobtainable: Denies due to encephalopathy Constitutional Constitutional ED: Denies chills or fever(s) Eyes Eyes: Denies blurry vision ENT ENT ED: Denies ear pain Cardiovascular Cardiovascular: Denies chest pain Respiratory/Chest Respiratory/Chest: Denies cough Gastrointestinal Gastrointestinal: Denies abdominal pain Genitourinary Genitourinary ED: Denies dysuria Musculoskeletal Musculoskeletal: Denies arthralgias Integumentary Denies abscess Neurologic Neurologic: Denies headache(s) Psychiatric Psychiatric: Denies anxiety Endocrine Endocrinology: Denies cold intolerance Hematologic/Lymphatic Hematologic/Lymphatic: Denies easy bleeding Allergic/Immunologic Allergic/Immunologic ED: Denies mouth swelling or tongue swelling EXAM Physical Exam Narrative Exam Narrative: 31-year-old male vital signs stable he is afebrile he does not look septic or toxic. H EENT exam poor dentition. Pupils are round reactive light. Neck nontender. No lymphadenopathy. No track mera. Lungs clear to auscultation bilaterally. Heart tachycardic rate about 120 no murmur. Chest wall nontender. Abdomen soft nontender. Patient moving all 4 extremities. There is no abscesses or cellulitis. No track mera. Back nontender. Neurologically is awake and alert. No focal motor deficits. Const Vital Signs: 04/26/22 20:37 04/26/22 20:36 Temperature 98.2 F Temperature Source Temporal Pulse Rate 124 H 124 H Respiratory Rate 20 H 21 H Blood Pressure 116/63 116/63 Blood Pressure Mean 80 80 Pulse Ox 97 97 Oxygen Delivery Method Room Air Room Air Positive well nourished and well developed; Negative for obese, cachectic, contractures or unkempt General Appearance ED: well developed and NAD; Negative for unkempt, cachectic, contractures or pallor Nutritional Appearance: Negative for cachectic or obese HEENT Reports moist mucous membranes; Denies dry mucous membranes atraumatic; Negative for trauma or tenderness Mouth ED: No dry mucous membranes Mouth: No dry mucous membranes Eyes PERRL and EOMs intact bilaterally Eyes Narrative: Poor dentition. General Eye ED: Negative for pale conjunctiva or scleral icterus Neck no lymphadenopathy, supple and no JVD Thyroid: Negative for tender Lymph Lymphatic: no lymphadenopathy noted; Negative for lymphadenopathy Chest Wall inspection of chest normal and palpation of chest normal Chest: Negative for other Resp normal respiratory effort and clear to auscultation bilaterally Effort and Inspection: Negative for retractions Auscultation: Negative for rales or rhonchi Cardio regular rhythm, S1 normal heart sound, S2 normal heart sound and no murmurs; Negative for regular rate Rate: tachycardic GI soft to palpation, non-tender, non-distended and no masses Inspection: Negative for abdominal distention Auscultation: Negative for hyperactive bowel sounds Palpation: Negative for tender Back/Spine no CVA tenderness General Back: Negative for CVA tenderness Cervical Spine: Negative for cervical spine tenderness Thoracic Spine / Upper Back: Negative for thoracic spinal tenderness Lumbar Spine / Lower Back: Negative for lumbar spinal tenderness Coccyx: Negative for swelling Extremity General Extremety ED: Negative for edema or tenderness General Extremity: Negative for edema Neuro oriented x3 Sensorium / Orientation: alert, oriented to person, oriented to place and oriented to time; Negative for confused, lethargic or stuporous Speech: speech normal Motor Exam: strength 5/5 throughout Psych mental status grossly normal and thought process normal Appearance: Negative for unkempt Attitude: No belligerent, No agitated, No aggressive and No hostile Mood & Affect: anxious; Negative for depressed Skin General Skin Exam: Negative for jaundice or pallor Lesions: no lesions Rashes: no rashes Trauma: Negative for abrasion MDM MDM MDM Narrative Medical decision making narrative: 31-year-old male in the [facility]. Use heroin tonight. He is not interested in inpatient detox. He is awake alert. He will be observed for half an hour if he is doing well he will be discharged home. Discharge Plan Triage Chief Complaint: Substance Abuse ED Provider: Osvaldo Xiao Dx/Rx/DC Orders Clinical Impression: Substance abuse Instructions: ED Drug Abuse Primary Care Provider: Care Physician,No Primary Referrals: Ottoniel Maya MD [Non-Staff] - As Needed Care Physician,No Primary [Primary Care Provider] - Activity Restrictions/Additional Instructions: Follow-up with [facility]. Do not continue to use heroin because your next use could be fatal. Disposition Disposition: Home, Self Care
--- NOTE | 2022-04-26 21:18 | ED.RN ---
mother called with pt permission for a ride home. she agreed to pick him up and take him home. kassy bess rn [id number]
[2022-04-26 21:49] VITALS: BP 100/67; PULSE 123; RESP 16; O2SAT 97
== END 2022-04-26 21:51 | disposition home or self-care (01) ==
PROVIDERS: Emergency Provider Emergency Medicine; Visit Provider Emergency Medicine
DX: F11.10 Opioid abuse, uncomplicated (principal); F12.10 Cannabis abuse, uncomplicated
CPT/HCPCS: 99283

== ENCOUNTER 2022-05-05 05:03 | Observation (INO) | payer MEDICAID, SELFPAY ==
[2022-05-05] VITALS (8 sets, daily range): BP systolic 120–134; BP diastolic 70–108; PULSE 68–75; RESP 15–18; TEMP 36.1–36.9; O2SAT 95–100; BMI 24.5; BMI 23.6
--- NOTE | 2022-05-05 05:21 | HP.PCM.HOS_ITS ---
HPI - General General Date of Admission: 05/05/22 Date of Service: 05/05/22 Chief Complaint: Opiate withdrawal HPI Narrative The patient is a 31 y/o M w/ PMHx: Anxiety and Depression, Polysubstance abuse (Heroin, usually snorted, Cannabis, Fentanyl in the past) who presents to the [facility] ED on 05/05/22 with history of last snorted heroin the evening prior at ~ 8 pm with usual amount ranging 1/4-1/2 gm daily reporting onset of fatigue, body aches, chills, cold sweats, anorexia, congestion and rhinorrhea prompting ED evaluation. He has been in detoxification programs previously including [facility]. He notes today as he is eager to continue on his process with [facility] he reports. Work- up in the ED included T97.6, heart rate 70, BP 120/108, respiratory rate 15, 95% on room air, pending CBC, CMP, UDS upon requested evaluation patient. [facility] Medical History Anxiety Depression History of pneumonia Substance abuse Home Medications NK 05/05/22 [History Last Taken Unknown] Allergy/AdvReac Type Severity Reaction Status Date / Time No Known Allergies Allergy Verified 04/26/22 20:37 Family History (Updated 05/05/22 @ 05:[address] June Coronaod MD) Grandmother Diabetes Kidney disease Breast cancer Arthritis High blood cholesterol Mother Arthritis Chronic pain syndrome Other Hyperlipemia other (Patient denies knowledge of his paternal family history. Notes his father left when he was a child.) Surgical History H/O eye surgery Social History (Updated 05/05/22 @ 05:[address] June Coronado MD) household members: none Smoking Status: Never smoker Electronic Cigarette Use: not used second hand exposure: Yes alcohol intake: current alcohol intake frequency: holidays/special occasions only substance use type: marijuana, heroin, opiates and other details: Fentanyl. what type of physical activity do you participate in: none ROS ROS Narrative Admission Review of Systems: CONSTITUTIONAL: No weight loss, fever, + chills, weakness or fatigue. HEENT: + Congestion, rhinorrhea, occasional sore throat. Eyes: No visual loss, blurred vision, double vision or yellow sclerae. Ears, Nose, Throat: No hearing loss, sneezing. SKIN: No rash or itching, lesions, wounds. CARDIOVASCULAR: No chest pain, chest pressure or chest discomfort, palpitations, edema, orthopnea, syncopal events. RESPIRATORY: No shortness of breath, cough or sputum, wheezing, hemoptysis. GASTROINTESTINAL: + anorexia, No nausea, vomiting or diarrhea, abdominal pain, melena, BRBPR. GENITOURINARY: No dysuria, frequency, urgency or retention. NEUROLOGICAL: No headache, dizziness, syncope, paralysis, ataxia, numbness or tingling in the extremities, focal weakness, change in bowel or bladder control, seizure. MUSCULOSKELETAL: + muscle, back pain, joint pain or stiffness. HEMATOLOGIC: No anemia, bleeding or bruising. LYMPHATICS: No enlarged nodes. No history of splenectomy. PSYCHIATRIC: + history of depression or anxiety. ENDOCRINOLOGIC: + reports of sweating, No cold or heat intolerance. No polyuria or polydipsia. ALLERGIES: No history of asthma, hives, eczema or rhinitis. Vital Signs Vital Signs Vital Signs: 05/05/22 05:04 Temperature 97.6 F L Temperature Source Oral Pulse Rate 70 Respiratory Rate 15 Blood Pressure 120/108 H Blood Pressure Mean 112 Pulse Ox 95 Oxygen Delivery Method Room Air Weight Weight: 175 lb 7.807 oz Body Mass Index (BMI) 24.5 Physical Exam Narrative Physical Examination: General: Awake, alert, oriented x 3 and cooperative, seated upright in the ED bed, extremely restless, mildly agitated. Skin: Normal color, normal turgor, no icterus, no cyanosis. HEENT: AT/NC, EOMI, PERRLA, mildly dry MM, notable rhinorrhea evident, no carotid bruits or JVD noted. Lungs: Mild diminished, greater bases, poor effort, no rales, ronchi or wheezing. Heart: Regular rate and rhythm; no gallop, rub audible. Abdomen: Soft, NTTP, ND, hyperactive BS, no HSM. Extremities: No cyanosis, clubbing, or edema. Neurological: Patient awake, alert, oriented as noted, cognitive function appears intact although notably restless and agitated; pupils equally reactive to light and accommodation, cranial nerves II-XII grossly normal, moving all 4 extremities, no focal deficits, strength mildly global decrease secondary to acute presentation. Psychiatric: Affect appears restless, agitated, no acute evidence of depressive or anxiety feelings but does have underlying history. Assessment & Plan Assessment/Plan (1) Opiate withdrawal: PLAN: Plan The patient is a 31 y/o M w/ PMHx: Anxiety and Depression, Polysubstance abuse (Heroin, usually snorted, Cannabis, Fentanyl in the past) who presents to the [facility] ED on 05/05/22 with history of last snorted heroin the evening prior at ~ 8 pm with onset opiate withdrawal prompting ED evaluation. #1. Acute Opiate Withdrawal: Will admit to [facility], routine labs including CBC, CMP, urine for drug screen obtained in the ED and pending upon evaluation, will initiate and continue on protocol with tapering course of Subutex, as needed tylenol, ibuprofen, bowel regimen, gabapentin, Bentyl, Vistaril, methocarbamol, clonidine, PRN nightly trazodone for insomnia, IV fluids, IV antiemetics. Once patient clinically improved and completion of taper nearing will plan consultation with case management for transition to next level of rehabilitation care. #2. Polysubstance Abuse: Patient with various usage history noted prior. Primarily reports snorting history but to be cautious will obtain hepatitis panel and also HIV. Patient currently not candidate for hep C treatment currently as needs to be clean, sober x 6 months, documented attendance NA or AA meetings, counseling and ongoing negative drug screens. #3. Anxiety and Depression: Patient is not on any regimen, likely contributes to his substance abuse history, would benefit from consideration of counseling with [facility] in addition to ongoing treatment of substance abuse. #4. DVT prophylaxis: Low risk, encourage ambulation. Charges/Coding Visit Charges Inpatient E&M: 68222 Init Hosp L2
--- NOTE | 2022-05-05 05:27 | EDS_ITS ---
HPI History of Present Illness Chief Complaint: Substance Abuse Narrative Narrative: Patient is a 31-year-old male with past medical history of opioid abuse along with other illicit substances as well as anxiety and depression. He states that he has been admitted to the rehab program in the past. Despite this he has relapsed and continue to use opioid. He states has been approximately 10 hours since his last use. He states that he is feeling anxious and nauseous and sweaty and is concerned about withdrawal. He also states that he feels like he needs to come back into the detox program because of this and also in order that he can progress with his life. [facility] Medical History Anxiety Depression History of pneumonia Substance abuse Home Medications NK 05/05/22 [History Last Taken Unknown] Allergy/AdvReac Type Severity Reaction Status Date / Time No Known Allergies Allergy Verified 04/26/22 20:37 Family History (Updated 05/05/22 @ 05:[address] June Coronado MD) Grandmother Diabetes Kidney disease Breast cancer Arthritis High blood cholesterol Mother Arthritis Chronic pain syndrome Other Hyperlipemia Family History other Surgical History H/O eye surgery Social History (Updated 05/05/22 @ 05:[address] June Coronado MD) household members: none Smoking Status: Never smoker Electronic Cigarette Use: not used second hand exposure: Yes alcohol intake: current alcohol intake frequency: holidays/special occasions only substance use type: marijuana, heroin, opiates and other details: Fentanyl. what type of physical activity do you participate in: none ROS ROS ED Constitutional Constitutional ED: Reports sweats; Denies chills or fever(s) ENT ENT ED: Denies sore throat Cardiovascular Cardiovascular: Reports racing heartbeat; Denies chest pain Respiratory/Chest Respiratory/Chest: Denies cough or dyspnea Gastrointestinal Gastrointestinal: Reports nausea; Denies abdominal pain, diarrhea or vomiting Genitourinary Genitourinary ED: Denies dysuria Musculoskeletal Musculoskeletal: Denies myalgias Integumentary Denies rash Neurologic Neurologic: Denies headache(s) Psychiatric Psychiatric: Reports anxiety EXAM Physical Exam Const Vital Signs: 05/05/22 05:04 Temperature 97.6 F L Temperature Source Oral Pulse Rate 70 Respiratory Rate 15 Blood Pressure 120/108 H Blood Pressure Mean 112 Pulse Ox 95 Oxygen Delivery Method Room Air Positive well nourished and well developed General Appearance ED: well developed Eyes PERRL and EOMs intact bilaterally Neck supple Resp normal respiratory effort and clear to auscultation bilaterally Cardio regular rate and regular rhythm GI non-tender and non-distended Auscultation: hypoactive bowel sounds Palpation: soft Extremity normal to inspection Neuro oriented x3 and CN's II-XII intact bilaterally Sensorium / Orientation: alert Psych Psych Narrative: Patient has a nervous affect Skin no rashes or lesions noted MDM MDM MDM Narrative Medical decision making narrative: Patient presented to the ER with stable vitals. His exam is nonfocal. He reports has been approximately 10 hours since his last opioid use. He states he feels sweaty and nauseous and anxious with palpitations concerning for withdrawal but there are no physical exam or vital sign derangements to suggest this. At this time he will be admitted to the hospital so he can undergo detox/rehab program but with physical exam and vitals showing no clinically significant derangements there is no need for intervention and he is safe for admission to the hospital Discharge Plan Dx/Rx/DC Orders Clinical Impression: Substance abuse, Anxiety, Depression, Opiate dependence Disposition Disposition: Acute Care Hospital [facility]
[2022-05-05 05:56] LABS: Absolute Neutrophil Count 2.7 X10^3/uL (2.0-7.7); Basophil# 0.05 X10^3/uL; Basophil% 0.9 % (0-1); Eosinophil# 0.23 X10^3/uL; Eosinophils% 4.1 % (0-5); Hemoglobin 13.9 g/dL (13.0-16.5); Lymphocyte % 35.6 % (19-41); Mean Corp Hgb Conc 31.6 g/dL (32-36); Mean Corpuscular Hgb 27.9 pg (27.0-32.0); Mean Corpuscular Volume 88.2 fL (80-94); Mean Platelet Vol. 8.6 fl (6.2-12.0); Monocyte# 0.59 X10^3/uL; Monocyte% 10.5 % (0-10); NRBC Flagged by Analyzer 0 % (0-5); Neutrophil # 2.74 X10^3/uL (2.7-7.7); Neutrophil % 48.7 % (47-70); Platelet Count 282 K/mm3 (150-450); Red Blood Count 4.99 M/mm3 (4.6-6.2); White Blood Count 5.6 K/mm3 (4.4-11.0)
[2022-05-05 06:15] LABS: AST(SGOT) 20 U/L (15-37); Alanine Aminotransfer ALT/SGPT 39 U/L (16-61); Albumin, Serum 3.8 g/dL (3.2-5.0); Alkaline Phosphatase 103 U/L (45-117); Anion Gap 5 (5-15); BUN 18 mg/dL (7-18); Calcium,Total 9.2 mg/dL (8.5-10.1); Chloride 103 mmol/L (98-107); EST Glomerular Filtration Rate 92 mL/min (>60); Est Glom Filt Rate - Afr Amer 112 mL/min (>60); Globulin 3.9 g/dL (2.2-4.2); Glucose 144 mg/dL (74-106); Potassium 3.9 mmol/L (3.5-5.1); Protein, Total 7.7 g/dL (6.4-8.2); Sodium Level 140 mmol/L (136-145)
[2022-05-05 06:29] LABS: Amphetamine Urine VISTA POSITIVE (<1000 ng/mL); Barbiturate Urine VISTA NEGATIVE (< 200 ng/mL); Benzodiazepine Urine VISTA NEGATIVE (< 200 ng/mL); Cocaine Urine VISTA NEGATIVE (< 300 ng/mL); Ecstacy Urine VISTA NEGATIVE (< 500 ng/mL); Methadone Urine VISTA NEGATIVE (< 300 ng/mL); PCP Urine VISTA NEGATIVE (< 25 ng/mL); THC Urine VISTA POSITIVE (< 50 ng/mL); Vista UDS pH Range 4
[2022-05-05] MEDS: 0.9% Saline Lock 10 ML Syringe IV (06:33)
[2022-05-05] MEDS: Lactated Ringers 1,000 ML 125 ML IV (06:33)
--- NOTE | 2022-05-05 07:47 | PN.HOSP_ITS ---
Subjective Subjective Follow-up for acute opioid withdrawal syndrome. Patient is having anxiety restless. Is talking fast and restless. Constant desire to move. Objective Data Objective Data Vital Signs: Vital Signs Temp Pulse Resp BP Pulse Ox O2 Del Method 98.0 F 74 18 134/84 H 98 Room Air 05/05/22 06:17 05/05/22 06:17 05/05/22 06:17 05/05/22 06:17 05/05/22 06:17 05/05/22 06:17 Oxygen Delivery Method Room Air Weight: 168 lb 13.985 oz Body Mass Index (BMI) 23.6 Lab / Micro Data Result Diagrams: 05/05/22 05:40 05/05/22 05:40 Labs: Laboratory Results - last 24 hr 05/05/22 05:40: WBC 5.6, RBC 4.99, Hgb 13.9, Hct 44.0, MCV 88.2, MCH 27.9, MCHC 31.6 L, RDW Std Deviation 42.0, RDW Coeff of Phoebe 13.0, Plt Count 282, MPV 8.6, Immature Gran % (Auto) 0.200, Neut % (Auto) 48.7, Lymph % (Auto) 35.6, [place] % (Auto) 10.5 H, Eos % (Auto) 4.1, Baso % (Auto) 0.9, Absolute Neuts (auto) 2.7, Absolute Lymphs (auto) 2.00, Nucleated RBC % 0 05/05/22 05:40: Sodium 140, Potassium 3.9, Chloride 103, Carbon Dioxide 32.0, Anion Gap 5, BUN 18, Creatinine 1.00, Estim Creat Clear Calc 114.00, Est GFR (MDRD) Af Amer 112, Est GFR (MDRD) Non-Af 92, BUN/Creatinine Ratio 18.0, Glucose 144 H, Calcium 9.2, Total Bilirubin 0.30, AST 20, ALT 39, Alkaline Phosphatase 103, Total Protein 7.7, Albumin 3.8, Globulin 3.9, Albumin/Globulin Ratio 1.0 05/05/22 05:45: Urine Opiates Screen NEGATIVE, Urine Methadone Screen NEGATIVE, Ur Barbiturates Screen NEGATIVE, Ur Phencyclidine Scrn NEGATIVE, Ur Amphetamines Screen POSITIVE H, MDMA (Ecstasy) Screen NEGATIVE, U Benzodiazepines Scrn NEGATIVE, Urine Cocaine Screen NEGATIVE, U Cannabinoids Screen POSITIVE H, Ur Drug Screen Comment Physical Exam Narrative Seen and examined. General: Alert, Oriented x3, Cooperative HEENT: Atraumatic, PERRLA, EOMI, Normocephalic Oral: No Gingival or Mucosal Lesions/ Ulcerations Neck: Supple, No JVD, Negative Carotid Bruits Lungs: Air entry diminished in bilateral lung bases. No crepitation/rhonchi Cardiovascular: Regular rate, Regular Rhythm, Normal S1, Normal S2, No murmurs Abdomen: Bowel Sounds Present, Soft, Non Tender, Non-Distended : No renal angle tenderness. No suprapubic tenderness. Extremities: No edema, Capillary Refill Less than 3 Seconds Skin: No rashes, No breakdown Musculoskeletal: No Tenderness to Palpation of Joints or Extremities Neurological: Cranial nerves II-XII grossly intact, DTR 2+/4. Psych/Mental Status: Hyperactive, no hallucination or delusion. No suicidal ideation. Assessment & Plan Assessment/Plan (1) Opiate withdrawal: PLAN: Plan The patient is a 31 y/o M admitted for acute opioid withdrawal syndrome. He snorts heroin, last dose evening prior to admission about 8 PM #1. Acute Opiate Withdrawal: Patient also uses cannabis and used fentanyl in the past. Patient is being admitted to [facility] floor. Patient on buprenorphine protocol along with other supportive medications as needed to control withdrawal symptoms. physical security manager wanted to consult to evaluate for rehab. #2. Polysubstance Abuse: Patient with various usage history noted prior. Primarily reports snorting history but to be cautious will obtain hepatitis panel and also HIV. Patient currently not candidate for hep C treatment currently as needs to be clean, sober x 6 months, documented attendance NA or AA meetings, counseling and ongoing negative drug screens. #3. Anxiety and Depression: Patient is not on any regimen, likely contributes to his substance abuse history, would benefit from consideration of counseling with [facility] in addition to ongoing treatment of substance abuse. #4. DVT prophylaxis: Low risk, encourage ambulation. Charges/Coding Visit Charges Inpatient E&M: 71388 Subs Hosp L2
[2022-05-05] MEDS: Ibuprofen 600 MG Tablet PO (08:03)
[2022-05-05] MEDS: hydrOXYzine PAM 25 MG Capsule 50 MG PO (08:03)
[2022-05-05] MEDS: FLU VACC QS2022-23(6MOS UP)/PF 60 MCG/0.5 ML SYRINGE IM (08:03)
[2022-05-05] MEDS: Buprenorphine HCl 2 MG TAB.SUBL SL ×2 (08:28→15:34)
[2022-05-05 08:43] LABS: HIV - WCH Non-Reactive (Nonreactive)
[2022-05-05 09:01] LABS: Hepatitis B Surface Antibody Non-Reactive; Hepatitis B Surface Antigen Non-Reactive (Nonreactive); Hepatitis C Antibody Non-Reactive (Nonreactive)
--- NOTE | 2022-05-05 10:52 | ADDICTION ---
This journalists and other writers met with PT to conduct ASAM, MSE, AUDIT assessments and to plan for d/c. PT A+Ox4 and participated actively. All assessments completed, and placed in PT's chart. PT plans to f/u with [facility] for follow-up counseling and MAT services. PT did not indicate a need for transportation post d/c from [facility].
[2022-05-06] MEDS: Buprenorphine HCl 2 MG TAB.SUBL SL ×3 (00:06→16:37)
[2022-05-06 03:29] VITALS: BP 120/65; PULSE 63; RESP 14; TEMP 36.4; O2SAT 94
[2022-05-06 07:30] VITALS: O2SAT 97
[2022-05-06 09:10] VITALS: BP 128/80; PULSE 80; RESP 16; TEMP 36.9; O2SAT 96
[2022-05-06 16:38] VITALS: BP 132/92; PULSE 82; RESP 16; TEMP 37.1; O2SAT 98
--- NOTE | 2022-05-06 18:48 | PCM.PN.HOSP ---
Subjective Subjective Patient was seen and examined today, he has no complaints of any abdominal cramping, muscle pains, diarrhea, or nausea and vomiting. Patient met with addiction clinical social work aide today, patient has an appointment next Tuesday at [facility] and will follow-up as an outpatient. Objective Data Objective Data Vital Signs: Vital Signs Temp Pulse Resp BP Pulse Ox O2 Del Method 98.8 F 82 16 132/92 H 98 Room Air 05/06/22 16:38 05/06/22 16:38 05/06/22 16:38 05/06/22 16:38 05/06/22 16:38 05/06/22 16:38 Oxygen Delivery Method Room Air Weight: 76.6 kg Body Mass Index (BMI) 23.6 Intake & Output: Intake and Output for Last 24 Hours 05/04/22 05/05/22 05/06/22 23:59 23:59 23:59 Intake Total 1999 240 / 240 Balance 1999 240 / 240 Lab / Micro Data Result Diagrams: 05/05/22 05:40 05/05/22 05:40 Physical Exam Const alert, oriented x3, no apparent distress and healthy appearing General Appearance: cooperative, well kempt and well developed Orientation / Consciousness: awake, oriented to person, oriented to place and oriented to time HEENT normocephalic and moist oral mucous membranes Eyes PERRL, EOMs intact bilaterally and conjunctivae normal Neck supple, no JVD, thyroid normal and no carotid bruits General: trachea midline Resp normal respiratory effort and clear to auscultation bilaterally Auscultation: Negative for rales, rhonchi or wheezes Cardio regular rate, regular rhythm, no murmurs, no rub and no gallops GI normal to inspection, nondistended, normoactive bowel sounds, soft to palpation, non-tender and non-distended Extremity no clubbing, cyanosis or edema Skin no rashes or lesions noted General Skin Exam: no breakdown Neuro oriented x3, CN's II-XII intact bilaterally, no focal motor deficits and no sensory deficits noted Sensorium / Orientation: awake and alert Speech: speech normal Psych affect normal Assessment & Plan Assessment/Plan (1) Opiate withdrawal: PLAN: Plan 1. Acute opiate withdrawal-patient is minimally symptomatic at this time, continue present medications #2 chronic opiate addiction-complicates care, management, recovery, and prognosis #3 polydrug abuse-patient's talk screen was positive for amphetamines and cannabinoids at the time of admission, this will complicate care, management, recovery, and prognosis. Charges/Coding Visit Charges Inpatient E&M: 77532 Subs Hosp L2
[2022-05-06 22:16] VITALS: BP 133/75; PULSE 79; RESP 17; TEMP 36.7; O2SAT 99
[2022-05-06] MEDS: Ibuprofen 600 MG Tablet PO (22:19)
[2022-05-07] MEDS: Buprenorphine HCl 2 MG TAB.SUBL SL ×3 (00:01→20:44)
[2022-05-07 04:00] VITALS: BP 108/73; PULSE 81; RESP 16; TEMP 36.5; O2SAT 99
[2022-05-07 08:00] VITALS: BP 115/78; PULSE 85; RESP 16; TEMP 36.7; O2SAT 98
[2022-05-07 08:24] VITALS: O2SAT 95
--- NOTE | 2022-05-07 12:01 | CASEMGMT ---
Per admission questions patient does not have a Healthcare Power of Automotive Mechanic or a Healthcare Living Will and he is not interested in information. Tisha Rush DIRECTOR OF PRODUCT DESIGN NATHAN
--- NOTE | 2022-05-07 12:04 | PCM.PN.HOSP ---
Subjective Subjective Patient was seen and examined today, he appears comfortable, he does not appear nervous or tremorous. Objective Data Objective Data Vital Signs: Vital Signs Temp Pulse Resp BP Pulse Ox O2 Del Method 98.1 F 85 16 115/78 95 Room Air 05/07/22 08:00 05/07/22 08:00 05/07/22 08:00 05/07/22 08:00 05/07/22 08:24 05/07/22 08:24 Oxygen Delivery Method Room Air Weight: 76.6 kg Body Mass Index (BMI) 23.6 Intake & Output: Intake and Output for Last 24 Hours 05/05/22 05/06/22 05/07/22 23:59 23:59 23:59 Intake Total 1999 240 / 240 Balance 1999 240 / 240 Lab / Micro Data Result Diagrams: 05/05/22 05:40 05/05/22 05:40 Physical Exam Const alert, oriented x3, no apparent distress, average body habitus and healthy appearing General Appearance: cooperative, well kempt and well developed Orientation / Consciousness: awake, oriented to person, oriented to place and oriented to time HEENT normocephalic and moist oral mucous membranes Eyes PERRL, EOMs intact bilaterally and conjunctivae normal Neck supple, no JVD, thyroid normal and no carotid bruits General: trachea midline Resp normal respiratory effort and clear to auscultation bilaterally Auscultation: Negative for rales, rhonchi or wheezes Cardio regular rate, regular rhythm, no murmurs, no rub and no gallops GI normal to inspection, nondistended, normoactive bowel sounds, soft to palpation, non-tender and non-distended Extremity no clubbing, cyanosis or edema Skin no rashes or lesions noted General Skin Exam: no breakdown Neuro oriented x3, CN's II-XII intact bilaterally, no focal motor deficits and no sensory deficits noted Sensorium / Orientation: awake and alert Speech: speech normal Psych affect normal Assessment & Plan Assessment/Plan (1) Opiate withdrawal: PLAN: Plan 1. Acute opiate withdrawal-patient is minimally symptomatic at this time, continue present medications, according to addiction protective services social worker, patient plans to follow-up with [facility] for follow-up and counseling. It appears he may have an appointment next Tuesday at [facility]. #2 chronic opiate addiction-complicates care, management, recovery, and prognosis #3 polydrug abuse-patient's talk screen was positive for amphetamines and cannabinoids at the time of admission, this will complicate care, management, recovery, and prognosis. Charges/Coding Visit Charges Inpatient E&M: 42595 Subs Hosp L2
[2022-05-07 14:00] VITALS: BP 101/64; PULSE 76; RESP 18; TEMP 36.4; O2SAT 100
[2022-05-07 20:37] VITALS: BP 148/105; PULSE 62; RESP 18; TEMP 36.4; O2SAT 100
[2022-05-08 03:04] VITALS: BP 114/66; PULSE 86; RESP 18; TEMP 36.5; O2SAT 99
[2022-05-08 07:33] VITALS: O2SAT 95
[2022-05-08 09:05] VITALS: BP 124/77; PULSE 74; RESP 17; TEMP 36.8; O2SAT 98
--- NOTE | 2022-05-08 10:02 | DCINST_ITS ---
Discharge Instructions Diet Discharge Diet: No restrictions Activity Discharge Activity: Return to Normal Activity Weight Bearing Status: Full weight bearing Follow Up Care Test Results: Test results from this visit will be discussed in further detail at your follow- up appointment, if applicable. Discharge Plan Admission Admit Date/Time: 05/05/22 05:19 Primary Reason for Your Visit: opiate detox Attending Provider: Vladimir Hitchcock Primary Care Provider: Care Physician,No Primary Consulting Providers: June Coronado ; Darryn Garza Discharge Orders/Prescriptions Prescriptions: No Action NK Referrals / Follow Up: Care Physician,No Primary [Primary Care Provider] - Disposition Disposition (needs filled in before D/C Order can be placed): Home, Self Care
--- NOTE | 2022-05-08 11:50 | DS.PCM_ITS ---
Providers Date of Admission: 05/05/22 Date of Discharge: 05/08/22 Primary Care Physician: No Primary Care Phys Reason For Visit: OPIATE WITHDRAWL Diagnosis Discharge Diagnosis (1) Opiate withdrawal: Status: Acute Code(s): F11.93 - Opioid use, unspecified with withdrawal Plan 1. Acute opiate withdrawal-patient is minimally symptomatic at this time, continue present medications, according to addiction medical social consultant, patient plans to follow-up with [facility] for follow-up and counseling. It appears he may have an appointment next Tuesday at [facility]. #2 chronic opiate addiction-complicates care, management, recovery, and prognosis #3 polydrug abuse-patient's talk screen was positive for amphetamines and cannabinoids at the time of admission, this will complicate care, management, recovery, and prognosis. Medications at Discharge Home Medications NK 05/05/22 Hospital Course Procedures None Summary of Care Provided Minutes Spent on Discharge: 31 Hospital Course: This 31-year-old white male was seen in the emergency room at [facility] requesting services for opiate detox, talk screen was positive for amphetamines and cannabinoids, his tox screen was negative for opiates. Patient was admitted to PCU and orders were entered using the opiate detox order set, patient was seen by addiction medical social consultant and he agreed to outpatient detox program after he was discharged from the hospital. On 05/08/2022, patient was seen and examined: On examination he appeared in good health and spirits. Vital signs as documented. Skin warm and dry and without overt rashes. Neck without JVD, neck was supple, trachea midline, thyroid was normal. Lungs clear bilaterally, normal air movement was noted. Heart exam notable for regular rhythm, normal sounds and absence of murmurs, rubs or gallops. Abdomen unremarkable and without evidence of organomegaly, masses, or abdominal aortic enlargement. Bowel sounds are present, abdomen is not distended. Extremities nonedematous, no cyanosis was noted, no clubbing was noted. Neuro: Cranial nerves II through XII are grossly intact, no focal motor deficits were noted, sensation to light touch and pinprick intact, motor exam 5/5 throughout. Psych: Patient is alert and oriented x3, he does not appear anxious or depressed, he does not appear agitated. On 05/08/2022, patient appeared stable for discharge home, he was discharged on that date. Weight / BMI Weight Weight: 76.6 kg Body Mass Index (BMI) 23.6 ABG / Lab / Microbiology Data Result Diagrams: 05/05/22 05:40 05/05/22 05:40 D/C Instructions Discharge Diet: No restrictions Weight Bearing Status: Full weight bearing Meaningful Use Info Meaningful Use Diagnoses (Choose all that apply): None applicable Discharge Plan Admission Admit Date/Time: 05/05/22 05:19 Primary Reason for Your Visit: opiate detox Attending Provider: Vladimir Hitchcock Primary Care Provider: Care Physician,No Primary Consulting Providers: June Coronado Prakash Discharge Orders/Prescriptions Prescriptions: No Action NK Referrals / Follow Up: Care Physician,No Primary [Primary Care Provider] - Disposition Disposition (needs filled in before D/C Order can be placed): Home, Self Care Charges/Coding Visit Charges Inpatient E&M: 94948 Disch Hosp
== END 2022-05-08 13:13 | disposition home or self-care (01) ==
LOC: ED 05:34 → PCU 07:04
PROVIDERS: Admitting Provider Family Medicine; Emergency Provider Emergency Medicine; Visit Provider Internal Medicine
DX: F11.23 Opioid dependence with withdrawal (principal); F15.10 Other stimulant abuse, uncomplicated; F12.10 Cannabis abuse, uncomplicated; Z23 Encounter for immunization
CPT/HCPCS: 90686; 80053; 80307; 85025; 86703; 86706; 86803; 87340; 97802; 99283; 99406; H0012; J7120; A4216

== ENCOUNTER 2022-05-19 23:39 | Emergency (ER) | payer MEDICAID, SELFPAY ==
[2022-05-19 23:40] VITALS: PULSE 108; RESP 16; TEMP 36.9; O2SAT 100; BMI 24.0
[2022-05-20] VITALS (9 sets, daily range): BP systolic 97–130; BP diastolic 61–83; PULSE 67–93; RESP 10–18; TEMP 36.6; O2SAT 96–100
--- NOTE | 2022-05-20 00:13 | EDS_ITS ---
HPI History of Present Illness Chief Complaint: Overdose Narrative Narrative: History and physical is mildly limited secondary to the patient condition being status post overdose. Patient states he overdosed on heroin accidentally, he states I think I got too high. He admits to snorting heroin. He is currently involved in rehab/[facility] and states he relapsed tonight. Police were at the scene, and states that he had wanted to kill himself. While they were on scene mother had stated that he had been depressed and he told her that he wanted to kill himself. Officer asked him if he wanted to kill himself and he clearly stated multiple times that he had suicidal intentions. Patient complains of dry mouth. He has no other complaints currently. [facility] Medical History Anxiety Depression History of pneumonia Opiate dependence Substance abuse Home Medications NK 05/05/22 [History Last Taken Unknown] Allergy/AdvReac Type Severity Reaction Status Date / Time No Known Allergies Allergy Verified 05/19/22 23:47 Family History (Updated 05/05/22 @ 05:[address] June Coronado MD) Grandmother Diabetes Kidney disease Breast cancer Arthritis High blood cholesterol Mother Arthritis Chronic pain syndrome Other Hyperlipemia Surgical History H/O eye surgery Social History (Updated 05/05/22 @ 05:[address] June Coronado MD) household members: none Smoking Status: Never smoker Electronic Cigarette Use: not used second hand exposure: Yes alcohol intake: current alcohol intake frequency: holidays/special occasions only substance use type: marijuana, heroin, opiates and other details: Fentanyl. what type of physical activity do you participate in: none ROS ROS ED ROS Narrative Constitutional: No fever, no chills. HEENT: No sore throat. No neck pain. No loss of vision. No rhinorrhea. Cardiovascular: No chest pain. No palpitations. No pedal edema. Respiratory: No cough, no shortness of breath. Abdominal: No abdominal pain. No nausea. No vomiting. Genitourinary: No dysuria. No hematuria. Musculoskeletal: No myalgias. No arthralgias. Neurologic: No headaches. No dizziness. No lightheadedness. Skin: No rash. No change in color. Psychiatric: No depression. No anxiety. Suicidal ideation reported to police. EXAM Physical Exam Narrative Exam Narrative: Afebrile. Vital signs noted. HEENT: Normocephalic. Atraumatic. PERRL, EOMI. Neck soft and supple. No point tenderness or step off. Cardiovascular: Regular rate and rhythm with intermittent tachycardia. No murmurs, rubs, or gallops appreciated. Respiratory: No tachypnea. Lungs clear to auscultation bilaterally. Gastrointestinal: Abdomen soft, nontender, with normoactive bowel sounds. No rebound or guarding. Neurological: Awake. Alert. Nonfocal, nonlateralizing. Skin: No rash. Normal color. No pallor. Musculoskeletal: No pedal edema. Full range of motion extremities. Const Vital Signs: 05/19/22 23:40 05/20/22 00:39 05/20/22 01:39 Temperature 98.5 F Temperature Source Temporal Pulse Rate 108 H 93 87 Respiratory Rate 16 18 10 L Blood Pressure 130/83 H 119/61 Blood Pressure Mean 98 80 Pulse Ox 100 99 98 Oxygen Delivery Method Room Air Room Air Room Air MDM MDM MDM Narrative Medical decision making narrative: Patient will be medically cleared for psychiatric evaluation. He was placed on a monitor technician. CBC shows slightly elevated white count of 13.9, hemoglobin 12.9 with hematocrit 38.0. Platelet count normal at 245. Electrolyte panel shows a BUN of 25 with a creatinine of 1.03, glucose appropriately elevated at 96 with a normal anion gap of 5. AST is elevated at 40 with a normal ALT of 55. Ethyl alcohol level is less than 3.0. Urine for drugs of abuse is positive for cannabinoids and amphetamines, but not for opiates at this time. At this point in time, I do feel he is medically cleared. In discussion with the crisis counselor, it was felt that he did require placement. They are currently working on him being accepted to a facility that would also have a substance treatment program. Disposition will be transferred in stable condition. He is currently awaiting bed placement. He will be signed out to the oncoming physician as needed. Patient is in stable condition. Lab Data Attestation: I reviewed the patient's lab results. Labs: Laboratory Results - last 24 hr 05/20/22 05/20/22 05/20/22 00:30 00:30 00:30 WBC 13.9 H RBC 4.56 L Hgb 12.9 L Hct 38.0 L MCV 83.3 MCH 28.3 MCHC 33.9 RDW Std Deviation 38.3 RDW Coeff of Phoebe 12.6 Plt Count 245 MPV 8.5 Immature Gran % (Auto) 0.400 Neut % (Auto) 85.8 H Lymph % (Auto) 7.5 L [place] % (Auto) 5.6 Eos % (Auto) 0.2 Baso % (Auto) 0.5 Absolute Neuts (auto) 11.9 H Absolute Lymphs (auto) 1.05 Nucleated RBC % 0 Sodium 137 Potassium 4.0 Chloride 102 Carbon Dioxide 30.0 Anion Gap 5 BUN 25 H Creatinine 1.03 Estim Creat Clear Calc 110.68 Est GFR (MDRD) Af Amer 108 Est GFR (MDRD) Non-Af 89 BUN/Creatinine Ratio 24.3 H Glucose 96 Calcium 9.1 Total Bilirubin 0.50 AST 40 H ALT 55 Alkaline Phosphatase 109 Total Protein 7.3 Albumin 4.0 Globulin 3.3 Albumin/Globulin Ratio 1.2 Urine Opiates Screen Urine Methadone Screen Ur Barbiturates Screen Ur Phencyclidine Scrn Ur Amphetamines Screen MDMA (Ecstasy) Screen U Benzodiazepines Scrn Urine Cocaine Screen U Cannabinoids Screen Ur Drug Screen Comment Ethyl Alcohol < 3.0 05/20/22 02:28 WBC RBC Hgb Hct MCV MCH MCHC RDW Std Deviation RDW Coeff of Phoebe Plt Count MPV Immature Gran % (Auto) Neut % (Auto) Lymph % (Auto) [place] % (Auto) Eos % (Auto) Baso % (Auto) Absolute Neuts (auto) Absolute Lymphs (auto) Nucleated RBC % Sodium Potassium Chloride Carbon Dioxide Anion Gap BUN Creatinine Estim Creat Clear Calc Est GFR (MDRD) Af Amer Est GFR (MDRD) Non-Af BUN/Creatinine Ratio Glucose Calcium Total Bilirubin AST ALT Alkaline Phosphatase Total Protein Albumin Globulin Albumin/Globulin Ratio Urine Opiates Screen NEGATIVE Urine Methadone Screen NEGATIVE Ur Barbiturates Screen NEGATIVE Ur Phencyclidine Scrn NEGATIVE Ur Amphetamines Screen POSITIVE H MDMA (Ecstasy) Screen NEGATIVE U Benzodiazepines Scrn NEGATIVE Urine Cocaine Screen NEGATIVE U Cannabinoids Screen POSITIVE H Ur Drug Screen Comment Ethyl Alcohol Discharge Plan Triage Chief Complaint: Overdose ED Provider: Brijesh Perez Dx/Rx/DC Orders Clinical Impression: Drug overdose, Depression, Suicidal ideations Prescriptions: No Action NK Primary Care Provider: Care Physician,No Primary Referrals: Care Physician,No Primary [Primary Care Provider] - Disposition Disposition: Psychiatric Hospital or Unit
[2022-05-20 00:38] LABS: Absolute Lymphocyte Count 1.05 X10^3/uL (0.83-4.51); Absolute Neutrophil Count 11.9 X10^3/uL (2.0-7.7); Basophil# 0.07 X10^3/uL; Basophil% 0.5 % (0-1); Eosinophil# 0.03 X10^3/uL; Eosinophils% 0.2 % (0-5); Hemoglobin 12.9 g/dL (13.0-16.5); Lymphocyte # 1.05 X10^3/ul (0.83-4.51); Lymphocyte % 7.5 % (19-41); Mean Corp Hgb Conc 33.9 g/dL (32-36); Mean Corpuscular Hgb 28.3 pg (27.0-32.0); Mean Corpuscular Volume 83.3 fL (80-94); Mean Platelet Vol. 8.5 fl (6.2-12.0); Monocyte# 0.78 X10^3/uL; Monocyte% 5.6 % (0-10); NRBC Flagged by Analyzer 0 % (0-5); Neutrophil # 11.93 X10^3/uL (2.7-7.7); Neutrophil % 85.8 % (47-70); Platelet Count 245 K/mm3 (150-450); RBC Distribution Width CV 12.6 % (11.6-14.6); RBC Distribution Width SD 38.3 fl (35.1-43.9); Red Blood Count 4.56 M/mm3 (4.6-6.2); White Blood Count 13.9 K/mm3 (4.4-11.0)
[2022-05-20 00:54] LABS: Alcohol, Blood (Medical)-Serum < 3.0 mg/dL
[2022-05-20 00:59] LABS: ALB/GLOB Ratio 1.2 RATIO (0.9-2.4); AST(SGOT) 40 U/L (15-37); Alanine Aminotransfer ALT/SGPT 55 U/L (16-61); Alkaline Phosphatase 109 U/L (45-117); Anion Gap 5 (5-15); BUN 25 mg/dL (7-18); BUN/Creat Ratio 24.3 RATIO (10-20); Calcium,Total 9.1 mg/dL (8.5-10.1); Chloride 102 mmol/L (98-107); Creatinine, Serum 1.03 mg/dL (0.70-1.30); EST Glomerular Filtration Rate 89 mL/min (>60); Est Glom Filt Rate - Afr Amer 108 mL/min (>60); Estimated Creatinine Clearance 110.68 ml/min; Globulin 3.3 g/dL (2.2-4.2); Glucose 96 mg/dL (74-106); Protein, Total 7.3 g/dL (6.4-8.2); Sodium Level 137 mmol/L (136-145)
[2022-05-20 02:56] LABS: Amphetamine Urine VISTA POSITIVE (<1000 ng/mL); Barbiturate Urine VISTA NEGATIVE (< 200 ng/mL); Benzodiazepine Urine VISTA NEGATIVE (< 200 ng/mL); Cocaine Urine VISTA NEGATIVE (< 300 ng/mL); Ecstacy Urine VISTA NEGATIVE (< 500 ng/mL); Methadone Urine VISTA NEGATIVE (< 300 ng/mL); PCP Urine VISTA NEGATIVE (< 25 ng/mL); THC Urine VISTA POSITIVE (< 50 ng/mL); Vista UDS pH Range 6
--- NOTE | 2022-05-20 04:54 | EKG12_ITS ---
Test Reason : MHC Blood Pressure : / mmHG Vent. Rate : 075 BPM Atrial Rate : 075 BPM P-R Int : 132 ms QRS Dur : 096 ms QT Int : 390 ms P-R-T Axes : 067 074 057 degrees QTc Int : 435 ms Normal sinus rhythm Possible Lateral infarct , age undetermined Abnormal ECG Confirmed by JAZZY VASQUEZ, JEANNA ([id number]), desk editor MERLIN ROBERTS ([id number]) on 05/21/2022 2:31:02 P M Referred By: Confirmed By:CASEY PURCELL MD
--- NOTE | 2022-05-20 08:13 | NURSING ---
[facility] NURSE TO NURSE [phone] PRAJAPATI
--- NOTE | 2022-05-20 08:19 | NURSING ---
CALLED [facility], ETA IS 20 MIN
== END 2022-05-20 08:49 ==
PROVIDERS: Emergency Provider Emergency Medicine; Visit Provider Emergency Medicine
DX: T40.2X2A Poisoning by other opioids, intentional self-harm, initial encounter (principal); F15.10 Other stimulant abuse, uncomplicated; R68.2 Dry mouth, unspecified; F32.A Depression, unspecified; F12.10 Cannabis abuse, uncomplicated
CPT/HCPCS: 80053; 80307; 82077; 85025; 87811; 93005; 99284

== ENCOUNTER 2022-08-19 23:27 | Emergency (ER) | payer MEDICAID, SELFPAY ==
[2022-08-19 23:28] VITALS: PULSE 95; RESP 18; TEMP 36.3; O2SAT 97; BMI 26.4
[2022-08-19 23:34] VITALS: BP 133/68; PULSE 130
[2022-08-19] MEDS: Naloxone 2 MG/2 ML Syringe NASAL (23:43)
[2022-08-20] MEDS: 0.9% Normal Saline 1,000 ML 999 ML IV (00:08)
--- NOTE | 2022-08-20 00:09 | ED.RN ---
Post narcan pt. alert and oriented x4. Cooperative with care and no longer shouting obscenities or slapping himself.
[2022-08-20 00:31] LABS: Alcohol, Blood (Medical)-Serum < 3.0 mg/dL
[2022-08-20 00:41] LABS: Acetaminophen (Tylenol) Level < 2.0 ug/mL (10.0-30.0); Salicylate < 1.7 mg/dL (2.8-20.0)
--- NOTE | 2022-08-20 01:35 | EDS_ITS ---
HPI History of Present Illness Chief Complaint: Substance Abuse Narrative Narrative: Patient is a 31-year-old male with past medical history of anxiety and depression as well as polysubstance abuse. He has been staying in a nursing home house and has been clean and sober. However this evening he started acting erratically and admitted to using fentanyl. Secondary to his erratic behavior he could not be controlled nor was he safe to stay at the nursing home house and therefore he was sent to the ER for evaluation. The patient does admit to using fentanyl and denies any other illicit ingestion. He denies any homicidal or suicidal ideation. [facility] Medical History Anxiety Depression History of pneumonia Opiate dependence Substance abuse Home Medications NK 05/05/22 [History Last Taken Unknown] Allergy/AdvReac Type Severity Reaction Status Date / Time No Known Allergies Allergy Verified 05/19/22 23:47 Family History (Updated 05/05/22 @ 05:[address] Juen Coronado MD) Grandmother Diabetes Kidney disease Breast cancer Arthritis High blood cholesterol Mother Arthritis Chronic pain syndrome Other Hyperlipemia Surgical History H/O eye surgery Social History (Updated 05/05/22 @ 05:[address] June Coronado MD) household members: none Smoking Status: Light Smoker (<10/day) Electronic Cigarette Use: not used second hand exposure: Yes alcohol intake: current alcohol intake frequency: holidays/special occasions only substance use type: marijuana, heroin, opiates and other details: Fentanyl. what type of physical activity do you participate in: none ROS ROS ED Constitutional Constitutional ED: Denies chills or fever(s) Eyes Eyes: Denies change in vision ENT ENT ED: Denies sore throat Cardiovascular Cardiovascular: Denies chest pain Respiratory/Chest Respiratory/Chest: Denies cough or dyspnea Gastrointestinal Gastrointestinal: Denies abdominal pain, diarrhea, nausea or vomiting Genitourinary Genitourinary ED: Denies dysuria Musculoskeletal Musculoskeletal: Denies myalgias Integumentary Denies rash Neurologic Neurologic: Denies headache(s) or weakness Psychiatric Psychiatric: Denies suicidal ideation or suicidal thoughts Hematologic/Lymphatic Hematologic/Lymphatic: Denies easy bleeding or easy bruising EXAM Physical Exam Const Vital Signs: 08/19/22 23:28 08/19/22 23:34 Temperature 97.3 F L Temperature Source Temporal Pulse Rate 130 H Blood Pressure 133/68 H Blood Pressure Mean 89 Positive well nourished and well developed General Appearance ED: well developed HEENT Reports dry mucous membranes Mouth ED: Yes dry mucous membranes Mouth: dry mucous membranes Eyes EOMs intact bilaterally Eyes Narrative: Pupils are pinpoint consistent with opioid use Neck supple Neck Narrative: No meningeal signs Chest Wall palpation of chest normal Resp normal respiratory effort and clear to auscultation bilaterally Cardio regular rhythm Rate: tachycardic and other Other Details: Tachycardic rate with regular rhythm Radial pulses are plus 2 out of 4 bilaterally are equal and symmetric GI non-tender and non-distended GI Narrative: Abdomen is soft nontender nondistended with hypoactive bowel sounds no voluntary guarding or rigidity no pulsatile mass Auscultation: hypoactive bowel sounds Palpation: soft Extremity normal to inspection Neuro CN's II-XII intact bilaterally Neuro Narrative: Patient is a GCS of 14. He is internally stimulated making loud noises/yelling in rocking back and forth in the bed and clapping his hands. However there are no focal neurologic deficits noted. Sensorium / Orientation: orientation impaired Psych Psych Narrative: Internal stimulation as documented above Skin no rashes or lesions noted MDM MDM MDM Narrative Medical decision making narrative: Patient presented to the ER tachycardic with history of reported drug ingestion. His GCS was 14 but he would awake to voice and he had no respiratory distress or need for airway protection. His pupils are pinpoint also consistent with the report of opioid use. At this time my concern for head trauma causing his change in mental status is low as he has no report or signs of injury. He is not in respiratory distress and therefore does not need airway protection. He does state that he this is the way he gets when he uses fentanyl instead of having sedation he is internally stimulated/amped up. Secondary to this 2 mg of intranasal Narcan was given. After a few minutes when the Narcan began to displace the fentanyl the patient's internal stimulation stopped he was able to calm down and fall asleep. At this time vitals are stable and he has no signs of respiratory depression and his internal stimulation has been resolved by Narcan. As he is not homicidal or suicidal there is no need for psychiatric evaluation and patient is otherwise safe for discharge. Lab Data Attestation: I reviewed the patient's lab results. Labs: Laboratory Results - last 24 hr 08/20/22 08/20/22 00:07 00:07 Salicylates < 1.7 L Acetaminophen < 2.0 L Ethyl Alcohol < 3.0 Discharge Plan Triage Chief Complaint: Substance Abuse ED Provider: Josh Cameron Dx/Rx/DC Orders Clinical Impression: Opioid abuse, Anxiety and depression Instructions: Addiction: Your Treatment Options, Addiction Recovery Counseling Prescriptions: No Action NK Primary Care Provider: Care Physician,No Primary Referrals: Care Physician,No Primary [Primary Care Provider] - Disposition Disposition: Home, Self Care
[2022-08-20 02:47] LABS: Amphetamine Urine VISTA NEGATIVE (<1000 ng/mL); Barbiturate Urine VISTA NEGATIVE (< 200 ng/mL); Benzodiazepine Urine VISTA NEGATIVE (< 200 ng/mL); Cocaine Urine VISTA NEGATIVE (< 300 ng/mL); Ecstacy Urine VISTA NEGATIVE (< 500 ng/mL); Methadone Urine VISTA NEGATIVE (< 300 ng/mL); PCP Urine VISTA NEGATIVE (< 25 ng/mL); THC Urine VISTA NEGATIVE (< 50 ng/mL); Vista UDS pH Range 4
== END 2022-08-20 07:58 | disposition home or self-care (01) ==
PROVIDERS: Emergency Provider Emergency Medicine; Visit Provider Emergency Medicine
DX: F11.10 Opioid abuse, uncomplicated (principal); F41.9 Anxiety disorder, unspecified; F32.A Depression, unspecified; F17.200 Nicotine dependence, unspecified, uncomplicated
CPT/HCPCS: 80307; 80329; 82077; 99284; A4216; G0480

== ENCOUNTER 2022-09-12 22:38 | Emergency (ER) | payer MEDICAID, SELFPAY ==
[2022-09-12 22:39] VITALS: BP 117/76; PULSE 108; RESP 14; TEMP 35.8; O2SAT 91; BMI 28.7
--- NOTE | 2022-09-12 22:49 | RAD_ITS ---
INDICATION: dyspnea EXAMINATION/TECHNIQUE: X-RAY - XR Chest 1 View: 2 image AP chest COMPARISON: October 11, 2020. FINDINGS: LINES/DEVICES: None. LUNGS: No consolidation, edema or effusion. No pneumothorax. MEDIASTINUM AND CARDIOVASCULAR STRUCTURES: Cardiac silhouette not enlarged. BONES AND SOFT TISSUES: Unremarkable. RAD/Chest 1 View (Portable) IMPRESSION: No radiographic evidence of acute cardiopulmonary disease. Electronically Signed: Cassius Spence MD at 0:37 EST ,
--- NOTE | 2022-09-12 22:49 | EKG12_ITS ---
Test Reason : OD Blood Pressure : / mmHG Vent. Rate : 101 BPM Atrial Rate : 101 BPM P-R Int : 146 ms QRS Dur : 096 ms QT Int : 346 ms P-R-T Axes : 060 078 050 degrees QTc Int : 448 ms Sinus tachycardia Otherwise normal ECG Confirmed by MARCY VASQUEZ, MINDY ([id number]), editor greeting card MERLIN ROBERTS ([id number]) on 09/13/2022 1:41:57 PM Referred By: AZEEM Confirmed By:MINDY VIDAL MD
--- NOTE | 2022-09-12 22:52 | EX.ED.SAOD ---
HPI History of Present Illness Chief Complaint: Overdose Narrative Narrative: 31-year-old male with known history of drug abuse presenting with altered mental status from home. It was presumed that the patient overdosed on opioids. His mother gave him 2 doses of Narcan at home. He was given 3 additional doses prior to coming to the emergency room. Patient is very sleepy. Patient apparently vomited prior to arrival. He has dried vomit on his face and is closed. [facility] Medical History Anxiety Depression History of pneumonia Opiate dependence Substance abuse Home Medications citalopram 20 mg tablet 20 mg PO DAILY 09/12/22 [History Last Taken Unknown] mirtazapine 45 mg tablet 45 mg PO QHS 09/12/22 [History Last Taken Unknown] trazodone 100 mg tablet 100 mg PO QHS 09/12/22 [History Last Taken Unknown] amoxicillin 875 mg-potassium clavulanate 125 mg tablet 1 tab PO BID 7 days #14 tabs 09/13/22 [Rx Last Taken Unknown] ondansetron 4 mg disintegrating tablet 4 mg PO Q8H PRN PRN Nausea #10 tabs 09/13/22 [Rx Last Taken Unknown] Allergy/AdvReac Type Severity Reaction Status Date / Time No Known Allergies Allergy Verified 05/19/22 23:47 Family History Grandmother Diabetes Kidney disease Breast cancer Arthritis High blood cholesterol Mother Arthritis Chronic pain syndrome Other Hyperlipemia Surgical History H/O eye surgery Social History household members: none Smoking Status: Current some day smoker tobacco type: cigarettes Electronic Cigarette Use: not used second hand exposure: Yes alcohol intake: current alcohol intake frequency: holidays/special occasions only substance use type: marijuana, heroin, opiates and other details: Fentanyl. what type of physical activity do you participate in: none ROS ROS ED Review of Systems ROS Unobtainable: due to mental status EXAM Physical Exam Const Vital Signs: 09/12/22 22:39 09/12/22 23:46 09/12/22 23:38 Temperature 96.4 F L Temperature Source Temporal Pulse Rate 108 H 104 H Respiratory Rate 14 22 H Respiratory Pattern Normal Blood Pressure 117/76 124/82 H Blood Pressure Mean 89 96 Pulse Ox 91 92 Oxygen Delivery Method Room Air Room Air 09/13/22 00:00 09/13/22 01:00 09/13/22 01:32 Temperature Temperature Source Pulse Rate 101 H 102 H 92 Respiratory Rate 18 18 17 Respiratory Pattern Blood Pressure 119/72 111/56 L 111/56 L Blood Pressure Mean 87 74 Pulse Ox 91 99 98 Oxygen Delivery Method Room Air Room Air Positive unkempt General Appearance ED: unkempt; Negative for pallor HEENT Reports dry mucous membranes HEENT Narrative: Dried vomit around the nares and mouth Mouth ED: Yes dry mucous membranes Mouth: dry mucous membranes Eyes PERRL Lymph Lymphatic: no lymphadenopathy noted Chest Wall inspection of chest normal Resp Effort and Inspection: Negative for retractions Cardio regular rate and regular rhythm Back/Spine no CVA tenderness Neuro Chalmers Coma Scale: document GCS findings To Voice Obeys Commands Confused 13 Sensorium / Orientation: alert Psych Appearance: unkempt Skin General Skin Exam: Negative for jaundice or pallor MDM MDM MDM Narrative Medical decision making narrative: Patient presenting with altered mental status. History of opioid abuse in the past. He is unable initially to give me much of a history and is vomiting. I have concern for aspiration pneumonia as he has had this before. Since I was unable to obtain history I did order some blood work and imaging. I do believe the patient is overdosed since he has received 5 doses of Narcan. He is not required any more in the emergency room. With history of aspiration pneumonia I did obtain a chest x-ray which on my interpretation is showing no acute process. CBC was obtained which shows no leukocytosis. Hemoglobin hematocrit are stable. Platelets are normal. CMP shows a slight increase in the creatinine at 1.33. Patient was given 2 L of IV fluids. Electrolytes are normal. Glucose slightly elevated at 149 without anion gap. Alkaline phosphatase slightly elevated at 125. Urinalysis negative for infection. Urine drug screen is also negative. Because the patient could not answer questions initially I did obtain a CT of the brain and the cervical spine which were negative for acute findings. Patient now alert and awake. He states his nausea is improved. He is able to tell me that he is in a program currently to detox from opioids. It is called the [facility]. He did relapse tonight. He does not want to be admitted for detox. He does not feel he will withdrawal if he goes home. He is supposed to follow-up with them tomorrow because he was sent home for the night. Patient's oxygen was initially low at 91%. It is now 98%. His chest x-ray does not show any signs of pneumonia although with a low patient I will cover him with Augmentin. Patient's oxygen saturations while awake and talking is now 98 to 99%. Return precautions are discussed. Impression: 1. Opioid overdose 2. Nausea/vomiting 3. Aspiration pneumonia Lab Data Attestation: I reviewed the patient's lab results. Labs: Laboratory Results - last 24 hr 09/12/22 09/12/22 09/12/22 23:00 23:00 23:00 WBC 9.7 RBC 4.78 Hgb 13.8 Hct 41.5 MCV 86.8 MCH 28.9 MCHC 33.3 RDW Std Deviation 41.7 RDW Coeff of Phoebe 13.1 Plt Count 281 MPV 8.8 Sodium 139 Potassium 3.7 Chloride 102 Carbon Dioxide 26.0 Anion Gap 11 BUN 24 H Creatinine 1.33 H Estim Creat Clear Calc 85.71 Est GFR (MDRD) Af Amer 80 Est GFR (MDRD) Non-Af 66 BUN/Creatinine Ratio 18.0 Glucose 149 H Calcium 8.9 Total Bilirubin 0.30 AST 32 ALT 75 H Alkaline Phosphatase 125 H Troponin I High Sens 8 Total Protein 7.6 Albumin 3.9 Globulin 3.7 Albumin/Globulin Ratio 1.1 Urine Color Urine Clarity Urine pH Ur Specific [place] Urine Protein Urine Glucose (UA) Urine Ketones Urine Occult Blood Urine Nitrite Urine Bilirubin Urine Urobilinogen Ur Leukocyte Esterase Urine RBC Urine WBC Ur Squamous Epith Cells Amorphous Sediment Urine Bacteria Urine Mucus Urine Opiates Screen Urine Methadone Screen Ur Barbiturates Screen Ur Phencyclidine Scrn Ur Amphetamines Screen MDMA (Ecstasy) Screen U Benzodiazepines Scrn Urine Cocaine Screen U Cannabinoids Screen Ur Drug Screen Comment Ethyl Alcohol < 3.0 09/13/22 09/13/22 00:55 00:55 WBC RBC Hgb Hct MCV MCH MCHC RDW Std Deviation RDW Coeff of Phoebe Plt Count MPV Sodium Potassium Chloride Carbon Dioxide Anion Gap BUN Creatinine Estim Creat Clear Calc Est GFR (MDRD) Af Amer Est GFR (MDRD) Non-Af BUN/Creatinine Ratio Glucose Calcium Total Bilirubin AST ALT Alkaline Phosphatase Troponin I High Sens Total Protein Albumin Globulin Albumin/Globulin Ratio Urine Color Yellow Urine Clarity Clear Urine pH 5.0 Ur Specific [place] 1.030 Urine Protein 30 H Urine Glucose (UA) Normal Urine Ketones 5 H Urine Occult Blood 10 H Urine Nitrite Negative Urine Bilirubin Negative Urine Urobilinogen Normal Ur Leukocyte Esterase Negative Urine RBC 0-5 SEEN Urine WBC 0 SEEN Ur Squamous Epith Cells 0 SEEN Amorphous Sediment 2+ Urine Bacteria 1+ Urine Mucus 0 SEEN Urine Opiates Screen NEGATIVE Urine Methadone Screen NEGATIVE Ur Barbiturates Screen NEGATIVE Ur Phencyclidine Scrn NEGATIVE Ur Amphetamines Screen NEGATIVE MDMA (Ecstasy) Screen NEGATIVE U Benzodiazepines Scrn NEGATIVE Urine Cocaine Screen NEGATIVE U Cannabinoids Screen NEGATIVE Ur Drug Screen Comment Ethyl Alcohol Radiography Diagnostic Testing: Clinical Impression(s) from Imaging Studies Chest X-Ray 09/12/22 22:49 IMPRESSION: No radiographic evidence of acute cardiopulmonary disease. Electronically Signed: Cassius Spence MD at 0:37 EST Reading Location ID and State: [facility] / [place] Tel , Service support , Brain CT 09/13/22 00:00 IMPRESSION: No CT evidence of acute intracranial hemorrhage or injury. Acute sinus disease. Electronically Signed: Cassius Spence MD at 0:44 EST Reading Location ID and State: [facility] / [place] Tel , Service support , Cervical Spine CT 09/13/22 00:00 IMPRESSION: No evidence of acute cervical spinal fracture or spondylolisthesis. Spondylosis C5-C6 with posterior disc osteophyte complex approaching the anterior cord. No evidence of critical spinal stenosis.] [MRI could further evaluate as clinically indicated. Electronically Signed: Cassius Spence MD at 0:49 EST Reading Location ID and State: [facility] / [place] Tel , Service support , Discharge Plan Triage Chief Complaint: Overdose ED Provider: Damon,Linus Dx/Rx/DC Orders Instructions: ED Opiate Abuse, ED Vomiting (Adult) Prescriptions: New amoxicillin-pot clavulanate 875-125 mg tablet 1 tab PO BID 7 Days Qty: 14 0RF ondansetron 4 mg tablet,disintegrating 4 mg PO Q8H PRN PRN (Reason: Nausea) Qty: 10 0RF No Action citalopram 20 mg tablet 20 mg PO DAILY trazodone 100 mg tablet 100 mg PO QHS mirtazapine 45 mg tablet 45 mg PO QHS Primary Care Provider: Care Physician,No Primary Referrals: Care Physician,No Primary [Primary Care Provider] - Disposition Disposition: Home, Self Care
[2022-09-12] MEDS: 0.9% Normal Saline 1,000 ML 1000 ML IV (23:19)
[2022-09-12] MEDS: Ondansetron 4 MG/2 ML Vial IM (23:19)
[2022-09-12 23:38] VITALS: BP 124/82; PULSE 104; RESP 22; O2SAT 92
[2022-09-12 23:42] LABS: Alcohol, Blood (Medical)-Serum < 3.0 mg/dL; Hematocrit 41.5 % (40-54); Hemoglobin 13.8 g/dL (13.0-16.5); Mean Corp Hgb Conc 33.3 g/dL (32-36); Mean Corpuscular Hgb 28.9 pg (27.0-32.0); Mean Corpuscular Volume 86.8 fL (80-94); Mean Platelet Vol. 8.8 fl (6.2-12.0); Platelet Count 281 K/mm3 (150-450); RBC Distribution Width CV 13.1 % (11.6-14.6); RBC Distribution Width SD 41.7 fl (35.1-43.9); Red Blood Count 4.78 M/mm3 (4.6-6.2); White Blood Count 9.7 K/mm3 (4.4-11.0)
[2022-09-12 23:48] LABS: ALB/GLOB Ratio 1.1 RATIO (0.9-2.4); AST(SGOT) 32 U/L (15-37); Alanine Aminotransfer ALT/SGPT 75 U/L (16-61); Albumin, Serum 3.9 g/dL (3.2-5.0); Alkaline Phosphatase 125 U/L (45-117); Anion Gap 11 (5-15); BUN 24 mg/dL (7-18); Calcium,Total 8.9 mg/dL (8.5-10.1); Chloride 102 mmol/L (98-107); Creatinine, Serum 1.33 mg/dL (0.70-1.30); EST Glomerular Filtration Rate 66 mL/min (>60); Est Glom Filt Rate - Afr Amer 80 mL/min (>60); Estimated Creatinine Clearance 85.71 ml/min; Globulin 3.7 g/dL (2.2-4.2); Glucose 149 mg/dL (74-106); Potassium 3.7 mmol/L (3.5-5.1); Protein, Total 7.6 g/dL (6.4-8.2); Sodium Level 139 mmol/L (136-145); Troponin-I HS 8 pg/mL (3.0-78.0)
[2022-09-13] VITALS: BP 119/72; PULSE 101; RESP 18; O2SAT 91
--- NOTE | 2022-09-13 | CT_ITS ---
INDICATION: ams EXAMINATION: CT BRAIN - CT Head or Brain W/O Contrast Injection TECHNIQUE: Multiple axial images were obtained of the head without intravenous contrast. A radiation dose optimization technique was used for this scan. IV Contrast dosage and agent: None. COMPARISON: November 13, 2021 FINDINGS: BRAIN PARENCHYMA: No intra- or extra-axial hemorrhage. No evidence of acute infarct. No intracranial mass or mass effect. Unremarkable white matter for age. There is preservation of the marshall/white matter interface. Posterior fossa structures are unremarkable. CSF SPACES: Cerebral volume appropriate for age. No hydrocephalus. Basal cisterns are patent. CALVARIUM, SKULL BASE, PARANASAL SINUSES AND MASTOID AIR CELLS: No acute osseous finding. Acute layering sphenoid sinus disease with scattered maxillary and ethmoid sinus mucoperiosteal thickening.. Mastoid air cells are clear. ORBITS: Both globes, extraocular muscles, optic nerves and retrobulbar fat appear unremarkable. ASPECTS Score for Acute Strokes: 10 CT/Brain/Head without Contrast IMPRESSION: No CT evidence of acute intracranial hemorrhage or injury. Acute sinus disease. Electronically Signed: Cassius Spence MD at 0:44 EST ,
--- NOTE | 2022-09-13 | CT_ITS ---
INDICATION: ams EXAMINATION: CT CERVICAL SPINE - CT Spine Cervical W/O Contrast Injection TECHNIQUE: Helically acquired images were obtained of the cervical spine. 2D reformatted images were reviewed. A radiation dose optimization technique was used for this scan. IV Contrast dosage and agent: None. COMPARISON: None. FINDINGS: VERTEBRAE: No fracture or traumatic subluxation. No discrete lytic or blastic abnormality. Normal alignment. Normal craniocervical junction and cervicothoracic junction. DISCS and SPINAL CANAL: Small posterior disc osteophyte complex C5-C6 with mild to moderate spinal canal stenosis, with disc approaching the anterior cord. Mild left C5-C6 neural foraminal narrowing. No critical stenosis. NECK SOFT TISSUES: No prevertebral soft tissue swelling. There is no cervical adenopathy. LUNG APICES: Clear. CT/Spine Cervical without Contras IMPRESSION: No evidence of acute cervical spinal fracture or spondylolisthesis. Spondylosis C5-C6 with posterior disc osteophyte complex approaching the anterior cord. No evidence of critical spinal stenosis.] [MRI could further evaluate as clinically indicated. Electronically Signed: Cassius Spence MD at 0:49 EST ,
[2022-09-13] MEDS: 0.9% Normal Saline 1,000 ML 999 ML IV (00:18)
[2022-09-13 01:00] VITALS: BP 111/56; PULSE 102; RESP 18; O2SAT 99
[2022-09-13 01:00] LABS: Mucous, Urine 0 SEEN /hpf (<or=2+); Squamous Epithelial Cells - UA 0 SEEN /hpf (0-5); White Blood Cells 0 SEEN /hpf (0-5)
[2022-09-13 01:02] LABS: Color, Urine Yellow (Yellow); Glucose, Dipstick Normal (Normal); Ketone-Dipstick 5 mg/dl (Negative); Leukocyte Esterase-Dipstick Negative /ul (Negative); Nitrite-Dipstick Negative (Negative); Occult Blood-Urine 10 /ul (Negative); Protein-Dipstick 30 mg/dl (Negative); Urine Bilirubin Dipstick Negative (Negative); Urine Clarity Clear (Clear); Urine Urobilinogen Normal (Normal)
[2022-09-13 01:11] LABS: Amorphous Sediment 2+; Bacteria 1+ /hpf (None Seen); Red Blood Cells-Urine 0-5 SEEN /hpf (0-5)
--- NOTE | 2022-09-13 01:15 | ED.RN ---
Pt ambulates to the restroom without difficulties, steady gait.
[2022-09-13] MEDS: Amox/Clavulanate 875 MG Tablet PO (01:30)
[2022-09-13 01:32] VITALS: BP 111/56; PULSE 92; RESP 17; O2SAT 98
[2022-09-13 01:32] LABS: Amphetamine Urine VISTA NEGATIVE (<1000 ng/mL); Barbiturate Urine VISTA NEGATIVE (< 200 ng/mL); Benzodiazepine Urine VISTA NEGATIVE (< 200 ng/mL); Cocaine Urine VISTA NEGATIVE (< 300 ng/mL); Ecstacy Urine VISTA NEGATIVE (< 500 ng/mL); Methadone Urine VISTA NEGATIVE (< 300 ng/mL); PCP Urine VISTA NEGATIVE (< 25 ng/mL); THC Urine VISTA NEGATIVE (< 50 ng/mL); Vista UDS pH Range 4
== END 2022-09-13 01:41 | disposition home or self-care (01) ==
PROVIDERS: Emergency Provider Student in an Organized Health Care Education/Training Program; Visit Provider Student in an Organized Health Care Education/Training Program
DX: T40.2X1A Poisoning by other opioids, accidental (unintentional), initial encounter (principal); J69.0 Pneumonitis due to inhalation of food and vomit; R11.2 Nausea with vomiting, unspecified; F12.90 Cannabis use, unspecified, uncomplicated; F17.210 Nicotine dependence, cigarettes, uncomplicated; F41.9 Anxiety disorder, unspecified; F32.A Depression, unspecified; Z79.899 Other long term (current) drug therapy
CPT/HCPCS: 70450; 71045; 72125; 80053; 80307; 81001; 82077; 84484; 85027; 93005; 96360; 96361; 96372; 99285; J7030; J2405

== ENCOUNTER → 2022-11-05 | Outpatient (CLI) | payer MEDICAID, SELFPAY ==
[2022-11-05 16:36] LABS: Absolute Neutrophil Count 3.2 X10^3/uL (2.0-7.7); Basophil# 0.06 X10^3/uL; Basophil% 1.2 % (0-1); Eosinophil# 0.16 X10^3/uL; Eosinophils% 3.1 % (0-5); Hematocrit 44.5 % (40-54); Hemoglobin 14.3 g/dL (13.0-16.5); Lymphocyte % 27.1 % (19-41); Mean Corp Hgb Conc 32.1 g/dL (32-36); Mean Corpuscular Hgb 28.3 pg (27.0-32.0); Mean Corpuscular Volume 88.1 fL (80-94); Monocyte# 0.36 X10^3/uL; NRBC Flagged by Analyzer 0 % (0-5); Neutrophil # 3.17 X10^3/uL (2.7-7.7); Neutrophil % 61.4 % (47-70); Platelet Count 301 K/mm3 (150-450); RBC Distribution Width CV 12.9 % (11.6-14.6); RBC Distribution Width SD 41.7 fl (35.1-43.9); Red Blood Count 5.05 M/mm3 (4.6-6.2); White Blood Count 5.2 K/mm3 (4.4-11.0)
[2022-11-05 17:24] LABS: ALB/GLOB Ratio 1.1 RATIO (0.9-2.4); AST(SGOT) 19 U/L (15-37); Alanine Aminotransfer ALT/SGPT 28 U/L (16-61); Albumin, Serum 4.1 g/dL (3.2-5.0); Alkaline Phosphatase 80 U/L (45-117); Anion Gap 4 (5-15); BUN 13 mg/dL (7-18); BUN/Creat Ratio 13.3 RATIO (10-20); Calcium,Total 9.1 mg/dL (8.5-10.1); Chloride 103 mmol/L (98-107); Creatinine, Serum 0.98 mg/dL (0.70-1.30); EST Glomerular Filtration Rate 95 mL/min (>60); Est Glom Filt Rate - Afr Amer 114 mL/min (>60); Globulin 3.7 g/dL (2.2-4.2); Glucose 103 mg/dL (74-106); Potassium 3.9 mmol/L (3.5-5.1); Protein, Total 7.8 g/dL (6.4-8.2); Sodium Level 137 mmol/L (136-145)
[2022-11-05 18:01] LABS: HIV - WCH Non-Reactive (Nonreactive); Hepatitis B Surface Antibody Non-Reactive; Hepatitis B Surface Antigen Non-Reactive (Nonreactive); Hepatitis C Antibody Non-Reactive (Nonreactive)
[2022-11-07 08:31] LABS: Hepatitis A AB, Total Negative (Negative)
== END | disposition home or self-care (01) ==
LOC: LAB 15:40
PROVIDERS: Referring Provider Registered Nurse; Visit Provider Registered Nurse
DX: F11.20 Opioid dependence, uncomplicated (principal)
CPT/HCPCS: 36415; 80053; 85025; 86703; 86706; 86708; 86803; 87340

== ENCOUNTER 2024-10-08 15:12 | Emergency (ER) | payer MEDICAID, SELFPAY ==
[2024-10-08 15:13] VITALS: BP 142/94; PULSE 88; RESP 16; TEMP 36.7; O2SAT 97; BMI 25.7
[2024-10-08 17:27] VITALS: BP 147/88; PULSE 78; RESP 18; TEMP 36.8; O2SAT 98
--- NOTE | 2024-10-08 19:10 | CT_ITS ---
PROCEDURE: BRAIN/HEAD WITHOUT CONTRAST REASON FOR EXAM: TRAUMA TECHNIQUE: Head CT without intravenous contrast. COMPARISON: None. FINDINGS: There is no acute intracranial hemorrhage, mass effect, or evidence of large acute infarct. Brain: Normal CSF Spaces: Normal Sinuses/Mastoids: Clear at visualized levels Facial bone fracture detected. Please see face CT. CT/Brain/Head without Contrast IMPRESSION: Apparent facial bone fracture. Please see face CT. No findings of acute intra cranial hemorrhage. Reading Location: [id number]
--- NOTE | 2024-10-08 19:10 | CT_ITS ---
EXAM: SINUS/FACIAL BONE CLINICAL HISTORY: TRAUMA COMPARISON: None TECHNIQUE: Noncontrast facial bone CT performed. Sagittal and coronal reconstructions performed. FINDINGS: There is an acute fracture of the right orbit. Fracture plane extends through the right lateral orbit with extensive periorbital soft tissue swelling. There is fracture extending through the anterior maxillary sinus wall as well as a small orbital floor fracture displaced 2-3 mm. No evidence of orbital entrapment there is hemorrhage seen in the right maxillary sinus. The extraocular muscles and globes are intact. Scattered radiodensity seen in the soft tissues. Query small foreign bodies. Poor dentition with multiple dental caries and periapical abscesses. CT/Sinus/Facial Bone IMPRESSION: Right facial bone fracture involving the right lateral orbital wall as well as fracture planes extending into the right orbital floor depressed 2-3 mm. Acute fracture involving the anterolateral right maxil graciela sinus with hemorrhage seen in the maxillary sinus. Small foreign bodies detected in the cutaneous tissue presumably at the site of trauma Poor dentition. Correlation with dental exam advised. Reading Location: [id number]
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
--- NOTE | 2024-10-08 19:15 | RAD_ITS ---
PROCEDURE: WRIST MIN 3 VIEWS 10/08/2024 REASON FOR EXAM: INJURY TECHNIQUE: 3 view(s) of each wrist COMPARISON: None. FINDINGS: LEFT WRIST: No visible fracture. No suspicious bone lesion. Normal alignment. Soft tissue swelling is seen. RAD/Wrist min 3 Views IMPRESSION: No evidence of acute left wrist fracture. Reading Location: [id number]
[2024-10-08] MEDS: Lidocaine 1% (20 ml mdv) 20 ML Vial INFILT (19:35)
[2024-10-08] MEDS: Diphth,Pertuss(Acell),Tet Vac 0.5 ML Vial IM (19:35)
[2024-10-08 19:39] VITALS: BP 136/91
[2024-10-08] MEDS: Amox/Clavulanate 875 MG Tablet PO (20:18)
[2024-10-08] MEDS: HYDROcodone Bitartrate/Apap 5/325 Tablet PO (20:18)
== END 2024-10-08 20:31 | disposition home or self-care (01) ==
PROVIDERS: Emergency Provider Emergency Medicine; Visit Provider Emergency Medicine
DX: S02.401A Maxillary fracture, unspecified side, initial encounter for closed fracture (principal); S60.519A Abrasion of unspecified hand, initial encounter; V18.0XXA Pedal cycle driver injured in noncollision transport accident in nontraffic accident, initial encounter; F32.A Depression, unspecified; Z79.899 Other long term (current) drug therapy; F17.210 Nicotine dependence, cigarettes, uncomplicated; S00.81XA Abrasion of other part of head, initial encounter; S63.502A Unspecified sprain of left wrist, initial encounter; Z23 Encounter for immunization
CPT/HCPCS: 13132; 70450; 70486; 73110; 90715; 99285

== ENCOUNTER 2024-10-23 16:36 | Emergency (ER) | payer MEDICAID, SELFPAY ==
[2024-10-23 16:36] VITALS: BP 105/69; PULSE 98; RESP 22; TEMP 37.2; O2SAT 93; BMI 29.5
--- NOTE | 2024-10-23 17:04 | EDS_ITS ---
HPI HPI - URI History of Present Illness Chief Complaint: Cold Sx Informant: patient Onset/Context/Timing Onset: Days (5) Context: Gradual Onset Timing: Continuous Quality: Weakness Location: Generalized Worsened by: - (Nothing) Relieved by: - (Hot shower) Associated Symptoms Associated Symptoms: Positive for Nasal Congestion, Headache, Myalgias, Nausea, Vomiting, Shortness of Breath, Chest Pain and Productive Cough; Negative for Sinus Pressure, Diarrhea or Hemoptysis Narrative Narrative: Patient presents with cough and fever that has been getting worse over the past 5 days. Patient states it is gradually gotten worse. Patient states his mother had similar symptoms prior to his symptoms starting. Patient states he feels weak all over. Patient admits to some nasal congestion and a headache. Patient admits to some tightness in his chest. Patient states he is coughing up yellow and clear sputum. Patient states he had an episode of nausea and vomiting. Patient also admits to body aches and muscle aches. ROS ROS ED Constitutional Constitutional ED: Reports fever(s), subjective and sweats Eyes Eyes: Denies blurry vision or change in vision ENT ENT ED: Reports rhinorrhea; Denies sore throat Cardiovascular Cardiovascular: Reports chest pain; Denies palpitations Respiratory/Chest Respiratory/Chest: Reports cough, dyspnea and sputum Gastrointestinal Gastrointestinal: Reports nausea and vomiting Genitourinary Genitourinary ED: Denies dysuria or hematuria Musculoskeletal Musculoskeletal: Reports back pain and myalgias; Denies neck pain Integumentary Denies abscess or rash Neurologic Neurologic: Reports headache(s); Denies weakness Allergic/Immunologic Allergic/Immunologic ED: Denies mouth swelling or urticaria PFSH PFSH Medical History Depression Anxiety Substance abuse History of pneumonia Opiate dependence Home Medications ?Medication ?Instructions ?Recorded ?Last Taken ?Type amoxicillin 875 mg-potassium 875 mg PO Q12H #14 TABLET S 10/08/24 Unknown Rx clavulanate 125 mg tablet hydrocodone-acetaminophen 5-325mg 1 tab PO Q4H PRN PRN Pain 3 days 10/08/24 Unknown Rx 5mg-325mg #12 TABLETS Allergy/AdvReac Type Severity Reaction Status Date / Time No Known Allergies Allergy Verified 10/23/24 16:37 Family History Grandmother Diabetes Kidney disease Breast cancer Arthritis High blood cholesterol Mother Arthritis Chronic pain syndrome Other Hyperlipemia Surgical History H/O eye surgery Social History household members: none housing: apartment Smoking Status: Current some day smoker tobacco type: cigarettes Electronic Cigarette Use: not used second hand exposure: Yes alcohol intake: current alcohol intake frequency: holidays/special occasions only substance use type: marijuana, heroin, opiates and other details: Fentanyl. what type of physical activity do you participate in: none EXAM Physical Exam Const Vital Signs: 10/23/24 16:36 10/23/24 18:04 Temperature 99 F Temperature Source Oral Pulse Rate 98 Respiratory Rate 22 H 16 Respiratory Pattern Normal Blood Pressure 105/69 Blood Pressure Mean 81 Pulse Ox 93 Oxygen Delivery Method Room Air Positive well nourished and well developed Constitutional Narrative: BMI is 29.6 General Appearance ED: well developed and NAD HEENT Reports moist mucous membranes normocephalic Neck supple and no JVD Resp normal respiratory effort Auscultation: rhonchi lower bilaterally Cardio Rate: regular rate Rhythm: regular rhythm GI non-tender and non-distended Palpation: soft Neuro oriented x3, CN's II-XII intact bilaterally and no sensory deficits noted Sensorium / Orientation: alert Motor Exam: strength 5/5 throughout Psych mental status grossly normal MDM MDM MDM Narrative Medical decision making narrative: Differential diagnosis includes pneumonia, bronchitis, upper respiratory infection, asthma exacerbation, and viral illness. Chest x-ray will be obtained to assess for pneumonia or bronchitis. COVID-19, influenza, RSV PCR will be obtained to assess for viral illness. Lab Data Lab results narrative: COVID-19 PCR was reviewed and was negative. Influenza PCR was reviewed and was positive for influenza A and negative for influenza B. RSV PCR was reviewed and was negative. Radiography Chest X-Ray - ED: 2 View, Read by ED Physician, Read by Radiologist and No Acute Disease Diagnostic Testing: Clinical Impression(s) from Imaging Studies Chest X-Ray 10/23/24 17:49 IMPRESSION: NEGATIVE CHEST Reading Location: [facility] PA and lateral chest x-ray was obtained. There are 2 views. On my independent interpretation, lung moreno are clear. There is normal cardiac silhouette. Bony thorax is normal. There is no acute process noted. Radiologist also interpreted the x-ray and agrees. Treatment and Re-Evaluation Narrative: Smoking cessation was discussed. Patient was given a DuoNeb aerosol here. Patient is feeling better on reevaluation. Patient was advised of this finding. Patient was instructed to take Tylenol or ibuprofen as needed for any aches or fevers. Patient was instructed drink plenty of fluids. Patient was advised that he is outside the window for Tamiflu. Patient was instructed to follow-up with his primary care physician in 5 to 7 days. Patient understood and was agreeable with plan. All questions were answered. Discharge Plan Triage Chief Complaint: Cold Sx ED Provider: Robinson Mars Dx/Rx/DC Orders Clinical Impression: Influenza A, Tobacco use disorder Instructions: ED Influenza (Adult) Prescriptions: No Action hydrocodone-acetaminophen 5-325 mg tablet 1 tab PO Q4H PRN PRN (Reason: Pain) 3 Days Qty: 12 0RF amoxicillin-pot clavulanate 875-125 mg tablet 875 mg PO Q12H Qty: 14 0RF Primary Care Provider: Care Physician,No Primary Referrals: Yudelka Alberto MD [Med Staff - Armament Repairer] - 5-7 Days Care Physician,No Primary [Primary Care Provider] - Print Language: Serbian Disposition Disposition: Home, Self Care
--- NOTE | 2024-10-23 17:49 | RAD_ITS ---
PROCEDURE: CHEST PA AND LATERAL 10/23/2024 REASON FOR EXAM: COUGH TECHNIQUE: Frontal and lateral views of the chest. COMPARISON: Chest radiograph 08/2022. FINDINGS: Hardware: None. Heart: The heart size is normal. Mediastinum: The mediastinal contour is unremarkable. Lungs: No focal consolidation, pleural effusion or pneumothorax. Bones: The bones are unremarkable. RAD/Chest PA and Lateral IMPRESSION: NEGATIVE CHEST Reading Location: [id number]
[2024-10-23] MEDS: Ipratropium/Albuterol Sulfate 3 ML AMPUL.NEB INHALATION (18:02)
[2024-10-23 18:04] VITALS: RESP 16
== END 2024-10-23 20:42 | disposition home or self-care (01) ==
PROVIDERS: Emergency Provider Emergency Medicine; Visit Provider Emergency Medicine
DX: J10.1 Influenza due to other identified influenza virus with other respiratory manifestations (principal); F17.210 Nicotine dependence, cigarettes, uncomplicated
CPT/HCPCS: 71046; 87631; 94640; 99282